=== PATIENT | male | born 1960 | race Caucasian/White ===

== ENCOUNTER → 2022-12-27 | Outpatient (CLI) | payer OTHER, SELFPAY ==
[2022-12-27 15:49] LABS: PSA,Total- Diagnostic 7.47 ng/mL (0.0-4.0)
== END | disposition home or self-care (01) ==
LOC: LAB 13:51
PROVIDERS: Referring Provider Registered Nurse; Visit Provider Registered Nurse
DX: C61 Malignant neoplasm of prostate (principal)
CPT/HCPCS: 36415; 84153

== ENCOUNTER → 2023-01-30 | Outpatient (CLI) | payer OTHER, SELFPAY ==
[2023-01-30 09:49] LABS: Anion Gap 14 (5-15); BUN 106 mg/dL (7-18); BUN/Creat Ratio 26.1 RATIO (10-20); Calcium,Total 9.1 mg/dL (8.5-10.1); Chloride 105 mmol/L (98-107); Creatinine, Serum 4.06 mg/dL (0.70-1.30); EST Glomerular Filtration Rate 16 mL/min (>60); Est Glom Filt Rate - Afr Amer 19 mL/min (>60); Glucose 82 mg/dL (74-106); Potassium 4.2 mmol/L (3.5-5.1); Sodium Level 133 mmol/L (136-145)
== END | disposition home or self-care (01) ==
LOC: LAB 08:13
PROVIDERS: PCP Family Medicine; Referring Provider Internal Medicine Nephrology; Visit Provider Internal Medicine Nephrology
DX: N17.9 Acute kidney failure, unspecified (principal)
CPT/HCPCS: 36415; 80048

== ENCOUNTER → 2023-04-17 | Outpatient (CLI) | payer OTHER, SELFPAY | END | disposition home or self-care (01) | PROVIDERS: PCP Family Medicine; Referring Provider Registered Nurse; Visit Provider Registered Nurse | DX: C61 Malignant neoplasm of prostate (principal) | CPT/HCPCS: 36415; 84153 ==

== ENCOUNTER → 2023-04-29 | Outpatient (CLI) | payer OTHER, SELFPAY | END | disposition home or self-care (01) | LOC: LABSPEC 16:26 | PROVIDERS: PCP Family Medicine; Referring Provider Urology; Visit Provider Urology | DX: R31.0 Gross hematuria (principal) | CPT/HCPCS: 87077; 87086; 87088; 87186 ==

== ENCOUNTER → 2023-11-07 | Outpatient (CLI) | payer OTHER, SELFPAY ==
[2023-11-07 09:13] LABS: PSA,Total- Diagnostic 6.03 ng/mL (0.0-4.0)
== END | disposition home or self-care (01) ==
LOC: LAB 08:19
PROVIDERS: PCP Family Medicine; Referring Provider Urology; Visit Provider Urology
DX: C61 Malignant neoplasm of prostate (principal)
CPT/HCPCS: 36415; 84153

== ENCOUNTER → 2023-12-17 | Outpatient (CLI) | payer SELFPAY ==
--- NOTE | 2023-12-17 10:51 | VDUE_ITS ---
Reason For Study: End stage renal failure, pre-op Right Lower Arm Left Arm Proximal Radial artery diameter 2.3 x 2.4 Left Brachial artery diameter 5.2 x 4.6 mm. mm. Left Brachial artery waveform is triphasic . Proximal Radial artery waveform is Lateral Brachial vein diameter 4.3 x 4.4 mm. triphasic . Medial Brachial vein diameter 4.5 x 4.0 mm. Proximal Lateral Radial vein diameter 1.8 x Operating Room Manager Vein is present. 1.7 mm. Operating Room Manager Vein measures 2.6 mm. Proximal Medial Radial vein diameter 2.0 x Cephalic Vein at proximal upper arm measures 1.9 mm. 3.2 x 2.9 mm. Distal Radial artery diameter 1.9 x 1.7 mm. Cephalic vein at proximal upper arm depth Distal Lateral Radial vein diameter 1.2 x measures 5.7 mm. 1.3 mm. Cephalic Vein at mid upper arm measures 2.3 Distal Medial Radial vein diameter 1.3 x 1.3 x 2.5 mm. mm. Cephalic vein at mid upper arm depth Proximal Ulnar artery diameter 4.3 x 4.2 mm. measures 0.8 mm. Proximal Ulnar artery waveform is Cephalic Vein distal upper arm measures 2.6 triphasic . x 2.6 mm. Proximal Lateral Ulnar vein diameter 3.8 x Cephalic vein at distal upper arm depth 4.0 mm. measures 1.7 mm. Proximal Medial Ulnar vein diameter 3.8 x Cephalic Vein proximal forearm measures 2.9 3.9 mm. x 3.3 mm. Distal Ulnar artery diameter 1.7 x 1.7 mm. Cephalic Vein at mid forearm measures 2.9 x Distal Lateral Ulnar vein diameter 1.3 x 1.3 3.1 mm. mm. Cephalic Vein at distal forearm measures 2.1 Distal Medial Ulnar vein diameter 1.1 x 1.2 x 2.3 mm. mm. Proximal Basilic vein measures 4.5 x 4.8 mm. Right Arm Proximal Basilic vein depth measures 4.9 mm. Right Brachial artery diameter 4.2 x 4.7 mm. Mid Basilic vein measures 4.0 x 4.1 mm. Right Brachial artery waveform is Mid Basilic vein depth measures 3.1 mm. triphasic . Distal Basilic vein measures 2.6 x 2.9 mm. Lateral Brachial vein diameter 4.5 x 4.8 mm. Distal Basilic vein depth measures 2.0 mm. Medial Brachial vein diameter 4.8 x 4.2 mm. Left Lower Arm Operating Room Manager Vein is present. Proximal Radial artery diameter 2.2 x 2.0 Operating Room Manager Vein measures 1.2 mm. mm. Cephalic Vein at proximal upper arm measures Proximal Radial artery waveform is 2.2 x 2.4 mm. triphasic . Cephalic vein at proximal upper arm depth Proximal Lateral Radial vein diameter 1.9 x measures 6.2 mm. 1.7 mm. Cephalic vein at mid upper arm is tortuous Proximal Medial Radial vein diameter 2.2 x and small in diameter. 1.9 mm. Cephalic Vein distal upper arm measures 0.8 Distal Radial artery diameter 1.8 x 1.9 mm. x 0.8 mm. Distal Lateral Radial vein diameter 0.8 x Cephalic vein at distal upper arm depth 0.7 mm. measures 3.3 mm. Distal Medial Radial vein diameter 1.7 x 1.9 Cephalic Vein proximal forearm measures 1.0 mm. x 1.0 mm. Proximal Ulnar artery diameter 4.4 x 4.4 mm. Cephalic Vein at mid forearm measures 1.4 x Proximal Ulnar artery waveform is 1.4 mm. triphasic . Cephalic Vein at distal forearm measures 1.0 Proximal Lateral Ulnar vein diameter 4.1 x x 1.1 mm. 3.8 mm. Proximal Basilic vein measures 3.6 x 3.3 mm. Proximal Medial Ulnar vein diameter 4.4 x Proximal Basilic vein depth measures 11.8 4.9 mm. mm. Distal Ulnar artery diameter 1.6 x 1.6 mm. Mid Basilic vein measures 3.4 x 3.8 mm. Distal Lateral Ulnar vein diameter 1.2 x 1.4 Mid Basilic vein depth measures 4.9 mm. mm. Distal Basilic vein measures 3.5 x 4.0 mm. Distal Medial Ulnar vein diameter 1.6 x 1.8 Distal Basilic vein depth measures 2.3 mm. mm. VL/Dialysis Vein Map PRE-OP BILAT Interpretation Summary Patent and compressible bilateral upper extremity cephalic and basilic veins wi th dimensions as noted. Right forearm cephalic vein appears small Bilateral upper arm basilic veins are adequate Bilateral radial/ulner veins noted Bilateral radial and brachial arteries have normal diameter and flow Ordering Physician: Dick Shell Referring Physician: Sergio Burton Performed By: Qi Araujo RVT ???
== END | disposition home or self-care (01) ==
PROVIDERS: PCP Family Medicine; Referring Provider Family Medicine; Visit Provider Surgery
DX: Z01.818 Encounter for other preprocedural examination (principal); N18.6 End stage renal disease
CPT/HCPCS: 93985

== ENCOUNTER 2024-02-06 11:49 | Day surgery (SDC) | payer SELFPAY, OTHER ==
[2024-02-06] VITALS (8 sets, daily range): BP systolic 81–140; BP diastolic 57–94; PULSE 71–79; RESP 16; TEMP 36.1–36.9; O2SAT 95–100; BMI 28.8
--- NOTE | 2024-02-06 12:49 | PCM.HP.BLA ---
History and Physical Date of Admission: 02/06/24 Visit Reasons: FISTULA Chief Complaint: fistula Is patient in pain?: No Allergies acetaminophen [From Tylenol-Codeine #3] Allergy (Intermediate, Verified 01/21/24 14:30) Rashcodeine [From Tylenol-Codeine #3] Allergy (Intermediate, Verified 01/21/24 14:30) Rash Medications apixaban 2.5 mg tablet (Eliquis) 2.5 mg PO BID 01/21/24 [History Confirmed 01/21/24] insulin glargine 100 unit/mL (3 mL) subcutaneous pen (Basaglar KwikPen U-100 Insulin) 18 unit subcut BID 01/21/24 [History Confirmed 01/21/24] insulin lispro 100 unit/mL subcutaneous pen (Humalog KwikPen (U-100) Insulin) 8 unit subcut TID 01/21/24 [History Confirmed 01/21/24] metoprolol tartrate 25 mg tablet 25 mg PO BID 01/21/24 [History Confirmed 01/21/24] PFSH Medical History (Updated 01/21/24 @ 14:26 by Kirsten Coles) A-fib Diabetes End stage renal disease Pre-op testing Prostate cancer Surgical History (Updated 01/21/24 @ 14:25 by Kirsten Coles) History of open heart surgery Family History (Updated 01/21/24 @ 14:27 by Kirsten Coles) Mother Diabetes Kidney diseaseBrother DiabetesSister Diabetes Social History (Updated 01/21/24 @ 14:27 by Kirsten Coles) Smoking Status: Never smoker alcohol intake: never substance use type: does not use HPI HPI HPI: 63-year-old gentleman is being referred by Dr Araseli Lopez for surgical consultation regarding creation of arteriovenous hemodialysis fistula. A written copy my surgical consult and recommendations will be returned to him. The patient is currently on hemodialysis since early November via tunneled right IJ dialysis catheters. He is right arm dominant. He has had open heart surgery and valve replacement. He also apparently has had atrial fibrillation and for that is on Eliquis. Previous to that he was on low-dose aspirin for his valve. He has had diabetes for at least 15 years and is currently insulin-dependent. December 17, 2023 Reason For Study: End stage renal failure, pre-op Right Lower Arm Left Arm Proximal Radial artery diameter 2.3 x 2.4 Left Brachial artery diameter 5.2 x 4.6 mm. mm. Left Brachial artery waveform is triphasic . Proximal Radial artery waveform is Lateral Brachial vein diameter 4.3 x 4.4 mm. triphasic . Medial Brachial vein diameter 4.5 x 4.0 mm. Proximal Lateral Radial vein diameter 1.8 x Wax Pattern Coater Vein is present. 1.7 mm. Wax Pattern Coater Vein measures 2.6 mm. Proximal Medial Radial vein diameter 2.0 x Cephalic Vein at proximal upper arm measures 1.9 mm. 3.2 x 2.9 mm. Distal Radial artery diameter 1.9 x 1.7 mm. Cephalic vein at proximal upper arm depth Distal Lateral Radial vein diameter 1.2 x measures 5.7 mm. 1.3 mm. Cephalic Vein at mid upper arm measures 2.3 Distal Medial Radial vein diameter 1.3 x 1.3 x 2.5 mm. mm. Cephalic vein at mid upper arm depth Proximal Ulnar artery diameter 4.3 x 4.2 mm. measures 0.8 mm. Proximal Ulnar artery waveform is Cephalic Vein distal upper arm measures 2.6 triphasic . x 2.6 mm. Proximal Lateral Ulnar vein diameter 3.8 x Cephalic vein at distal upper arm depth 4.0 mm. measures 1.7 mm. Proximal Medial Ulnar vein diameter 3.8 x Cephalic Vein proximal forearm measures 2.9 3.9 mm. x 3.3 mm. Distal Ulnar artery diameter 1.7 x 1.7 mm. Cephalic Vein at mid forearm measures 2.9 x Distal Lateral Ulnar vein diameter 1.3 x 1.3 3.1 mm. mm. Cephalic Vein at distal forearm measures 2.1 Distal Medial Ulnar vein diameter 1.1 x 1.2 x 2.3 mm. mm. Proximal Basilic vein measures 4.5 x 4.8 mm. Right Arm Proximal Basilic vein depth measures 4.9 mm. Right Brachial artery diameter 4.2 x 4.7 mm. Mid Basilic vein measures 4.0 x 4.1 mm. Right Brachial artery waveform is Mid Basilic vein depth measures 3.1 mm. triphasic . Distal Basilic vein measures 2.6 x 2.9 mm. Lateral Brachial vein diameter 4.5 x 4.8 mm. Distal Basilic vein depth measures 2.0 mm. Medial Brachial vein diameter 4.8 x 4.2 mm. Left Lower Arm Wax Pattern Coater Vein is present. Proximal Radial artery diameter 2.2 x 2.0 Wax Pattern Coater Vein measures 1.2 mm. mm. Cephalic Vein at proximal upper arm measures Proximal Radial artery waveform is 2.2 x 2.4 mm. triphasic . Cephalic vein at proximal upper arm depth Proximal Lateral Radial vein diameter 1.9 x measures 6.2 mm. 1.7 mm. Cephalic vein at mid upper arm is tortuous Proximal Medial Radial vein diameter 2.2 x and small in diameter. 1.9 mm. Cephalic Vein distal upper arm measures 0.8 Distal Radial artery diameter 1.8 x 1.9 mm. x 0.8 mm. Distal Lateral Radial vein diameter 0.8 x Cephalic vein at distal upper arm depth 0.7 mm. measures 3.3 mm. Distal Medial Radial vein diameter 1.7 x 1.9 Cephalic Vein proximal forearm measures 1.0 mm. x 1.0 mm. Proximal Ulnar artery diameter 4.4 x 4.4 mm. Cephalic Vein at mid forearm measures 1.4 x Proximal Ulnar artery waveform is 1.4 mm. triphasic . Cephalic Vein at distal forearm measures 1.0 Proximal Lateral Ulnar vein diameter 4.1 x x 1.1 mm. 3.8 mm. Proximal Basilic vein measures 3.6 x 3.3 mm. Proximal Medial Ulnar vein diameter 4.4 x Proximal Basilic vein depth measures 11.8 4.9 mm. mm. Distal Ulnar artery diameter 1.6 x 1.6 mm. Mid Basilic vein measures 3.4 x 3.8 mm. Distal Lateral Ulnar vein diameter 1.2 x 1.4 Mid Basilic vein depth measures 4.9 mm. mm. Distal Basilic vein measures 3.5 x 4.0 mm. Distal Medial Ulnar vein diameter 1.6 x 1.8 Distal Basilic vein depth measures 2.3 mm. mm. VL/Dialysis Vein Map PRE-OP BILAT Interpretation Summary Patent and compressible bilateral upper extremity cephalic and basilic veins with dimensions as noted. Right forearm cephalic vein appears small Bilateral upper arm basilic veins are adequate Bilateral radial/ulner veins noted Bilateral radial and brachial arteries have normal diameter and flow Ordering Physician: Dick Shell Referring Physician: Sergio Burton Performed By: Qi Araujo RVT General General: No weight change, appetite, fatigue, colon cancer, breast cancer or weakness HEENT HEENT: No difficulty swallowing, eye injury, eye surgery, swollen glands or hoarseness Endo Endocrine: Yes diabetes mellitus; No thyroid disease, thyroid cancer, Hair loss, heat intolerance or cold intolerance Skin Skin: No rash or changing moles Musc Musculoskeletal: Yes back problems; No arthritis, rheumatoid arthritis, gout or joint pain Cardio Cardiovascular: Yes atrial fibrillation; No murmur, pacemaker, heart disease, high blood pressure, heart attack, heart stent, palpitations, shortness of breat with exertion or chest pain Psych Psychiatric: No depression, anxiety or hearing voices Resp Respiratory: Yes shortness of breath, No sleep apnea, No cough, No COPD, No asthma, No emphysema and No wheezing Gastro Gastrointestinal: No abdominal pain, No nausea or vomiting, No diarrhea, No constipation, No blood in stool, No acid reflux, No hemorrhoids, No ulcers, No gallbladder problem and No black,tarry stools [place]nn Hematologic: Yes blood thinners, No blood disorders, No bleeding, Yes anemia and No blood clots Neuro Neurologic: No system reviewed and no additional complaints, except as documented, No as per HPI, No abnormal gait, No abnormal hearing, No abnormal movements, No abnormal speech, No behavioral changes, No burning sensations, No confusion, No convulsions, No disequilibrium, No dizziness, No localized weakness, No frequent falls, No headache(s), No lack of coordination, No loss of vision, No memory loss, No numbness, No other visual disturbances, No radicular pain, No restless legs, No sensory deficit, No syncope, No tingling, No tremor(s), No weakness and No other Exam Const General: cooperative, comfortable and no acute distress Nutritional Appearance: average body habitus Other: Appears older than stated age [facility] Head: normal to inspection Eyes General: appearance normal, both eyes and all related structures Chest Other: Thoracic kyphosis noted. Clear to auscultation Well-healed median sternotomy incision Resp Effort & Inspection: normal respiratory effort Auscultation: clear to auscultation bilaterally Cardio Rate: regular rate Other: Audible cardiac click GI Palpation: soft and no hepatosplenomegaly Musc Other: Kyphosis Skin Other: No upper extremity rashes Neuro General: patient alert, patient awake and patient oriented x3 Extrem Other: Left forearm has a palpable and visible cephalic vein that distends with compression. It traces to the antecubital space. In the forearm there are several at least 3 side branches. Left radial arteries palpable at 2+. Regulo test demonstrates some ulnar filling but the majority appears to be through the radial artery. Assessment and Plan Assessment and Plan (1) End stage renal disease: Status: Acute Plan 63-year-old gentleman with end-stage renal disease on chronic hemodialysis via right IJ tunneled dialysis catheters. He is right arm dominant. Based upon vein mapping he appears to be having adequate forearm left cephalic vein flow. I propose for him a left forearm radiocephalic arteriovenous hemodialysis fistula creation. He has several visible sidebranches of the forearm which anticipate hopefully being able to do a mini ligation of those areas at that time. I have discussed with him the technique, benefit, risk, alternatives. No guarantees of success have been offered. We will have him hold his Eliquis for 2 days preprocedure as it is being given for atrial fibrillation. I anticipate being able to proceed with this under monitored anesthesia care and local anesthetic. We will schedule and proceed at his discretion. I appreciate the opportunity of assisting with the surgical care. Copy: Dr. Sergio Burton and Dr Araseli Shell M.D., F.A.C.S I have examined the patient and the H&P has been reviewed. There are no clinical changes since date of exam. Dick Shell M.D., F.A.C.S.
--- NOTE | 2024-02-06 12:50 | DCINST_ITS ---
Discharge Instructions Procedure Fistula Diet Discharge Diet: Renal Diet Activity Discharge Activity: May Not Drive (for 2-3 days or while taking narcotic pain medications.), May Shower and May Take a Tub Bath (in 5 days.) Lifting Restrictions: 5 pounds Keep extremity elevated above heart level: - (Keep arm elevated above the heart level for 3 days.) Dressing / Incision Call your doctor if your incision/area has: Continuous Slow Oozing, Sudden Increased Bleeding (apply pressure and call your doctor.), Increased Pain/ Swelling, Increased Redness and Foul Smelling Discharge Call your doctor if you observe: Fever of 101 or Higher Suture Line Care: Avoid Pulling/Pushing and Avoid Pinching/Bending Cleanse incision/area with: Keep Dressing Clean & Dry Additional Dressing/Incision Instructions:: Change or remove dressing in one day. May protect with a gauze bandaid. You may exercise your left hand with a stress ball to encourage Maturalization of the fistula You may resume your Eliquis on Friday, February 09, 2024 if you have not had any problems with the incision at that time Follow Up Care Please Follow Up With: Dick Shell MD When: Call [phone] to make an appointment for follow up in 1 week. Test Results: Test results from this visit will be discussed in further detail at your follow- up appointment, if applicable. Discharge Plan Admission Primary Reason for Your Visit: Creation of arteriovenous hemodialysis fistula Attending Provider: Dick Shell Primary Care Provider: Sergio Burton Discharge Orders/Prescriptions Prescriptions: New tramadol 50 mg tablet 50 mg PO Q8H PRN (Reason: pain) Qty: 5 0RF Continued Eliquis 2.5 mg tablet 2.5 mg PO BID Patient Comments: STOP 2 DAYS PRIOR TO PROCEDURE insulin glargine [Basaglar KwikPen U-100 Insulin] 100 unit/mL (3 mL) insulin pen 18 unit subcut BID insulin lispro [Humalog KwikPen Insulin] 100 unit/mL insulin pen 8 unit subcut TID metoprolol tartrate 25 mg tablet 25 mg PO BID nebivolol [Bystolic] .ROUTE Referrals / Follow Up: Sergio Burton DO [Primary Care Provider] - Disposition Disposition (needs filled in before D/C Order can be placed): Home, Self Care
[2024-02-06] MEDS: 0.9% Normal Saline (500mL Bag) 500 ML 15 ML IV (13:05)
[2024-02-06] MEDS: Cefazolin 2 GM in 0.9% Normal Saline (100mL Bag) 100 ML IV (13:32)
[2024-02-06] MEDS: Bupivacaine Mpf 0.5% 30 ML VIAL (13:55)
[2024-02-06] MEDS: Heparin Injection (Vial) 5,000 UNIT/ML VIAL 5000 UNIT (13:55)
[2024-02-06] MEDS: Lidocaine 1% (30 ml sdv) 30 ML Vial (13:55)
[2024-02-06 14:16] LABS: Bedside Glucose 150 mg/dL (74-106)
--- NOTE | 2024-02-06 14:58 | PCM.OPRPT ---
Report of Operation Date of Procedure: 02/06/24 Pre-Operative Diagnosis: Chronic renal failure in need of hemodialysis Post-Operative Diagnosis: Same Surgery/Procedure Performed:: Left forearm radiocephalic arteriovenous hemodialysis fistula creation Description of Surgical Findings:: Timeout informed consent was obtained. 63-year-old gentleman was taken to the operating placed upon the table underwent monitored anesthesia care. 1% lidocaine mixed 50-50 was 0.5% Marcaine was used as a local anesthetic. 10 cc was used. The left upper extremity was sterilely prepped and draped. Local was instilled an oblique incision was made along the radial aspect of the left wrist. The cephalic vein had been mapped out. Sharp and blunt dissection is identified the cephalic vein. There were multiple small sidebranches were sure were secured with hemoclips. Adequate portion was mobilized. Then sharp and blunt dissection was used to identify the radial artery. Unfortunate the artery was rather calcified. Patient received 7000 units of heparin IV. The vein was ligated distally with a Hemoclip vein was then irrigated easily it was spatulated. Peripheral vascular clamps were placed on the radial artery and 11 blade was used to make arteriotomy which was extended with Joyce scissors. A venous and 2 side arterial anastomosis created with a running 7-0 Prolene. Prior to completion I used Bony dilators. A 1-1/2 mm Bony dilator would easily pass proximally in the radial artery. A 2 mm dilator were passed in the distal radial artery but then there was an area of calcification approximately 7 cm more proximal or I did not want to portion disrupt the artery. No further clamps were placed after care at dilating simply use soft Vesseloops. The anastomosis was completed. Hemostasis was intact. There appeared to be good flow within the vein and a good positional lie. Doppler signal demonstrated good flow. I then identified there was a major sidebranch more proximally in the forearm and instilled local there made a transverse incision and I ligated that sidebranch with a Hemoclip. I reinspected the major venous flow of the cephalic vein and it was intact. The primary wound was closed with deep sutures of interrupted 3-0 Vicryl and then running subicular 4-0 Monocryl. The extent additional ligation site was closed with interrupted 4-0 Monocryl. Cavilon Steri-Strips Telfa tape dressing applied followed by gentle 4 x 4 and soft roll and Hector wrap with the forearm. The patient did receive 20 mg of protamine as reversal agent as well. The hand appear to be viable at the completion of the procedure and there was actually quite a strong Doppler ulnar signal. He was taken to the recovery room in satisfied condition no apparent complication Specimen none. Drains none. Blood loss minimal Dick Shell M.D., F.A.C.S. Surgeon: Dick Shell Type of Anesthesia: Local MAC Anesthesiologist: Anitra Mauro
== END 2024-02-06 16:45 | disposition home or self-care (01) ==
LOC: SDC 11:54 → AC 12:17
PROVIDERS: PCP Family Medicine; Referring Provider Family Medicine; Visit Provider Surgery
PROC: (CPT 36818; principal; 2024-02-06 14:05)
DX: Z49.01 Encounter for fitting and adjustment of extracorporeal dialysis catheter (principal); N18.6 End stage renal disease; I12.0 Hypertensive chronic kidney disease with stage 5 chronic kidney disease or end stage renal disease; I48.91 Unspecified atrial fibrillation; E11.22 Type 2 diabetes mellitus with diabetic chronic kidney disease; Z79.4 Long term (current) use of insulin; Z79.01 Long term (current) use of anticoagulants; Z79.899 Other long term (current) drug therapy
CPT/HCPCS: 36818; 01844; 82962; A4648; J7040

== ENCOUNTER → 2024-02-25 | Outpatient (CLI) | payer OTHER, SELFPAY ==
[2024-02-25 10:52] LABS: Absolute Lymphocyte Count 1.76 X10^3/uL (0.83-4.51); Absolute Neutrophil Count 5.8 X10^3/uL (2.0-7.7); Basophil# 0.06 X10^3/uL; Basophil% 0.7 % (0-1); Eosinophil# 0.26 X10^3/uL; Eosinophils% 2.9 % (0-5); Hematocrit 33.7 % (40-54); Lymphocyte # 1.76 X10^3/ul (0.83-4.51); Lymphocyte % 19.6 % (19-41); Mean Corp Hgb Conc 32.6 g/dL (32-36); Mean Corpuscular Hgb 28.6 pg (27.0-32.0); Mean Corpuscular Volume 87.8 fL (80-94); Mean Platelet Vol. 9.5 fl (6.2-12.0); Monocyte# 1.04 X10^3/uL; Monocyte% 11.6 % (0-10); NRBC Flagged by Analyzer 0 % (0-5); Neutrophil # 5.82 X10^3/uL (2.7-7.7); Neutrophil % 64.8 % (47-70); Platelet Count 336 K/mm3 (150-450); RBC Distribution Width CV 14.5 % (11.6-14.6); RBC Distribution Width SD 45.1 fl (35.1-43.9); Red Blood Count 3.84 M/mm3 (4.6-6.2)
[2024-02-25 11:31] LABS: Anion Gap 14 (5-15); BUN 82 mg/dL (7-18); Calcium,Total 8.1 mg/dL (8.5-10.1); Chloride 96 mmol/L (98-107); Creatinine, Serum 6.32 mg/dL (0.70-1.30); EST Glomerular Filtration Rate 10 mL/min (>60); Est Glom Filt Rate - Afr Amer 12 mL/min (>60); Glucose 109 mg/dL (74-106); Potassium 3.3 mmol/L (3.5-5.1); Sodium Level 136 mmol/L (136-145)
== END | disposition home or self-care (01) ==
LOC: PAVLAB 10:12
PROVIDERS: PCP Family Medicine; Referring Provider Physician Assistant; Visit Provider Physician Assistant
DX: T82.898A Other specified complication of vascular prosthetic devices, implants and grafts, initial encounter (principal); X58.XXXA Exposure to other specified factors, initial encounter
CPT/HCPCS: 36415; 80048; 85025

== ENCOUNTER 2024-02-26 07:24 | Day surgery (SDC) | payer OTHER, SELFPAY ==
[2024-02-25 13:40] VITALS: BMI 29.0
--- NOTE | 2024-02-26 07:55 | PCM.HP.BLA ---
History and Physical Date of Admission: 02/26/24 Chief Complaint: 3 week fistula check Allergies acetaminophen [From Tylenol-Codeine #3] Allergy (Intermediate, Verified 02/25/24 09:01) Rashcodeine [From Tylenol-Codeine #3] Allergy (Intermediate, Verified 02/25/24 09:01) Rash Medications apixaban 2.5 mg tablet (Eliquis) 2.5 mg PO BID 01/21/24 [History Confirmed 02/25/24] insulin glargine 100 unit/mL (3 mL) subcutaneous pen (Basaglar KwikPen U-100 Insulin) 18 unit subcut BID 01/21/24 [History Confirmed 02/25/24] insulin lispro 100 unit/mL subcutaneous pen (Humalog KwikPen (U-100) Insulin) 8 unit subcut TID 01/21/24 [History Confirmed 02/25/24] metoprolol tartrate 25 mg tablet 25 mg PO BID 01/21/24 [History Confirmed 02/25/24] nebivolol .Route 01/28/24 [History Confirmed 02/25/24] tramadol 50 mg tablet 50 mg PO Q8H PRN pain #5 tabs 02/06/24 [Rx Confirmed 02/25/24] PFSH Medical History (Updated 02/25/24 @ 13:10 by Marii SAPP PATerrence) A-fib [facility] Cardiology follow-up encounter Diabetes End stage renal disease Former smoker History of echocardiogram History of renal dialysis History of renal disease History of stress test Hypertension Injury of back Insulin dependent diabetes mellitus Pre-op testing Prostate cancer Redness of skin Shortness of breath on exertion Wears dentures Wears glasses Wears hearing aid Surgical History History of cardiac catheterization History of open heart surgery Hx of surgical procedure Hx of surgical procedure Hx of tonsillectomy Family History (Updated 01/21/24 @ 14:27 by Kirsten Coles) Mother Diabetes Kidney diseaseBrother DiabetesSister Diabetes Social History (Updated 01/21/24 @ 14:27 by Kirsten Coles) Smoking Status: Never smoker alcohol intake: never substance use type: does not use HPI HPI HPI: Patient is a 63 y/o M I am following s/p left forearm radiocephalic arteriovenous hemodialysis fistula creation by Dr. Shell on 02/06/24. Patient tolerated the procedure well. Patient denies any pain/discomfort at the fistula site. He denies any numbness/tingling at the hand or fingertips. He is currently on dialysis via chest catheter. Dr. Garcia is his spinner hydraulic. Patient returns for his 2nd post-operative visit. Patient states he is performing hand exercises with his stress ball, which he has brought along. He notes comparing his fistula with others at dialysis and noticing that his fistula is just not as large. He notes he is unable to feel the fistula. He denies any concerns with his chest catheters. He has never had any intervention on his fistula previously. ROS General General: No weight change, appetite, fatigue, colon cancer, breast cancer or weakness HEENT HEENT: No difficulty swallowing, eye injury, eye surgery, swollen glands or hoarseness Endo Endocrine: Yes diabetes mellitus; No thyroid disease, thyroid cancer, Hair loss, heat intolerance or cold intolerance Skin Skin: No rash or changing moles Musc Musculoskeletal: Yes back problems; No arthritis, rheumatoid arthritis, gout or joint pain Cardio Cardiovascular: Yes atrial fibrillation; No murmur, pacemaker, heart disease, high blood pressure, heart attack, heart stent, palpitations, shortness of breat with exertion or chest pain Psych Psychiatric: No depression, anxiety or hearing voices Resp Respiratory: Yes shortness of breath, No sleep apnea, No cough, No COPD, No asthma, No emphysema and No wheezing Gastro Gastrointestinal: No abdominal pain, No nausea or vomiting, No diarrhea, No constipation, No blood in stool, No acid reflux, No hemorrhoids, No ulcers, No gallbladder problem and No black,tarry stools Glynn Hematologic: Yes blood thinners, No blood disorders, No bleeding, Yes anemia and No blood clots Neuro Neurologic: No system reviewed and no additional complaints, except as documented, No as per HPI, No abnormal gait, No abnormal hearing, No abnormal movements, No abnormal speech, No behavioral changes, No burning sensations, No confusion, No convulsions, No disequilibrium, No dizziness, No localized weakness, No frequent falls, No headache(s), No lack of coordination, No loss of vision, No memory loss, No numbness, No other visual disturbances, No radicular pain, No restless legs, No sensory deficit, No syncope, No tingling, No tremor(s), No weakness and No other Exam Const General: cooperative, healthy appearing, comfortable and no acute distress [facility] Head: normal to inspection Eyes General: appearance normal, both eyes and all related structures Neck Neck: normal visual inspection Neck mass: No Resp Effort & Inspection: normal respiratory effort Auscultation: clear to auscultation bilaterally Cardio Rate: regular rate Rhythm: regular rhythm GI Inspection: normal to inspection Palpation: soft Auscultation: normal bowel sounds Musc Cervical Spine: normal cervical lordosis Skin General: no rashes or lesions noted Neuro General: no focal motor deficits and CN's II-XI intact bilaterally Extrem General: normal to inspection Other: Left forearm AV fistula- good pulse, no thrill and very faint bruit. Psych Appearance: grossly normal Affect: normal affect Assessment and Plan Assessment and Plan (1) Problem with dialysis access: Status: Acute Qualifiers: Encounter type: initial encounter Qualified Code(s): T82.898A - Other specified complication of vascular prosthetic devices, implants and grafts, initial encounter Plan: Dr. Shell has also evaluated this patient. Dr. Shell will plan to perform an urgent left forearm fistulogram with possible intervention. Procedure details, risks and benefits have been explained. Patient has dialysis tomorrow, however we will attempt to notify the dialysis center that we have his fistulogram scheduled urgently tomorrow. He will obtain lab work today. Patient has had the opportunity to ask and have questions answered. Patient verbally understands and agrees with the plan. He is on Eliquis, which the patient may continue for the procedure. I have examined the patient and the H&P has been reviewed. There are no clinical changes since date of exam. Dick Shell M.D., F.A.C.S.
--- NOTE | 2024-02-26 09:57 | OP.PCM_ITS ---
Report of Operation Date of Procedure: 02/26/24 Pre-Operative Diagnosis: Failure to mature left forearm radiocephalic arteriove nous hemodialysis fistula Post-Operative Diagnosis: Mild venous arterial anastomotic stenosis, moderate proximal fistula stenosis, high-grade central venous outflow stenosis Surgery/Procedure Performed:: Left upper extremity fistulogram with 2.5 x 08 emerge arterial anastomotic angioplasty, proximal fistula 5 x 80 mm EverCross balloon maturation angioplasty, central venous outflow 10 x 2 Cleveland angioplasty and 12 x 4 Massillon stent angioplasty Description of Surgical Findings:: Timeout informed consent was obtained. 63-year-old gentleman was taken to special procedures lab placed upon the table. The left upper extremity was sterilely prepped and draped. 50 mcg of fentanyl 1 mg Versed were given as intravenous sedation. 2% lidocaine was used as a local anesthetic. Throughout the procedure a total of 15 cc was used. Local was instilled at the wrist area to try to get a micropuncture to go retrograde with flow could not achieve that then used a simple suture of 4-0 nylon to help secure that spot. I progressed more proximally in the forearm and then used ultrasound and local anesthetic to gain retrograde access to the fistula at that spot. Micropuncture needle micropuncture wire 6 Guyanese short sheath dilator. Then used a 035 angled Glidewire and a 4 Guyanese glide cath was able to get into the radial artery or proximal to the anastomosis. Using Isovue contrast a fistulogram was obtained. This demonstrated the artery was very calcific and diminutive. There appeared to be just some slight stenosis at the arterial anastomosis. I then exchanged out for a 014 stabilizer wire and placed a 2.5 x 08 emergency balloon and performed balloon angioplasty for 2 minutes. Follow-up imaging suggested improvement. Then placed to 035 Glidewire back in and performed a 5 x 80 mm EverCross balloon maturation angioplasty of the proximal portion of the fistula at the swings segment and then slightly more proximally in the forearm. That was brought up to maximum insufflation and held for 2 minutes. Imaging then demonstrated improvement. I then finished a fistulogram of the upper extremity that appeared to be hang up of contrast centrally. So then in the forearm using ultrasound again in 2% local got micropuncture needle access to the cephalic vein and placed initially a 6 Guyanese sheath placed a Glidewire and a 5 Guyanese glide cath and it was apparent that the axillary vein jugular vein subclavian vein junction there was stenosis. I initially placed a 10 x 2 Cleveland balloon and performed balloon angioplasty but this was insufficient so then up sheath to a 7 Guyanese sheath and performed a 12 x 4 Massillon balloon angioplasty. There appeared to be improvement so I completed the procedure. Sheaths were removed few sutures of 4-0 nylon was placed. He tolerated the procedure well no apparent complication blood loss was minimal. He was taken to the recovery area in satisfactory condition. Imagings demonstrate a left forearm radiocephalic arteriovenous hemodialysis fistula. There was mild arterial anastomotic stenosis which appeared to be improved subsequent to the 2.5 mm diameter angioplasty. There was moderate stenosis of the proximal portion of the fistula in the distal forearm which was improved after the balloon maturation angioplasty with the 5 x 80 mm EverCross balloon. The upper arm outflow majorities through the basilic vein. The upper arm cephalic vein was rather diminutive. Central venously at the junction of the axillary jugular and subclavian veins there appeared to be stenosis present which was improved with the Cleveland and subsequent Massillon angioplasty but seemingly not completely resolved. Clinically however the patient appeared to be improved. Ongoing clinical follow-up and management is planned. Total contrast used was 41 cc Dick Shell M.D., F.A.C.S. Surgeon: Dick Shell Type of Anesthesia: IV Sedation and Local
== END 2024-02-26 11:00 | disposition home or self-care (01) ==
LOC: CLSP 07:28
PROVIDERS: PCP Family Medicine; Referring Provider Surgery; Visit Provider Surgery
DX: T82.856A Stenosis of peripheral vascular stent, initial encounter (principal); N18.6 End stage renal disease; I12.0 Hypertensive chronic kidney disease with stage 5 chronic kidney disease or end stage renal disease; I48.91 Unspecified atrial fibrillation; E11.59 Type 2 diabetes mellitus with other circulatory complications; Z79.4 Long term (current) use of insulin; E11.22 Type 2 diabetes mellitus with diabetic chronic kidney disease; T82.898A Other specified complication of vascular prosthetic devices, implants and grafts, initial encounter; I87.2 Venous insufficiency (chronic) (peripheral); Z99.2 Dependence on renal dialysis; Z79.01 Long term (current) use of anticoagulants; Z79.899 Other long term (current) drug therapy; I87.1 Compression of vein; Y71.8 Miscellaneous cardiovascular devices associated with adverse incidents, not elsewhere classified
CPT/HCPCS: 36902; 36907; 76937; 99152; 99153; Q9967; C1725; C1769; C1887; C1894

== ENCOUNTER 2024-04-02 05:33 | Day surgery (SDC) | payer OTHER, SELFPAY ==
[2024-04-02] VITALS (7 sets, daily range): BP systolic 101–143; BP diastolic 67–84; PULSE 80–98; RESP 16; TEMP 36.4–36.7; O2SAT 95–100; BMI 29.5
[2024-04-02] MEDS: 0.9% Normal Saline (1000mL) 1,000 ML 15 ML IV (06:30)
--- NOTE | 2024-04-02 06:43 | PCM.HP.BLA ---
History and Physical Date of Admission: 04/02/24 ADDENDUM by REUBEN Zavala on 03/04/24 at 0747 Intake Chief Complaint: 1 wk f/u fistula Allergies acetaminophen [From Tylenol-Codeine #3] Allergy (Intermediate, Verified 03/03/24 13:41) Rashcodeine [From Tylenol-Codeine #3] Allergy (Intermediate, Verified 03/03/24 13:41) Rash Medications apixaban 2.5 mg tablet (Eliquis) 2.5 mg PO BID 01/21/24 [History Confirmed 03/03/24] insulin glargine 100 unit/mL (3 mL) subcutaneous pen (Basaglar KwikPen U-100 Insulin) 18 unit subcut BID 01/21/24 [History Confirmed 03/03/24] insulin lispro 100 unit/mL subcutaneous pen (Humalog KwikPen (U-100) Insulin) 8 unit subcut TID 01/21/24 [History Confirmed 03/03/24] metoprolol tartrate 25 mg tablet 25 mg PO BID 01/21/24 [History Confirmed 03/03/24] nebivolol .Route 01/28/24 [History Confirmed 03/03/24] tramadol 50 mg tablet 50 mg PO Q8H PRN pain #5 tabs 02/06/24 [Rx Confirmed 03/03/24] Assessment and Plan Assessment and Plan (1) Problem with dialysis access: Status: Acute Qualifiers: Encounter type: initial encounter Qualified Code(s): T82.898A - Other specified complication of vascular prosthetic devices, implants and grafts, initial encounter Plan: Exam Const General: cooperative, healthy appearing, comfortable and no acute distress [facility] Head: normal to inspection Eyes General: appearance normal, both eyes and all related structures Neck Neck: normal visual inspection Neck mass: No Resp Effort & Inspection: normal respiratory effort Auscultation: clear to auscultation bilaterally Cardio Rate: regular rate Rhythm: regular rhythm GI Inspection: normal to inspection Palpation: soft Auscultation: normal bowel sounds Musc Cervical Spine: normal cervical lordosis Skin General: no rashes or lesions noted Neuro General: no focal motor deficits and CN's II-XI intact bilaterally Extrem General: normal to inspection Other: Left forearm AV fistula- good pulse, no thrill and very faint bruit. Dr. Shell also evaluated this patient. Fistula was examined under ultrasound. There was noted to be thrombosis of the vein within the cephalic vein superior to the AC region. Patient's right upper extremity is noted to have diminutive veins as well with no sites to place a fistula using the patient's own veins. Psych Appearance: grossly normal Affect: normal affect Patient's left forearm arteriovenous fistula has failed due to a thrombosis of the superior cephalic vein of unknown etiology as patient is currently on Eliquis. Patient continue to be dialyzed via right chest catheter on Saturday, Saturday and Saturday at [place]. Dr. Shell recommended a right upper extremity brachial to basilic arteriovenous fistula creation with graft placement. Procedure details, risks and benefits have been explained to the patient and his spouse. Patient would like to discuss his options with Dr. Garcia at next dialysis treatment. We have tentatively given the patient a date and surgical preparation. Patient will contact our office to relay how he would like to proceed. Patient's information will also be sent to our Financial liaison, [place], to assist with package pricing for the procedure. Patient is on Eliquis, which he will need to hold 2 days prior to the procedure. We will also start the patient on an 81 mg aspirin daily. Patient will continue this medication for the procedure. Patient and his spouse have had the opportunity to ask and have questions answered. Patient verbally understands and agrees with the plan. 03/04/24 0747 <Electronically signed by Marii SAPP PA-C> Date Marii Zavala PA-C cc: Dr. Araseli Lopez MD; Dr. 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 Accompanied by: Is patient in pain?: No Allergies acetaminophen [From Tylenol-Codeine #3] Allergy (Intermediate, Verified 03/03/24 13:41) Rashcodeine [From Tylenol-Codeine #3] Allergy (Intermediate, Verified 03/03/24 13:41) Rash Medications apixaban 2.5 mg tablet (Eliquis) 2.5 mg PO BID 01/21/24 [History Confirmed 03/03/24] insulin glargine 100 unit/mL (3 mL) subcutaneous pen (Basaglar KwikPen U-100 Insulin) 18 unit subcut BID 01/21/24 [History Confirmed 03/03/24] insulin lispro 100 unit/mL subcutaneous pen (Humalog KwikPen (U-100) Insulin) 8 unit subcut TID 01/21/24 [History Confirmed 03/03/24] metoprolol tartrate 25 mg tablet 25 mg PO BID 01/21/24 [History Confirmed 03/03/24] nebivolol .Route 01/28/24 [History Confirmed 03/03/24] tramadol 50 mg tablet 50 mg PO Q8H PRN pain #5 tabs 02/06/24 [Rx Confirmed 03/03/24] PFSH Medical History (Updated 02/25/24 @ 13:10 by Marii SAPP PAAkshatC) A-fib [facility] Cardiology follow-up encounter Diabetes End stage renal disease Former smoker History of echocardiogram History of renal dialysis History of renal disease History of stress test Hypertension Injury of back Insulin dependent diabetes mellitus Pre-op testing Prostate cancer Redness of skin Shortness of breath on exertion Wears dentures Wears glasses Wears hearing aid Surgical History History of cardiac catheterization History of open heart surgery Hx of surgical procedure Hx of surgical procedure Hx of tonsillectomy Family History (Updated 01/21/24 @ 14:27 by Kirsten Coles) Mother Diabetes Kidney diseaseBrother DiabetesSister Diabetes Social History (Updated 01/21/24 @ 14:27 by Kirsten Coles) Smoking Status: Never smoker alcohol intake: never substance use type: does not use HPI HPI HPI: 63-year-old gentleman. He had failure to mature left forearm radiocephalic hemodialysis fistula and so wanted February 26, 2024 I performed a left upper extremity fistulogram. I treated the calcific radial artery and anastomosis with a 2.5 mm emerge angioplasty and then the proximal fistula did a balloon maturation angioplasty with a 5 x 80 mm EverCross and then central venous outflow was treated with a 10 x 2 [place] and then subsequently a 12 x 4 [place] balloon angioplasty. He returns now for follow-up. Please note that the operative note says stent but that is incorrect there was no stent placed. His original fistula was created on February 06, 2024. It was noted that his radial artery was diffusely stenotic and calcific. ROS General General: No weight change, appetite, fatigue, colon cancer, breast cancer or weakness HEENT HEENT: No difficulty swallowing, eye injury, eye surgery, swollen glands or hoarseness Endo Endocrine: Yes diabetes mellitus; No thyroid disease, thyroid cancer, Hair loss, heat intolerance or cold intolerance Skin Skin: No rash or changing moles Musc Musculoskeletal: Yes back problems; No arthritis, rheumatoid arthritis, gout or joint pain Cardio Cardiovascular: Yes atrial fibrillation; No murmur, pacemaker, heart disease, high blood pressure, heart attack, heart stent, palpitations, shortness of breat with exertion or chest pain Psych Psychiatric: No depression, anxiety or hearing voices Resp Respiratory: Yes shortness of breath, No sleep apnea, No cough, No COPD, No asthma, No emphysema and No wheezing Gastro Gastrointestinal: No abdominal pain, No nausea or vomiting, No diarrhea, No constipation, No blood in stool, No acid reflux, No hemorrhoids, No ulcers, No gallbladder problem and No black,tarry stools Glynn Hematologic: Yes blood thinners, No blood disorders, No bleeding, Yes anemia and No blood clots Neuro Neurologic: No system reviewed and no additional complaints, except as documented, No as per HPI, No abnormal gait, No abnormal hearing, No abnormal movements, No abnormal speech, No behavioral changes, No burning sensations, No confusion, No convulsions, No disequilibrium, No dizziness, No localized weakness, No frequent falls, No headache(s), No lack of coordination, No loss of vision, No memory loss, No numbness, No other visual disturbances, No radicular pain, No restless legs, No sensory deficit, No syncope, No tingling, No tremor(s), No weakness and No other Assessment and Plan Assessment and Plan (1) Problem with dialysis access: Status: Acute Qualifiers: Encounter type: initial encounter Qualified Code(s): T84.356K - Other specified complication of vascular prosthetic devices, implants and grafts, initial encounter Plan: The patient missed this time slot and presented to the office later in the day and was primarily seen by Marii Zavala PA-C. I did present and reevaluated his left forearm radiocephalic fistula. Unfortunate appears that he has upper arm basilic vein outflow thrombosis. Etiology to this is not clear. The patient then goes on to state that he was having clotting troubles during his dialysis despite being on Eliquis therapy. Since they initiated heparinization he has not had difficulties. I do not see an uncomplicated means of resolving the left upper extremity problem. We inspected the right upper extremity and at this point feel that a brachial to basilic AV graft would be reasonable although I have not provided the patient with any guarantees of success. Copy: Dr. Sergio Burton and Dr Araseli Shell M.D., F.A.C.S. Plan for a right upper extremity brachial to basilic arteriovenous hemodialysis graft creation. 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 We will proceed as noted. The patient is looking for a guarantee that the graft will work where is the fistula thrombosed. He is now on low-dose aspirin and states that his dialysis through his catheters is working better. He is aware that unfortunately cannot guarantee that the graft will not clot but that technically we will do our best. Dick Shell M.D., F.A.C.S.
--- NOTE | 2024-04-02 06:44 | EX.PCM.DISCH ---
Discharge Instructions Procedure Fistula Diet Discharge Diet: Renal Diet Activity Lifting Restrictions: 5 pounds Keep extremity elevated above heart level: - (Keep arm elevated above the heart level for 3 days.) Dressing / Incision Call your doctor if your incision/area has: Continuous Slow Oozing, Sudden Increased Bleeding (apply pressure and call your doctor.), Increased Pain/ Swelling, Increased Redness and Foul Smelling Discharge Call your doctor if you observe: Fever of 101 or Higher Suture Line Care: Avoid Pulling/Pushing and Avoid Pinching/Bending Cleanse incision/area with: Keep Dressing Clean & Dry Additional Dressing/Incision Instructions:: Elevate your right arm for comfort. Please leave the elastic wrap in place for 2 to 3 days. Keep the area clean and dry. After approximately 3 days she may remove the elastic wrap and the soft gauze. Continue to keep the incision clean and dry. Notify us if there is any drainage. Follow Up Care Please Follow Up With: Dick Shell MD When: Call [phone] to make an appointment for follow up in 1 week. Test Results: Test results from this visit will be discussed in further detail at your follow-up appointment, if applicable. Discharge Plan Admission Attending Provider: Dick Shell Primary Care Provider: Sergio Burton Instructions Print Language: Bhutanese Discharge Orders/Prescriptions Prescriptions: No Action Eliquis 2.5 mg tablet 2.5 mg PO BID Patient Comments: STOP 2 DAYS PRIOR TO PROCEDURE insulin glargine [Basaglar KwikPen U-100 Insulin] 100 unit/mL (3 mL) insulin pen 18 unit subcut BID insulin lispro [Humalog KwikPen Insulin] 100 unit/mL insulin pen 8 unit subcut TID metoprolol tartrate 25 mg tablet 25 mg PO BID nebivolol [Bystolic] 10 mg PO DAILY tramadol 50 mg tablet 50 mg PO Q8H PRN (Reason: pain) Qty: 5 0RF Referrals / Follow Up: Sergio Burton DO [Primary Care Provider] - Disposition Disposition (needs filled in before D/C Order can be placed): Home, Self Care
[2024-04-02 06:48] LABS: Bedside Glucose 81 mg/dL (74-106)
[2024-04-02] MEDS: Cefazolin 2 GM in 0.9% Normal Saline (100mL Bag) 100 ML IV (07:30)
[2024-04-02] MEDS: Heparin Injection (Vial) 5,000 UNIT/ML VIAL 5000 UNIT (09:09)
[2024-04-02] MEDS: Lidocaine 1% (20 ml mdv) 20 ML Vial (09:33)
--- NOTE | 2024-04-02 09:37 | PCM.OPRPT ---
Report of Operation Date of Procedure: 04/02/24 Pre-Operative Diagnosis: Hemodialysis dependent chronic kidney disease Post-Operative Diagnosis: Same Surgery/Procedure Performed:: Right upper extremity brachial to basilic 4 to 7 mm PTFE propatent graft creation Description of Surgical Findings:: Timeout informed consent was obtained. 63-year-old gentleman was taken to the op room placed upon the table underwent general anesthesia. Ancef 2 g were given intravenously. The right upper extremity was sterilely prepped and draped. 1% lidocaine mixed 50-50 with 0.5% Marcaine was used as local anesthetic. A total of 25 cc was used. Ultrasound had been used to identify the brachial artery and the basilic vein. Longitudinal incision was made overlying the brachial artery sharp and blunt dissection was used to identify the brachial artery and circumferential control was obtained and a vessel loop placed. Then a longitudinal incision was made in the proximal right upper arm. Some tedious dissection was used to identify the basilic vein. Vesseloops was placed there as well. A curved 6 mm [place] tunneler was manipulated from the antecubital area up to the vulvar proximal upper arm. The graft was placed so that the 4 mm side was closer to the arterial anastomosis. A straight hemostat 10 blade was used to make a sharp edge. Patient received 8000's of Afrin intravenously. Peripheral vascular clamps were placed on the brachial artery and 11 blade was used to make an arteriotomy it was extended with Joyce scissors. An end-to-side graft to artery anastomosis created with a CV 6 [place]-Rafael suture. That was hemostatic. I then measured the length and at the appropriate portion of the basilic vein had vascular clamps placed. An 11 blade was used to make a venotomy and extended with Joyce scissors. I did place a temporary 7-0 Prolene suture to help hold the wall aside. And a side anastomosis created with a CV 7 [place]-Rafael suture. At the completion a couple 7-0 Prolene's were used to assist with hemostasis. I also used Floseal at the venous anastomosis. Hemostasis was intact. There appeared to be excellent flow and excellent positioning. The wounds were closed with deep layers of interrupted 3-0 Vicryl and then a running subicular 4 Monocryl. Steri-Strips Telfa 4 x 4 soft roll Hector wrap dressing applied. Sponge and instrument and needle counts were reported the surgeon to be correct Specimens none. Drains none. Blood loss 10 cc. The patient was taken to the recovery room in satisfied condition without apparent complication. Hand was viable at the completion. Dick Shell M.D., F.A.C.S. Surgeon: Dick Shell Type of Anesthesia: General and Local Anesthesiologist: Tobi Mattson
[2024-04-02] MEDS: Bupivacaine Mpf 0.5% 30 ML VIAL (09:39)
== END 2024-04-02 12:19 | disposition home or self-care (01) ==
LOC: SDC 05:35 → AC 05:35
PROVIDERS: PCP Family Medicine; Referring Provider Surgery; Visit Provider Surgery
DX: T82.868A Thrombosis due to vascular prosthetic devices, implants and grafts, initial encounter (principal); N18.6 End stage renal disease; I12.0 Hypertensive chronic kidney disease with stage 5 chronic kidney disease or end stage renal disease; I48.91 Unspecified atrial fibrillation; E11.22 Type 2 diabetes mellitus with diabetic chronic kidney disease; Z79.4 Long term (current) use of insulin; Z99.2 Dependence on renal dialysis; Z79.01 Long term (current) use of anticoagulants; Z79.82 Long term (current) use of aspirin; Z79.899 Other long term (current) drug therapy; Y71.8 Miscellaneous cardiovascular devices associated with adverse incidents, not elsewhere classified
CPT/HCPCS: 82962; A4648; J2405

== ENCOUNTER → 2024-04-14 | Outpatient (CLI) | payer SELFPAY ==
[2024-04-14 16:51] LABS: PSA,Total- Diagnostic 4.84 ng/mL (0.0-4.0)
== END | disposition home or self-care (01) ==
PROVIDERS: PCP Family Medicine; Referring Provider Urology; Visit Provider Urology
DX: C61 Malignant neoplasm of prostate (principal)
CPT/HCPCS: 36415; 84153

== ENCOUNTER 2024-05-14 08:39 | Day surgery (SDC) | payer OTHER, SELFPAY ==
[2024-05-13 08:12] VITALS: BMI 29.0
--- NOTE | 2024-05-14 10:49 | PCM.OPRPT ---
Report of Operation Date of Procedure: 05/14/24 Pre-Operative Diagnosis: ESRD, prior tunneled venous catheter Post-Operative Diagnosis: same Surgery/Procedure Performed:: removal tunneled central venous catheter Surgeon: Tobi Aguillon Type of Anesthesia: Local and Sedation,Conscious Estimated Blood Loss (mL): 1 Description of Procedure: HPI: Patient is a 63-year-old male with end-stage renal disease currently on dialysis who has a right upper extremity AV graft that is functioning without issues. He previously had a right IJ tunneled catheter which is no longer new so he presents now for catheter removal. Description of procedure: Upon obtaining form consent and verification correct patient procedure site patient taken to the [facility] where he was positioned prepped and draped in usual sterile fashion. Timeout is performed, sedation ministered Versed and fentanyl. Skin surrounding the tunneled catheter was anesthetized 1% lidocaine with focus around the cuff. Fluoroscopic imaging was obtained to confirm intact catheter. Blunt dissection then used to free the cuff from the surrounding soft tissue and the catheter removed and a single piece. Completion radiographic image was obtained which confirmed no fragment or remnant catheter remained. Manual pressure was then held and dry sterile dressing placed after which the patient was taken the recovery room with plan discharged home.
== END 2024-05-14 11:59 | disposition home or self-care (01) ==
PROVIDERS: PCP Family Medicine; Referring Provider Surgery Trauma Surgery; Visit Provider Surgery Trauma Surgery
DX: Z45.2 Encounter for adjustment and management of vascular access device (principal); N18.6 End stage renal disease; Z79.4 Long term (current) use of insulin; E11.9 Type 2 diabetes mellitus without complications; Z99.2 Dependence on renal dialysis; Z79.01 Long term (current) use of anticoagulants; Z79.899 Other long term (current) drug therapy; I12.9 Hypertensive chronic kidney disease with stage 1 through stage 4 chronic kidney disease, or unspecified chronic kidney disease; Z98.890 Other specified postprocedural states
CPT/HCPCS: 36589; 99152; J7040

== ENCOUNTER → 2024-11-17 | Outpatient (CLI) | payer OTHER, SELFPAY | END | disposition home or self-care (01) | LOC: LAB 09:04 | PROVIDERS: PCP Nurse Practitioner Family; Referring Provider Urology; Visit Provider Urology | DX: C61 Malignant neoplasm of prostate (principal) ==

== ENCOUNTER → 2025-05-06 | Outpatient (CLI) | payer OTHER, SELFPAY | END | disposition home or self-care (01) | LOC: CVS 10:11 | PROVIDERS: PCP Nurse Practitioner Family; Referring Provider Physician Assistant; Visit Provider Physician Assistant | DX: Z01.818 Encounter for other preprocedural examination (principal); N18.6 End stage renal disease; T82.898A Other specified complication of vascular prosthetic devices, implants and grafts, initial encounter | CPT/HCPCS: 93985 ==

== ENCOUNTER 2025-06-03 08:20 | Day surgery (SDC) | payer OTHER, SELFPAY ==
[2025-06-02 09:22] VITALS: BMI 30.5
[2025-06-03 08:36] LABS: Hematocrit 34.8 % (40-54); Hemoglobin 11.5 g/dL (13.0-16.5); Mean Corp Hgb Conc 33.0 g/dL (32-36); Mean Corpuscular Volume 90.2 fL (80-94); Mean Platelet Vol. 9.4 fl (6.2-12.0); Platelet Count 230 K/mm3 (150-450); RBC Distribution Width CV 15.8 % (11.6-14.6); RBC Distribution Width SD 51.4 fl (35.1-43.9); Red Blood Count 3.86 M/mm3 (4.6-6.2); White Blood Count 7.7 K/mm3 (4.4-11.0)
[2025-06-03 09:08] LABS: Anion Gap 18 (5-15); BUN 44 mg/dL (4-19); BUN/Creat Ratio 6.5 RATIO (10-20); Calcium,Total 9.9 mg/dL (7.6-11.0); Carbon Dioxide 21.7 mmol/L (21.0-32.0); Chloride 97 mmol/L (98-108); Estimated Creatinine Clearance 10.56 ml/min (50-250); Glucose 131 mg/dL (70-99); Potassium 4.9 mmol/L (3.3-5.1)
--- NOTE | 2025-06-03 14:56 | OP.PCM_ITS ---
Operative Report (Standard) Operative Information Date of Procedure: 06/03/25 Pre-Operative Diagnosis: End-stage renal disease currently on dialysis Post-Operative Diagnosis: Same Surgery/Procedure Performed: Bilateral upper extremity venogram director of business services: No Type of Anesthesia: None Procedure Start Time: 13:05 Procedure Stop Time: 13:30 Select all DRAINS/GRAFTS/IMPLANTS that apply: None Estimated Blood Loss: 1 Specimen collected: No Description of surgery: HPI: Patient is a 64-year-old male with end-stage renal disease currently on dialysis. He previously had a left radiocephalic fistula created which did not mature and reportedly had a central venous angioplasty at some point in time. He subsequently had a right upper arm AV graft placed which worked for several months and ultimately failed and was unable to be salvaged. The reason for failure was uncertain as the patient had his declot efforts at an outside facility so he is taken now for venogram of the bilateral extremities to determine what options are available for new access. Description of procedure: Upon obtaining informed consent and verification correct patient procedure site the patient was taken to the Forming Operator where he was positioned prepped and draped in usual sterile fashion. Timeout was performed. The patient had bilateral hand IV placement and sequential subtraction venography of the right extremity was performed via injection in the hand IV stasis with saline. After adequate imaging was obtained we then performed hand-injection sequential venogram of the left lower extremity via the injection the hand IV sites. Once satisfactory images were obtained patient was taken recovery with plan discharge to home. Radiograph interpretation: Right forearm with multiple small caliber superficial veins many of which appear to be collaterals as well as a very small caliber cephalic vein that is irregular but does communicate ultimately with median cubital branch. In the upper arm the cephalic becomes even smaller in caliber and is very tortuous and appears to likely be several collaterals rather than the dominant branch. The basilic vein is continuous though very small in caliber. The majority of the venous outflow is via the deep system with a normal caliber brachial and axillary vein with no significant stenosis visualized. The subclavian vein initially is patent at the lateral aspect and abruptly occludes at the costoclavicular angle with no visualized filling of any more central venous structures. Contrast appears to potentially exit into either of the internal jugular vein or azygous vein plexus. The left forearm has a generous caliber cephalic vein which had previously been used for a fistula attempt which actually remains patent from the arterial anastomosis though with very minimal augmented arterialized flow. This vessel is patent and continuous to the antecubital crease where the upper arm cephalic is smaller in caliber but patent and continuous to the cephalic arch. A large component of the venous outflow is into the deep system where normal caliber paired brachial veins are patent throughout with no significant stenosis. There is filling of the mid upper arm basilic vein via the deep system perforators but there is nonvisualization of the distal upper arm basilic vein likely given position of contrast injection. The axillary, subclavian, innominate veins are widely patent with brisk contrast transit and no significant chest wall collaterals. The superior vena cava is widely patent normal caliber. Surgical Findings: See above Complications Complications: No
== END 2025-06-03 14:00 | disposition home or self-care (01) ==
PROVIDERS: PCP Nurse Practitioner Family; Referring Provider Surgery Trauma Surgery; Visit Provider Surgery Trauma Surgery
DX: Z45.2 Encounter for adjustment and management of vascular access device (principal); I12.0 Hypertensive chronic kidney disease with stage 5 chronic kidney disease or end stage renal disease; N18.6 End stage renal disease; I48.91 Unspecified atrial fibrillation; Z79.4 Long term (current) use of insulin; Z99.2 Dependence on renal dialysis; Z79.01 Long term (current) use of anticoagulants; Z87.891 Personal history of nicotine dependence
CPT/HCPCS: 36005; 36415; 75822; 80048; 85027; Q9967

== ENCOUNTER 2025-08-26 09:20 | Day surgery (SDC) | payer OTHER, SELFPAY ==
--- OUTSIDE RECORDS SUMMARY | 2025-04-14 09:57 | XMS RPT_ITS ---
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 Name Role Phone SHELLIE DE LOS SANTOS Primary Care Unavailable SHELLIE DE LOS SANTOS Primary Care Unavailable SHELLIE DE LOS SANTOS Primary Care Unavailable SWEETIE DELGADILLO Admitting Unavailable MARII SKY Primary Care Unavailable FLOYD SALGADO Consulting Unavailable HARI FINE Attending Unavailable SWEETIE DELGADILLO Admitting Unavailable RAZIA GARCIA Attending Unavailable SWEETIE DELGADILLO Referring Unavailable MARII SKY Primary Care Unavailable SHELLIE DE LOS SANTOS Consulting Unavailable SHELLIE DE LOS SANTOS Referring Unavailable WON ENCISO DO Admitting Unavailable WON ENCISO DO Primary Care Unavailable WON ENCISO DO Attending Unavailable PROVIDER, UNKNOWN Consulting Unavailable TESS LOPEZ MD Admitting Unava ilable TESS LOPEZ MD Primary Care Unava ilable TESS LOPEZ MD Attending Unava ilable SHELLIE DE LOS SANTOS Consulting Unavailable PROVIDER, UNKNOWN Consulting Unavailable DIO ESPINAL MD Consulting Unavailable [facility], [facility] Unavailjimmy MCCONNELL MD, GEOVANNI Giles Admitting Unavailable ENEDINA HENDRIX, GEOVANNI Giles Attending Unavailable NAVIN MOSCOSO MD Consulting Unavailable [facility], [facility] Care Unavaila jessica IBRAHIM DO, MUSA Sky Consulting Unavailjimmy LARSON MD, FELIPE Barney Attending Unavailable ENEDINA HENDRIX, GEOVANNI Giles Admitting Unavailable JACKIE CULVER PA-C Consulting Stefany RAYSA Perez MD Attending Unavailable [facility], [facility] Unavaila KIERAN Palomo MD Consulting Unavailable NAVIN BOUDREAUX MD Admitting Unavailable NAVIN MOSCOSO MD Consulting Unavailable PROBLEMS DATE TYPE CONDITION / CODE ATTENDING STATUS [facility] 04/14/2025 Final Diagnosis (Discharge) Hypertensive heart and chronic kidney disease with heart failure and with stage 5 chronic kidney disease, or end stage renal disease / I13.2(ICD-10) MENDEL HENDRIX [facility] MAIN 04/14/2025 Final Diagnosis (Discharge) Acute on chronic systolic (congestive) heart failure / I50.23(ICD-10) MENDEL HENDRIX [facility] MAIN 04/14/2025 Final Diagnosis (Discharge) Paroxysmal atrial fibrillation / I48.0(ICD-10) MENDEL HENDRIX [facility] MAIN 04/14/2025 Final Diagnosis (Discharge) Rheumatic disorders of both mitral and tricuspid valves / I08.1(ICD-10) MENDEL HENDRIX [facility] MAIN 04/14/2025 Final Diagnosis (Discharge) Personal history of malignant neoplasm of prostate / Z85.46(ICD-10) MENDEL HENDRIX [facility] MAIN 04/14/2025 Final Diagnosis (Discharge) Personal history of nicotine dependence / Z87.891(ICD-10) MENDEL HENDRIX 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 / Z79.02(ICD-10) NEO HENDRIX [facility] 03/29/2025 Final Diagnosis (Discharge) Surgical operation with anastomosis, bypass or graft as the cause of abnormal reaction of the patient, or of later complication, without mention of misadventure at the time of the procedure / Y83.2(ICD-10) NEO HENDRIX, [facility] 03/29/2025 Final Diagnosis (Discharge) Hypocalcemia / E83.51(ICD-10) NEO HENDRIX [facility] 03/26/2025 Unknown Stenosis of othe r vascular prosthetic devices, implants and grafts, initial encounter / T82.858A(ICD-10) ENEDINA HENDRIX, [facility] 03/26/2025 Unknown Pain in right ar m / M79.601(ICD-10) ENEDINA HENDRIX, [facility] 03/26/2025 Unknown End stage renal disease / N18.6(ICD-10) ENEDINA HENDRIX, [facility] 03/26/2025 Unknown Anemia, unspecif ied / D64.9(ICD-10) ENEDINA HENDRIX, [facility] 03/26/2025 Unknown Unspecified atri al fibrillation / I48.91(ICD-10) ENEDINA HENDRIX, [facility] 03/26/2025 Unknown Type 2 diabetes mellitus without complications / E11.9(ICD-10) ENEDINA HENDRIX, [facility] 03/26/2025 Unknown Hyperkalemia / E87.5(ICD-10) ENEDINA HENDRIX, [facility] 03/26/2025 Unknown Nontraumatic hem atoma of soft tissue / M79.81(ICD-10) ENEDINA HENDRIX, [facility] 03/26/2025 Final Diagnosis (Discharge) Stenosis of other vascular prosthetic devices, implants and grafts, initial encounter / T82.858A(ICD-10) ENEDINA HENDRIX [facility] 03/26/2025 Final Diagnosis (Discharge) Hypertensive chronic kidney disease with stage 5 chronic kidney disease or end stage renal disease / I12.0(ICD-10) ENEDINA HENDRIX, [facility] 03/26/2025 Final Diagnosis (Discharge) Hypo-osmolality and hyponatremia / E87.1(ICD-10) ENEDINA HENDRIX [facility] 03/26/2025 Final Diagnosis (Discharge) Hyperkalemia / E87.5(ICD-10) ENEDINA HENDRIX [facility] 03/26/2025 Final Diagnosis (Discharge) Nontraumatic hematoma of soft tissue / M79.81(ICD-10) ENEDINA HENDRIX, [facility] 03/26/2025 Final Diagnosis (Discharge) 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-10) ENEDINA HENDRIX [facility] 03/26/2025 Final Diagnosis (Discharge) Type 2 diabetes mellitus with hyperglycemia / E11.65(ICD-10) ENEDINA HENDRIX [facility] 03/26/2025 Final Diagnosis (Discharge) Anemia in chronic kidney disease / D63.1(ICD-10) ENEDINA HENDRIX, [facility] 03/26/2025 Final Diagnosis (Discharge) Atherosclerotic heart disease of [place] coronary artery without angina pectoris / I25.10(ICD-10) ENEDINA HENDRIX [facility] 03/26/2025 Final Diagnosis (Discharge) Hyperlipidemia, unspecified / E78.5(ICD-10) ENEDINA HENDRIX, [facility] 03/26/2025 Final Diagnosis (Discharge) Unspecified atrial fibrillation / I48.91(ICD-10) ENEDINA HENDRIX, [facility] 03/26/2025 Final Diagnosis (Discharge) Dependence on renal dialysis / Z99.2(ICD-10) ENEDINA HENDRIX [facility] 03/26/2025 Final Diagnosis (Discharge) Presence of aortocoronary bypass graft / Z95.1(ICD-10) [facility] Final Diagnosis (Discharge) Presence of prosthetic heart valve / Z95.2(ICD-10) ENEDINA HENDRIX [facility] 03/26/2025 Final Diagnosis (Discharge) longterm (current) use of aspirin / Z79.82(ICD-10) ENEDINA HENDRIX [facility] 03/26/2025 Final Diagnosis (Discharge) 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 / Z79.4(ICD-10) ENEDINA HENDRIX [facility] 03/26/2025 Final Diagnosis (Discharge) longterm (current) use of anticoagulants / Z79.01(ICD-10) ENEDINA HENDRIX, [facility] 03/19/2025 Active Acute chest pain / R07.9(ICD-10) RAZIA GARCIA [facility] 03/18/2025 Active Exertional chest pain / R07.9(ICD-10) RODY [facility] 03/18/2025 Active Elevated troponi n / R79.89(ICD-10) RODY [facility] 03/18/2025 Active Elevated brain natriuretic peptide (BNP) level / R79.89(ICD-10) RODY [facility] 03/18/2025 Active ESRD on dialysis (HCC) / N18.6(ICD-10) RODY [facility] 03/18/2025 Active ESRD on dialysis (HCC) / Z99.2(ICD-10) HARI FINE [facility] 03/18/2025 Active S/P CABG x 2 / Z95.1(ICD-10) RODY HARI [facility] 03/18/2025 Active Unstable angina (HCC) / I20.0(ICD-10) RODY HARI [facility] 03/18/2025 Active Abnormal nuclear stress test / R94.39(ICD-10) RODY HARI [facility] 10/20/2024 Active Atherosclerotic heart disease of [place] coronary artery without angina pectoris / I25.10(ICD-10) NA [facility] 10/20/2024 Active Endocarditis, va lve unspecified / I38(ICD-10) NA [facility] PROCEDURES No Procedure Records Found RESULTS CNCO Observed: 05/20/2025 12:00 AM Status: COM PLETED Source: [facility] Letter Text XR CHEST 1 VIEW Observed: 04/17/2025 1:52 PM Status: F Source: [facility] MAIN ORIGINAL EXAMINATION: ONE XRAY VIEW OF THE CHEST 04/17/2025 2:11 pm COMPARISON: 04/15/2025 HISTORY: ORDERING SYSTEM PROVIDED HISTORY: Reason for Exam: pulmonary edema FINDINGS: Pulmonary vascular cephalization and minimal right pleural effusion again associated with cardiomegaly. Patient status post midline sternotomy and placement of a dual lumen left subclavian dialysis catheter in functional position. There is no pneumothorax or acute bony abnormality. IMPRESSION: Mild pulmonary edema and small right pleural effusion. Interpreted by: Vinayak Hector DO Preliminary Report By: Vinayak Hector DO Electronically signed By Vinayak Hector DO Dictated Date: 04/17/2025 2:34:10 PM Prelim Date: 04/17/2025 2:35:14 PM Sign Date: 04/17/2025 2:35:14 PM Ordering Provider: JON SOARES CBC Collected: 6:22 AM Status: F Source: [facility] MAIN TYPE CODE TESTS RESULT OUT OF RANGE REFERENCE UNITS LAB WBC(LOINC) WBC 8.8 4.5-10.8 10 3/mcL LAB RBCCT(LOINC) RBC 2.70 Low 4.50-6.00 10 6/mcL LAB HGB(LOINC) Hgb 8.0 Low 13.0-17.5 G/dL LAB HCT(LOINC) Hct 23.9 Low 40.0-52.0 % LAB MCV(LOINC) MCV 88.7 81.0-100.0 fL LAB MCH(LOINC) MCH 29.6 27.0-33.0 pg LAB MCHC(LOINC) MCHC 33.4 32.0-36.0 G/dL LAB RDW(LOINC) RDW 15.1 11.5-15.5 % LAB PLT(LOINC) Platelet 364 150-450 10 3/mcL LAB MPV(LOINC) MPV 8.2 6.4-10.5 fL Performed By: #### MG, GFR, BMP, ANEU, ADIFF, CBC #### [address] [address] .AUTO DIFF Collected: 04/17/2025 6:22 AM Status: F Source: [facility] MAIN TYPE CODE TESTS RESULT OUT OF RANGE REFERENCE UNITS LAB RENALDO(LOINC) Neutrophil % 80.3 High 50.0-75.0 % LAB LYM(LOINC) Lymphocyte % 8.5 Low 20.0-40.0 % LAB MON(LOINC) Monocyte % 5.3 2.0-13.0 % LAB EO(LOINC) Eosinophil % 5.1 0.0-6.0 % LAB BAS(LOINC) Basophil % 0.8 0.0-2.5 % LAB ABLYM(LOINC) Lymphocyte, Absolute 0.7 Low 0.9-4.3 10 3/mcL LAB WILFREDO(LOINC) Monocyte, Absolute 0.5 0.1-1.4 10 3/mcL LAB AEOS(LOINC) Eosinophil, Absolute 0.4 0.0-0.7 10 3/mcL LAB ABAS(LOINC) Basophil, Absolute 0.1 0.0-0.3 10 3/mcL Performed By: #### MG, GFR, BMP, ANEU, ADIFF, CBC #### [address] [address] .NEUABS Collected: 6:22 AM Status: F Source: [facility] MAIN TYPE CODE TESTS RESULT OUT OF RANGE REFERENCE UNITS LAB ANEU(LOINC) Neutrophil, Absolute 7.0 2.3-8.1 10 3/mcL Performed By: #### MG, GFR, BMP, ANEU, ADIFF, CBC #### [address] [address] BMP Collected: 04/17/2025 6:22 AM Status: F Source: [facility] MAIN TYPE CODE TESTS RESULT OUT OF RANGE REFERENCE UNITS LAB GLU(LOINC) Glucose Level 141 High 82-115 mg/dL LAB NA(LOINC) Sodium Level 136 136-145 mEq/L LAB K(LOINC) Potassium Level 4.1 3.5-5.0 mEq/L LAB CL(LOINC) Chloride 99 98-110 mEq/L LAB CO2(LOINC) CO2 23 22-32 mEq/L LAB EBAL(LOINC) Electrolyte Balance 14.0 4.0-15.0 mEq/L LAB BUN(LOINC) BUN 33.0 High 8.0-22.0 mg/dL LAB CRE(LOINC) Creatinine Lvl (s) 4.92 High 0.60-1.40 mg/dL Result Comment: Testing perf ormed on Jumia analyzer using enzymatic creatinine methodology. LAB BC(LOINC) BUN/Creatinine Ratio 6.7 Low 10.0-22.0 ratio LAB CA(LOINC) Calcium Lvl 9.1 8.7-10.4 mg/dL Performed By: #### MG, GFR, BMP, ANEU, ADIFF, CBC #### [address] [address] MG Collected: 04/17/2025 6:22 AM Status: F Source: [facility] MAIN TYPE CODE TESTS RESULT OUT OF RANGE REFERENCE UNITS LAB MG(LOINC) Magnesium Lvl 2.0 1.6-2.4 mg/dL Performed By: #### MG, GFR, BMP, ANEU, ADIFF, CBC #### [address] [address] .GFR Collected: 04/17/2025 6:22 AM Status: F Source: [facility] MAIN TYPE CODE TESTS RESULT OUT OF RANGE REFERENCE UNITS LAB eGFR(LOINC) Estimated Glomerular Filtration Rate 12 ml/min/1. 73sqm Result Comment: Stages of Chronic Kidney Disease (CKD) Stage Description eGFR(ml/min/1.73 sq.m.) CKD 1 Normal kidney function or >=90 normal kindney function with possible kidney damage (ex. Proteinuria) CKD 2 Kidney damage with mild loss 60-89 of kidney function CKD 3a Mild to moderate loss of kidney 45-59 function CKD 3b Moderate to severe loss of 30-44 of kindey function CKD 4 Severe loss of kidney function 15-29 CKD 5 Kidney failure <15 Note: (go live 2024) the eGFR calculation was updated to the 2020 CKD-EPI creatinine equation without a race factor to calculate the eGFR results. Performed By: #### MG, GFR, BMP, ANEU, ADIFF, CBC #### [address] [address] CBC Collected: 6:33 AM Status: F Source: [facility] MAIN TYPE CODE TESTS RESULT OUT OF RANGE REFERENCE UNITS LAB WBC(LOINC) WBC 11.2 High 4.5-10.8 10 3/mcL LAB RBCCT(LOINC) RBC 2.68 Low 4.50-6.00 10 6/mcL LAB HGB(LOINC) Hgb 8.0 Low 13.0-17.5 G/dL LAB HCT(LOINC) Hct 23.6 Low 40.0-52.0 % LAB MCV(LOINC) MCV 88.0 81.0-100.0 fL LAB MCH(LOINC) MCH 29.7 27.0-33.0 pg LAB MCHC(LOINC) MCHC 33.8 32.0-36.0 G/dL LAB RDW(LOINC) RDW 15.3 11.5-15.5 % LAB PLT(LOINC) Platelet 342 150-450 10 3/mcL LAB MPV(LOINC) MPV 8.0 6.4-10.5 fL Performed By: #### ANEU, BMP , MG, GFR, ADIFF, CBC #### [address] [address] .AUTO DIFF Collected: 04/16/2025 6:33 AM Status: F Source: [facility] MAIN TYPE CODE TESTS RESULT OUT OF RANGE REFERENCE UNITS LAB RENALDO(LOINC) Neutrophil % 88.7 High 50.0-75.0 % LAB LYM(LOINC) Lymphocyte % 4.8 Low 20.0-40.0 % LAB MON(LOINC) Monocyte % 5.2 2.0-13.0 % LAB EO(LOINC) Eosinophil % 1.0 0.0-6.0 % LAB BAS(LOINC) Basophil % 0.3 0.0-2.5 % LAB ABLYM(LOINC) Lymphocyte, Absolute 0.5 Low 0.9-4.3 10 3/mcL LAB WILFREDO(LOINC) Monocyte, Absolute 0.6 0.1-1.4 10 3/mcL LAB AEOS(LOINC) Eosinophil, Absolute 0.1 0.0-0.7 10 3/mcL LAB ABAS(LOINC) Basophil, Absolute 0.0 0.0-0.3 10 3/mcL Performed By: #### ANEU, BMP , MG, GFR, ADIFF, CBC #### [place] [address] .NEUABS Collected: 6:33 AM Status: F Source: [facility] MAIN TYPE CODE TESTS RESULT OUT OF RANGE REFERENCE UNITS LAB ANEU(LOINC) Neutrophil, Absolute 10.0 High 2.3-8.1 10 3/mcL Performed By: #### ANEU, BMP , MG, GFR, ADIFF, CBC #### [place] [address] BMP Collected: 04/16/2025 6:33 AM Status: F Source: [facility] MAIN TYPE CODE TESTS RESULT OUT OF RANGE REFERENCE UNITS LAB GLU(LOINC) Glucose Level 158 High 82-115 mg/dL LAB NA(LOINC) Sodium Level 135 Low 136-145 mEq/L LAB K(LOINC) Potassium Level 4.4 3.5-5.0 mEq/L LAB CL(LOINC) Chloride 99 98-110 mEq/L LAB CO2(LOINC) CO2 23 22-32 mEq/L LAB EBAL(LOINC) Electrolyte Balance 13.0 4.0-15.0 mEq/L LAB BUN(LOINC) BUN 52.0 High 8.0-22.0 mg/dL LAB CRE(LOINC) Creatinine Lvl (s) 6.37 High 0.60-1.40 mg/dL Result Comment: Testing perf ormed on Jumia analyzer using enzymatic creatinine methodology. LAB BC(LOINC) BUN/Creatinine Ratio 8.2 Low 10.0-22.0 ratio LAB CA(LOINC) Calcium Lvl 9.0 8.7-10.4 mg/dL Performed By: #### ANEU, BMP , MG, GFR, ADIFF, CBC #### [facility] [address] [place] [address] MG Collected: 04/16/2025 6:33 AM Status: F Source: [facility] MAIN TYPE CODE TESTS RESULT OUT OF RANGE REFERENCE UNITS LAB MG(LOINC) Magnesium Lvl 2.0 1.6-2.4 mg/dL Performed By: #### ANEU, BMP , MG, GFR, ADIFF, CBC #### [address] [address] .GFR Collected: 04/16/2025 6:33 AM Status: F Source: [facility] MAIN TYPE CODE TESTS RESULT OUT OF RANGE REFERENCE UNITS LAB eGFR(LOINC) Estimated Glomerular Filtration Rate 9 ml/min/1. 73sqm Result Comment: Stages of Chronic Kidney Disease (CKD) Stage Description eGFR(ml/min/1.73 sq.m.) CKD 1 Normal kidney function or >=90 normal kindney function with possible kidney damage (ex. Proteinuria) CKD 2 Kidney damage with mild loss 60-89 of kidney function CKD 3a Mild to moderate loss of kidney 45-59 function CKD 3b Moderate to severe loss of 30-44 of kindey function CKD 4 Severe loss of kidney function 15-29 CKD 5 Kidney failure <15 Note: (go live 2024) the eGFR calculation was updated to the 2020 CKD-EPI creatinine equation without a race factor to calculate the eGFR results. Performed By: #### ANEU, BMP , MG, GFR, ADIFF, CBC #### [address] [address] XR CHEST 1 VIEW Observed: 04/15/2025 9:44 AM Status: F Source: [facility] MAIN ORIGINAL EXAMINATION: ONE XRAY VIEW OF THE CHEST 04/15/2025 9:56 am COMPARISON: 03/29/2025 HISTORY: ORDERING SYSTEM PROVIDED HISTORY: Reason for Exam: SOB FINDINGS: Interim placement of left jugular dialysis catheter, terminating at the level of right atrium. Unchanged cardiomediastinal silhouette. Trace right pleural effusion. No pneumothorax. Perihilar interstitial thickening. Unchanged fractured superior-most mediastinal wire. IMPRESSION: New left jugular dialysis catheter. Mild pulmonary edema. Trace right pleural effusion. Interpreted by: Mynor Posada Preliminary Report By: Mynor Posada Electronically signed By Mynor Posada Dictated Date: 04/15/2025 11:33:43 AM Prelim Date: 04/15/2025 11:35:35 AM Sign Date: 04/15/2025 11:35:35 AM Ordering Provider: MIRYAM MIJARES CBL Observed: 04/15/2025 9:07 AM Status: F Source: [facility] . MICRO - Microbiology PROCEDURE: Blood Culture (bacterial) [*1] SOURCE: Blood BODY SITE: COLLECTED DATE/TIME: 04/15/2025 09:07 EDT RECEIVED DATE/TIME: 04/15/2025 09:27 EDT START DATE/TIME: 04/15/2025 09:27 EDT FREE TEXT SOURCE: peds bottle FINAL REPORTS Final Report [] Verified Date/Time/Personnel: 04/20/2025 09:59 EDT Blood Culture: No Growth at 5 days. PRELIMINARY REPORTS Preliminary Report [] Verified Date/Time/Personnel: 04/15/2025 09:59 EDT Culture has been received in lab and is no growth to date. Routine cultures are held for 5 days. Performing Locations *1: This test was performed at: [facility], [address] [place] [address], [address] [place] [address] CBL Observed: 04/15/2025 9:07 AM Status: F Source: [facility] . MICRO - Microbiology PROCEDURE: Blood Culture (bacterial) [*1] SOURCE: Blood BODY SITE: COLLECTED DATE/TIME: 04/15/2025 09:07 EDT RECEIVED DATE/TIME: 04/15/2025 09:27 EDT START DATE/TIME: 04/15/2025 09:27 EDT FREE TEXT SOURCE: peds bottle FINAL REPORTS Final Report [] Verified Date/Time/Personnel: 04/20/2025 09:59 EDT Blood Culture: No Growth at 5 days. PRELIMINARY REPORTS Preliminary Report [] Verified Date/Time/Personnel: 04/15/2025 09:59 EDT Culture has been received in lab and is no growth to date. Routine cultures are held for 5 days. Performing Locations *1: This test was performed at: [facility], [address] [place] [address], [id number] , CBC Collected: 4:41 AM Status: F Source: [facility] MAIN TYPE CODE TESTS RESULT OUT OF RANGE REFERENCE UNITS LAB WBC(LOINC) WBC 10.3 4.5-10.8 10 3/mcL LAB RBCCT(LOINC) RBC 2.73 Low 4.50-6.00 10 6/mcL LAB HGB(LOINC) Hgb 8.2 Low 13.0-17.5 G/dL LAB HCT(LOINC) Hct 24.4 Low 40.0-52.0 % LAB MCV(LOINC) MCV 89.3 81.0-100.0 fL LAB MCH(LOINC) MCH 29.9 27.0-33.0 pg LAB MCHC(LOINC) MCHC 33.5 32.0-36.0 G/dL LAB RDW(LOINC) RDW 15.6 High 11.5-15.5 % LAB PLT(LOINC) Platelet 307 150-450 10 3/mcL LAB MPV(LOINC) MPV 7.9 6.4-10.5 fL Performed By: #### ANEU, BMP , GFR, FE, IBC, RFP, ADIFF, MG, CBC #### [address] [address] .AUTO DIFF Collected: 04/15/2025 4:41 AM Status: F Source: [facility] MAIN TYPE CODE TESTS RESULT OUT OF RANGE REFERENCE UNITS LAB RENALDO(LOINC) Neutrophil % 86.2 High 50.0-75.0 % LAB LYM(LOINC) Lymphocyte % 6.7 Low 20.0-40.0 % LAB MON(LOINC) Monocyte % 6.2 2.0-13.0 % LAB EO(LOINC) Eosinophil % 0.4 0.0-6.0 % LAB BAS(LOINC) Basophil % 0.5 0.0-2.5 % LAB ABLYM(LOINC) Lymphocyte, Absolute 0.7 Low 0.9-4.3 10 3/mcL LAB WILFREDO(LOINC) Monocyte, Absolute 0.6 0.1-1.4 10 3/mcL LAB AEOS(LOINC) Eosinophil, Absolute 0.0 0.0-0.7 10 3/mcL LAB ABAS(LOINC) Basophil, Absolute 0.0 0.0-0.3 10 3/mcL Performed By: #### ANEU, BMP , GFR, FE, IBC, RFP, ADIFF, MG, CBC #### [place] [address] .NEUABS Collected: 4:41 AM Status: F Source: [facility] MAIN TYPE CODE TESTS RESULT OUT OF RANGE REFERENCE UNITS LAB ANEU(LOINC) Neutrophil, Absolute 8.9 High 2.3-8.1 10 3/mcL Performed By: #### ANEU, BMP , GFR, FE, IBC, RFP, ADIFF, MG, CBC #### [place] [address] FE Collected: 4:41 AM Status: F Source: [facility] MAIN TYPE CODE TESTS RESULT OUT OF RANGE REFERENCE UNITS LAB FE(LOINC) Iron 14 Low 65-175 mcg/dL Performed By: #### ANEU, BMP , GFR, FE, IBC, RFP, ADIFF, MG, CBC #### [place] [address] IBC Collected: 4:41 AM Status: F Source: [facility] MAIN TYPE CODE TESTS RESULT OUT OF RANGE REFERENCE UNITS LAB IBC(LOINC) TIBC 232 Low 250-500 mcg/dL Performed By: #### ANEU, BMP , GFR, FE, IBC, RFP, ADIFF, MG, CBC #### [place] [address] BMP Collected: 04/15/2025 4:41 AM Status: F Source: [facility] MAIN TYPE CODE TESTS RESULT OUT OF RANGE REFERENCE UNITS LAB GLU(LOINC) Glucose Level 130 High 82-115 mg/dL LAB NA(LOINC) Sodium Level 139 136-145 mEq/L LAB K(LOINC) Potassium Level 4.0 3.5-5.0 mEq/L LAB CL(LOINC) Chloride 102 98-110 mEq/L LAB CO2(LOINC) CO2 26 22-32 mEq/L LAB EBAL(LOINC) Electrolyte Balance 11.0 4.0-15.0 mEq/L LAB BUN(LOINC) BUN 28.0 High 8.0-22.0 mg/dL LAB CRE(LOINC) Creatinine Lvl (s) 4.13 High 0.60-1.40 mg/dL Result Comment: Testing perf ormed on [employer] CH analyzer using enzymatic creatinine methodology. LAB BC(LOINC) BUN/Creatinine Ratio 6.8 Low 10.0-22.0 ratio LAB CA(LOINC) Calcium Lvl 9.0 8.7-10.4 mg/dL Performed By: #### ANEU, BMP , GFR, FE, IBC, RFP, ADIFF, MG, CBC #### [place] [address] MG Collected: 04/15/2025 4:41 AM Status: F Source: [facility] MAIN TYPE CODE TESTS RESULT OUT OF RANGE REFERENCE UNITS LAB MG(LOINC) Magnesium Lvl 1.9 1.6-2.4 mg/dL Performed By: #### ANEU, BMP , GFR, FE, IBC, RFP, ADIFF, MG, CBC #### [place] [address] RFP Collected: 04/15/2025 4:41 AM Status: F Source: [facility] MAIN TYPE CODE TESTS RESULT OUT OF RANGE REFERENCE UNITS LAB GLU(LOINC) Glucose Level 130 High 82-115 mg/dL LAB NA(LOINC) Sodium Level 139 136-145 mEq/L LAB K(LOINC) Potassium Level 4.0 3.5-5.0 mEq/L LAB CL(LOINC) Chloride 102 98-110 mEq/L LAB CO2(LOINC) CO2 26 22-32 mEq/L LAB EBAL(LOINC) Electrolyte Balance 11.0 4.0-15.0 mEq/L LAB BUN(LOINC) BUN 28.0 High 8.0-22.0 mg/dL LAB CRE(LOINC) Creatinine Lvl (s) 4.13 High 0.60-1.40 mg/dL Result Comment: Testing perf ormed on [employer] CH analyzer using enzymatic creatinine methodology. LAB BC(LOINC) BUN/Creatinine Ratio 6.8 Low 10.0-22.0 ratio LAB CA(LOINC) Calcium Lvl 9.0 8.7-10.4 mg/dL LAB PHOS(LOINC) Phosphorus 2.7 2.4-5.1 mg/dL LAB ALB(LOINC) Albumin Level 3.5 3.2-4.8 G/dL Performed By: #### ANEU, BMP , GFR, FE, IBC, RFP, ADIFF, MG, CBC #### [address] [address] .GFR Collected: 04/15/2025 4:41 AM Status: F Source: [facility] MAIN TYPE CODE TESTS RESULT OUT OF RANGE REFERENCE UNITS LAB eGFR(LOINC) Estimated Glomerular Filtration Rate 15 ml/min/1. 73sqm Result Comment: Stages of Chronic Kidney Disease (CKD) Stage Description eGFR(ml/min/1.73 sq.m.) CKD 1 Normal kidney function or >=90 normal kindney function with possible kidney damage (ex. Proteinuria) CKD 2 Kidney damage with mild loss 60-89 of kidney function CKD 3a Mild to moderate loss of kidney 45-59 function CKD 3b Moderate to severe loss of 30-44 of kindey function CKD 4 Severe loss of kidney function 15-29 CKD 5 Kidney failure <15 Note: (go live 2024) the eGFR calculation was updated to the 2020 CKD-EPI creatinine equation without a race factor to calculate the eGFR results. Performed By: #### ANEU, BMP , GFR, FE, IBC, RFP, ADIFF, MG, CBC #### [place] [address] HBSAG Collected: 5:47 PM Status: F Source: [facility] MAIN TYPE CODE TESTS RESULT OUT OF RANGE REFERENCE UNITS LAB HBSAG(LOINC) Hep B Surf Ag Non-Reactive Non-Reactive Performed By: #### HBSAG ### # [place] [address] CBC Collected: 11:58 AM Status: F Source: [facility] MAIN TYPE CODE TESTS RESULT OUT OF RANGE REFERENCE UNITS LAB WBC(LOINC) WBC 12.3 High 4.5-10.8 10 3/mcL LAB RBCCT(LOINC) RBC 2.70 Low 4.50-6.00 10 6/mcL LAB HGB(LOINC) Hgb 7.8 Low 13.0-17.5 G/dL LAB HCT(LOINC) Hct 23.7 Low 40.0-52.0 % LAB MCV(LOINC) MCV 87.8 81.0-100.0 fL LAB MCH(LOINC) MCH 29.0 27.0-33.0 pg LAB MCHC(LOINC) MCHC 33.0 32.0-36.0 G/dL LAB RDW(LOINC) RDW 14.9 11.5-15.5 % LAB PLT(LOINC) Platelet 257 150-450 10 3/mcL LAB MPV(LOINC) MPV 8.0 6.4-10.5 fL Performed By: #### A1C, GFR, PBNP, CBC, TSH, MG, LIPID, CMP, ANEU, ADIFF #### [address] [address] .AUTO DIFF Collected: 04/14/2025 11:58 AM Status: F Source: [facility] MAIN TYPE CODE TESTS RESULT OUT OF RANGE REFERENCE UNITS LAB RENALDO(LOINC) Neutrophil % 91.2 High 50.0-75.0 % LAB LYM(LOINC) Lymphocyte % 3.4 Low 20.0-40.0 % LAB MON(LOINC) Monocyte % 5.2 2.0-13.0 % LAB EO(LOINC) Eosinophil % 0.0 0.0-6.0 % LAB BAS(LOINC) Basophil % 0.2 0.0-2.5 % LAB ABLYM(LOINC) Lymphocyte, Absolute 0.4 Low 0.9-4.3 10 3/mcL LAB WILFREDO(LOINC) Monocyte, Absolute 0.6 0.1-1.4 10 3/mcL LAB AEOS(LOINC) Eosinophil, Absolute 0.0 0.0-0.7 10 3/mcL LAB ABAS(LOINC) Basophil, Absolute 0.0 0.0-0.3 10 3/mcL Performed By: #### A1C, GFR, PBNP, CBC, TSH, MG, LIPID, CMP, ANEU, ADIFF #### [address] [address] .NEUABS Collected: 06/11/202 5 11:58 AM Status: F Source: [facility] MAIN TYPE CODE TESTS RESULT OUT OF RANGE REFERENCE UNITS LAB ANEU(LOINC) Neutrophil, Absolute 11.2 High 2.3-8.1 10 3/mcL Performed By: #### A1C, GFR, PBNP, CBC, TSH, MG, LIPID, CMP, ANEU, ADIFF #### [address] [address] MG Collected: 04/14/2025 11:58 AM Status: F Source: [facility] MAIN TYPE CODE TESTS RESULT OUT OF RANGE REFERENCE UNITS LAB MG(LOINC) Magnesium Lvl 1.9 1.6-2.4 mg/dL Performed By: #### A1C, GFR, PBNP, CBC, TSH, MG, LIPID, CMP, ANEU, ADIFF #### [address] [id number] CMP Collected: 04/14/2025 11:58 AM Status: F Source: [facility] MAIN TYPE CODE TESTS RESULT OUT OF RANGE REFERENCE UNITS LAB GLU(LOINC) Glucose Level 211 High 82-115 mg/dL LAB NA(LOINC) Sodium Level 135 Low 136-145 mEq/L LAB K(LOINC) Potassium Level 4.8 3.5-5.0 mEq/L LAB CL(LOINC) Chloride 99 98-110 mEq/L LAB CO2(LOINC) CO2 25 22-32 mEq/L LAB EBAL(LOINC) Electrolyte Balance 11.0 4.0-15.0 mEq/L LAB BUN(LOINC) BUN 57.0 High 8.0-22.0 mg/dL LAB CRE(LOINC) Creatinine Lvl (s) 6.34 High 0.60-1.40 mg/dL Result Comment: Testing perf ormed on Jumia analyzer using enzymatic creatinine methodology. LAB BC(LOINC) BUN/Creatinine Ratio 9.0 Low 10.0-22.0 ratio LAB CA(LOINC) Calcium Lvl 8.7 8.7-10.4 mg/dL LAB PROT(LOINC) Total Protein 7.2 5.7-8.2 G/dL LAB ALB(LOINC) Albumin Level 3.7 3.2-4.8 G/dL LAB GLB(LOINC) Globulin 3.5 2.5-4.2 G/dL LAB AG(LOINC) A/G Ratio 1.1 0.9-1.6 ratio LAB BILT(LOINC) Bili Total 0.50 0.20-1.20 mg/dL Result Comment: Use of this assay is not recommended for patients undergoing treatment with eltrombopag due to the potential for falsely elevated results. LAB AP(LOINC) Alk Phos 57 38-126 U/L LAB AST(LOINC) AST/SGOT 48 High 8-34 U/L LAB ALT(LOINC) ALT/SGPT 19 12-55 U/L Performed By: #### A1C, GFR, PBNP, CBC, TSH, MG, LIPID, CMP, ANEU, ADIFF #### [place] [address] TSH Collected: 11:58 AM Status: F Source: [facility] MAIN TYPE CODE TESTS RESULT OUT OF RANGE REFERENCE UNITS LAB TSH(LOINC) TSH 2.524 0.550-4.780 mIU/mL Performed By: #### A1C, GFR, PBNP, CBC, TSH, MG, LIPID, CMP, ANEU, ADIFF #### [place] [address] PBNP Collected: 11:58 AM Status: F Source: [facility] MAIN TYPE CODE TESTS RESULT OUT OF RANGE REFERENCE UNITS LAB PBNP(LOINC) N-Terminal proBNP [address] High 0-900 pg/mL Performed By: #### A1C, GFR, PBNP, CBC, TSH, MG, LIPID, CMP, ANEU, ADIFF #### [place] [address] .GFR Collected: 11:58 AM Status: F Source: [facility] MAIN TYPE CODE TESTS RESULT OUT OF RANGE REFERENCE UNITS LAB eGFR(LOINC) Estimated Glomerular Filtration Rate 9 ml/min/1. 73sqm Result Comment: Stages of Chronic Kidney Disease (CKD) Stage Description eGFR(ml/min/1.73 sq.m.) CKD 1 Normal kidney function or >=90 normal kindney function with possible kidney damage (ex. Proteinuria) CKD 2 Kidney damage with mild loss 60-89 of kidney function CKD 3a Mild to moderate loss of kidney 45-59 function CKD 3b Moderate to severe loss of 30-44 of kindey function CKD 4 Severe loss of kidney function 15-29 CKD 5 Kidney failure <15 Note: (go live 2024) the eGFR calculation was updated to the 2020 CKD-EPI creatinine equation without a race factor to calculate the eGFR results. Performed By: #### A1C, GFR, PBNP, CBC, TSH, MG, LIPID, CMP, ANEU, ADIFF #### [address] [id number] LIPID Collected: 04/14/2025 11:58 AM Status: F Source: [facility] MAIN TYPE CODE TESTS RESULT OUT OF RANGE REFERENCE UNITS LAB CHOL(LOINC) Cholesterol 113 50-199 mg/dL Result Comment: Cholesterol Reference Interval: Less than 200 Desirable 200-239 Borderline high risk 240 and above High risk LAB TRIG(LOINC) Triglycerides 58 3-149 mg/dL LAB HD(LOINC) HDL Cholesterol 35 Low 40-59 mg/dL LAB LDL(LOINC) LDL Cholesterol 66 0-129 mg/dL Performed By: #### A1C, GFR, PBNP, CBC, TSH, MG, LIPID, CMP, ANEU, ADIFF #### [address] [address] A1C Collected: 11:58 AM Status: F Source: [facility] MAIN TYPE CODE TESTS RESULT OUT OF RANGE REFERENCE UNITS LAB A1C(LOINC) Hgb A1c 5.6 4.0-6.0 % LAB eAG(LOINC) Est Avg Glucose 114 mg/dL Result Comment: Estimated Av erage Glucose calculated by equation ((28.7xA1C)- 46.7) Estimated average glucose (eAG) is a calculated value from Hemoglobin A1C and is public utilities sales representative of the average blood glucose level in the last 2-3 month period. Normal range: less than 114 mg/dL Performed By: #### A1C, GFR, PBNP, CBC, TSH, MG, LIPID, CMP, ANEU, ADIFF #### [address] [address] CBC Collected: 11:03 AM Status: F Source: [facility] MAIN TYPE CODE TESTS RESULT OUT OF RANGE REFERENCE UNITS LAB WBC(LOINC) WBC 12.5 High 4.5-10.8 10 3/mcL LAB RBCCT(LOINC) RBC 2.65 Low 4.50-6.00 10 6/mcL LAB HGB(LOINC) Hgb 7.6 Low 13.0-17.5 G/dL LAB HCT(LOINC) Hct 23.3 Low 40.0-52.0 % LAB MCV(LOINC) MCV 88.2 81.0-100.0 fL LAB MCH(LOINC) MCH 28.8 27.0-33.0 pg LAB MCHC(LOINC) MCHC 32.7 32.0-36.0 G/dL LAB RDW(LOINC) RDW 15.1 11.5-15.5 % LAB PLT(LOINC) Platelet 261 150-450 10 3/mcL LAB MPV(LOINC) MPV 7.9 6.4-10.5 fL Performed By: #### MG, ADIFF , FIB, LIPID, GFR, ANEU, PBNP, CBC, PRO, APTT, TROPHS, CMP #### [place] [id number] [address] [place] [address] .AUTO DIFF Collected: 04/14/2025 11:03 AM Status: F Source: [facility] MAIN TYPE CODE TESTS RESULT OUT OF RANGE REFERENCE UNITS LAB RENALDO(LOINC) Neutrophil % 90.2 High 50.0-75.0 % LAB LYM(LOINC) Lymphocyte % 3.9 Low 20.0-40.0 % LAB MON(LOINC) Monocyte % 5.5 2.0-13.0 % LAB EO(LOINC) Eosinophil % 0.1 0.0-6.0 % LAB BAS(LOINC) Basophil % 0.3 0.0-2.5 % LAB ABLYM(LOINC) Lymphocyte, Absolute 0.5 Low 0.9-4.3 10 3/mcL LAB WILFREDO(LOINC) Monocyte, Absolute 0.7 0.1-1.4 10 3/mcL LAB AEOS(LOINC) Eosinophil, Absolute 0.0 0.0-0.7 10 3/mcL LAB ABAS(LOINC) Basophil, Absolute 0.0 0.0-0.3 10 3/mcL Performed By: #### MG, ADIFF , FIB, LIPID, GFR, ANEU, PBNP, CBC, PRO, APTT, TROPHS, CMP #### [place] [address] .NEUABS Collected: 11:03 AM Status: F Source: [facility] MAIN TYPE CODE TESTS RESULT OUT OF RANGE REFERENCE UNITS LAB ANEU(LOINC) Neutrophil, Absolute 11.3 High 2.3-8.1 10 3/mcL Performed By: #### MG, ADIFF , FIB, LIPID, GFR, ANEU, PBNP, CBC, PRO, APTT, TROPHS, CMP #### [place] [address] TROPHS Collected: 04/14/2025 11:03 AM Status: F Source: [facility] MAIN TYPE CODE TESTS RESULT OUT OF RANGE REFERENCE UNITS LAB HSTROP(LOINC) High Sensitivity Troponin I 5092 High 0-54 ng/L Result Comment: High Sensitive Troponin I Reference Ranges: Female: 0-34 ng/L Male: 0-54 ng/L Testing performed on DigitalMR IM analyzer using direct chemiluminescent technology. Performed By: #### MG, ADIFF , FIB, LIPID, GFR, ANEU, PBNP, CBC, PRO, APTT, TROPHS, CMP #### [place] [address] MG Collected: 04/14/2025 11:03 AM Status: F Source: [facility] MAIN TYPE CODE TESTS RESULT OUT OF RANGE REFERENCE UNITS LAB MG(LOINC) Magnesium Lvl 1.9 1.6-2.4 mg/dL Performed By: #### MG, ADIFF , FIB, LIPID, GFR, ANEU, PBNP, CBC, PRO, APTT, TROPHS, CMP #### [place] [address] CMP Collected: 04/14/2025 11:03 AM Status: F Source: [facility] MAIN TYPE CODE TESTS RESULT OUT OF RANGE REFERENCE UNITS LAB GLU(LOINC) Glucose Level 225 High 82-115 mg/dL LAB NA(LOINC) Sodium Level 133 Low 136-145 mEq/L LAB K(LOINC) Potassium Level 4.6 3.5-5.0 mEq/L LAB CL(LOINC) Chloride 97 Low 98-110 mEq/L LAB CO2(LOINC) CO2 24 22-32 mEq/L LAB EBAL(LOINC) Electrolyte Balance 12.0 4.0-15.0 mEq/L LAB BUN(LOINC) BUN 60.0 High 8.0-22.0 mg/dL LAB CRE(LOINC) Creatinine Lvl (s) 6.30 High 0.60-1.40 mg/dL Result Comment: Testing perf ormed on Jumia analyzer using enzymatic creatinine methodology. LAB BC(LOINC) BUN/Creatinine Ratio 9.5 Low 10.0-22.0 ratio LAB CA(LOINC) Calcium Lvl 8.5 Low 8.7-10.4 mg/dL LAB PROT(LOINC) Total Protein 7.0 5.7-8.2 G/dL LAB ALB(LOINC) Albumin Level 3.3 3.2-4.8 G/dL LAB GLB(LOINC) Globulin 3.7 2.5-4.2 G/dL LAB AG(LOINC) A/G Ratio 0.9 0.9-1.6 ratio LAB BILT(LOINC) Bili Total 0.50 0.20-1.20 mg/dL Result Comment: Use of this assay is not recommended for patients undergoing treatment with eltrombopag due to the potential for falsely elevated results. LAB AP(LOINC) Alk Phos 56 38-126 U/L LAB AST(LOINC) AST/SGOT 44 High 8-34 U/L LAB ALT(LOINC) ALT/SGPT 19 12-55 U/L Performed By: #### MG, ADIFF , FIB, LIPID, GFR, ANEU, PBNP, CBC, PRO, APTT, TROPHS, CMP #### [place] [address] PBNP Collected: 11:03 AM Status: F Source: [facility] MAIN TYPE CODE TESTS RESULT OUT OF RANGE REFERENCE UNITS LAB PBNP(LOINC) N-Terminal proBNP [address] High 0-900 pg/mL Performed By: #### MG, ADIFF , FIB, LIPID, GFR, ANEU, PBNP, CBC, PRO, APTT, TROPHS, CMP #### [address] [address] .GFR Collected: 11:03 AM Status: F Source: [facility] MAIN TYPE CODE TESTS RESULT OUT OF RANGE REFERENCE UNITS LAB eGFR(LOINC) Estimated Glomerular Filtration Rate 9 ml/min/1. 73sqm Result Comment: Stages of Chronic Kidney Disease (CKD) Stage Description eGFR(ml/min/1.73 sq.m.) CKD 1 Normal kidney function or >=90 normal kindney function with possible kidney damage (ex. Proteinuria) CKD 2 Kidney damage with mild loss 60-89 of kidney function CKD 3a Mild to moderate loss of kidney 45-59 function CKD 3b Moderate to severe loss of 30-44 of kindey function CKD 4 Severe loss of kidney function 15-29 CKD 5 Kidney failure <15 Note: (go live 2024) the eGFR calculation was updated to the 2020 CKD-EPI creatinine equation without a race factor to calculate the eGFR results. Performed By: #### MG, ADIFF , FIB, LIPID, GFR, ANEU, PBNP, CBC, PRO, APTT, TROPHS, CMP #### [place] [address] LIPID Collected: 04/14/2025 11:03 AM Status: F Source: [facility] MAIN TYPE CODE TESTS RESULT OUT OF RANGE REFERENCE UNITS LAB CHOL(LOINC) Cholesterol 110 50-199 mg/dL Result Comment: Cholesterol Reference Interval: Less than 200 Desirable 200-239 Borderline high risk 240 and above High risk LAB TRIG(LOINC) Triglycerides 46 3-149 mg/dL LAB HD(LOINC) HDL Cholesterol 33 Low 40-59 mg/dL LAB LDL(LOINC) LDL Cholesterol 68 0-129 mg/dL Performed By: #### MG, ADIFF , FIB, LIPID, GFR, ANEU, PBNP, CBC, PRO, APTT, TROPHS, CMP #### [address] [address] FIB Collected: 11:03 AM Status: F Source: [facility] MAIN TYPE CODE TESTS RESULT OUT OF RANGE REFERENCE UNITS LAB FIB(LOINC) Fibrinogen 679 High 250-560 mg/dL Performed By: #### MG, ADIFF , FIB, LIPID, GFR, ANEU, PBNP, CBC, PRO, APTT, TROPHS, CMP #### [address] [address] APTT Collected: 06/11/202 5 11:03 AM Status: F Source: [facility] MAIN TYPE CODE TESTS RESULT OUT OF RANGE REFERENCE UNITS LAB APTT0(LOINC) APTT 70.8 High 25.0-35.0 seconds Result Comment: For Heparin anticoagulation therapy, the recommended therapeutic range is: 54-77 seconds (APTT Correlation with Anti-Xa therapeutic range of 0.3-0.7 units/ml). PLEASE REFERENCE THE PHARMACY PROTOCOL FOR DOSING. Performed By: #### MG, ADIFF , FIB, LIPID, GFR, ANEU, PBNP, CBC, PRO, APTT, TROPHS, CMP #### [address] [address] PRO Collected: 04/14/2025 11:03 AM Status: F Source: [facility] MAIN TYPE CODE TESTS RESULT OUT OF RANGE REFERENCE UNITS LAB PT(LOINC) Protime 14.5 High 9.0-14.4 seconds Result Comment: Effective , Protime results may be affected by some antibiotics (i.e. Ciprofloxacin, Azithromycin, Bactrim) which may potentiate the action of oral anticoagulants, with further increases in Protime/INR. LAB INR(LOINC) PT International Ratio 1.3 ratio Result Comment: The [place] [employer] (CHEST, 1992, 102:312S- 25S) recommended therapeutic range for oral anticoagulant therapy is: LOW RISK: Prophylaxis of venous thrombosis INR: 2.0-3.0 Treatment of pulmonary embolism 2.0-3.0 Prevention of systemic embolism 2.0-3.0 HIGH RISK: Mechanical prosthetic valves 2.5-3.5 Performed By: #### MG, ADIFF , FIB, LIPID, GFR, ANEU, PBNP, CBC, PRO, APTT, TROPHS, CMP #### [address] [id number] CMP WITH EGFR Collected: 9:34 AM Status: F Source: [facility] TYPE CODE TESTS RESULT OUT OF RANGE REFERENCE UNITS LAB CMP with eGFR(LOINC) CMP with eGFR Result Comment: COMPREHENSIV E METABOLIC PANEL LAB SODIUM(LOINC) SODIUM 131 Low 136 - 145 mmol/l LAB POTASSIUM(LOIN C) POTASSIUM 4.1 3.5 - 5.1 mmol/L LAB CHLORIDE(LOINC ) CHLORIDE 97 Low 98 - 107 mmol/L LAB CO2(LOINC) CO2 18.8 Low 21.0 - 32.0 mmol/L LAB GLUCOSE(LOINC) GLUCOSE 272 High 74 - 106 mg/dl LAB BUN(LOINC) BUN 61 High 7 - 18 mg/dl LAB CREATININE(MIKE NC) CREATININE 6.99 High 0.70 - 1.30 mg/dl LAB AST/SGOT(LOINC ) AST/SGOT 58 High 15 - 37 U/L LAB ALK PHOS(LOINC) ALK PHOS 67 46 - 116 U/L LAB CALCIUM(LOINC) CALCIUM 8.3 Low 8.5 - 10.1 mg/dl LAB TOTAL PROTEIN(LOINC) TOTAL PROTEIN 7.9 6.4 - 8.2 g/dl LAB ALBUMIN(LOINC) ALBUMIN 3.4 3.4 - 5.0 g/dL LAB GLOBULIN(LOINC ) GLOBULIN 4.5 High 1.5 - 3.8 G/DL LAB A/G RATIO(LOINC) A/G RATIO 0.8 Low 0.9 - 1.6 LAB TOTAL BILI(LOINC) TOTAL BILI 0.8 0.2 - 1.0 mg/dl LAB B/C RATIO(LOINC) B/C RATIO 9 0 - 30 ratio LAB ALT/SGPT(LOINC ) ALT/SGPT 30 16 - 63 U/L LAB ANION GAP(LOINC) ANION GAP 19 10 - 20 mmol/L LAB AGE(LOINC) AGE 64 years LAB eGFR(LOINC) eGFR 8 Low 60 - 999 ML/MINUT E LAB eGFR(AA)(LOINC ) eGFR(AA) 10 Low 60 - 999 ML/MINUT E Result Comment: ACCORDING TO THE NATIONAL KIDNEY DISEASE EDUCATION PROGRAM(NKDE), A NORMAL eGFR IS A VALUE GREATER THAN OR EQUAL TO 60 ML/MIN/1.73 SQ METERS. CHRONIC KIDNEY DISEASE: <60mL/MIN/1.73 SQ METERS KIDNEY FAILURE: <15mL/MIN/1.73 SQ METERS THIS TEST SHOULD ONLY BE USED FOR PATIENTS 18 YEARS OF AGE AND OLDER. Performed By: #### [id number] ## ## [facility],[address] [place] [id number] TROPONIN Collected: 5 9:34 AM Status: F Source: [facility] TYPE CODE TESTS RESULT OUT OF RANGE REFERENCE UNITS LAB HS TROPONIN(LOINC) HS TROPONIN 6410.8 High Alert 0.0 - 76.2 pg/mL Result Comment: { CALLED TO VERNA ZEPEDA BY LMM @ 1028 { READ BACK BY VERNA ZEPEDA RA 1028 Performed By: #### [id number] ## ## [address] [address] PROTHROMBIN TIME AND INR Collected: 04/14/2025 9:34 A M Status: F Source: [facility] TYPE CODE TESTS RESULT OUT OF RANGE REFERENCE UNITS LAB PROTHROMBIN TIME AND INR(LOINC) PROTHROMBIN TIME AND INR Result Comment: PROTHROMBIN TIME AND INR LAB PT-COUMADIN(MIKE NC) PT-COUMADIN 13.6 9.3 - 14.1 sec LAB INR(LOINC) INR 1.2 0.8 - 1.2 Result Comment: THE HEMOS IL THROMBOPLASTIN REAGENT USED IN THE PROTHROMBIN TIME TEST INTERACTS WITH THE DRUG CUBICIN (DAPTOMYCIN) AND WILL RESULT IN FALSELY ELEVATED PT / INR RESULTS INR INTERPRETATION INR INDICATION PREVENTION AND TREATMENT OF THROMBOEMBOLISM ASSOCIATED WITH: 2.0 - 3.0 ATRIAL FIBRILLATION, BIOPROSTHETIC HEART VALVES, PULMONARY EMBOLISM, VENOUS THROMBOSIS, SYSTEMIC EMBOLISM POST MYOCARDIAL INFARCTION 2.5 - 3.5 MECHANICAL HEART VALVES Performed By: #### [id number] ## ## [place] [id number] CBC + DIFF Collected: 9:34 AM Status: F Source: [facility] TYPE CODE TESTS RESULT OUT OF RANGE REFERENCE UNITS LAB CBC + DIFF(LOINC) CBC + DIFF Result Comment: CBC-COMPLETE BLOOD COUNT LAB WBC(LOINC) WBC 13.6 High 4.5 - 10.8 x 10EE3/UL LAB RBC(LOINC) RBC 2.68 Low 4.50 - 6.00 x 10EE6/UL LAB HEMOGLOBIN(MIKE NC) HEMOGLOBIN 8.2 Low 13.0 - 17.5 g/dl LAB HEMATOCRIT(MIKE NC) HEMATOCRIT 24.0 Low 40.0 - 52.0 % LAB MCV(LOINC) MCV 90 81 - 98 fl LAB MCH(LOINC) MCH 31 27 - 33 pg LAB MCHC(LOINC) MCHC 34 32 - 36 X10 3 LAB RDW/CV(LOINC) RDW/CV 14.6 12.0 - 15.6 % LAB PLATELET(LOINC ) PLATELET 337 150 - 450 x10EE3/UL LAB MPV(LOINC) MPV 8.0 6.4 - 10.5 fl Result Comment: AUTOMATED DI FFERENTIAL LAB NEUT %(LOINC) NEUT % 86.9 High 46.0 - 76.0 % LAB LYMPH %(LOINC) LYMPH % 5.6 Low 20.0 - 45.0 % LAB MONOS %(LOINC) MONOS % 6.7 0.0 - 10.0 % LAB EO %(LOINC) EO % 0.6 0.0 - 7.0 % LAB BASO %(LOINC) BASO % 0.2 0.0 - 2.0 % LAB Lymph #(LOINC) Lymph # 0.76 Low 0.80 - 2.80 x10EE 3/UL LAB Neut #(LOINC) Neut # 11.81 High 1.50 - 7.10 x10EE3 /UL LAB Bonner #(LOINC) Bonner # 0.91 0.20 - 1.00 x10EE3 /UL LAB EO #(LOINC) EO # 0.08 0.00 - 0.50 x10EE3/U L LAB Baso #(LOINC) Baso # 0.03 0.00 - 0.10 x10EE3 /UL LAB MANUAL DIFF(LOINC) MANUAL DIFF N/A LAB MORPHOLOGY(MIKE NC) MORPHOLOGY N/A Performed By: #### [id number] ## ## [place] [address] NT-PROBNP Collected: 9:34 AM Status: F Source: [facility] TYPE CODE TESTS RESULT OUT OF RANGE REFERENCE UNITS LAB NT PRO-BNP(LOINC) NT PRO-BNP [address] High 0 - 125 pg/ mL Performed By: #### [id number] ## ## [place] [address] APTT Collected: 9:34 AM Status: F Source: [facility] TYPE CODE TESTS RESULT OUT OF RANGE REFERENCE UNITS LAB PTT(LOINC) PTT 32.2 25.4 - 38.4 sec Performed By: #### [id number] ## ## [facility],[address] [place] [id number] ED VISIT SUMMARY Observed: 04/14/2025 9:25 AM Status: F Source: [facility] Visit Overview Visit Overview [address] [place] [id number] 04/14/2025 Patient: DANI RAMIREZ Sex: Male : 1960 Age: 64y 04/14/2025 11:02 PM EDT ED Arrival:09:25 04/14/2025 EDT Status: Recent Travel: Language:deu Adv Directive: Isolation Status: Infectious Disease Ethnicity:N Fall Risk:risk Exposure:unknown Measurements: Self-Harm Status:unknown risk Sepsis Screen: Chief Complaint:DIFFICULTY BREATHING and (09:33 04/14/2025) ALLERGIES Acetaminophen with Codeine HOME MEDICATIONS PAST MEDICAL HISTORY / PROBLEMS Coronary artery disease Dialysis Dialysis Shunt Hypertension 1 of 3 Visit Overview Immunizations: status is unknown PAST SURGICAL HISTORY Cardiac Catheterization SOCIAL HISTORY Smoking status: No Alcohol use: No ED COURSE MEDICATIONS GIVEN IN EMERGENCY DEPARTMENT 09:39 04/14/25 Heparin IVP 4000 unit 09:40 04/14/25 Aspirin PO Chew 324 mg 09:41 04/14/25 Brilinta PO 180 mg IV SITE INFORMATION 09:34 04/14/25 Site #1 left forearm, 18g. Saline lock. INTAKE OUTPUT REASSESMENT (most recent) 09:39 04/14/25. To room via stretcher. GENERAL / NEURO / PSYCH: Alert. Oriented X 4. HEENT: Mucous membranes are dry and pale. RESPIRATORY: No respiratory distress. Respirations not labored. Chest nontender. Breath sounds within normal limits. CVS: Cardiac rhythm: sinus tachycardia; 1st degree AV block. GI / : Abdomen soft and nontender. Bowel sounds within normal limits. SKIN: Skin is pale. Skin is cool and diaphoretic. VITAL SIGNS First Vitals Last Vitals Temp 09:35 04/14/25 Temp 09:35 04/14/25 BP 09:35 04/14/25 116/77 BP 09:35 04/14/25 116/77 HR 09:35 04/14/25 106 HR 09:35 04/14/25 106 RR 09:35 04/14/25 17 RR 09:35 04/14/25 O2 Sat 09:35 04/14/25 95% O2 Sat 09:35 04/14/25 2 of 3 Visit Overview First Vitals Last Vitals Pain 09:35 04/14/25 3 Pain 09:35 04/14/25 ETCO2 09:35 04/14/25 ETCO2 09:35 04/14/25 GCS 09:35 04/14/25 GCS 09:35 04/14/25 RTS 09:35 04/14/25 RTS 09:35 04/14/25 PROCEDURES NURSING INTERVENTIONS LABS / STUDIES LABS / STUDIES ORDERED BNP CBC w Diff CMP PT with INR PTT Troponin-I LABS - ABNORMAL RESULTS TROPONIN HS TROPONIN 6410.8 pg/mL () CLINICAL IMPRESSION ACUTE INFERIOR MYOCARDIAL INFARCTION WITH ST ELEVATION AND ELEVATED MARKERS (STEMI) 3 of 3 ED ORDER SHEET ([facility] ONLY) Observed: 09/2025 9:25 AM Status: F Source: [facility] Order Sheet Order Sheet [address] [place] [id number] 04/14/2025 Patient: DANI RAMIREZ Sex: Male : 1960 Age: 64y ALLERGIES: Acetaminophen with Codeine MEDICATION/IV/DRIP/FLUID ORDERS Order Description Priority Entered Acknowledged Completed Aspirin PO [id number] mg (NOW 09:38 04/14/2025 09:40 x1) Naila Blanco R.N. 04/14/2025 Verbal Order, Auth by: Won Tenorio D.O. R.NBryon Read back and verified Heparin [id number] unit (NOW x1, 09:38 04/14/2025 09:39 Refer to Heparin Nomogram for Naila Blanco R.N. 04/14/2025 Dosing/Titration, HIGH ALERT Verbal Order, Auth by: Naila Blanco MEDICATION, Round to nearest Won Enciso D.O. RBryonNBryon 50-100 units) Read back and verified Order Comments: 09:38 04/14/2025: (Cardiac Max dose 4000 units DVT/PE Max dose 8750 units) Naila Blanco R.N. Brilinta PO180 mg (NOW x1) 09:41 04/14/2025 09:41 09:43 Naila Blanco R.N. 04/14/2025 04/14/2025 Verbal Order, Auth by: Naila Tenorio Andrew Culver, D.O. R.N. RBoris Read back and verified 1 of 3 Order Sheet Reason for ordering with alerts: Clinical consideration given --09:41 04/14/2025 Naila Blanco R.N. LAB ORDERS Order Description Priority Entered Acknowledged Collected Completed CBC w Diff Stat Stat 09:53 04/14/2025 09:56 04/14/2025 10:31 04/14/2025 Naila Barney Kobe Miller, R.N. D.O. R.N. BNP Stat Stat 09:53 04/14/2025 09:56 04/14/2025 10:31 04/14/2025 Naila Barney Kobe Miller, R.N. D.O. R.N. PT with INR Stat Stat 09:53 04/14/2025 09:56 04/14/2025 10:31 04/14/2025 Naila Barney Kobe Miller, R.N. D.O. R.N. PTT Stat Stat 09:53 04/14/2025 09:56 04/14/2025 10:31 04/14/2025 Naila Barney Kobe Miller, R.N. D.O. R.N. CMP Stat Stat 09:53 04/14/2025 09:56 04/14/2025 10:31 04/14/2025 Naila Barney Kobe Miller, R.N. D.O. R.N. Troponin-I Stat Stat 09:53 04/14/2025 09:56 04/14/2025 10:31 04/14/2025 Naila Barney Kobe Miller, R.N. D.O. R.N. DIAGNOSTIC STUDY ORDERS Order Description Priority Entered Acknowledged Completed 2 of 3 Order Sheet STAFF ORDERS Order Description Priority Entered Acknowledged Collected Completed [Electronically signed by Won Enciso D.O. (04/14/2025 23:02 EDT)] 3 of 3 ED PHYSICIAN CLINICAL REPORT Observed: 0 04/14/2025 9:25 AM Status: F Source: [facility] Narrative Physician Clinical Narrative [facility] [address] [place] [address] [id number] 04/14/2025 09:25:00 Patient: DANI RAMIREZ Sex: Male : 1960 Age: 64y Disposition: Transfer to [facility] Disposition Decision Time: 09:40 04/14/2025 Departure Time: 09:48 04/14/2025 Initial Vital Sign Measured Time BP MAP HR RR O2Sat ETCO2 Temp Pain GCS RTS 09:35 04/14/2025 116/77 90 106 17 95% 3 Time Seen: 09:33 04/14/2025. Arrived- By ambulance. HISTORY OF PRESENT ILLNESS Chief Complaint: CHEST PAIN. This started last night 2 AM. It is described as located in the central chest area. At its maximum, severity described as severe. When seen in the E.D., severity described as 3 / 10. The patient has had difficulty breathing. REVIEW OF SYSTEMS RESPIRATORY: No cough. CONSTITUTIONAL: No fever or chills. PAST HISTORY Coronary artery disease. patient states he had a heart catheterization about a week ago which showed some blockage but did not get stented. Dialysis Dialysis Shunt Hypertension 1 of 10 Narrative Surgeries: Cardiac Catheterization Allergies: Acetaminophen with Codeine Home Medications/Allergy Information Source: patient - Naila Blanco R.N., 04/14/2025 09:50 EDT ADDITIONAL NOTES The nursing notes have been reviewed. PHYSICAL EXAM Vital Signs: Have been reviewed. Appearance: Anxious. Patient in mild distress. Neck: Normal inspection. CVS: Normal heart rate and rhythm. Heart sounds normal. Pulses normal. Respiratory: No respiratory distress. Breath sounds normal. Abdomen: Soft and nontender. Skin: Skin warm and dry. Normal skin color. No rash. Normal skin turgor. Neuro: Oriented X 3. LABS, X-RAYS, AND EKG 12-LEAD EKG: EKG shows ST-elevation inferior leads, subtle ST elevation AVR, significant ST depression in lateral precordial leads. Given these changes and patient's symptomatology, STEMI was called and alert was activated. Laboratory Tests: APTT Final ELIER: 04/14/2025 09:34:00 EDT MsgRcvd: 04/14/2025 10:09 EDT Lab Test Result Reference Status Received Comments 2 of 10 Narrative Lab Test Result Reference Status Received Comments 04/14/2025 10:09 PTT 32.2 sec 25.4 - 38.4 Final EDT CBC + DIFF Final ELIER: 04/14/2025 09:34:00 EDT MsgRcvd: 04/14/2025 10:10 EDT Lab Test Result Reference Status Received Comments 04/14/2025 10:10 CBC-COMPLETE CBC + DIFF Final EDT BLOOD COUNT 13.6 x 10/UL 04/14/2025 10:10 WBC 4.5 - 10.8 Final Above high normal EDT 2.68 x 10/UL 04/14/2025 10:10 RBC 4.50 - 6.00 Final Below low normal EDT 8.2 g/dl 04/14/2025 10:10 HEMOGLOBIN 13.0 - 17.5 Final Below low normal EDT 24.0 % 04/14/2025 10:10 HEMATOCRIT 40.0 - 52.0 Final Below low normal EDT 04/14/2025 10:10 MCV 90 fl 81 - 98 Final EDT 04/14/2025 10:10 MCH 31 pg 27 - 33 Final EDT 04/14/2025 10:10 MCHC 34 X10 3 32 - 36 Final EDT 04/14/2025 10:10 RDW/CV 14.6 % 12.0 - 15.6 Final EDT 04/14/2025 10:10 PLATELET 337 x10/UL 150 - 450 Final EDT 3 of 10 Narrative Lab Test Result Reference Status Received Comments 04/14/2025 10:10 AUTOMATED MPV 8.0 fl 6.4 - 10.5 Final EDT DIFFERENTIAL 86.9 % 04/14/2025 10:10 NEUT % 46.0 - 76.0 Final Above high normal EDT 5.6 % 04/14/2025 10:10 LYMPH % 20.0 - 45.0 Final Below low normal EDT 04/14/2025 10:10 MONOS % 6.7 % 0.0 - 10.0 Final EDT 04/14/2025 10:10 EO % 0.6 % 0.0 - 7.0 Final EDT 04/14/2025 10:10 BASO % 0.2 % 0.0 - 2.0 Final EDT 0.76 x10/UL 04/14/2025 10:10 Lymph # 0.80 - 2.80 Final Below low normal EDT 11.81 x10/UL 04/14/2025 10:10 Neut # 1.50 - 7.10 Final Above high normal EDT 04/14/2025 10:10 Bonner # 0.91 x10/UL 0.20 - 1.00 Final EDT 04/14/2025 10:10 EO # 0.08 x10/UL 0.00 - 0.50 Final EDT 04/14/2025 10:10 Baso # 0.03 x10/UL 0.00 - 0.10 Final EDT 04/14/2025 10:10 MANUAL DIFF N/A New Order EDT 04/14/2025 10:10 MORPHOLOGY N/A New Order EDT 4 of 10 Narrative CMP with eGFR Final ELIER: 04/14/2025 09:34:00 EDT MsgRcvd: 04/14/2025 10:25 EDT Lab Test Result Reference Status Received Comments COMPREHENSIVE 04/14/2025 CMP with eGFR Final METABOLIC 10:25 EDT PANEL 131 mmol/l 04/14/2025 SODIUM 136 - 145 Final Below low normal 10:25 EDT 04/14/2025 POTASSIUM 4.1 mmol/L 3.5 - 5.1 Final 10:25 EDT 97 mmol/L 04/14/2025 CHLORIDE 98 - 107 Final Below low normal 10:25 EDT 18.8 mmol/L 04/14/2025 CO2 21.0 - 32.0 Final Below low normal 10:25 EDT 272 mg/dl 04/14/2025 GLUCOSE Above high 74 - 106 Final 10:25 EDT normal 61 mg/dl 04/14/2025 BUN Above high 7 - 18 Final 10:25 EDT normal 6.99 mg/dl 04/14/2025 CREATININE Above high 0.70 - 1.30 Final 10:25 EDT normal 58 U/L 04/14/2025 AST/SGOT Above high 15 - 37 Final 10:25 EDT normal 04/14/2025 ALK PHOS 67 U/L 46 - 116 Final 10:25 EDT 5 of 10 Narrative Lab Test Result Reference Status Received Comments 8.3 mg/dl 04/14/2025 CALCIUM 8.5 - 10.1 Final Below low normal 10:25 EDT TOTAL 04/14/2025 7.9 g/dl 6.4 - 8.2 Final PROTEIN 10:25 EDT 04/14/2025 ALBUMIN 3.4 g/dL 3.4 - 5.0 Final 10:25 EDT 4.5 G/DL 04/14/2025 GLOBULIN Above high 1.5 - 3.8 Final 10:25 EDT normal 0.8 04/14/2025 A/G RATIO 0.9 - 1.6 Final Below low normal 10:25 EDT 04/14/2025 TOTAL BILI 0.8 mg/dl 0.2 - 1.0 Final 10:25 EDT 04/14/2025 B/C RATIO 9 ratio 0 - 30 Final 10:25 EDT 04/14/2025 ALT/SGPT 30 U/L 16 - 63 Final 10:25 EDT 04/14/2025 ANION GAP 19 mmol/L 10 - 20 Final 10:25 EDT 04/14/2025 AGE 64 years Final 10:25 EDT 8 ML/MINUTE 04/14/2025 eGFR 60 - 999 Final Below low normal 10:25 EDT 6 of 10 Narrative Lab Test Result Reference Status Received Comments ACCORDING TO THE NATIONAL KIDNEY DISEASE EDUCATION PROGRAM(NKDE), A NORMAL eGFR IS A VALUE GREATER THAN OR EQUAL TO 60 ML/MIN/1.73 SQ METERS. 10 ML/MINUTE 04/14/2025 CHRONIC KIDNEY eGFR(AA) 60 - 999 Final Below low normal 10:25 EDT DISEASE: <60mL/MIN/1.73 SQ METERS KIDNEY FAILURE: <15mL/MIN/1.73 SQ METERS THIS TEST SHOULD ONLY BE USED FOR PATIENTS 18 YEARS OF AGE AND OLDER. NT-proBNP Final ELIER: 04/14/2025 09:34:00 EDT MsgRcvd: 04/14/2025 10:59 EDT Lab Test Result Reference Status Received Comments 24521 pg/mL 04/14/2025 10:59 NT PRO-BNP 0 - 125 Final Above high normal EDT 7 of 10 Narrative PROTHROMBIN TIME AND INR Final ELIER: 04/14/2025 09:34:00 EDT MsgRcvd: 04/14/2025 10:09 EDT Lab Test Result Reference Status Received Comments PROTHROMBIN 04/14/2025 PROTHROMBIN TIME Final TIME AND INR 10:09 EDT AND INR 04/14/2025 PT-COUMADIN 13.6 sec 9.3 - 14.1 Final 10:09 EDT 8 of 10 Narrative Lab Test Result Reference Status Received Comments THE HEMOSIL THROMBOPLASTIN REAGENT USED IN THE PROTHROMBIN TIME TEST INTERACTS WITH THE DRUG CUBICIN (DAPTOMYCIN) AND WILL RESULT IN FALSELY ELEVATED PT / INR RESULTS INR INTERPRETATION INR INDICATION 04/14/2025 PREVENTION AND INR 1.2 0.8 - 1.2 Final 10:09 EDT TREATMENT OF THROMBOEMBOLISM ASSOCIATED WITH: 2.0 - 3.0 ATRIAL FIBRILLATION, BIOPROSTHETIC HEART VALVES, PULMONARY EMBOLISM, VENOUS THROMBOSIS, SYSTEMIC EMBOLISM POST MYOCARDIAL INFARCTION 2.5 - 3.5 MECHANICAL HEART 9 of 10 VALVES Narrative TROPONIN Final ELIER: 04/14/2025 09:34:00 EDT MsgRcvd: 04/14/2025 10:29 EDT Lab Test Result Reference Status Received Comments { CALLED TO VERNA ZEPEDA BY 6410.8 pg/mL 04/14/2025 10:29 LMM @ 1028 HS TROPONIN Above upper panic 0.0 - 76.2 Final EDT { READ BACK limits BY VERNA ZEPEDA RA 1028 PROGRESS AND PROCEDURES MEDICAL DECISION MAKING: (based on presentation and EKG findings, STEMI alert was activated. The patient was medicated with heparin, Brilinta, aspirin. He was evaluated in the the ED here by Dr. Sanchez who responded almost immediately to the STEMI alert. She concurs about the diagnosis and the patient is currently being transported out to [facility]. I spoke with Dr. Vance intervention[facility] Cardiology at [place] who has accepted his care. Patient is hemodynamically stable at time of transfer out.). Disposition: Disposition Decision Time: 09:40 04/14/2025. Patient transferred to [facility]. Transferred in stable condition. Decision for transfer based upon need for higher level of care. Condition: serious. CLINICAL IMPRESSION Acute inferior myocardial infarction with ST elevation and elevated markers (STEMI). (Electronically signed by Won Enciso D.O. 04/14/25 23:02:04 EDT) Generated by [facility] 10 of 10 ED NURSES CLINICAL NOTE Observed: 2024 9:25 AM Status: F Source: [facility] Nurse Narrative Nurse Clinical Narrative [facility] [place] [address] [phone] 04/14/2025 09:25:00 Patient: DANI RAMIREZ Sex: Male : 1960 Age: 64y Disposition: Transfer to [facility] Disposition Decision Time: 09:40 04/14/2025 Departure Time: 09:48 04/14/2025 TRIAGE Arrived by EMS. Historian: (patient). Triage time: 09:32 04/14/2025. Chief Complaint: DIFFICULTY BREATHING. STEMI team: STEMI team notified: 09:33 04/14/2025. Onsite STEMI team: ED physician. -- 09:35 04/14/25 EDT Naila Blanco R.N. 09:35 04/14/25. BP: 116/77 MAP: 90. HR: 106. RR: 17. O2 saturation: 95% Temperature: Unable to obtain due to patient condition. Pain level now 3/10. -- 09:59 04/14/25 EDT Naila Blanco R.N. Acuity: LEVEL 2. 09:59 04/14/25. The patient has had chest pain. -- 09:59 04/14/25 EDT Naila Blanco R.N. Allergies: Acetaminophen with Codeine -- 09:50 04/14/25 EDT Naila Blanco R.N. Home Medications/Allergy Information Source: 1 of 4 Nurse Narrative patient -- 09:50 04/14/25 EDT Naila Blanco R.N. Problems: Hypertension -- 09:48 04/14/25 EDT Naila Blanco R.N. Dialysis -- 09:55 04/14/25 EDT Naila Blanco R.N. Dialysis Shunt -- 09:55 04/14/25 EDT Naila Blanco R.N. Surgeries: Cardiac Catheterization -- 09:52 04/14/25 JOSET Naila Blanco R.N. History 09:59 04/14/25. PAST MEDICAL HX: Immunizations: status is unknown. SOCIAL HX: Never smoker. No alcohol use. Infectious disease exposure: Screening unobtainable. ABUSE ASSESSMENT: Unable to obtain. SELF HARM ASSESSMENT: Self harm assessment unable to obtain. FALL RISK ASSESSMENT: Fall risk assessment completed. Risk factors identified include patient age greater than 65 years and impairment of mobility. -- 09:59 04/14/25 EDT Naila Blanco R.N. PHYSICAL ASSESSMENT 09:39 04/14/25. To room via stretcher. GENERAL / NEURO / PSYCH: Alert. Oriented X 4. HEENT: Mucous membranes are dry and pale. RESPIRATORY: No respiratory distress. Respirations not labored. Chest nontender. Breath sounds within normal limits. CVS: Cardiac rhythm: sinus tachycardia; 1st degree AV block. GI / : Abdomen soft and nontender. Bowel sounds within normal limits. SKIN: Skin is pale. Skin is cool and diaphoretic. -- 09:55 04/14/25 EDT Chad Gomez R.N. 2 of 4 Nurse Narrative NURSING PROGRESS NOTES 09:32 04/14/25. 12-LEAD EKG: EKG time: (09:32 04/14/2025). 12-Lead EKG was ordered and performed by il. -- 09:40 04/14/25 EDT Naila Blanco R.N. 09:34 04/14/25. ED physician at the patient's bedside (09:34 04/14/2025). -- 09:36 04/14/25 EDT Naila Blanco R.N. 09:34 04/14/25. Site #1 started in the left forearm with an 18g angiocath with aseptic technique and good blood return; 1 attempt. Blood drawn: rainbow set and yee tube(s) and cultures x 1. Saline lock flushed with 5 mL saline. -- 09:36 04/14/25 EDT Naila Blanco R.N. 09:35 04/14/25. ( STEMI alert paged overhead). -- 09:41 04/14/25 EDT Naila Blanco R.N. 09:35 04/14/25. ( Dispatch called for STEMI at this time). -- 09:47 04/14/25 EDT Naila Blanco R.N. 09:36 04/14/25. ( SO called for D1 dispatch). -- 09:56 04/14/25 EDT Chad Gomez R.N. 09:37 04/14/25. At the patient's bedside (Dr. Phillips at bedside) (09:37 04/14/2025). -- 09:37 04/14/25 EDT Naila Blanco R.N. 09:39 04/14/25. Heparin IVP 4000 unit given via Site# 1. Allergies verified and confirmed 5 rights. IV patency established. IV site checked: no pain, redness, or swelling. IV flushed thoroughly pre-medication administration. Information reviewed with patient. Verbalizes understanding. Medication Wastage: 1000 unit wasted. -- 09:39 04/14/25 EDT Naila Blanco R.N. 09:39 04/14/25. Heparin IVP: Medication Co-sign. Verified dosage, concentration and rate. -- 09:39 04/14/25 EDT Soniya Olivera R.N. 09:40 04/14/25. Aspirin PO Chew 324 mg given. -- 09:40 04/14/25 EDT Naila Blanco R.N. 09:41 04/14/25. ( [facility] arrives for transport, report given). -- 09:44 04/14/25 EDT Naila Blanco R.N. 09:41 04/14/25. Brilinta PO 180 mg given. Allergies verified and confirmed 5 rights. Information reviewed. Verbalizes understanding. -- 09:43 04/14/25 EDT Naila Blanco R.N. 09:42 04/14/25. ( Pt information given and faxed to [facility]). -- 09:56 04/14/25 EDT Chad Gomez R.N. 10:30 04/14/25. Critical value received by Chad GILLESPIE. Troponin: 6410.8. Critical value read back. Verified lab result and patient ID. ED physician notifed of critical value. No action is required. -- 10:30 04/14/25 EDT Chad Gomez R.N. DISPOSITION / DISCHARGE Departure time: 09:48 04/14/2025. Condition at departure: unchanged. -- 10:10 04/14/25 EDT Chad Gomez R.N. 09:48 04/14/25. Site #[address] upon admission; patent. -- 10:10 04/14/25 EDT Chad Gomez R.N. 09:58 04/14/25. Report was given to a nurse. Report was acknowledged (report to carpenter labor supervisor). -- 09:58 04/14/25 EDT Naila Blanco R.N. 3 of 4 Nurse Narrative (Electronically signed by Chad Gomez R.N. 04/14/25 10:33:22 EDT) Generated by [facility] 4 of 4 ED VITALS FLOW SHEET Observed: 9:25 AM Status: F Source: [facility] Vitals Vital Sign Flow Sheet [address] [address] [id number] 04/14/2025 Patient: DANI RAMIREZ Sex: Male : 1960 Age: 64y Measured Time BP MAP HR RR O2Sat ETCO2 Temp Pain GCS RTS 09:35 04/14/2025 116/77 86 106 09:35 04/14/2025 116/77 90 106 17 95% 3 1 of 1 ED SUPER BILL Observed: 04/14/2025 9:25 AM Status: F Source: [facility] Superbill [address] [address] [phone] 04/14/2025 Patient: DANI RAMIREZ Sex: Male : 1960 Age: 64y Item Facility Professional Category Description Code Code Quantity Fee Total Nurse/E/M EMERGENCY 910215 1 $0.00 $0.00 DEPARTMENT VISIT HIGH/URGENT SEVERITY (42276-49) Nurse/IV/IM/Infusions IVP initial 823499 1 $0.00 $0.00 (83754) Grand Total $0.00 Providers Won Enciso D.O. Chief Complaint CHEST PAIN. Principal Diagnosis Acute inferior myocardial infarction with ST elevation and elevated markers (STEMI). [facility] 2 [facility] ICD-10 Codes I21.19: ST elevation (STEMI) myocardial infarction involving other coronary artery of inferior wall 2 of 2 ED MED ADMINISTRATION DETAIL Observed: 0 04/14/2025 9:25 AM Status: F Source: [facility] Hydro Operator Medication Administration Record [facility] [address] [place] [address] [phone] 04/14/2025 Patient: DANI RAMIREZ Sex: Male : 1960 Age: 64y ALLERGIES: Acetaminophen with Codeine Medication Ordered Medication Administration Date/Time Aspirin PO Chew 09:40 04/14 Aspirin PO Chew 324 mg given. - 09:40 Naila Given 324 mg (NOW x1) Sarah Blanco 09:40 04/14/2025 Naila Blanco R.N. Scanned Heparin IVP 4000 09:39 04/14 Heparin IVP 4000 unit given via Site# 1. Allergies Given unit (NOW x1, Refer verified and confirmed 5 rights. IV patency established. IV site 09:39 04/14/2025 to Heparin checked: no pain, redness, or swelling. IV flushed thoroughly Naila Blanco R.N. Nomogram for pre-medication administration. Information reviewed with patient. Scanned Dosing/Titration, Verbalizes understanding. Medication Wastage: 1000 unit HIGH ALERT wasted. - 09:39 Naila Blanco R.N. MEDICATION, Round to nearest 09:39 06 Medication Co-sign: Verified dosage, concentration 50-100 units) and rate. - 09:39 Soniya Olivera R.N. Order Comments: 09:38 04/14/2025 (Cardiac Max dose 4000 units DVT/PE Max dose 8750 units) Naila Blanco R.N. 1 of 2 Hydro Operator Medication Ordered Medication Administration Date/Time Brilinta PO 180 mg 09:41 04/14 Brilinta PO 180 mg Given (NOW x1) given. Allergies verified and 09:41 04/14/2025 confirmed 5 rights. Information Naila Blanco R.N. reviewed. Verbalizes Not Scanned understanding. - 09:43 Naila Blanco R.N. 2 of 2 IR ARTERIOGRAM-AV SHUNT FISTULOGRAM Observed: 03/31/2025 10:00 AM Status: F Source: [facility] MAIN ORIGINAL PROCEDURE: 1. Hemodialysis fistula evaluation. 2. Temporary to tunneled hemodialysis catheter conversion. Date: 03/31/2025. INDICATION: ESRD. Vascular access for hemodialysis. COMPARISON: None. TECHNIQUE/FINDINGS: The procedure was performed in the VIR Suite following informed consent and a Time Out. Liver right arm was prepped and draped in the usual sterile fashion. Sonographic evaluation of the right arm hemodialysis circuit was performed. There was a large hematoma involving the soft tissues of the right arm. There was complete thrombosis of the hemodialysis fistula. Given the sonographic findings, further intervention of the hemodialysis circuit was not performed. Local anesthesia was obtained utilizing 2% lidocaine with epinephrine. With the patient in the supine position, the left neck, upper chest, and existing temporary hemodialysis catheter were prepped and draped in the usual sterile fashion. A production weigher image was performed demonstrating expected position of the existing temporary left internal jugular hemodialysis catheter. Using fluoroscopic guidance, a 0.035 inch guidewire was advanced through the existing catheter and positioned within the upper IVC. A site 1-2 cm below the inferior margin of the left clavicle was identified as the tunnel exit site. A small incision was made and the catheter was tunneled through the chest incision to the lateral neck dermatotomy. The catheter cuff was placed 1-2 cm inside the tunnel exit site. The existing catheter was removed over the guidewire for a peel-away sheath. Using fluoroscopic guidance, the catheter was advanced through the peel-away sheath and positioned with the tip in the mid-right atrium. A fluoroscopic image was obtained which confirmed the tip of the catheter was in the mid-right atrium. The catheter lumens aspirated and flushed freely. The left neck dermatotomy incision was closed with a skin adhesive. The catheter was secured with suture and dressed in the usual fashion. There were no immediate complications. Total Fluoroscopy Time: 1.1 minutes. Reference Air Kerma (GRANT): 8 mGy. IMPRESSION: 1. Successful conversion of a temporary left internal jugular hemodialysis catheter to a tunneled 23 cm tip-to-cuff 14.5-F Medcomp hemodialysis catheter. 2. Complete thrombosis and large hematoma associated with the right arm hemodialysis fistula. Interpreted by: Kieran Mitchell MD Preliminary Report By: Kieran Mitchell MD Electronically signed By Kieran Mitchell MD Dictated Date: 04/05/2025 12:12:20 PM Prelim Date: 04/05/2025 12:17:46 PM Sign Date: 04/05/2025 12:17:46 PM Ordering Provider: MUSA IBRAHIM PTH Collected: 7:36 AM Status: F Source: [facility] MAIN TYPE CODE TESTS RESULT OUT OF RANGE REFERENCE UNITS LAB PTH(LOINC) PTH, Intact 407.3 High 18.5-88.0 pg/mL Performed By: #### ADIFF, MG , BMP, PHOS, ANEU, CBC, PTH, GFR #### [address] [address] BMP Collected: 03/31/2025 7:36 AM Status: F Source: [facility] MAIN TYPE CODE TESTS RESULT OUT OF RANGE REFERENCE UNITS LAB GLU(LOINC) Glucose Level 131 High 82-115 mg/dL LAB NA(LOINC) Sodium Level 136 136-145 mEq/L LAB K(LOINC) Potassium Level 4.2 3.5-5.0 mEq/L LAB CL(LOINC) Chloride 102 98-110 mEq/L LAB CO2(LOINC) CO2 21 Low 22-32 mEq/L LAB EBAL(LOINC) Electrolyte Balance 13.0 4.0-15.0 mEq/L LAB BUN(LOINC) BUN 76.0 High 8.0-22.0 mg/dL LAB CRE(LOINC) Creatinine Lvl (s) 8.09 High 0.60-1.40 mg/dL Result Comment: Testing perf ormed on Jumia analyzer using enzymatic creatinine methodology. LAB BC(LOINC) BUN/Creatinine Ratio 9.4 Low 10.0-22.0 ratio LAB CA(LOINC) Calcium Lvl 8.9 8.7-10.4 mg/dL Performed By: #### ADIFF, MG , BMP, PHOS, ANEU, CBC, PTH, GFR #### [address] [address] MG Collected: 03/31/2025 7:36 AM Status: F Source: [facility] MAIN TYPE CODE TESTS RESULT OUT OF RANGE REFERENCE UNITS LAB MG(LOINC) Magnesium Lvl 1.9 1.6-2.4 mg/dL Performed By: #### ADIFF, MG , BMP, PHOS, ANEU, CBC, PTH, GFR #### [address] [address] PHOS Collected: 7:36 AM Status: F Source: [facility] MAIN TYPE CODE TESTS RESULT OUT OF RANGE REFERENCE UNITS LAB PHOS(LOINC) Phosphorus 6.5 High 2.4-5.1 mg/dL Performed By: #### ADIFF, MG , BMP, PHOS, ANEU, CBC, PTH, GFR #### [address] [address] .GFR Collected: 03/31/2025 7:36 AM Status: F Source: [facility] MAIN TYPE CODE TESTS RESULT OUT OF RANGE REFERENCE UNITS LAB eGFR(LOINC) Estimated Glomerular Filtration Rate 7 ml/min/1. 73sqm Result Comment: Stages of Chronic Kidney Disease (CKD) Stage Description eGFR(ml/min/1.73 sq.m.) CKD 1 Normal kidney function or >=90 normal kindney function with possible kidney damage (ex. Proteinuria) CKD 2 Kidney damage with mild loss 60-89 of kidney function CKD 3a Mild to moderate loss of kidney 45-59 function CKD 3b Moderate to severe loss of 30-44 of kindey function CKD 4 Severe loss of kidney function 15-29 CKD 5 Kidney failure <15 Note: (go live 2024) the eGFR calculation was updated to the 2020 CKD-EPI creatinine equation without a race factor to calculate the eGFR results. Performed By: #### ADIFF, MG , BMP, PHOS, ANEU, CBC, PTH, GFR #### [address] [address] CBC Collected: 7:36 AM Status: F Source: [facility] MAIN TYPE CODE TESTS RESULT OUT OF RANGE REFERENCE UNITS LAB WBC(LOINC) WBC 10.4 4.5-10.8 10 3/mcL LAB RBCCT(LOINC) RBC 2.85 Low 4.50-6.00 10 6/mcL LAB HGB(LOINC) Hgb 8.4 Low 13.0-17.5 G/dL LAB HCT(LOINC) Hct 25.4 Low 40.0-52.0 % LAB MCV(LOINC) MCV 89.1 81.0-100.0 fL LAB MCH(LOINC) MCH 29.5 27.0-33.0 pg LAB MCHC(LOINC) MCHC 33.1 32.0-36.0 G/dL LAB RDW(LOINC) RDW 15.0 11.5-15.5 % LAB PLT(LOINC) Platelet 331 150-450 10 3/mcL LAB MPV(LOINC) MPV 8.1 6.4-10.5 fL Performed By: #### ADIFF, MG , BMP, PHOS, ANEU, CBC, PTH, GFR #### [address] [address] .AUTO DIFF Collected: 03/31/2025 7:36 AM Status: F Source: [facility] MAIN TYPE CODE TESTS RESULT OUT OF RANGE REFERENCE UNITS LAB RENALDO(LOINC) Neutrophil % 71.0 50.0-75.0 % LAB LYM(LOINC) Lymphocyte % 15.7 Low 20.0-40.0 % LAB MON(LOINC) Monocyte % 9.7 2.0-13.0 % LAB EO(LOINC) Eosinophil % 2.8 0.0-6.0 % LAB BAS(LOINC) Basophil % 0.8 0.0-2.5 % LAB ABLYM(LOINC) Lymphocyte, Absolute 1.6 0.9-4.3 10 3/mcL LAB WILFREDO(LOINC) Monocyte, Absolute 1.0 0.1-1.4 10 3/mcL LAB AEOS(LOINC) Eosinophil, Absolute 0.3 0.0-0.7 10 3/mcL LAB ABAS(LOINC) Basophil, Absolute 0.1 0.0-0.3 10 3/mcL Performed By: #### ADIFF, MG , BMP, PHOS, ANEU, CBC, PTH, GFR #### [address] [address] .NEUABS Collected: 7:36 AM Status: F Source: [facility] MAIN TYPE CODE TESTS RESULT OUT OF RANGE REFERENCE UNITS LAB ANEU(LOINC) Neutrophil, Absolute 7.4 2.3-8.1 10 3/mcL Performed By: #### ADIFF, MG , BMP, PHOS, ANEU, CBC, PTH, GFR #### [address] [place], [place] [address] HH Collected: 2:57 PM Status: F Source: [facility] MAIN TYPE CODE TESTS RESULT OUT OF RANGE REFERENCE UNITS LAB HGB(LOINC) Hgb 8.0 Low 13.0-17.5 G/dL LAB HCT(LOINC) Hct 23.4 Low 40.0-52.0 % Performed By: #### #### [address] [address] IR TEMPORARY DIALYSIS CATHETER Observed: 03/30/2025 8:00 AM Status: F Source: [facility] ORIGINAL PROCEDURE: 1. Temporary hemodialysis catheter placement with fluoroscopy and ultrasound NUCLEAR OPERATOR: Jackie Culver PA-C CLINICAL STATEMENT: ESRD, malfunctioning fistula MATERIALS UTILIZED: 14 Fr 20 cm SLX Hemo-Cath double lumen catheter Probe cover Micropuncture set 2-0 Ethilon suture ANESTHESIA: Local FLUOROSCOPY: 0.5 minutes AIR KERMA DOSE: 7 mGy SITE OF PUNCTURE: Left internal jugular vein The procedure, risks, and alternatives, were discussed with the patient and all questions were answered. Written informed consent obtained. Accompanying paperwork was verified for accuracy. Directed history and physical exam performed prior to the procedure. Medication reconciliation performed by nursing personnel. Procedure was performed using a cap, sterile gown, sterile gloves, a large sterile sheet, hand hygiene and 2% chlorhexidine for cutaneous antisepsis. The patient was positioned supine on the table and prepped and draped in usual sterile fashion. A critical pause was performed with assisting personnel just prior to the procedure with the patient's identity confirmed using 2 identifiers, confirming site and side. Preliminary ultrasound of the target vessel demonstrated a widely patent vein and an image was obtained. 2% lidocaine was administered at the puncture site for local anesthesia. A tiny skin incision was made. The vein was cannulated under direct sonographic guidance with a micropuncture set. A wire was advanced into the IVC. After serial dilatation, the catheter was advanced over the wire under fluoroscopy. The wire was removed. Fluoroscopy demonstrated the catheter tip to be near the cavoatrial junction. A final fluoroscopic image was obtained. All lumens were aspirated and flushed with saline. Sterile caps were attached to each lumen. The catheter was fixed to the skin with suture. A sterile dressing was placed. IMPRESSION: 1. Successful placement of a temporary hemodialysis catheter NOTE: Temporary hemodialysis catheter intended for inpatient use only. Removal or conversion to a permanent tunneled catheter required prior to hospital discharge. Procedure performed by Jackie Culver PA-C Interpreted by: Fredrick Banegas MD Preliminary Report By: Jackie Culver PA-C Electronically signed By Fredrick Banegas MD Dictated Date: 03/30/2025 12:13:09 PM Prelim Date: 03/30/2025 12:15:31 PM Sign Date: 03/30/2025 9:37:14 PM Ordering Provider: MUSA IBRAHIM CBC Collected: 3:30 AM Status: F Source: [facility] MAIN TYPE CODE TESTS RESULT OUT OF RANGE REFERENCE UNITS LAB WBC(LOINC) WBC 9.3 4.5-10.8 10 3/mcL LAB RBCCT(LOINC) RBC 2.58 Low 4.50-6.00 10 6/mcL LAB HGB(LOINC) Hgb 7.8 Low 13.0-17.5 G/dL LAB HCT(LOINC) Hct 22.6 Low 40.0-52.0 % LAB MCV(LOINC) MCV 87.5 81.0-100.0 fL LAB MCH(LOINC) MCH 30.1 27.0-33.0 pg LAB MCHC(LOINC) MCHC 34.4 32.0-36.0 G/dL LAB RDW(LOINC) RDW 14.9 11.5-15.5 % LAB PLT(LOINC) Platelet 293 150-450 10 3/mcL LAB MPV(LOINC) MPV 7.8 6.4-10.5 fL Performed By: #### GFR, ANEU , BMP, CBC, ADIFF #### [place] [address] .AUTO DIFF Collected: 03/30/2025 3:30 AM Status: F Source: [facility] MAIN TYPE CODE TESTS RESULT OUT OF RANGE REFERENCE UNITS LAB RENALDO(LOINC) Neutrophil % 69.2 50.0-75.0 % LAB LYM(LOINC) Lymphocyte % 16.7 Low 20.0-40.0 % LAB MON(LOINC) Monocyte % 8.8 2.0-13.0 % LAB EO(LOINC) Eosinophil % 4.7 0.0-6.0 % LAB BAS(LOINC) Basophil % 0.6 0.0-2.5 % LAB ABLYM(LOINC) Lymphocyte, Absolute 1.6 0.9-4.3 10 3/mcL LAB WILFREDO(LOINC) Monocyte, Absolute 0.8 0.1-1.4 10 3/mcL LAB AEOS(LOINC) Eosinophil, Absolute 0.4 0.0-0.7 10 3/mcL LAB ABAS(LOINC) Basophil, Absolute 0.1 0.0-0.3 10 3/mcL Performed By: #### GFR, ANEU , BMP, CBC, ADIFF #### [place] [address] .NEUABS Collected: 3:30 AM Status: F Source: [facility] MAIN TYPE CODE TESTS RESULT OUT OF RANGE REFERENCE UNITS LAB ANEU(LOINC) Neutrophil, Absolute 6.5 2.3-8.1 10 3/mcL Performed By: #### GFR, ANEU , BMP, CBC, ADIFF #### [place] [address] BMP Collected: 03/30/2025 3:30 AM Status: F Source: [facility] MAIN TYPE CODE TESTS RESULT OUT OF RANGE REFERENCE UNITS LAB GLU(LOINC) Glucose Level 152 High 82-115 mg/dL LAB NA(LOINC) Sodium Level 136 136-145 mEq/L LAB K(LOINC) Potassium Level 4.2 3.5-5.0 mEq/L LAB CL(LOINC) Chloride 102 98-110 mEq/L LAB CO2(LOINC) CO2 18 Low 22-32 mEq/L LAB EBAL(LOINC) Electrolyte Balance 16.0 High 4.0-15.0 mEq/L LAB BUN(LOINC) BUN 108.0 High 8.0-22.0 mg/dL LAB CRE(LOINC) Creatinine Lvl (s) 10.37 High 0.60-1.40 mg/dL Result Comment: Testing perf ormed on Jumia analyzer using enzymatic creatinine methodology. LAB BC(LOINC) BUN/Creatinine Ratio 10.4 10.0-22.0 ratio LAB CA(LOINC) Calcium Lvl 8.8 8.7-10.4 mg/dL Performed By: #### GFR, ANEU , BMP, CBC, ADIFF #### [place] [address] .GFR Collected: 03/30/2025 3:30 AM Status: F Source: [facility] MAIN TYPE CODE TESTS RESULT OUT OF RANGE REFERENCE UNITS LAB eGFR(LOINC) Estimated Glomerular Filtration Rate 5 ml/min/1. 73sqm Result Comment: Stages of Chronic Kidney Disease (CKD) Stage Description eGFR(ml/min/1.73 sq.m.) CKD 1 Normal kidney function or >=90 normal kindney function with possible kidney damage (ex. Proteinuria) CKD 2 Kidney damage with mild loss 60-89 of kidney function CKD 3a Mild to moderate loss of kidney 45-59 function CKD 3b Moderate to severe loss of 30-44 of kindey function CKD 4 Severe loss of kidney function 15-29 CKD 5 Kidney failure <15 Note: (go live 2024) the eGFR calculation was updated to the 2020 CKD-EPI creatinine equation without a race factor to calculate the eGFR results. Performed By: #### GFR, ANEU , BMP, CBC, ADIFF #### [place] [address] FES Collected: 5:03 PM Status: F Source: [facility] MAIN TYPE CODE TESTS RESULT OUT OF RANGE REFERENCE UNITS LAB FE(LOINC) Iron 35 Low 65-175 mcg/dL LAB IBC(LOINC) TIBC 256 250-500 mcg/dL LAB FESAT(LOINC) Iron Sat 14 % Performed By: #### FERR, FES #### [place] [address] FERR Collected: 5:03 PM Status: F Source: [facility] MAIN TYPE CODE TESTS RESULT OUT OF RANGE REFERENCE UNITS LAB FERR(LOINC) Ferritin 1601.3 High 26.0-388.0 ng/mL Performed By: #### FERR, FES #### [place] [address] CBC Collected: 1:32 PM Status: F Source: [facility] TYPE CODE TESTS RESULT OUT OF RANGE REFERENCE UNITS LAB WBC(LOINC) WBC 9.2 4.5-10.8 10 3/mcL LAB RBCCT(LOINC) RBC 2.50 Low 4.50-6.00 10 6/mcL LAB HGB(LOINC) Hgb 7.5 Low 13.0-17.5 G/dL LAB HCT(LOINC) Hct 21.7 Low 40.0-52.0 % LAB MCV(LOINC) MCV 86.9 81.0-100.0 fL LAB MCH(LOINC) MCH 30.0 27.0-33.0 pg LAB MCHC(LOINC) MCHC 34.6 32.0-36.0 G/dL LAB RDW(LOINC) RDW 14.6 11.5-15.5 % LAB PLT(LOINC) Platelet 275 150-450 10 3/mcL LAB MPV(LOINC) MPV 7.9 6.4-10.5 fL Performed By: #### PAZ, FARHAT, ADIFF, CBC, ANEU, PBNP, GFR #### [address] [address] .AUTO DIFF Collected: 03/29/2025 1:32 PM Status: F Source: [facility] MAIN TYPE CODE TESTS RESULT OUT OF RANGE REFERENCE UNITS LAB RENALDO(LOINC) Neutrophil % 80.0 High 50.0-75.0 % LAB LYM(LOINC) Lymphocyte % 10.5 Low 20.0-40.0 % LAB MON(LOINC) Monocyte % 7.0 2.0-13.0 % LAB EO(LOINC) Eosinophil % 2.0 0.0-6.0 % LAB BAS(LOINC) Basophil % 0.5 0.0-2.5 % LAB ABLYM(LOINC) Lymphocyte, Absolute 1.0 0.9-4.3 10 3/mcL LAB WILFREDO(LOINC) Monocyte, Absolute 0.6 0.1-1.4 10 3/mcL LAB AEOS(LOINC) Eosinophil, Absolute 0.2 0.0-0.7 10 3/mcL LAB ABAS(LOINC) Basophil, Absolute 0.0 0.0-0.3 10 3/mcL Performed By: #### PAZ, BMP, ADIFF, CBC, ANEU, PBNP, GFR #### [address] [address] .NEUABS Collected: 1:32 PM Status: F Source: [facility] MAIN TYPE CODE TESTS RESULT OUT OF RANGE REFERENCE UNITS LAB ANEU(LOINC) Neutrophil, Absolute 7.3 2.3-8.1 10 3/mcL Performed By: #### W, BMP, ADIFF, CBC, ANEU, PBNP, GFR #### [address] [address] .MDW Collected: 03/29/2025 1:32 PM Status: F Source: [facility] MAIN TYPE CODE TESTS RESULT OUT OF RANGE REFERENCE UNITS LAB MDW(LOINC) Monocyte Distribution Width 19.70 0.00-20.00 Result Comment: For ED adult patients suspected of sepsis, MDW<=20.0 does not rule out sepsis or risk of sepsis Performed By: #### PAZ, BMP, ADIFF, CBC, ANEU, PBNP, GFR #### [address] [address] BMP Collected: 03/29/2025 1:32 PM Status: F Source: [facility] MAIN TYPE CODE TESTS RESULT OUT OF RANGE REFERENCE UNITS LAB GLU(LOINC) Glucose Level 160 High 82-115 mg/dL LAB NA(LOINC) Sodium Level 134 Low 136-145 mEq/L LAB K(LOINC) Potassium Level 4.7 3.5-5.0 mEq/L LAB CL(LOINC) Chloride 99 98-110 mEq/L LAB CO2(LOINC) CO2 19 Low 22-32 mEq/L LAB EBAL(LOINC) Electrolyte Balance 16.0 High 4.0-15.0 mEq/L LAB BUN(LOINC) BUN 112.0 High 8.0-22.0 mg/dL LAB CRE(LOINC) Creatinine Lvl (s) 10.04 High 0.60-1.40 mg/dL Result Comment: Testing perf ormed on Jumia analyzer using enzymatic creatinine methodology. LAB BC(LOINC) BUN/Creatinine Ratio 11.2 10.0-22.0 ratio LAB CA(LOINC) Calcium Lvl 8.5 Low 8.7-10.4 mg/dL Performed By: #### W, BMP, ADIFF, CBC, ANEU, PBNP, GFR #### [address] [address] PBNP Collected: 03/29/2025 1:32 PM Status: F Source: [facility] MAIN TYPE CODE TESTS RESULT OUT OF RANGE REFERENCE UNITS LAB PBNP(LOINC) N-Terminal proBNP 6952 High 0-900 pg/mL Performed By: #### PAZ, BMP, ADIFF, CBC, ANEU, PBNP, GFR #### [address] [address] .GFR Collected: 03/29/2025 1:32 PM Status: F Source: [facility] MAIN TYPE CODE TESTS RESULT OUT OF RANGE REFERENCE UNITS LAB eGFR(LOINC) Estimated Glomerular Filtration Rate 5 ml/min/1. 73sqm Result Comment: Stages of Chronic Kidney Disease (CKD) Stage Description eGFR(ml/min/1.73 sq.m.) CKD 1 Normal kidney function or >=90 normal kindney function with possible kidney damage (ex. Proteinuria) CKD 2 Kidney damage with mild loss 60-89 of kidney function CKD 3a Mild to moderate loss of kidney 45-59 function CKD 3b Moderate to severe loss of 30-44 of kindey function CKD 4 Severe loss of kidney function 15-29 CKD 5 Kidney failure <15 Note: (go live 2024) the eGFR calculation was updated to the 2020 CKD-EPI creatinine equation without a race factor to calculate the eGFR results. Performed By: #### PAZ, FARHAT, ADIFF, CBC, ANEU, PBNP, GFR #### [address] [address] XR CHEST 1 VIEW Observed: 03/29/2025 1:02 PM Status: F Source: [facility] MAIN ORIGINAL EXAMINATION: Exam Title:ONE XRAY VIEW OF THE CHEST Completed Time: 03/29/2025 1:28 pm Procedure Description:CHEST ONE VIEW AP/PA COMPARISON: March 26, 2025 6:59 p.m. chest x-ray HISTORY: ORDERING SYSTEM PROVIDED HISTORY: Reason for Exam: pain FINDINGS: There are few scattered perihilar reticular pulmonary markings. Mild hypoinflation. No evidence for gross effusion consolidative pneumonia or pneumothorax. Sternotomy sutures. Heart size felt to be normal. Degenerative change of the spine. IMPRESSION: [] A few scattered perihilar reticular pulmonary markings. Other findings described above. Interpreted by: Buzz Boudreaux DO Preliminary Report By: Buzz Boudreaux DO Electronically signed By Buzz Boudreaux DO Dictated Date: 03/29/2025 1:31:19 PM Prelim Date: 03/29/2025 1:32:03 PM Sign Date: 03/29/2025 1:32:03 PM Ordering Provider: ANNE HERNANDEZ BMP Collected: 03/28/2025 7:38 AM Status: F Source: [facility] MAIN TYPE CODE TESTS RESULT OUT OF RANGE REFERENCE UNITS LAB GLU(LOINC) Glucose Level 143 High 82-115 mg/dL LAB NA(LOINC) Sodium Level 136 136-145 mEq/L LAB K(LOINC) Potassium Level 4.7 3.5-5.0 mEq/L LAB CL(LOINC) Chloride 98 98-110 mEq/L LAB CO2(LOINC) CO2 21 Low 22-32 mEq/L LAB EBAL(LOINC) Electrolyte Balance 17.0 High 4.0-15.0 mEq/L LAB BUN(LOINC) BUN 98.0 High 8.0-22.0 mg/dL LAB CRE(LOINC) Creatinine Lvl (s) 9.42 High 0.60-1.40 mg/dL Result Comment: Testing perf ormed on DigitalMR CH analyzer using enzymatic creatinine methodology. LAB BC(LOINC) BUN/Creatinine Ratio 10.4 10.0-22.0 ratio LAB CA(LOINC) Calcium Lvl 9.0 8.7-10.4 mg/dL Performed By: #### GFR, BMP #### [place] [address] .GFR Collected: 03/28/2025 7:38 AM Status: F Source: [facility] MAIN TYPE CODE TESTS RESULT OUT OF RANGE REFERENCE UNITS LAB eGFR(LOINC) Estimated Glomerular Filtration Rate 6 ml/min/1. 73sqm Result Comment: Stages of Chronic Kidney Disease (CKD) Stage Description eGFR(ml/min/1.73 sq.m.) CKD 1 Normal kidney function or >=90 normal kindney function with possible kidney damage (ex. Proteinuria) CKD 2 Kidney damage with mild loss 60-89 of kidney function CKD 3a Mild to moderate loss of kidney 45-59 function CKD 3b Moderate to severe loss of 30-44 of kindey function CKD 4 Severe loss of kidney function 15-29 CKD 5 Kidney failure <15 Note: (go live 2024) the eGFR calculation was updated to the 2020 CKD-EPI creatinine equation without a race factor to calculate the eGFR results. Performed By: #### GFR, BMP #### [address] [address] APTT Collected: 4:51 AM Status: F Source: [facility] MAIN TYPE CODE TESTS RESULT OUT OF RANGE REFERENCE UNITS LAB APTT0(LOINC) APTT 56.5 High 25.0-35.0 seconds Result Comment: For Heparin anticoagulation therapy, the recommended therapeutic range is: 54-77 seconds (APTT Correlation with Anti-Xa therapeutic range of 0.3-0.7 units/ml). PLEASE REFERENCE THE PHARMACY PROTOCOL FOR DOSING. Performed By: #### APTT #### [place] [address] CBC Collected: 4:51 AM Status: F Source: [facility] MAIN TYPE CODE TESTS RESULT OUT OF RANGE REFERENCE UNITS LAB WBC(LOINC) WBC 8.8 4.5-10.8 10 3/mcL LAB RBCCT(LOINC) RBC 2.61 Low 4.50-6.00 10 6/mcL LAB HGB(LOINC) Hgb 7.9 Low 13.0-17.5 G/dL LAB HCT(LOINC) Hct 22.5 Low 40.0-52.0 % LAB MCV(LOINC) MCV 85.9 81.0-100.0 fL LAB MCH(LOINC) MCH 30.1 27.0-33.0 pg LAB MCHC(LOINC) MCHC 35.1 32.0-36.0 G/dL LAB RDW(LOINC) RDW 14.4 11.5-15.5 % LAB PLT(LOINC) Platelet 243 150-450 10 3/mcL LAB MPV(LOINC) MPV 8.3 6.4-10.5 fL Performed By: #### CBC, ANEU , ADIFF #### [address] [address] .AUTO DIFF Collected: 03/28/2025 4:51 AM Status: F Source: [facility] MAIN TYPE CODE TESTS RESULT OUT OF RANGE REFERENCE UNITS LAB RENALDO(LOINC) Neutrophil % 75.3 High 50.0-75.0 % LAB LYM(LOINC) Lymphocyte % 11.0 Low 20.0-40.0 % LAB MON(LOINC) Monocyte % 10.1 2.0-13.0 % LAB EO(LOINC) Eosinophil % 3.0 0.0-6.0 % LAB BAS(LOINC) Basophil % 0.6 0.0-2.5 % LAB ABLYM(LOINC) Lymphocyte, Absolute 1.0 0.9-4.3 10 3/mcL LAB WILFREDO(LOINC) Monocyte, Absolute 0.9 0.1-1.4 10 3/mcL LAB AEOS(LOINC) Eosinophil, Absolute 0.3 0.0-0.7 10 3/mcL LAB ABAS(LOINC) Basophil, Absolute 0.1 0.0-0.3 10 3/mcL Performed By: #### CBC, ANEU , ADIFF #### [place] [address] .NEUABS Collected: 4:51 AM Status: F Source: [facility] MAIN TYPE CODE TESTS RESULT OUT OF RANGE REFERENCE UNITS LAB ANEU(LOINC) Neutrophil, Absolute 6.6 2.3-8.1 10 3/mcL Performed By: #### CBC, ANEU , ADIFF #### [place] [address] APTT Collected: 7:34 PM Status: F Source: [facility] MAIN TYPE CODE TESTS RESULT OUT OF RANGE REFERENCE UNITS LAB APTT0(LOINC) APTT 44.3 High 25.0-35.0 seconds Result Comment: For Heparin anticoagulation therapy, the recommended therapeutic range is: 54-77 seconds (APTT Correlation with Anti-Xa therapeutic range of 0.3-0.7 units/ml). PLEASE REFERENCE THE PHARMACY PROTOCOL FOR DOSING. Performed By: #### APTT #### [place] [address] APTT Collected: 3:02 PM Status: F Source: [facility] MAIN Order Comment: Clotted; kath llect. 03/27/2025 14:32:21 EDT TYPE CODE TESTS RESULT OUT OF RANGE REFERENCE UNITS LAB APTT0(LOINC) APTT 43.6 High 25.0-35.0 seconds Result Comment: For Heparin anticoagulation therapy, the recommended therapeutic range is: 54-77 seconds (APTT Correlation with Anti-Xa therapeutic range of 0.3-0.7 units/ml). PLEASE REFERENCE THE PHARMACY PROTOCOL FOR DOSING. Performed By: #### APTT #### [place] [address] CBC Collected: 7:11 AM Status: F Source: [facility] MAIN TYPE CODE TESTS RESULT OUT OF RANGE REFERENCE UNITS LAB WBC(LOINC) WBC 9.4 4.5-10.8 10 3/mcL LAB RBCCT(LOINC) RBC 2.64 Low 4.50-6.00 10 6/mcL LAB HGB(LOINC) Hgb 8.1 Low 13.0-17.5 G/dL LAB HCT(LOINC) Hct 22.8 Low 40.0-52.0 % LAB MCV(LOINC) MCV 86.2 81.0-100.0 fL LAB MCH(LOINC) MCH 30.5 27.0-33.0 pg LAB MCHC(LOINC) MCHC 35.4 32.0-36.0 G/dL LAB RDW(LOINC) RDW 14.4 11.5-15.5 % LAB PLT(LOINC) Platelet 261 150-450 10 3/mcL LAB MPV(LOINC) MPV 8.3 6.4-10.5 fL Performed By: #### GFR, BMP, ADIFF, CBC, ANEU, MG #### [address] [address] .AUTO DIFF Collected: 03/27/2025 7:11 AM Status: F Source: [facility] MAIN TYPE CODE TESTS RESULT OUT OF RANGE REFERENCE UNITS LAB RENALDO(LOINC) Neutrophil % 73.4 50.0-75.0 % LAB LYM(LOINC) Lymphocyte % 12.8 Low 20.0-40.0 % LAB MON(LOINC) Monocyte % 8.6 2.0-13.0 % LAB EO(LOINC) Eosinophil % 4.5 0.0-6.0 % LAB BAS(LOINC) Basophil % 0.7 0.0-2.5 % LAB ABLYM(LOINC) Lymphocyte, Absolute 1.2 0.9-4.3 10 3/mcL LAB WILFREDO(LOINC) Monocyte, Absolute 0.8 0.1-1.4 10 3/mcL LAB AEOS(LOINC) Eosinophil, Absolute 0.4 0.0-0.7 10 3/mcL LAB ABAS(LOINC) Basophil, Absolute 0.1 0.0-0.3 10 3/mcL Performed By: #### GFR, BMP, ADIFF, CBC, ANEU, MG #### [address] [address] .NEUABS Collected: 7:11 AM Status: F Source: [facility] MAIN TYPE CODE TESTS RESULT OUT OF RANGE REFERENCE UNITS LAB ANEU(LOINC) Neutrophil, Absolute 6.9 2.3-8.1 10 3/mcL Performed By: #### GFR, BMP, ADIFF, CBC, ANEU, MG #### [place] [address] BMP Collected: 03/27/2025 7:11 AM Status: F Source: [facility] MAIN TYPE CODE TESTS RESULT OUT OF RANGE REFERENCE UNITS LAB GLU(LOINC) Glucose Level 144 High 82-115 mg/dL LAB NA(LOINC) Sodium Level 133 Low 136-145 mEq/L LAB K(LOINC) Potassium Level 4.6 3.5-5.0 mEq/L LAB CL(LOINC) Chloride 95 Low 98-110 mEq/L LAB CO2(LOINC) CO2 18 Low 22-32 mEq/L LAB EBAL(LOINC) Electrolyte Balance 20.0 High 4.0-15.0 mEq/L LAB BUN(LOINC) BUN 131.0 High 8.0-22.0 mg/dL LAB CRE(LOINC) Creatinine Lvl (s) 12.09 High 0.60-1.40 mg/dL Result Comment: Testing perf ormed on Jumia analyzer using enzymatic creatinine methodology. LAB BC(LOINC) BUN/Creatinine Ratio 10.8 10.0-22.0 ratio LAB CA(LOINC) Calcium Lvl 9.3 8.7-10.4 mg/dL Performed By: #### GFR, BMP, ADIFF, CBC, ANEU, MG #### [address] [address] MG Collected: 03/27/2025 7:11 AM Status: F Source: [facility] TYPE CODE TESTS RESULT OUT OF RANGE REFERENCE UNITS LAB MG(LOINC) Magnesium Lvl 2.0 1.6-2.4 mg/dL Performed By: #### GFR, BMP, ADIFF, CBC, ANEU, MG #### [place] [id number] .GFR Collected: 03/27/2025 7:11 AM Status: F Source: [facility] CODE TESTS RESULT OUT OF RANGE REFERENCE UNITS LAB eGFR(LOINC) Estimated Glomerular Filtration Rate 4 ml/min/1. 73sqm Result Comment: Stages of Chronic Kidney Disease (CKD) Stage Description eGFR(ml/min/1.73 sq.m.) CKD 1 Normal kidney function or >=90 normal kindney function with possible kidney damage (ex. Proteinuria) CKD 2 Kidney damage with mild loss 60-89 of kidney function CKD 3a Mild to moderate loss of kidney 45-59 function CKD 3b Moderate to severe loss of 30-44 of kindey function CKD 4 Severe loss of kidney function 15-29 CKD 5 Kidney failure <15 Note: (go live 2024) the eGFR calculation was updated to the 2020 CKD-EPI creatinine equation without a race factor to calculate the eGFR results. Performed By: #### GFR, BMP, ADIFF, CBC, ANEU, MG #### [place] [address] APTT Collected: 7:11 AM Status: F Source: [facility] MAIN TYPE CODE TESTS RESULT OUT OF RANGE REFERENCE UNITS LAB APTT0(LOINC) APTT 52.0 High 25.0-35.0 seconds Result Comment: For Heparin anticoagulation therapy, the recommended therapeutic range is: 54-77 seconds (APTT Correlation with Anti-Xa therapeutic range of 0.3-0.7 units/ml). PLEASE REFERENCE THE PHARMACY PROTOCOL FOR DOSING. Performed By: #### APTT #### [place] [id number] K Collected: 03/27/2025 12:48 AM Status: F Source: [facility] MAIN TYPE CODE TESTS RESULT OUT OF RANGE REFERENCE UNITS LAB K(LOINC) Potassium Level 4.7 3.5-5.0 mEq/L Performed By: #### K #### [place] [id number] CBC Collected: 11:08 PM Status: F Source: [facility] MAIN TYPE CODE TESTS RESULT OUT OF RANGE REFERENCE UNITS LAB WBC(LOINC) WBC 9.7 4.5-10.8 10 3/mcL LAB RBCCT(LOINC) RBC 2.65 Low 4.50-6.00 10 6/mcL LAB HGB(LOINC) Hgb 7.9 Low 13.0-17.5 G/dL LAB HCT(LOINC) Hct 22.8 Low 40.0-52.0 % LAB MCV(LOINC) MCV 86.0 81.0-100.0 fL LAB MCH(LOINC) MCH 29.9 27.0-33.0 pg LAB MCHC(LOINC) MCHC 34.7 32.0-36.0 G/dL LAB RDW(LOINC) RDW 14.8 11.5-15.5 % LAB PLT(LOINC) Platelet 258 150-450 10 3/mcL LAB MPV(LOINC) MPV 8.2 6.4-10.5 fL Performed By: #### PRO, ADIF F, ANEU, CBC, APTT #### [address] [address] .AUTO DIFF Collected: 03/26/2025 11:08 PM Status: F Source: [facility] MAIN TYPE CODE TESTS RESULT OUT OF RANGE REFERENCE UNITS LAB RENALDO(LOINC) Neutrophil % 71.9 50.0-75.0 % LAB LYM(LOINC) Lymphocyte % 16.5 Low 20.0-40.0 % LAB MON(LOINC) Monocyte % 8.7 2.0-13.0 % LAB EO(LOINC) Eosinophil % 2.4 0.0-6.0 % LAB BAS(LOINC) Basophil % 0.5 0.0-2.5 % LAB ABLYM(LOINC) Lymphocyte, Absolute 1.6 0.9-4.3 10 3/mcL LAB WILFREDO(LOINC) Monocyte, Absolute 0.8 0.1-1.4 10 3/mcL LAB AEOS(LOINC) Eosinophil, Absolute 0.2 0.0-0.7 10 3/mcL LAB ABAS(LOINC) Basophil, Absolute 0.0 0.0-0.3 10 3/mcL Performed By: #### PRO, ADIF F, ANEU, CBC, APTT #### [place] [address] .NEUABS Collected: 11:08 PM Status: F Source: [facility] MAIN TYPE CODE TESTS RESULT OUT OF RANGE REFERENCE UNITS LAB ANEU(LOINC) Neutrophil, Absolute 7.0 2.3-8.1 10 3/mcL Performed By: #### PRO, ADIF F, ANEU, CBC, APTT #### [place] [address] APTT Collected: 11:08 PM Status: F Source: [facility] MAIN TYPE CODE TESTS RESULT OUT OF RANGE REFERENCE UNITS LAB APTT0(LOINC) APTT 34.4 25.0-35.0 seconds Result Comment: For Heparin anticoagulation therapy, the recommended therapeutic range is: 54-77 seconds (APTT Correlation with Anti-Xa therapeutic range of 0.3-0.7 units/ml). PLEASE REFERENCE THE PHARMACY PROTOCOL FOR DOSING. Performed By: #### PRO, ADIF F, ANEU, CBC, APTT #### [place] [address] PRO Collected: 03/26/2025 11:08 PM Status: F Source: [facility] MAIN TYPE CODE TESTS RESULT OUT OF RANGE REFERENCE UNITS LAB PT(LOINC) Protime 12.6 9.0-14.4 seconds Result Comment: Effective , Protime results may be affected by some antibiotics (i.e. Ciprofloxacin, Azithromycin, Bactrim) which may potentiate the action of oral anticoagulants, with further increases in Protime/INR. LAB INR(LOINC) PT International Ratio 1.1 ratio Result Comment: The [employer] (CHEST, 1992, [phone]- [phone]) recommended therapeutic range for oral anticoagulant therapy is: LOW RISK: Prophylaxis of venous thrombosis INR: 2.0-3.0 Treatment of pulmonary embolism 2.0-3.0 Prevention of systemic embolism 2.0-3.0 HIGH RISK: Mechanical prosthetic valves 2.5-3.5 Performed By: #### PRO, ADIF F, ANEU, CBC, APTT #### [address] [address] CUR Observed: 03/26/2025 7:26 PM Status: F Source: [facility] MAIN . MICRO - Microbiology PROCEDURE: Urine Culture [O1 *1] SOURCE: Urine BODY SITE: COLLECTED DATE/TIME: 03/26/2025 19:26 EDT RECEIVED DATE/TIME: 03/26/2025 21:57 EDT START DATE/TIME: 03/26/2025 21:57 EDT FREE TEXT SOURCE: FINAL REPORTS Final Report [] Verified Date/Time/Personnel: 03/28/2025 07:59 EDT No growth at 48 hours. PRELIMINARY REPORTS Preliminary Report [] Verified Date/Time/Personnel: 03/27/2025 10:13 EDT No growth to date Preliminary Report [] Verified Date/Time/Personnel: 03/26/2025 22:59 EDT Specimen received in lab. Order Comments O1: Urine Culture Added by Discern Performing Locations *1: This test was performed at: [facility], [address] [place] [address], [id number]- , UA Collected: 03/26/2025 7:26 PM Status: F Source: [facility] TYPE CODE TESTS RESULT OUT OF RANGE REFERENCE UNITS LAB SPCUA(LOINC) UA Specimen Type Clean Catch LAB CLRUA(LOINC) UA Color Yellow LAB APPUA(LOINC) UA Appear Turbid Abnormal Clear LAB SGUA(LOINC) UA Spec Grav 1.015 1.006-1.029 LAB GLUA(LOINC) UA Glucose Negative Negative mg/dL LAB BILUA(LOINC) UA Bili Negative Neg-Trace LAB KETUA(LOINC) UA Ketones Negative Neg-Trace mg/dL LAB BLDUA(LOINC) UA Blood Moderate Abnormal Neg-Trace LAB PHUA(LOINC) UA pH 6.5 5.0 - 8.0 LAB PROUA(LOINC) UA Protein 100 Abnormal Negative mg/dL LAB UROUA(LOINC) UA Urobilinogen 0.2 0.2-1.0 E.U ./dL LAB NITUA(LOINC) UA Nitrite Negative Negative LAB LEUUA(LOINC) UA Leuk Est Large Abnormal Negative Performed By: #### UA, UAMIC #### [facility] [address] [place] [id number] UAMIC Collected: 03/26/2025 7:26 PM Status: F Source: [facility] TYPE CODE TESTS RESULT OUT OF RANGE REFERENCE UNITS LAB RBCUA(LOINC) UA RBC Negative 0-2 /hpf LAB WBCUA(LOINC) UA WBC LOADED Abnormal 0-5 /hpf LAB EPIUA(LOINC) UA Squam Epithelial Negative 0-20 /hpf LAB BACUA(LOINC) UA Bacteria Trace Abnormal Negative /hpf Performed By: #### UA, UAMIC #### [address] [id number] XR CHEST 1 VIEW Observed: 03/26/2025 5:44 PM Status: F Source: [facility] ORIGINAL EXAMINATION: ONE XRAY VIEW OF THE CHEST03/26/2025 6:55 pm COMPARISON: 08/21/2010 HISTORY: ORDERING SYSTEM PROVIDED HISTORY: Reason for Exam: pain FINDINGS: The cardiomediastinal contours are normal.Bibasilar streaky opacities likely atelectatic. There is no consolidation, pleural effusion, or pneumothorax. There are no acute abnormalities to osseous structures. Median sternotomy wires. IMPRESSION: No focal consolidation. I have personally reviewed the images of this examination and agree with the resident's findings and interpretation. Interpreted by: Rebel Hopper Preliminary Report By: Rene Espinosa Electronically signed By Rebel Hopper Dictated Date: 03/26/2025 7:24:06 PM Prelim Date: 03/26/2025 7:24:44 PM Sign Date: 03/26/2025 7:44:19 PM Ordering Provider: ANNE HERNANDEZ CBC Collected: 5:08 PM Status: F Source: [facility] TYPE CODE TESTS RESULT OUT OF RANGE REFERENCE UNITS LAB WBC(LOINC) WBC 10.7 4.5-10.8 10 3/mcL LAB RBCCT(LOINC) RBC 2.70 Low 4.50-6.00 10 6/mcL LAB HGB(LOINC) Hgb 8.1 Low 13.0-17.5 G/dL LAB HCT(LOINC) Hct 23.0 Low 40.0-52.0 % LAB MCV(LOINC) MCV 85.1 81.0-100.0 fL LAB MCH(LOINC) MCH 29.8 27.0-33.0 pg LAB MCHC(LOINC) MCHC 35.1 32.0-36.0 G/dL LAB RDW(LOINC) RDW 14.3 11.5-15.5 % LAB PLT(LOINC) Platelet 271 150-450 10 3/mcL LAB MPV(LOINC) MPV 8.3 6.4-10.5 fL Performed By: #### CBC, GFR, MDMarta, SAIMA, ANEU, BMP #### [address] [address] .AUTO DIFF Collected: 03/26/2025 5:08 PM Status: F Source: [facility] MAIN TYPE CODE TESTS RESULT OUT OF RANGE REFERENCE UNITS LAB RENALDO(LOINC) Neutrophil % 81.7 High 50.0-75.0 % LAB LYM(LOINC) Lymphocyte % 9.7 Low 20.0-40.0 % LAB MON(LOINC) Monocyte % 7.6 2.0-13.0 % LAB EO(LOINC) Eosinophil % 0.6 0.0-6.0 % LAB BAS(LOINC) Basophil % 0.4 0.0-2.5 % LAB ABLYM(LOINC) Lymphocyte, Absolute 1.0 0.9-4.3 10 3/mcL LAB WILFREDO(LOINC) Monocyte, Absolute 0.8 0.1-1.4 10 3/mcL LAB AEOS(LOINC) Eosinophil, Absolute 0.1 0.0-0.7 10 3/mcL LAB ABAS(LOINC) Basophil, Absolute 0.0 0.0-0.3 10 3/mcL Performed By: #### CBC, GFR, MDMarta, SAIMA, ANEU, BMP #### [address] [address] .NEUABS Collected: 5:08 PM Status: F Source: [facility] MAIN TYPE CODE TESTS RESULT OUT OF RANGE REFERENCE UNITS LAB ANEU(LOINC) Neutrophil, Absolute 8.7 High 2.3-8.1 10 3/mcL Performed By: #### CBC, GFR, MDW, ADIFF, ANEU, BMP #### [address] [address] .MDW Collected: 03/26/2025 5:08 PM Status: F Source: [facility] MAIN TYPE CODE TESTS RESULT OUT OF RANGE REFERENCE UNITS LAB MDW(LOINC) Monocyte Distribution Width 17.76 0.00-20.00 Result Comment: For ED adult patients suspected of sepsis, MDW<=20.0 does not rule out sepsis or risk of sepsis Performed By: #### CBC, GFR, MDW, ADIFF, ANEU, BMP #### [place] [address] BMP Collected: 03/26/2025 5:08 PM Status: F Source: [facility] MAIN TYPE CODE TESTS RESULT OUT OF RANGE REFERENCE UNITS LAB GLU(LOINC) Glucose Level 155 High 82-115 mg/dL LAB NA(LOINC) Sodium Level 128 Low 136-145 mEq/L LAB K(LOINC) Potassium Level 5.8 High 3.5-5.0 mEq/L LAB CL(LOINC) Chloride 92 Low 98-110 mEq/L LAB CO2(LOINC) CO2 16 Low 22-32 mEq/L LAB EBAL(LOINC) Electrolyte Balance 20.0 High 4.0-15.0 mEq/L LAB BUN(LOINC) BUN 124.0 High 8.0-22.0 mg/dL LAB CRE(LOINC) Creatinine Lvl (s) 11.46 High 0.60-1.40 mg/dL Result Comment: Testing perf ormed on Jumia analyzer using enzymatic creatinine methodology. LAB BC(LOINC) BUN/Creatinine Ratio 10.8 10.0-22.0 ratio LAB CA(LOINC) Calcium Lvl 9.2 8.7-10.4 mg/dL Performed By: #### CBC, GFR, MDW, ADIFF, ANEU, BMP #### [place] [address] .GFR Collected: 03/26/2025 5:08 PM Status: F Source: [facility] MAIN TYPE CODE TESTS RESULT OUT OF RANGE REFERENCE UNITS LAB eGFR(LOINC) Estimated Glomerular Filtration Rate 4 ml/min/1. 73sqm Result Comment: Stages of Chronic Kidney Disease (CKD) Stage Description eGFR(ml/min/1.73 sq.m.) CKD 1 Normal kidney function or >=90 normal kindney function with possible kidney damage (ex. Proteinuria) CKD 2 Kidney damage with mild loss 60-89 of kidney function CKD 3a Mild to moderate loss of kidney 45-59 function CKD 3b Moderate to severe loss of 30-44 of kindey function CKD 4 Severe loss of kidney function 15-29 CKD 5 Kidney failure <15 Note: (go live 2024) the eGFR calculation was updated to the 2020 CKD-EPI creatinine equation without a race factor to calculate the eGFR results. Performed By: #### CBC, GFR, W, SAIMA, ANEU, BMP #### [place] [address] CASE MANAGEM Observed: 03/25/2025 4:06 PM Status: COMPLETED Source: [facility] HNO ID: [id number] Author: CARLEEN ANDRADE LSW Service: Care Management Author Type: Circular Clerk Type: Care Mgt Progress Note Filed: 03/25/2025 16:07 Note Text: CARE MANAGEMENT DISCHARGE NOTE SERVICE DATE: March 25, 2025 SERVICE TIME: 4:06 PM Admission Date: 03/18/2025 LOS: 1 day Discharge Arrangement Discharge Arrangement: Home with Self Care Services Arranged SW provided pt with medication assistance information as he is self pay Caregiver Assessment Caregiver is ready, willing and able to meet the patient's needs as recommended by the inter-professional team: Yes Name of Caregiver: Cori Adam Transportation Arrangements Transportation Arrangements: Car Date of Trip: 03/25/25 Time of Trip: 1630 Destination: home SIGNATURE: MANPREET Wilkinson PATIENT NAME: Dani Ramirez DATE: March 25, 2025 TIME: 4:06 PM ALLIED HEALTH Observed: 03/25/2025 2:39 PM Status: COMPLETED Source: [facility] HNO ID: [id number] Author: GEOVANNI PADILLA Chaplain Service: Spiritual Care Author Type: Senior Investigator Type: Allied Health Filed: 03/25/2025 14:41 Note Text: SPIRITUAL CARE ASSESSMENT SERVICE DATE: 03/25/2025 SERVICE TIME: 1410 Visit with: Patient and Family / Friend / Significant Other Length of visit (minutes): 20 Mormon / Spirituality: Denominational Reason: Follow-up ASSESSMENT Emotional Disposition: Grateful and Excited Relational Concerns: None Spiritual Concerns: None INTERVENTIONS Empowerment: Encouraged self-care, Provided anticipatory guidance, and Reframed experience of patient/family Exploration: Facilitated story telling Relationship Building: Provided silent and supportive presence and Utilized Self-disclosure Ritual: None / Not Applicable OUTCOMES Patient expressed gratitude and Patient identified priorities PLAN Follow-up not needed COMMENTS: SIGNATURE: Chaplain Andre PATIENT NAME: Dani Ramirez DATE: March 25, 2025 TIME: 2:39 PM PAGER/CONTACT #: [phone] CNDS Observed: 03/25/2025 1:17 PM Status: COMPLETED Source: [facility] HNO ID: [id number] Author: HARI FINE DO Service: Hospital Medicine Author Type: Physician Hydraulic Press In Operator Type: Discharge Summary Filed: 03/25/2025 16:12 Note Text: Attestation signed by Hari Fine DO at 03/25/2025 4:12 PM Patient seen at bedside with three family members, nontoxic appearing, upright in bedside chair, endorsing still some exertional dyspnea, no chest pain, no leg swelling. Cardio started metoprolol and isosorbide with first dose of the latter this morning, blood pressures appearing maintained. Discussed care plan and agree with Anali Cordero PA-C as the active participant in discharge process, having reviewed cardio and nephrology's recommendations. DISCHARGE SUMMARY PATIENT NAME: Dani Ramirez ADMISSION DATE: 03/18/2025 DISCHARGE DATE: 03/25/2025 ATTENDING PHYSICIAN: Hari Fine DO Code Status: DNR-CCA, DNI Highest Readmission Risk Score: 14 The 30 day readmissions risk score is derived from an internally validated risk model which evaluates patient level characteristics, utilization history, medication orders and lab results up until the day of discharge. Patients with a score of 39 or above are considered highest risk for readmission. Specific patient level drivers will be listed at the bottom of the summary. CONSULTING TEAMS DURING HOSPITALIZATION: Cardiology: Nephrology: Treatment Team: Attending Provider: Hari Fine DO Consulting: Delmy Zuleta MD Consulting: Floyd Salgado MD Attending: MR MAYLIN HOPPER APP2 Consulting: Lanie Collier APRN.CNP Consulting: CARDIOLOGY TEAM A REASON FOR HOSPITALIZATION: Chest Pain DIAGNOSIS: Principal Problem: Coronary artery disease involving coronary bypass graft of [place] heart with angina pectoris (POA: Yes) Active Problems: Acute chest pain (POA: Yes) Resolved Problems: * No resolved hospital problems. * Sepsis Ruled Out OPERATIONS DURING HOSPITALIZATION: None PROCEDURES DURING HOSPITALIZATION: Echocardiogram and Heart Catheterization: NO Intervention HOSPITAL COURSE: Pt is a 64 yo male with PMHx of HTN, HLD, CAD s/p CABG, s/p Valve placement, ESRD on HD MWF, TIIDM who presented with SOB and chest pain. Had C 03/23/25 which showed 3 vessel occlusive CAD, and CABG was recommended. The patient refused despite stated understanding of the risk and also opted for medical management over high risk PCI. He symptomatically improved with the addition of imdur 30mg daily, and cardiology also recommended plavix 75mg daily. He will follow up with cardiology as an outpatient. Patient is being discharged home in stable condition and agrees with plan. Understands importance of close follow upfor re-evaluation and possible repeat vitals/labs/imaging. The problems as detailed below were addressed on admission. #CAD s/p CABG #HTN #HLD - Troponin 134-> 155. EKG, interpreted independently, showed no obvious acute ST-T changes from prior. - had C 03/23/25 which showed 3 vessel occlusive CAD: LM 20%, LAD mid vessel 70-80% stenosis with first diagonal occlusive disease and second diagonal occluded, CX nondominant obtuse marginal branch with proximal diffuse 90% stenosis, dominant RCA mid vessel 80% stenosis - CABG recommended although patient refused despite stated understanding of the risk. Also refused high risk PCI, preferring med management. - Cardiology recommended plavix 75mg daily, imdur 30mg daily, prn nitroglycerin. - continue ASA 81mg daily, atorvastatin 40mg nightly, lopressor 25mg BID. Resume home eliquis. - Follow up with cardiology #ESRD on HD #HAGMA - Continue outpatient nephro follow up with HD schedule MWF. - Discussed with nephro Dr. Lopez prior to discharge, and recommended imdur be held only prior to HD tomorrow 03/26 d/t hypotension during dialysis on 03/24. #TIIDM w/ hyperglycemia- Resume home insulin. #Chronic Hyponatremia- Na 130->134, baseline ~132. Review of Systems Respiratory: Negative for chest tightness and shortness of breath. Cardiovascular: Negative for chest pain. Gastrointestinal: Negative for abdominal pain, nausea and vomiting. Subjective: no chest pain or tightness at rest. Understands and is agreeable to the plan as noted above. Understands the risks of refusing CABG. Discussed in detail medication changes, and he and family stated understanding. Transitions of Care Critical Issues: SPECIALIST FOLLOW-UP: Cardiology and nephrology DENIS MEDICATION CHANGES: imdur added, plavix added LABS AND PROCEDURES PENDING AT DISCHARGE: No pending results. PATIENT CONDITION AT DISCHARGE: Good DISCHARGE DISPOSITION: Home with Self Care PHYSICAL EXAM Physical Exam Constitutional: General: He is not in acute distress. Appearance: He is not ill-appearing. Comments: Pleasant and cooperative elderly male sitting up in chair, NAD. Cardiovascular: Rate and Rhythm: Normal rate and regular rhythm. Heart sounds: Normal heart sounds. Pulmonary: Effort: Pulmonary effort is normal. Breath sounds: Normal breath sounds. Abdominal: General: Bowel sounds are normal. There is no distension. Palpations: Abdomen is soft. Tenderness: There is no abdominal tenderness. Musculoskeletal: Right lower leg: No edema. Left lower leg: No edema. Neurological: Mental Status: He is alert. Psychiatric: Mood and Affect: Mood normal. Behavior: Behavior normal. DIET: Resume pre-hospital diet ACTIVITY: No strenuous activity ALLERGIES Allergen Reactions Acetaminophen-Codei* Hives, Itching Has tolerated APAP component alone DISCHARGE MEDICATION: Medication List START taking these medications atorvastatin 40 mg tablet Commonly known as: LIPITOR Take 1 tablet by mouth daily at bedtime. clopidogrel 75 mg tablet Commonly known as: PLAVIX Take 1 tablet by mouth once daily. Start taking on: March 26, 2025 insulin lispro 100 unit/mL Commonly known as: HumaLOG KwikPen Insulin Inject 8 Units subcutaneously three times a day before meals. Replaces: insulin lispro 100 unit/mL injection isosorbide mononitrate ER 30 mg 24 hr tablet Commonly known as: IMDUR Take 1 tablet by mouth once daily. HOLD prior to HD on 03/26. Start taking on: March 26, 2025 nitroglycerin sublingual 0.4 mg SL tablet Commonly known as: NITROQUICK Dissolve 1 tablet under the tongue every 5 minutes as needed for chest pain. If no improvement after 3 doses call 911 CONTINUE taking these medications ELIQUIS 2.5 mg tab(s) Generic drug: apixaban insulin glargine 100 unit/mL (3 mL) Inject 18 Units subcutaneously two times a day. metoprolol tartrate (short acting) 25 mg tablet Commonly known as: LOPRESSOR Take 1 tablet by mouth every 12 hours. STOP taking these medications insulin lispro 100 unit/mL injection Commonly known as: HumaLOG U-100 Insulin Replaced by: insulin lispro 100 unit/mL Where to Get Your Medications These medications were sent to [facility] [address] [place] [address] Hours: Saturday-Saturday 7am-7pm, Saturday 9am-1pm atorvastatin 40 mg tablet clopidogrel 75 mg tablet insulin glargine 100 unit/mL (3 mL) insulin lispro 100 unit/mL isosorbide mononitrate ER 30 mg 24 hr tablet metoprolol tartrate (short acting) 25 mg tablet nitroglycerin sublingual 0.4 mg SL tablet FUTURE APPOINTMENTS: Follow Up with PCP: Marii Sky APRN.CNP Future Appointments Date Time Provider Department Center 05/20/2025 3:00 PM Celeste Schwarz APRN.CNP [facility] Orders for follow up appointments placed to: Cardiology The patient's risk for 30-day readmission is determined using the following contributing factors: Predictive Model Details 7% (Low) Factor Value Calculated 03/25/2025 05:18 -123% Hospital Unit MR CVU [facility] READMISSION RISK Model 32% Creatinine (Min) 7.17 -9% [facility] 9% [facility] -8% Admissions (365d) 1 -8% ED visits (365d) 0 7% Length of Stay (d) 1 -7% Observations (365d) 0 6% Creatinine (Avg) 8.59 -6% ED Encounter No Time of Care: 41 Minutes SIGNATURE: SENAIT Reddy PAGER/CONTACT #: Primary service DATE: March 25, 2025 TIME: 1:17 PM CBC PNL BLD AUTO Collected: 03/25/2025 6:07 AM Statu s: F Source: [facility] Order Comment: Specimen Type : BLOOD SPECIMEN Ordering Facility: [facility] Address: [address] [place] [address] TYPE CODE TESTS RESULT OUT OF RANGE REFERENCE UNITS LAB 6690-2(INC) WBC # Bld Auto 9.07 3.70-11.00 k/uL LAB 789-8(LOINC) RBC # Bld Auto 2.80 Low 4.20-6.00 m/ uL LAB 718-7(LOINC) Hgb Bld-mCnc 8.4 Low 13.0-17.0 g/dL LAB 4544-3(LOINC) Hct VFr Bld Auto 24.3 Low 39.0-51.0 % LAB 787-2(LOINC) MCV RBC Auto 86.8 80.0-100.0 fL LAB 785-6(LOINC) MCH RBC Qn Auto 30.0 26.0-34.0 pg LAB 786-4(LOINC) MCHC RBC Auto-mCnc 34.6 30.5-36.0 g/dL LAB 65452-4(LOINC) RDW RBC-Rto 13.6 11.5-15.0 % LAB 777-3(LOINC) Platelet # Bld Auto 228 150-400 k/uL LAB 55343-7(LOINC) PMV Bld Auto 10.3 9.0-12.7 fL LAB 771-6(LOINC) nRBC # Bld Auto <0.01 <0.01 k/uL Performed By: #### 43031-7 # ### [facility] CLIA [id number] [address] [place] [address] [place] METAB 2000 PNL SERPL Collected: 6:07 AM Status: F Source: [facility] Order Comment: Specimen Type : BLOOD SPECIMEN Ordering Facility: [facility] Address: [address] [place] [address] [place] [address] TYPE CODE TESTS RESULT OUT OF RANGE REFERENCE UNITS LAB 2345-7(LOINC) Glucose SerPl-mCnc 99 70-100 mg/dL Result Comment: The [place] Diabetes Association (ADA) provides guidance for cutoff values for fasting glucose and random glucose. The ADA defines fasting as no caloric intake for at least 8 hours. Fasting plasma glucose results between 100 to 125 mg/dL indicate increased risk for diabetes (prediabetes). Fasting plasma glucose results greater than or equal to 126 mg/dL meet the criteria for diagnosis of diabetes. In the absence of unequivocal hyperglycemia, results should be confirmed by repeat testing. In a patient with classic symptoms of hyperglycemia or hyperglycemic crisis, random plasma glucose results greater than or equal to 200 mg/dL meet the criteria for diagnosis of diabetes. Reference: Standards of Medical Care in Diabetes 2016, [place] [employer] Association. Diabetes Care. 2016.39(Suppl 1). Results may be falsely elevated after the administration of Sulfapyridine. Results may be falsely depressed after the administration of Sulfasalazine. LAB 3094-0(LOINC) BUN SerPl-mCnc 86 High 7-26 mg/ dL LAB 2160-0(LOINC) Creat SerPl-mCnc 9.20 High 0.50-1.40 mg/dL Result Comment: Patients rec eiving either N-Acetylcysteine (NAC) or Metamizole prior to venipuncture, may have falsely depressed results. LAB 2951-2(LOINC) Sodium SerPl-sCnc 134 Low 136-145 mmol/L LAB 2823-3(LOINC) Potassium SerPl-sCnc 4.4 3.5-5.1 mmol/L LAB 2075-0(LOINC) Chloride SerPl-sCnc 96 Low 98-107 mmol/L LAB 2028-9(LOINC) CO2 SerPl-sCnc 21 21-32 mmo l/L LAB 14221-0(LOINC) Anion Gap SerPl-sCnc 17 High 5-16 mmol/L LAB 09489-4(LOINC) Calcium SerPl-mCnc 9.0 8.5-10.5 mg/dL LAB 50275-2(LOINC) Creatinine + eGFR Pnl SerPlBld 6 Low >=60 mL/min/1. 73m??? Result Comment: Estimated Gl omerular Filtration Rate (eGFR) is calculated using the 2020 CKD-EPI creatinine equation. This equation utilizes serum creatinine, sex, and age as parameters. The creatinine assay has traceable calibration to isotope dilution-mass spectrometry. Refer to KDIGO guidelines for clinical interpretation. In patients with unstable renal function, e.g. those with acute kidney injury, the eGFR may not accurately reflect actual GFR. Performed By: #### 35590-3 # ### [facility] CLIA [id number] [address] [place] [address] HCT VFR BLD AUTO Collected: 03/25/2025 2:43 AM Statu s: F Source: [facility] Order Comment: Specimen Type : BLOOD SPECIMEN Ordering Facility: [facility] Address: [address] [place] [address] TYPE CODE TESTS RESULT OUT OF RANGE REFERENCE UNITS LAB 4544-3([facility]) Hct VFr Bld Auto 23.2 Low 39.0-51.0 % Performed By: #### 4544-3, 7 #### [facility] CLIA [id number] [address] [place] [address] HGB BLD-MCNC Collected: 03/25/2025 2:43 AM Status: F Source: [facility] Order Comment: Specimen Type : BLOOD SPECIMEN Ordering Facility: [facility] Address: [address] [place] [address] TYPE CODE TESTS RESULT OUT OF RANGE REFERENCE UNITS LAB 718-7([facility]) Hgb Bld-mCnc 8.3 Low 13.0-17.0 g/dL Performed By: #### 4544-3, 7 7 #### [facility] CLIA [id number] [address] [place] [address] APTT PPP Collected: 5 2:43 AM Status: F Source: [facility] Order Comment: Specimen Type : BLOOD SPECIMEN Ordering Facility: [facility] Address: [address] [place] [address] TYPE CODE TESTS RESULT OUT OF RANGE REFERENCE UNITS LAB 41227-8(LOINC) aPTT PPP 35.1 High 23.0-32.4 sec Performed By: #### 57462-6 # ### [facility] CLIA [id number] [address] [place] [address] APTT PPP Collected: 5 8:55 PM Status: F Source: [facility] Order Comment: Specimen Type : BLOOD SPECIMEN Ordering Facility: [facility] Address: [address] [place] [address] TYPE CODE TESTS RESULT OUT OF RANGE REFERENCE UNITS LAB 19045-3(LOINC) aPTT PPP >139.0 High 23.0-32.4 sec Performed By: #### 10818-7 # ### [facility] CLIA [id number] [address] [place] [address] NURSING PROG Observed: 03/24/2025 8:13 PM Status: COMPLETED Source: [facility] HNO ID: [id number] Author: KARLO GREEN RN Service: Dialysis Author Type: Registered Nurse Type: Nursing Progress Note Filed: 03/24/2025 20:14 Note Text: Off 43 minutes early due to low BP symptomatic tensed blood returned. Notified no new orders report given to floor nurse patient able to answer questions after blood returned upon blood return and BP recheck patient had emesis x1. AOx3. Cleaned patient up and continued to monitor. AVF stable no infiltrate noted even after tensing. Homeostasis established drsg applied. BP stable upon leaving unit. 1.2 liters removed net fluid. CONSULT PROG Observed: 03/24/2025 7:38 PM Status: COMPLETED Source: [facility] HNO ID: [id number] Author: ROXANA KIRBY APRN.CNP Service: Cardiovascular Medicine Author Type: Nurse Practitioner Type: Consult Progress Note Filed: 03/24/2025 19:42 Note Text: Cardiology Progress note I assessed and spoke with the patient and 2 family members at the bedside. He reports feeling well for the most part, so long as he does not perform any activity. Continues to have mild exertional symptoms, primarily angina. I discussed the options moving forward, now that we know more about his coronary anatomy. He was previously evaluated by cardiothoracic surgery, and he is not interested in open heart surgery. I discussed the options of percutaneous coronary intervention versus just medical management. He and the family members at this at the bedside very much want to pursue simple medical management. To this end, will initiate him on Eliquis therapy (home dose) tomorrow morning, along with Plavix 75 mg daily and discontinue heparin drip. For exertional angina, will initiate Imdur therapy 30 mg in addition to beta-blockade. Also continue high intensity statin therapy. Appreciate nephrology input regarding volume status. If he were ever to come to the point that he changes his mind regarding percutaneous coronary intervention, would recommend first proceeding with Bee scan to identify areas of significant ischemia, with percutaneous coronary intervention to follow those targets. The service will continue to follow. Thanks. NUTRITION Observed: 03/24/2025 3:16 PM Status: COMPLETED [id number] Author: MILLA BACON RD Service: ? Author Type: Registered Dietitian Type: Nutrition Filed: 03/24/2025 15:23 Note Text: NUTRITION THERAPY INITIAL ASSESSMENT SERVICE DATE: 03/24/2025 SERVICE TIME: 1136 REASON: LOS Nutrition Assessment: Recommended Malnutrition Diagnosis: Unable to Identify Malnutrition at this time Nutrition Diagnosis: PES Statement: No diagnosis at this time Care Plan: Continue current diet Monitor and Evaluation: Monitor fluid/electrolyte balance, Monitor labs, I/Os, vital signs, weight, Meet greater than 75% of estimated needs, Monitor bowel function Discharge Recommendations: Diet Diet: Consistent Carb HPI: Admitted 2/2 SOB. PMH CAD s/p CABG, ESRD on HD (M/W/F), T2DM, HTN, HLD, prostate CA. -Cardio following -Nephro following for HD mgt 03/23: s/p LHC, CTS c/s Intake History: Nutrition Intake Prior to Admission: Unable to determine Current Nutrition Intake: Greater than 75% estimated energy needs (per I/O's: 100% for most meal intakes recorded since admit) Current Intake Over time: Greater than or equal to 5 days (x 6 days LOS) Dosing Weight: 79 kg (174 lb 2.6 oz) Dosing Weight Type: Current weight Estimated kilocalorie needs: 1825 - 1974 Calorie Calculation Method: [place]-St. Jeor (with activity factor) Estimated protein needs (grams): 95 - 120 Grams protein determined by: 1.2 - 1.5 g/kg Diet Orders (From admission, onward) Start Ordered 03/23/25 1600 DIET CARBOHYDRATE CONTROLLED START NOW Question: Carbohydrate Control Answer: CONSISTENT CARBOHYDRATE 03/23/25 7294 Anthropometrics: Height: 167.6 cm (5' 6) Weight: 79 kg (174 lb 2.6 oz) Usual Weight: 74.8 kg (164 lb 15.9 oz) (limited recent recorded wt hx available per EMR review) 10/20/24 Usual Weight Obtained From: Care Everywhere Body mass index is 28.11 kg/m?. Weight Change: Weight gain Physical Exam: Edema/Ascites: No edema GI Symptoms: None Functional Status: Unable to assess Potential Signs of Inflammation: Chronic condition, Hyperglycemia ESRD, CAD, DM Lines, Drains, and Airways None MNT Billing: $ Routine Care : 1 unit SIGNATURE: Milla Bacon RD PATIENT NAME: Dani Ramirez DATE: March 24, 2025 TIME: 3:16 PM PROGRESS Observed: 03/24/2025 11:38 AM Status: [facility]PLE[facility] [id number] Author: ETSS LOPEZ MD Service: Nephrology Author Type: Physician Type: Progress Notes Filed: 03/24/2025 11:41 Note Text: CONSULT PROGRESS NOTE NEPHROLOGY SERVICE SERVICE DATE: 03/24/2025 SERVICE TIME: 11:38 AM Subjective INTERVAL HISTORY: Had [facility] yesterday - has 3 vessel CAD and CHANG patent. CTS was consulted for further recommendations. Patient has preference for medical treatment. MEDICATIONS: Current Facility-Administered Medications Medication Dose Route Frequency NaCl 0.9% iv flush bag 20 mL INTRAVENOUS PRN aspirin, enteric coated 81 mg tab(s) 81 mg ORAL DAILY atorvastatin 40 mg tab(s) (LIPITOR) 40 mg ORAL AT BEDTIME metoprolol tartrate (short acting) 25 mg tab(s) (LOPRESSOR) 25 mg ORAL q 12 H dextrose 40 % 15 g 15 g ORAL PRN Or glucagon 1 mg injection 1 mg INTRAMUSCULAR PRN Or dextrose 10% iv bolus 12.5 g INTRAVENOUS PRN heparin iv infusion 25,000 units in NaCl 0.45% 250 mL LOW DOSE/ACS NOMOGRAM 0-3,000 Units/hr INTRAVENOUS CONTINUOUS And heparin RATE CHANGE bolus 1,000-4,000 Units for subtherapeutic PTTAC results 1,000-4,000 Units INTRAVENOUS PRN insulin glargine 20 Units pen (long acting) 20 Units SUBCUTANEOUS AT BEDTIME furosemide 40 mg tab(s) (LASIX) 40 mg ORAL BID 9a/5p ondansetron (PF) 4 mg injection (ZOFRAN) 4 mg INTRAVENOUS q 6 H PRN nitroglycerin sublingual 0.4 mg tab(s) (NITROQUICK) 0.4 mg SUBLINGUAL q 5 MIN PRN insulin lispro injection (rapid acting) (ADMElog) SUBCUTANEOUS w MEALS Objective PHYSICAL EXAM: BP 140/65 Pulse 74 Temp 37 ?C (98.6 ?F) (Oral) Resp 22 Ht 167.6 cm (5' 6) Wt 79 kg (174 lb 2.6 oz) SpO2 100% BMI 28.11 kg/m? Intake/Output Summary (Last 24 hours) at 03/24/2025 1138 Last data filed at 03/24/2025 0849 Gross per 24 hour Intake 542 ml Output 300 ml Net 242 ml Patient resting comfortably. Lungs are clear anteriorly bilaterally Cardiovascular with normal S1-S2 without friction rub Abdomen soft and nontender Lower extremities without edema. Left AVF with mild infiltration distally at the elbow DATA: Diagnostic tests reviewed for today's visit: Most recent labs and imaging results. Recent Labs 03/24/25 0443 03/23/25 0528 03/22/25 0313 03/21/25 0544 03/20/25 0631 03/19/25 0517 NA 130* 134* 133* 133* 131* 136 K 5.1 4.6 4.8 4.9 5.1 3.9 CHLOR 95* 96* 97* 98 98 98 CO2 18* 20* 18* 18* 18* 20* BUN 132* 111* 134* 110* 69* 97* CREAT 10.52* 8.70* 9.47* 8.90* 7.49* 7.85* GLUC 204* 182* 171* 146* 151* 72 ANION 17* 18* 18* 17* 15 18* CA 8.8 8.9 8.8 9.5 9.4 9.1 MG -- -- -- -- -- 2.0 Recent Labs 03/24/25 0443 03/23/25 0528 03/22/25 0313 WBC 8.85 9.15 7.23 HB 8.6* 9.2* 8.8* HCT 24.3* 25.8* 24.9* PLT 221 263 227 Recent Labs 03/24/253 03/20/25 0631 03/19/25 1859 TRANSFERSAT -- -- 23.6 HB 8.6* < > -- < > = values in this interval not displayed. Recent Labs 03/24/2544203/20/25 0631 03/19/25 0517 ALKPHOS -- -- 59 CA 8.8 < > 9.1 ALB -- -- 3.5 < > = values in this interval not displayed. No results for input(s): BUNRAT, BUNPR, BUNPO in the last 168 hours. Recent Labs 03/19/25 0839 HEPSABQ Negative Assessment/Plan 1. ESRD on MWF 2. Shortness of breath and chest pain 3. History of coronary artery disease status post CABG 4. History of aortic valve replacement 5. Anemia of CKD PLAN 1. HD today. See orders. 2K bath to correct potassium 2. Volume status has improved. S/p LHC - 3 vessel CAD with patent CHANG. CTS consulted. Patient has preference for medical management. 3. Bp stable 4. Dose aranesp 100 mcg subcu x1 Thanks SIGNATURE: Tess Lopez MD PATIENT NAME: Dani Ramirez DATE: March 24, 2025 TIME: 11:38 AM CASE MANAGEM Observed: 03/24/2025 10:49 AM Status: COMPLETED Source: [facility] ID: [id number] Author: CARLEEN ANDRADE LSW Service: Care Management Author Type: Circular Clerk Type: Care Mgt Progress Note Filed: 03/24/2025 11:21 Note Text: CARE MANAGEMENT PROGRESS NOTE SERVICE DATE: 03/24/2025 SERVICE TIME: 10:50 AM LOS: 0 days Patient has declined Redo-CABG but would like to consider stent or possible high risk PCI. Await further consult/conversation with Dr. Lynch Pt with ERSD, pt receives HD [facility]. Pt lives at home with his and is independent with ADL's. PCP is Marii Sky, last visit was about 2 weeks ago. Patient is self pay for his care and medications Discharge home with and self care, pending cardiology recommendations Pt declined Medicaid application. Pt is approved to schedule at via [employer] through 06/18/2025. Pt and will arrange their own ride home for discharge and have no other CM needs. SIGNATURE: MANPREET Wilkinson PATIENT NAME: Dani Ramirez DATE: March 24, 2025 TIME: 10:50 AM APTT PPP Collected: 10:05 AM Status: F Source: [facility] Order Comment: Specimen Type : BLOOD SPECIMEN Ordering Facility: [facility] Address: [address] [place] [address] TYPE CODE TESTS RESULT OUT OF RANGE REFERENCE UNITS LAB 76374-2(LOINC) aPTT PPP 52.1 High 23.0-32.4 sec Performed By: #### [id number] # ### [facility] CLIA [id number] [address] [place] [address] OF [facility] ALLIED HEALTH Observed: 03/24/2025 9:59 AM Status: COMPLETED Source: [facility] ID: [id number] Author: GEOVANNI PADILLA Chaplain Service: Spiritual Care Author Type: Senior Investigator Type: Allied Health Filed: 03/24/2025 10:13 Note Text: SPIRITUAL CARE ASSESSMENT SERVICE DATE: 03/24/2025 SERVICE TIME: 929 Visit with: Patient and Family / Friend / Significant Other Length of visit (minutes): 20 Mormon / Spirituality: Denominational Reason: Follow-up ASSESSMENT Emotional Disposition: Neutral Relational Concerns: None Spiritual Concerns: None INTERVENTIONS Empowerment: Provided anticipatory guidance Exploration: Facilitated story telling Relationship Building: Provided silent and supportive presence Ritual: Provided prayer OUTCOMES Patient expressed gratitude PLAN Will follow as circumstances allow COMMENTS: SIGNATURE: Chaplain Andre PATIENT NAME: Dani Ramirez DATE: March 24, 2025 TIME: 10:01 AM PAGER/CONTACT #: [phone] PROGRESS Observed: 03/24/2025 9:51 AM Status: COMPLETED Source: [facility] ID: [id number] Author: ANALI CORDERO PA Service: Hospital Medicine Author Type: Physician Hydraulic Press In Operator Type: Progress Notes Filed: 03/24/2025 15:59 Note Text: DEPARTMENT OF HOSPITAL MEDICINE PROGRESS NOTE SERVICE DATE: 03/24/2025 SERVICE TIME: 9:51 AM Hospital Medicine/Primary: SENAIT Reddy INTERVAL HPI: Pt is a 64 yo male with PMHx of HTN, HLD, CAD s/p CABG, s/p Valve placement, ESRD on HD MWF, TIIDM who presented with SOB and chest pain. Had LHC 03/23/25 which showed 3 vessel occlusive CAD, and CABG was recommended. The patient is refusing and would like to consider possibility of stent placement and medical management. Awaiting cardiology recommendations. Subjective : Feels well today. Reports some improvement in chest pain and denies current SOB. Discussed in depth the risk of CABG refusal, and he stated understanding. Wishes to discuss this with cardiology and prefers to go home today if possible. Unsure if he would be agreeable to a cardiac cath even if recommended. Understands and is agreeable to the risks including . Denies diaphoresis, nausea, vomiting, dizziness/lightheadedness. No significant overnight events per RN. Review of Systems Constitutional: Negative for diaphoresis. Respiratory: Positive for chest tightness and shortness of breath. Cardiovascular: Negative for chest pain, palpitations and leg swelling. Gastrointestinal: Negative for abdominal pain, nausea and vomiting. MEDICATIONS: Reviewed Objective PHYSICAL EXAM: BP 154/76 Pulse 85 Temp (Src) 97.8 (Oral) Resp 24 Ht 5' 6 (1.68m) Wt 174 lb 2.6 oz (79.0kg) SpO2 99% BMI 28.12 kg/(m2). O2 Therapy: Room Air Physical Exam Constitutional: General: He is not in acute distress. Appearance: He is not ill-appearing. Comments: Pleasant and cooperative elderly male sitting up in chair, NAD. Cardiovascular: Rate and Rhythm: Normal rate and regular rhythm. Heart sounds: Normal heart sounds. Pulmonary: Effort: Pulmonary effort is normal. Breath sounds: Normal breath sounds. Abdominal: General: Bowel sounds are normal. There is no distension. Palpations: Abdomen is soft. Tenderness: There is no abdominal tenderness. Musculoskeletal: Right lower leg: No edema. Left lower leg: No edema. Neurological: Mental Status: He is alert. Psychiatric: Mood and Affect: Mood normal. Behavior: Behavior normal. DATA: Diagnostic tests reviewed for today's visit: Most recent labs and imaging results. CBC, Coags, BMP, Mg, Phos Recent Labs 03/24/25 0443 03/24/25 0156 03/23/25 1215 03/23/25 0803 03/23/25 0528 03/22/25 1255 03/22/25 0313 WBC 8.85 -- -- -- 9.15 -- 7.23 HB 8.6* -- -- -- 9.2* -- 8.8* HCT 24.3* -- -- -- 25.8* -- 24.9* PLT 221 -- -- -- 263 -- 227 APTT >139.0* >139.0* 53.9* < > 123.5* < > 32.9* NA 130* -- -- -- 134* -- 133* K 5.1 -- -- -- 4.6 -- 4.8 CHLOR 95* -- -- -- 96* -- 97* CO2 18* -- -- -- 20* -- 18* BUN 132* -- -- -- 111* -- 134* CREAT 10.52* -- -- -- 8.70* -- 9.47* GLUC 204* -- -- -- 182* -- 171* CA 8.8 -- -- -- 8.9 -- 8.8 < > = values in this interval not displayed. Liver Function, Amylase, AND Lipase Cardiac Enzymes Assessment and Plan: #CAD s/p CABG #HTN #HLD - Presented with SOB and chest pain - Troponin 134-> 155. EKG, interpreted independently, showed no obvious acute ST-T changes from prior. - had [facility] 03/23/25 which showed 3 vessel occlusive CAD: LM 20%, LAD mid vessel 70-80% stenosis with first diagonal occlusive disease and second diagonal occluded, CX nondominant obtuse marginal branch with proximal diffuse 90% stenosis, dominant RCA mid vessel 80% stenosis - CABG recommended although patient is refusing. - Discussed with Cardiology SURVEY PROJECT MANAGER briefly. Cardiology to discuss high risk cath vs medical management. - Eliquis discontinued for washout prior to cath. Continue heparin gtt and monitor aPTT per nomogram. - continue ASA 81mg daily, atorvastatin 40mg nightly, lasix 40mg BID, lopressor 25mg BID. - Monitor BMP daily for toxicity/renal dysfunction. Monitor daily CBC for abnormalities including anemia. #ESRD on HD #HAGMA - Nephrology following for HD. HD planned for today. Monitor BMP daily for toxicity/renal dysfunction. - CO2 18, AG 17. #TIIDM w/ hyperglycemia - Scale I -> II SSI in setting of hyperglycemia. - Continue Accu-Checks before meals and at bedtime. Hypoglycemia management per protocol. #Chronic Hyponatremia- Na 130, baseline ~132. - continue to monitor BMP daily. Medication and Non-Pharmacologic VTE Prophylaxis/Anticoagulants Anticoagulant AND Antiplatelet Medications (From admission, onward) Start Dose Route Frequency Last Action Ordered Stop 03/21/25 0600 heparin iv infusion 25,000 units in NaCl 0.45% 250 mL LOW DOSE/ACS NOMOGRAM (Heparin Infusion + Bolus for Subtherapeutic PTTAC) 0-30 mL/hr Placed in And Linked Group 0-3,000 Units/hr INTRAVENOUS CONTINUOUS Stopped - Heparin, 03/24 0231 03/20/25 1540 -- 03/19/25 0900 aspirin, enteric coated 81 mg tab(s) 81 mg ORAL DAILY Given, 03/24 0810 03/18/25 1732 -- 03/23/25 1600 activity - mobilize patient (wa,az) VTE Prophylaxis: Full anticoagulation heparin gtt Code Status: DNR-CCA Disposition: Pending cardiology recommendations regarding high risk cath vs medical management. Provided counseling/patient education regarding acute conditions, exacerbation of chronic conditions, management of chronic conditions Plan of care discussed with: discussed with RN, discussed with TCC/SW, patient and family updated, I personally examined the patient, I personally reviewed chart data, labs, radiology reports SIGNATURE: SENAIT Reddy PATIENT NAME: Dani Ramirez DATE: March 24, 2025 TIME: 9:51 AM PAGER/CONTACT #: Maylin DOUG 2 CBC PNL BLD AUTO Collected: 03/24/2025 4:43 AM Statu s: F Source: [facility] Order Comment: Specimen Type : BLOOD SPECIMEN Ordering Facility: [facility] Address: [address] [place] [address] TYPE CODE TESTS RESULT OUT OF RANGE REFERENCE UNITS LAB 6690-2(LOINC) WBC # Bld Auto 8.85 3.70-11.00 k/uL LAB 789-8(INC) RBC # Bld Auto 2.83 Low 4.20-6.00 m/ uL LAB 718-7(INC) Hgb Bld-mCnc 8.6 Low 13.0-17.0 g/dL LAB 4544-3([facility]) Hct VFr Bld Auto 24.3 Low 39.0-51.0 % LAB 787-2(INC) MCV RBC Auto 85.9 80.0-100.0 fL LAB 785-6([facility]) MCH RBC Qn Auto 30.4 26.0-34.0 pg LAB 786-4(INC) MCHC RBC Auto-mCnc 35.4 30.5-36.0 g/dL LAB 49051-8(INC) RDW RBC-Rto 13.7 11.5-15.0 % LAB 777-3(INC) Platelet # Bld Auto 221 150-400 k/uL LAB 87753-6(INC) PMV Bld Auto 10.2 9.0-12.7 fL LAB 771-6([facility]) nRBC # Bld Auto <0.01 <0.01 k/uL Performed By: #### 17577-1 # ### [facility] CLIA [id number] [address] [place] [address] [place] BAS METAB 2000 PNL SERPL Collected: 4:43 AM Status: F Source: [facility] Order Comment: Specimen Type : BLOOD SPECIMEN Ordering Facility: [facility] Address: [address] [place] [address] TYPE CODE TESTS RESULT OUT OF RANGE REFERENCE UNITS LAB 2345-7(LOINC) Glucose SerPl-mCnc 204 High 70-100 mg/dL Result Comment: The [place] Diabetes Association (ADA) provides guidance for cutoff values for fasting glucose and random glucose. The ADA defines fasting as no caloric intake for at least 8 hours. Fasting plasma glucose results between 100 to 125 mg/dL indicate increased risk for diabetes (prediabetes). Fasting plasma glucose results greater than or equal to 126 mg/dL meet the criteria for diagnosis of diabetes. In the absence of unequivocal hyperglycemia, results should be confirmed by repeat testing. In a patient with classic symptoms of hyperglycemia or hyperglycemic crisis, random plasma glucose results greater than or equal to 200 mg/dL meet the criteria for diagnosis of diabetes. Reference: Standards of Medical Care in Diabetes 2016, [place] Diabetes Association. Diabetes Care. 2016.39(Suppl 1). Results may be falsely elevated after the administration of Sulfapyridine. Results may be falsely depressed after the administration of Sulfasalazine. LAB 3094-0(LOINC) BUN SerPl-mCnc 132 High 7-26 mg/ dL LAB 2160-0(LOINC) Creat SerPl-mCnc 10.52 High 0.50-1.40 mg/dL Result Comment: Patients rec eiving either N-Acetylcysteine (NAC) or Metamizole prior to venipuncture, may have falsely depressed results. LAB 2951-2(LOINC) Sodium SerPl-sCnc 130 Low 136-145 mmol/L LAB 2823-3(LOINC) Potassium SerPl-sCnc 5.1 3.5-5.1 mmol/L LAB 2075-0(LOINC) Chloride SerPl-sCnc 95 Low 98-107 mmol/L LAB 2027-9(LOINC) CO2 SerPl-sCnc 18 Low 21-32 mmo l/L LAB 10740-9(LOINC) Anion Gap SerPl-sCnc 17 High 5-16 mmol/L LAB 19136-2(LOINC) Calcium SerPl-mCnc 8.8 8.5-10.5 mg/dL LAB 79579-2(LOINC) Creatinine + eGFR Pnl SerPlBld 5 Low >=60 mL/min/1. 73m??? Result Comment: Estimated Gl omerular Filtration Rate (eGFR) is calculated using the 2020 CKD-EPI creatinine equation. This equation utilizes serum creatinine, sex, and age as parameters. The creatinine assay has traceable calibration to isotope dilution-mass spectrometry. Refer to KDIGO guidelines for clinical interpretation. In patients with unstable renal function, e.g. those with acute kidney injury, the eGFR may not accurately reflect actual GFR. Performed By: #### 18879-7 # ### [facility] CLIA [id number] [address] [place], [place] [id number] [facility] [place] APTT PPP Collected: 4:43 AM Status: F Source: [facility] Order Comment: Specimen Type : BLOOD SPECIMEN Ordering Facility: [facility] Address: [address] [place] [address] TYPE CODE TESTS RESULT OUT OF RANGE REFERENCE UNITS LAB 26839-4(LOINC) aPTT PPP >139.0 High 23.0-32.4 sec Performed By: #### 77151-1 # ### [facility] CLIA [id number] [address] [place], [place] [id number] [facility] APTT PPP Collected: 5 1:56 AM Status: F Source: [facility] Order Comment: Specimen Type : BLOOD SPECIMEN Ordering Facility: [facility] Address: [address] [place] [address] TYPE CODE TESTS RESULT OUT OF RANGE REFERENCE UNITS LAB 43991-4(LOINC) aPTT PPP >139.0 High 23.0-32.4 sec Performed By: #### 52478-5 # ### [facility] CLIA [id number] [address] [place] [address] OF [place] CNPN Observed: 03/24/2025 12:00 AM Status: COMPLETED Source: [facility] Telephone (CARMOB) DANI RAMIREZ ([id number]) 1960 M Date Time Provider Department 03/24/25 DELMY ZULETA During your visit today, we recorded the following information about you: Lillian Grewal 03/24/2025 12:58 PM Signed Please contact patient to assist in scheduling a hospital follow up appointment. Thank you. Dorothy Marsh 03/25/2025 9:55 AM Signed May 20 @ 3pm. Dorothy Ivis Maximo Advised patient to confirm. LMOM Dorothy Langston Maximo Marsh Dorothy M 03/26/2025 11:39 AM Signed LMOM X2. Dorothy Langston Maximo Marsh Dorothy M 03/30/2025 10:35 AM Signed LMOM x3. Dorothy Ivis Maximo Allergies As of Date: 03/24/2025 Noted Allergy Reaction ACETAMINOPHEN-CODEINE 01/03/2023 4 - Hives 9 - Itching Comments: Has tolerated APAP component alone Date Reviewed: 03/24/2025 Reviewed by: Tammy Balderrama, RN - Fully Assessed Reason for Visit: Appointment [186] Prescriptions as of 03/30/2025 - metoprolol tartrate, short acting, (LOPRESSOR) 25 mg tablet Take 1 tablet by mouth every 12 hours. - clopidogrel (PLAVIX) 75 mg tablet Take 1 tablet by mouth once daily. - atorvastatin (LIPITOR) 40 mg tablet Take 1 tablet by mouth daily at bedtime. - isosorbide mononitrate ER (IMDUR) 30 mg 24 hr tablet Take 1 tablet by mouth once daily. HOLD prior to HD on 03/26. - insulin glargine 100 unit/mL (3 mL) Inject 18 Units subcutaneously two times a day. - insulin lispro (HUMALOG KWIKPEN INSULIN) 100 unit/mL Inject 8 Units subcutaneously three times a day before meals. - nitroglycerin sublingual (NITROQUICK) 0.4 mg SL tablet Dissolve 1 tablet under the tongue every 5 minutes as needed for chest pain. If no improvement after 3 doses call 911 - apixaban (ELIQUIS) 2.5 mg tab(s) Take 2.5 mg by mouth two times a day. Problem List As Of Date 03/24/2025 Noted Resolved DIABETES MELLITUS TYPE II UNCONTR UNCOMPL [IMO0*01/05/2009 Cystitis [N30.90] 01/02/2023 Urinary retention [R33.9] 01/02/2023 BPH (benign prostatic hyperplasia) [N40.0] 01/02/2023 Hyperlipidemia [E78.5] 01/02/2023 Hypertension [I10] 01/02/2023 Prostate cancer (HCC) [C61] 01/02/2023 Type 2 diabetes (HCC) [E11.9] 01/02/2023 PIERCE (acute kidney injury) (HCC) [N17.9] 01/02/2023 Kidney mass [N28.89] 01/02/2023 Malnutrition of mild degree (HCC) [E44.1] 01/10/2023 Multifocal pneumonia [J18.9] 10/24/2023 Acute respiratory failure with hypoxia (HCC) [J*10/25/2023 NSTEMI (non-ST elevated myocardial infarction) *10/25/2023 Chest pain [R07.9] 10/25/2023 Acute chest pain [R07.9] 03/18/2025 Coronary artery disease involving coronary bypa*03/24/2025 Encounter Status:Closed by DOROTHY MARSH on 03/30/25 CONSULT Observed: 03/23/2025 4:48 PM Status: COMPLETED Source: [facility] ID: [id number] Author: RUBEN MERRITT MD Service: Cardiac Surgery Author Type: Physician Hydraulic Press In Operator Type: Consults Filed: 03/23/2025 16:58 Note Text: Attestation signed by Ruben Merritt MD at 03/23/2025 4:58 PM I reviewed and agree with the assessment as documented above. SIGNATURE: Ruben Merritt MD DATE: March 23, 2025 TIME: 4:58 PM CONSULT HISTORY and PHYSICAL CARDIOTHORACIC SURGERY Consulting Service: Cardiothoracic Surgery Requesting Provider: Dr Lynch Opinion/advice regarding: Pre-Op Open Heart Surgery Cardiothoracic Physician: Dr merritt NAME: Dani Ramirez HEIGHT: 167.6 cm WEIGHT: 81 kg Intended Procedure: Redo-CABG REDO: Yes, Prior AVR/CABG STS SCORE: Pending Has this patient been previously evaluated for Open Heart Surgery for this condition? No HPI: (4) This is a 64 year old male who presents in consultation for an opinion regarding treatment options for coronary artery disease. He has a past medical history of AVR CABG at [facility] in 2009. He presented on 03/18/2025 to [facility] with complaint of shortness of breath for last few months and intermittent chest pain. The chest pain started the end of January. It is midsternal and pressure-like without radiation. It is worse while on dialysis. He denies syncope, nausea or diaphoresis. He underwent cardiac catheterization today which revealed progressive coronary disease. Cardiothoracic surgery has been asked to evaluate for potential coronary bypass grafting, redo. PAST MEDICAL HISTORY: PAST MEDICAL HISTORY Diagnosis Date Benign hypertensive heart and kidney disease and CKD stage V (HCC) BPH (benign prostatic hyperplasia) CAD (coronary artery disease) Dialysis patient (HCC) 01/2023 Hyperlipidemia Hypertension Prostate cancer (HCC) Adenocarcinoma Type 2 diabetes (HCC) PAST SURGICAL HISTORY: PAST SURGICAL HISTORY Procedure Laterality Date CABG (3) VEIN GRAFTS AND ARTERIAL GRAFT(S) N/A 2009 SHX AORTIC VALVE REPLACEMENT 2009 Porcine TONSILLECTOMY HX TRANSURETHRAL ELEC-SURG PROSTATECTOM 12/2022 FAMILY HISTORY: No family history on file. FAMILY HISTORY OF CAD: No SOCIAL HISTORY: Social History Tobacco Use Smoking status: Former Current packs/day: 0.00 Average packs/day: 0.5 packs/day for 5.0 years (2.5 ttl pk-yrs) Types: Cigarettes Start date: 1984 Quit date: 1989 Years since quittin.4 Smokeless tobacco: Never Substance Use Topics Alcohol use: Never Drug use: Never SOCIAL HISTORY OF IVDU: No SOCIAL HISTORY OF Smoking: No SOCIAL HISTORY OF Alcohol Dependency: No MEDICATIONS: Prior to Admission Medications: apixaban (ELIQUIS) 2.5 mg tab(s)Take 2.5 mg by mouth two times a day.Disp: Rfl: insulin glargine 100 unit/mL (3 mL)Inject 16 Units subcutaneously two times a day.Disp: 15 mLRfl: 0 (Patient taking differently: Inject 18 Units subcutaneously two times a day.) insulin lispro (HUMALOG U-100 INSULIN) 100 unit/mL injectionInject 8 Units subcutaneously three times a day before meals.Disp: 7.2 mLRfl: 0 metoprolol tartrate, short acting, (LOPRESSOR) 25 mg tabletTake 1 tablet by mouth every 12 hours.Disp: 60 tabletRfl: 0 Current Facility-Administered Medications Medication Dose Route Frequency NaCl 0.9% iv flush bag 20 mL INTRAVENOUS PRN aspirin, enteric coated 81 mg tab(s) 81 mg ORAL DAILY atorvastatin 40 mg tab(s) (LIPITOR) 40 mg ORAL AT BEDTIME metoprolol tartrate (short acting) 25 mg tab(s) (LOPRESSOR) 25 mg ORAL q 12 H dextrose 40 % 15 g 15 g ORAL PRN Or glucagon 1 mg injection 1 mg INTRAMUSCULAR PRN Or dextrose 10% iv bolus 12.5 g INTRAVENOUS PRN insulin lispro injection (rapid acting) (ADMElog) SUBCUTANEOUS w MEALS heparin iv infusion 25,000 units in NaCl 0.45% 250 mL LOW DOSE/ACS NOMOGRAM 0-3,000 Units/hr INTRAVENOUS CONTINUOUS And heparin RATE CHANGE bolus 1,000-4,000 Units for subtherapeutic PTTAC results 1,000-4,000 Units INTRAVENOUS PRN insulin glargine 20 Units pen (long acting) 20 Units SUBCUTANEOUS AT BEDTIME furosemide 40 mg tab(s) (LASIX) 40 mg ORAL BID 9a/5p ondansetron (PF) 4 mg injection (ZOFRAN) 4 mg INTRAVENOUS q 6 H PRN nitroglycerin sublingual 0.4 mg tab(s) (NITROQUICK) 0.4 mg SUBLINGUAL q 5 MIN PRN ALLERGIES: ALLERGIES Allergen Reactions Acetaminophen-Codei* Hives, Itching Has tolerated APAP component alone COMPLETE REVIEW OF SYSTEMS: (10) Constitutional: No weight loss, malaise or fevers. HEENT: Negative for frequent or significant headaches Resp: Negative for cough and wheezing and Positive for shortness of breath on exertion Cardiovascular: Negative for leg swelling, palpitations, and claudication and Positive for chest pain on exertion GI: Negative for abdominal discomfort, blood in stools or black stools or change in bowel habits : No history of dysuria, frequency, or incontinence Endo: Negative for cold or heat intolerance, polyuria, polydipsia and goiter Heme/Lymph: Negative for prolonged bleeding, bruising easily or swollen nodes Neurologic: No history or headaches, syncope, paralysis, seizures or tremors Integumentary: Negative for lesions, rash, and itching. Additional systems reviewed: No additional systems reviewed PHYSICAL EXAM: (8) BP 134/71 Pulse 84 Temp 36.7 ?C (98.1 ?F) (Oral) Resp 17 Ht 167.6 cm (5' 6) Wt 81 kg (178 lb 9.2 oz) SpO2 100% BMI 28.82 kg/m? Constitutional: Well developed and Well nourished HEENT: EOM's intact Resp: Clear Cardiovascular: Regular rate AND rhythm GI: Soft, Non-tender, and Bowel sounds present Integumentary: Warm and Dry Musculoskeletal: No deformities Neurological/Psychiatric: Oriented to time, place AND person Additional systems reviewed: No additional systems reviewed DATA: Labs: Invalid input(s): MBP Recent Labs 03/23/2552703/22/2531203/21/25 0544 WBC 9.15 7.23 8.60 HB 9.2* 8.8* 9.4* HCT 25.8* 24.9* 27.2* PLT 263 227 245 Recent Labs 03/23/25 1215 03/23/25 0803 03/23/2552703/21/25 1142 03/21/25 0544 INR -- -- -- -- 1.0 APTT 53.9* 85.7* 123.5* < > 31.0 < > = values in this interval not displayed. Recent Labs 03/23/2552703/22/2531203/21/25 0544 NA 134* 133* 133* K 4.6 4.8 4.9 CHLOR 96* 97* 98 CO2 20* 18* 18* BUN 111* 134* 110* CREAT 8.70* 9.47* 8.90* GLUC 182* 171* 146* Cholesterol, Total 190 03/19/2025 HDL Cholesterol 26 03/19/2025 LDL Cholesterol, Calculated 123 03/19/2025 IMPRESSION: This is a 64 year old year-old male, who is being evaluated for surgical intervention of coronary artery disease. In consideration for surgery, the patient's acute and chronic medical issues have been evaluated as documented above and reviewed in the electronic medical record. Assessment AND Plan Acute chest pain PLAN: Patient was be seen today by the surgeon, Dr. Merritt. Coronary artery disease - Progressive coronary disease by cardiac catheterization - Patient does not desire open heart surgery. He would like to talk with Dr. Lynch about stent and medical management End-stage renal disease on hemodialysis - Management per nephrology Insulin-dependent diabetes - Management per hospital medicine Case discussed in detail with Dr. Merritt. These findings will be communicated back to the requesting provider electronically. SIGNATURE: Rosalio Chavarria PA-C PATIENT NAME: Dani Ramirez DATE: March 23, 2025 TIME: 4:48 PM BRIEF OP NOT Observed: 03/23/2025 4:10 PM Status: [facility]PLE[facility]ED [id number] Author: JARRET MERCADO MD Service: Interventional Cardiology Author Type: Physician Type: Brief Op Note Filed: 03/23/2025 17:54 Note Text: OPERATIVE NOTE Procedure DATE: 03/23/25 Proceduralist(s) and Hydraulic Press In Operator(s): Jarret Lynch MD Procedures: 1. Left heart cath coronary angiography. 2. Bypass graft angiography. Brief History : 64 years old white male who is referred for coronary and graft angiography possible revascularization patient was admitted with a chief complaint of chest pain and shortness of breath. Patient with a history of CABG and aortic valve replacement at [facility] in 2009. He is on hemodialysis for end-stage renal failure. He has been having atypical chest pain worsening on dialysis. Echo revealed ejection fraction 52% with +2 MR and +2 aortic valve regurg. Patient is has 11 children risk and benefits of procedure were discussed with the patient and consent was obtained. His few of his daughters his sister and her were in the waiting area. Procedure Details: Patient brought to cardiac Item Processing Clerk, draped positioned in usual fashion for left radial artery approach. Under complete aseptic and sterile condition 2% Xylocaine without epinephrine was used local anesthesia. Using modified Seldinger technique 5 Wallisian arterial sheath was placed left radial artery angiography was performed utilizing 5 Wallisian multipurpose and JL 3 5 catheters at the conclusion of the procedure arterial sheath was removed hemostasis secured by quick clot patient transferred back to a monitored bed in stable condition and results were discussed with the patient and his family and cardiovascular surgical consultation was obtained. Anesthesia: Conscious Sedation and Local Findings: 1. Angiographic results: A. [place] coronary angiography: 1. Left main: Large-caliber vessel with 20% plaque disease normally bifurcated into LAD and nondominant circumflex. 2. Left anterior descending coronary artery: Large-caliber vessel reaches wraps around the apex with mid vessel 70 to 80% stenosis first diagonal with proximal 90% stenosis second diagonal occluded. 3. Circumflex coronary artery: Nondominant vessel gives origin to SA boris branch proximally and a moderate size obtuse marginal branch with diffuse proximal 90% stenosis. 4. Right coronary artery: Dominant vessel with mid vessel diffuse 80% stenosis. 2. The only graft visualized was left internal mammary to diagonal widely patent with excellent antegrade flow. Estimated Blood Loss: minimal Complications: None Preop Diagnosis: Patient with multiple risk factors for coronary artery disease recurrent angina on hemodialysis history of aortic valve replacement and CABG. Postop Diagnosis: 1. Noninvasive echo evidence of normal ejection fraction 52%. 2. Three-vessel occlusive coronary artery disease: A. LM: 20%. B. LAD: Mid vessel 70 to 80% stenosis, first diagonal occlusive disease second diagonal occluded. C. CX: Nondominant, obtuse marginal branch with proximal diffuse 90% stenosis. D. RCA: Dominant, mid vessel 80% stenosis. 3. CHANG patent to diagonal of LAD. Discussions and recommendations Patient with 3 vessel occlusive coronary artery disease CHANG was patent to the diagonal. Cardiovascular surgical consultation was obtained for optimal revascularization. SIGNATURE: Jarret Lynch MD PATIENT NAME:Dani Ramirez DATE: 03/23/25 TIME: 4:10 PM CARD CATH DIAGNOSTIC Observed: 1:52 PM Status: F Source: [facility] Site Id: [facility] Lab #: DEFAULT Study Date: 03/23/2025 Start Time: End Time: Name Duty Jarret Lynch MD, MD 1 Avery Kat Interventional Sketch Liner PROC SCRUB 1 Chandni Livingston RN PROC CIRC 1 Michelle Chatman RN PROC RECORD 1 + + PATIENT INFORMATION + + Name: MR. DANI RAMIREZ : 1960 Age: 64 years Gender: M + + CLINICAL HISTORY/INDICATIONS + + Abnormal ECG. Procedural Status: Urgent CAD Presentation: Symptoms Likely to be Ischemic Angina Classification (within 2 weeks): CCS III Heart Failure Clinical History: 64 years old white male who is referred for coronary and graft angiography possible revascularization patient was admitted with a chief complaint of chest pain and shortness of breath. Patient with a history of CABG and aortic valve replacement at [facility] in 2009. He is on hemodialysis for end-stage renal failure. He has been having atypical chest pain worsening on dialysis. Echo revealed ejection fraction 52% with +2 MR and +2 aortic valve regurg. Patient is has 11 children risk and benefits of procedure were discussed with the patient and consent was obtained. His few of his daughters his sister and her were in the waiting area. + + DIAGNOSTIC FINDINGS + + Coronary Anatomy: Right Dominant Injection Site(s): lt rad 5f LMT: The LMT has mild luminal irregularities. LAD: The LAD has severe diffuse disease. LCX: The Circumflex has severe diffuse disease. RAMUS: Ramus Status: Not Applicable. RCA: The RCA has severe diffuse disease. GRAFTS: Left Internal Mammary Artery Graft to the First Diagonal . Additional Comments - White patent. + + IMPRESSION/PLAN + + Impression:Findings: 1. Hemodynamic results: There was no gradient across the aortic valve LVEDP 18 mmHg. 2. Angiographic results: A. [place] coronary angiography: 1. Left main: Large-caliber vessel with 20% plaque disease normally bifurcated into LAD and nondominant circumflex. 2. Left anterior descending coronary artery: Large-caliber vessel reaches wraps around the apex with mid vessel 70 to 80% stenosis first diagonal with proximal 90% stenosis second diagonal occluded. 3. Circumflex coronary artery: Nondominant vessel gives origin to SA boris branch proximally and a moderate size obtuse marginal branch with diffuse proximal 90% stenosis. 4. Right coronary artery: Dominant vessel with mid vessel diffuse 80% stenosis. 3. The only graft visualized was left internal mammary to diagonal widely patent with excellent antegrade flow. Postop Diagnosis: 1. Noninvasive echo evidence of normal ejection fraction 52%. 2. Three-vessel occlusive coronary artery disease: A. LM: 20%. B. LAD: Mid vessel 70 to 80% stenosis, first diagonal occlusive disease second diagonal occluded. C. CX: Nondominant, obtuse marginal branch with proximal diffuse 90% stenosis. D. RCA: Dominant, mid vessel 80% stenosis. 3. CHANG patent to diagonal of LAD. Recommended Treatment: PCI and CABG. Plan: Patient with 3 vessel occlusive coronary artery disease CHANG was patent to the diagonal. Cardiovascular surgical consultation was obtained for optimal revascularization. + + HEMODYNAMICS - XPER + + + +------+-----+-------+------+------+------+ Measurement Name Sys Olvin End Olvin Mean A Wave V Wave + +------+-----+-------+------+------+------+ AO 138.00 79.00 104.00 + +------+-----+-------+------+------+------+ AO 125.00 94.00 109.00 + +------+-----+-------+------+------+------+ AO 126.00 97.00 111.00 + +------+-----+-------+------+------+------+ Oximetry: + +-------+ +--+---+----+ Time Site O2 Saturation O2 PO2 HB + +-------+ +--+---+----+ 03/23/2025 2:15:16 PM SYS ART 9.20 + +-------+ +--+---+----+ 03/23/2025 2:15:16 PM SYS MUKESH 9.20 + +-------+ +--+---+----+ 03/23/2025 2:15:16 PM PUL ART 9.20 + +-------+ +--+---+----+ 03/23/2025 2:15:16 PM PUL MUKESH 9.20 + +-------+ +--+---+----+ + + ADVERSE OUTCOME(s)/COMPLICATION(s) + + None + + PROCEDURAL & TECHNICAL DETAILS + + Date Time Description 03/23/2025 12:00:00 AM D - CORS & GRAFTS *MEDICAL HISTORY* CAD Presentation: Symptoms Likely to be Ischemic Angina Classification (within 2 weeks): CCS III Heart Failure Family History of CAD: Yes Dyslipidemia: Yes Dialysis: Currently on dialysis Left Ventricle EF: 52. LVEF at Discharge: Procedure Details: Blood Loss: < 30ml Specimen: No Specimen Obtained Recent PCI Failure of Treated Vessel: Baseline: HGB: Creatinine: Glucose: INR: Conscious Sedation Summary: Moderate sedation consisting of continuous ECG, pulse oxymetry and cardiopulmonary monitoring was performed by the Cardiology Nurse, overseen by the performing physician(s). Attending Physician Presence Attestation: Entire Procedure Electronically Submitted by: Jarret Lynch MD On: 03/31/2025 at 4:54:45 PM Final [facility] Image : [id number] See Link below for Image PTT, ANTICOAGULANT THERAPY Collected: 0 03/23/2025 12:15 PM Status: F Source: [facility] Order Comment: Specimen Type : BLOOD SPECIMEN Ordering Facility: [facility] Address: [address] [id number] TYPE CODE TESTS RESULT OUT OF RANGE REFERENCE UNITS LAB 49132-4(LOINC) aPTT PPP 53.9 High 23.0-32.4 sec Performed By: #### PTTAC ### # [facility] CLIA [id number] [address] [place] [id number] [place] CONSULT PROG Observed: 03/23/2025 10:14 AM Status: COMPLETED Source: [facility] HNO ID: [id number] Author: LANIE COLLIER APRN.MARK Service: Cardiovascular Medicine Author Type: Nurse Practitioner Type: Consult Progress Note Filed: 03/23/2025 10:20 Note Text: Brief Cardiology Note Patient was seen briefly today prior to LHC. Discussed change of code status. Patient initially not wanting to be shocked. Further discussion with him regarding possible infrequent complication of arrhythmia, cardiac arrest that could potentially be fixable with defibrillation. Also discussed CPR and intubation which ideally would only be short term. Patient understands and is agreeable to code status change. Family was at the bedside as well. Perioperative code status changed in the computer. PROGRESS Observed: 03/23/2025 9:46 AM Status: COMPLETED Source: [facility] HNO ID: [id number] Author: SAURAV EDWARD APRN.CNP Service: Hospital Medicine Author Type: Nurse Practitioner Type: Progress Notes Filed: 03/23/2025 17:12 Note Text: DEPARTMENT OF HOSPITAL MEDICINE PROGRESS NOTE SERVICE DATE: 03/23/2025 SERVICE TIME: 9:46 AM Hospital Medicine/Primary Attending: Jeyson Beltran MD PRIMARY CARE PHYSICIAN: Marii Sky APRN.CNP Readmission: Highest Readmission Risk Score: 14 Subjective INTERVAL HPI: No acute events overnight. Seen and examined at bedside with family visiting. He endorses continued shortness of breath on exertion unchanged. Denies chest pain, shortness of breath at rest, abdominal pain, nausea, vomiting, fever, chills on exam. [facility] planned for this morning. Discussed need for Full Code change for LHC, he voiced disagreement, requesting to speak with Cardiology. Cardiology notified. Sign Out: ACS workup. Cardiology on consult. [facility] was delayed for Eliquis washout. Nephrology following for HD management. [facility] recommending CABG, appears patient refusing, wants re-eval for stents. Discharge pending Cardiology recommendations. Changed to Full Code for [facility], DNRCCA/DNI at baseline. Current Facility-Administered Medications Medication Dose Route Frequency NaCl 0.9% iv flush bag 20 mL INTRAVENOUS PRN aspirin, enteric coated 81 mg tab(s) 81 mg ORAL DAILY nitroglycerin sublingual 0.4 mg tab(s) (NITROQUICK) 0.4 mg SUBLINGUAL q 5 MIN PRN atorvastatin 40 mg tab(s) (LIPITOR) 40 mg ORAL AT BEDTIME metoprolol tartrate (short acting) 25 mg tab(s) (LOPRESSOR) 25 mg ORAL q 12 H dextrose 40 % 15 g 15 g ORAL PRN Or glucagon 1 mg injection 1 mg INTRAMUSCULAR PRN Or dextrose 10% iv bolus 12.5 g INTRAVENOUS PRN insulin lispro injection (rapid acting) (ADMElog) SUBCUTANEOUS w MEALS heparin iv infusion 25,000 units in NaCl 0.45% 250 mL LOW DOSE/ACS NOMOGRAM 0-3,000 Units/hr INTRAVENOUS CONTINUOUS And heparin RATE CHANGE bolus 1,000-4,000 Units for subtherapeutic PTTAC results 1,000-4,000 Units INTRAVENOUS PRN insulin glargine 20 Units pen (long acting) 20 Units SUBCUTANEOUS AT BEDTIME furosemide 40 mg tab(s) (LASIX) 40 mg ORAL BID 9a/5p ondansetron (PF) 4 mg injection (ZOFRAN) 4 mg INTRAVENOUS q 6 H PRN Objective PHYSICAL EXAM: BP 123/63 Pulse 83 Temp (Src) 97.7 (Oral) Resp 16 Ht 5' 6 (1.68m) Wt 178 lb 9.2 oz (81.0kg) SpO2 100% BMI 28.84 kg/(m2). O2 Therapy: Room Air Physical Exam Performed GENERAL: Alert, no distress, cooperative, Obese, Smiling SKIN: Skin color, texture, turgor normal. No rashes or lesions. LUNGS: Lungs clear to auscultation, Good diaphragmatic excursion CARDIAC: Normal S1 and S2; no rubs, murmurs, or gallops, Rhythm: regular rate and rhythm ABDOMEN: Abdomen soft, non-tender, BS normal, No masses or organomegaly and Positive findings: obese EXTREMITIES: Normal exam of the extremities NEURO: Grossly normal cognition, motor function, and cranial nerves III-XII The remainder of the physical exam is noncontributory. Lines, Drains, and Airways Line Duration Peripheral 03/22/25 1717 Short Left Forearm 18 Gauge <1 day Reviewed lines and needs to be continued: REASONS: Telemetry DATA: Diagnostic tests reviewed for today's visit: Most recent labs Most recent imaging Most recent EKG CBC, Coags, BMP, Mg, Phos Recent Labs 03/23/25 0803 03/23/25 0528 03/23/25 0011 03/22/25 1255 03/22/25 0313 03/21/25 1142 03/21/25 0544 WBC -- 9.15 -- -- 7.23 -- 8.60 HB -- 9.2* -- -- 8.8* -- 9.4* HCT -- 25.8* -- -- 24.9* -- 27.2* PLT -- 263 -- -- 227 -- 245 INR -- -- -- -- -- -- 1.0 APTT 85.7* 123.5* >139.0* < > 32.9* < > 31.0 NA -- 134* -- -- 133* -- 133* K -- 4.6 -- -- 4.8 -- 4.9 CHLOR -- 96* -- -- 97* -- 98 CO2 -- 20* -- -- 18* -- 18* BUN -- 111* -- -- 134* -- 110* CREAT -- 8.70* -- -- 9.47* -- 8.90* GLUC -- 182* -- -- 171* -- 146* CA -- 8.9 -- -- 8.8 -- 9.5 < > = values in this interval not displayed. Cardiac Enzymes Assessment/Plan Problem List Acute chest pain (POA: Yes) HOSPITAL COURSE: Dani Ramirez is a 64 year old male presented with past medical history of ESRD on HD, CAD status post CABG, hypertension, hyperlipidemia, diabetes who presented for shortness of breath and chest discomfort. Patient reports that he has been experiencing worsening dyspnea on exertion and midsternal chest pain for the past 2 weeks. States that he is usually able to perform his physical activities without limitation however recently when he has been feeding his animals in the barn he has had to stop prematurely due to his worsening shortness of breath. Undergoes dialysis on MWF with his most recent session being yesterday. Denies any fever, chills, cough, abdominal discomfort or dysuria. Came to the ER seeking further evaluation. Vitals are stable on exam. Labs pertinent for sodium 134, creatinine 7.17, glucose 154, BNP 3903, hemoglobin 9.4 otherwise grossly unremarkable. Initial troponin 155 and repeat 135. Chest x-ray with no acute findings. Patient was admitted under observation for chest pain rule out and evaluation by cardiology given severe underlying CAD. Cardiology planning LHC after Eliquis washout on Saturday. Nephrology on consult to manage HD. Principal Problem: Acute chest pain CAD status post CABG Patient presented with 2 weeks of worsening OROPEZA and midsternal chest pain Troponin 134.5<155.9 Continue cardiac telemetry Cardiology consulted Echocardiogram showed normal LV and RV size and mildly decreased function, LVEF 52%, moderate MR, mild AR Cardiac risk stratification with A1c 6.1, TSH 1.687, Lipid panel cholesterol 190, Triglycerides 229, HDL 26, LDL 123 Continue daily aspirin and high-dose statin SL nitro as needed for chest pain Plan for LHC today Stopped Eliquis 03/20 evening, started Heparin gtt 03/21 per Cardiology Heart healthy diet ESRD on HD Nephro consulted for resumption of dialysis Nephrology decreased PO lasix to 40mg BID Diabetes Continue glargine 20 units at bedtime, ADMElog scale 1 SSI with meals Hypoglycemia protocol A1c 6.1 Carb controlled diet Hyponatremia Na 134, chronic Chronic conditions: Hypertension Hyperlipidemia Anemia Continue home metoprolol tartrate 25mg BID BP 123/63 on last check Hgb 9.2, at baseline High risk medications reviewed for toxicity? Yes Personally discussed plan with consultants? No Reviewed imaging/tests? Yes Tests Pending: CBC, BMP Anticipated Discharge Order Placed: Yes Anticipated Discharge Date: 03/24/25 Follow-up appointment Order Placed: Yes Disposition: Home Lines: PIV REASONS: Telemetry Ramos: None Diet: Orders Placed This Encounter DIET NPO Standing Status: Standing Number of Occurrences: 1 NPO Restrictions: FOR PROCEDURE VTE Prophylaxis: VTE prophylaxis appropriate Code Status: Code Status: DNR-CCA, DNI Plan of care discussed with Provider, RN, Patient, Consultants: Cardiology, and Attending of Record Plan communicated to: Family at bedside Disclaimer This dictation was created using voice recognition software. Phonetic and/or minor grammatical errors may exist. Some elements copied from my service's note 03/22/25, including the physical exam completed in entirety today, have been updated where appropriate. All reflect current medical decision making from today, March 23, 2025. High complexity medical decision making due to combination of acute, chronic and acute on chronic medical problems. Number of diagnosis and data review is extensive. Monitor daily labs and continuous telemetry. High risk for further complications and decline requiring higher level of care. SIGNATURE: Saurav Edward APRN.CNP PATIENT NAME: Dani Ramirez DATE: March 23, 2025 TIME: 9:46 AM ALLIED HEALTH Observed: 03/23/2025 9:30 AM Status: COMPLETED Source: [facility] HNO ID: [id number] Author: GEOVANNI PADILLA Chaplain Service: Spiritual Care Author Type: Senior Investigator Type: Allied Health Filed: 03/23/2025 10:18 Note Text: SPIRITUAL CARE Spiritual Care Visit Record Name: Dani Ramirez Date: March 23, 2025 Type of Visit: Preoperative Prayer/Visit Visit was with patient and family. Ministry Provided During Visit: Prayer / Spiritual Presence / Support Notes: Met with patient and family while rounding. Patient shared his feelings of nervous as waiting for the procedure which had been postponed to today. Senior Investigator provided empathetic listening and prayer per patient's wish. Patient expressed gratitude. Will follow after procedure. Follow-up Notes: Informed patient and family of Senior Investigator availability Senior Investigator Signature: Chaplain Andre [facility] the [facility]: Please call [phone] or Page the Data Analysis Manager Senior Investigator at pager [phone]. Thank you for the opportunity to be of service. This is an electronically created document. IF PRINTED, PLEASE DO NOT REMOVE FROM THE CHART OR MODIFY PRINTED COPY. NURSING PROG Observed: 03/23/2025 9:08 AM Status: COMPLETED Source: [facility] HNO ID: [id number] Author: VERA TOM, RN Service: Nursing Author Type: Registered Nurse Type: Nursing Progress Note Filed: 03/23/2025 09:10 Note Text: Patient PTT has not been therapeutic to continue the Hep gtt. Patents Hep gtt has been on hold since 03/22/2025 @ 2109 SURVEY PROJECT MANAGER has been notified. APTT PPP Collected: 8:03 AM Status: F Source: [facility] Order Comment: Specimen Type : BLOOD SPECIMEN Ordering Facility: [facility] Address: [address] [place] [address] TYPE CODE TESTS RESULT OUT OF RANGE REFERENCE UNITS LAB 15352-8([facility]) aPTT PPP 85.7 High 23.0-32.4 sec Performed By: #### [id number] # ### [facility] CLIA [id number] [address] [place] [address] CBC PNL BLD AUTO Collected: 03/23/2025 5:28 AM Statu s: F Source: [facility] Order Comment: Specimen Type : BLOOD SPECIMEN Ordering Facility: [facility] Address: [address] [place] [address] TYPE CODE TESTS RESULT OUT OF RANGE REFERENCE UNITS LAB 6690-2(LOINC) WBC # Bld Auto 9.15 3.70-11.00 k/uL LAB 789-8(LOINC) RBC # Bld Auto 3.04 Low 4.20-6.00 m/ uL LAB 718-7(LOINC) Hgb Bld-mCnc 9.2 Low 13.0-17.0 g/dL LAB 4544-3(LOINC) Hct VFr Bld Auto 25.8 Low 39.0-51.0 % LAB 787-2(LOINC) MCV RBC Auto 84.9 80.0-100.0 fL LAB 785-6(LOINC) MCH RBC Qn Auto 30.3 26.0-34.0 pg LAB 786-4(LOINC) MCHC RBC Auto-mCnc 35.7 30.5-36.0 g/dL LAB 48164-6(LOINC) RDW RBC-Rto 13.7 11.5-15.0 % LAB 777-3(LOINC) Platelet # Bld Auto 263 150-400 k/uL LAB 10513-3([facility]) PMV Bld Auto 10.2 9.0-12.7 fL LAB 771-6([facility]) nRBC # Bld Auto <0.01 <0.01 k/uL Performed By: #### [id number] # ### [facility] CLIA [id number] [address] [place] [address] [place] BAS METAB 2000 PNL SERPL Collected: 5:28 AM Status: F Source: [facility] Order Comment: Specimen Type : BLOOD SPECIMEN Ordering Facility: [facility] Address: [address] [place] [address] TYPE CODE TESTS RESULT OUT OF RANGE REFERENCE UNITS LAB 2345-7(LOINC) Glucose SerPl-mCnc 182 High 70-100 mg/dL Result Comment: The [place] Diabetes Association (ADA) provides guidance for cutoff values for fasting glucose and random glucose. The ADA defines fasting as no caloric intake for at least 8 hours. Fasting plasma glucose results between 100 to 125 mg/dL indicate increased risk for diabetes (prediabetes). Fasting plasma glucose results greater than or equal to 126 mg/dL meet the criteria for diagnosis of diabetes. In the absence of unequivocal hyperglycemia, results should be confirmed by repeat testing. In a patient with classic symptoms of hyperglycemia or hyperglycemic crisis, random plasma glucose results greater than or equal to 200 mg/dL meet the criteria for diagnosis of diabetes. Reference: Standards of Medical Care in Diabetes 2016, [place] [employer] Association. Diabetes Care. 2016.39(Suppl 1). Results may be falsely elevated after the administration of Sulfapyridine. Results may be falsely depressed after the administration of Sulfasalazine. LAB 3094-0(LOINC) BUN SerPl-mCnc 111 High 7-26 mg/ dL LAB 2160-0(LOINC) Creat SerPl-mCnc 8.70 High 0.50-1.40 mg/dL Result Comment: Patients rec eiving either N-Acetylcysteine (NAC) or Metamizole prior to venipuncture, may have falsely depressed results. LAB 2951-2(LOINC) Sodium SerPl-sCnc 134 Low 136-145 mmol/L LAB 2823-3(LOINC) Potassium SerPl-sCnc 4.6 3.5-5.1 mmol/L LAB 2075-0(LOINC) Chloride SerPl-sCnc 96 Low 98-107 mmol/L LAB 2028-9(LOINC) CO2 SerPl-sCnc 20 Low 21-32 mmo l/L LAB 20882-3(LOINC) Anion Gap SerPl-sCnc 18 High 5-16 mmol/L LAB 95510-2(LOINC) Calcium SerPl-mCnc 8.9 8.5-10.5 mg/dL LAB 93448-3(LOINC) Creatinine + eGFR Pnl SerPlBld 6 Low >=60 mL/min/1. 73m??? Result Comment: Estimated Gl omerular Filtration Rate (eGFR) is calculated using the 2020 CKD-EPI creatinine equation. This equation utilizes serum creatinine, sex, and age as parameters. The creatinine assay has traceable calibration to isotope dilution-mass spectrometry. Refer to KDIGO guidelines for clinical interpretation. In patients with unstable renal function, e.g. those with acute kidney injury, the eGFR may not accurately reflect actual GFR. Performed By: #### 05646-5 # ### [facility] CLIA [id number] [address] [place] [address] [facility] APTT PPP Collected: 5 5:28 AM Status: F Source: [facility] Order Comment: Specimen Type : BLOOD SPECIMEN Ordering Facility: [facility] Address: [address] [place], [place] [address] TYPE CODE TESTS RESULT OUT OF RANGE REFERENCE UNITS LAB 10582-9([facility]) aPTT PPP 123.5 High 23.0-32.4 sec Performed By: #### 88593-4 # ### [facility] CLIA [id number] [address] [place] [address] APTT PPP Collected: 5 12:11 AM Status: F Source: [facility] Order Comment: Specimen Type : BLOOD SPECIMEN Ordering Facility: [facility] Address: [address] [place] [address] TYPE CODE TESTS RESULT OUT OF RANGE REFERENCE UNITS LAB 97317-5(LOINC) aPTT PPP >139.0 High 23.0-32.4 sec Performed By: #### 12564-1 # ### [facility] CLIA [id number] [address] [place], [place] [id number] [facility] APTT PPP Collected: 10:54 PM Status: F Source: [facility] Order Comment: Specimen Type : BLOOD SPECIMEN Ordering Facility: [facility] Address: [address] [place], [place] [address] TYPE CODE TESTS RESULT OUT OF RANGE REFERENCE UNITS LAB 01730-4(LOINC) aPTT PPP >139.0 High 23.0-32.4 sec Performed By: #### 51258-5 # ### [facility] CLIA [id number] [address] [place], [place] [id number] [facility] PTT, ANTICOAGULANT THERAPY Collected: 0 03/22/2025 7:51 PM Status: F Source: [facility] Order Comment: Specimen Type : BLOOD SPECIMEN Ordering Facility: [facility] Address: [address] [place] [address] TYPE CODE TESTS RESULT OUT OF RANGE REFERENCE UNITS LAB 35518-1(LOINC) aPTT PPP >139.0 High 23.0-32.4 sec Performed By: #### PTTAC ### # [facility] CLIA [id number] [address] [place], [place] [address] [facility] [place] PROGRESS Observed: 03/22/2025 4:06 PM Status: COMPLETED Source: [facility] HNO ID: [id number] Author: TESS LOPEZ MD Service: Nephrology Author Type: Physician Type: Progress Notes Filed: 03/22/2025 16:07 Note Text: INPATIENT HEMODIALYSIS PROGRESS NOTE SERVICE DATE: 03/22/2025 SERVICE TIME: 11 am Subjective Patient seen on dialysis, single evaluation. Orders confirmed. Details per documentation in [facility] EMR. Patient tolerating treatment well. System running well, no clotting events. Access without issues. Goal UF 2-3 L Objective Labs: Recent Labs 03/22/25 0313 03/21/25 0544 03/20/25 0631 CREAT 9.47* 8.90* 7.49* BUN 134* 110* 69* NA 133* 133* 131* K 4.8 4.9 5.1 CHLOR 97* 98 98 CO2 18* 18* 18* ANION 18* 17* 15 GLUC 171* 146* 151* CA 8.8 9.5 9.4 WBC 7.23 8.60 8.05 HB 8.8* 9.4* 10.0* HCT 24.9* 27.2* 28.2* PLT 227 245 271 Impression/Recommendations 1. ESRD on MWF 2. Shortness of breath and chest pain 3. History of coronary artery disease status post CABG 4. History of aortic valve replacement 5. Anemia of CKD Complete IHD as ordered. Continue ONLINE FACILITATOR support Sat-Sat-Sat. No change to IHD Rx. Follow URR, goal 70%. Continue UF as tolerated following hemodynamics. Reduce lasix to 40 mg oral BID Cardiac work up underway Medication and Non-Pharmacologic VTE Prophylaxis/Anticoagulants Anticoagulant AND Antiplatelet Medications (From admission, onward) Start Dose Route Frequency Last Action Ordered Stop 03/21/25 0600 heparin iv infusion 25,000 units in NaCl 0.45% 250 mL LOW DOSE/ACS NOMOGRAM (Heparin Infusion + Bolus for Subtherapeutic PTTAC) 0-30 mL/hr Placed in And Linked Group 0-3,000 Units/hr INTRAVENOUS CONTINUOUS New Bag/Syringe/Bottle, 03/22 1356 03/20/25 1540 -- 03/19/25 0900 aspirin, enteric coated 81 mg tab(s) 81 mg ORAL DAILY Given, 03/22 1400 03/18/25 1732 -- VTE Prophylaxis: VTE prophylaxis appropriate SIGNATURE: Tess Lopez MD PATIENT NAME: Dani Ramirez DATE: March 22, 2025 TIME: 4:06 PM APTT PPP Collected: 12:55 PM Status: F Source: [facility] Order Comment: Specimen Type : BLOOD SPECIMEN Ordering Facility: [facility] Address: [address] [place] [address] TYPE CODE TESTS RESULT OUT OF RANGE REFERENCE UNITS LAB 56972-2([facility]) aPTT PPP 31.7 23.0-32.4 sec Performed By: #### 43178-7 # ### [facility] CLIA [id number] STATES OF [place] NURSING PROG Observed: 03/22/2025 12:04 PM Status: COMPLETED Source: [facility] HNO ID: [id number] Author: KARLO GREEN, RN Service: Dialysis Author Type: Registered Nurse Type: Nursing Progress Note Filed: 03/22/2025 12:05 Note Text: Returning blood gave extra 150ML NS with returning blood due to low BP. Patient not responding at first after blood return talking answering questions with no issues. Off 47 minutes early due to drop in BP. MD made aware patient off early. Report given to floor nurse. Patient stable in no distress upon completion of holding needles and awaiting transport to the floor. AVF positive bruit and thrill noted. PROGRESS Observed: 03/22/2025 11:26 AM Status: COMPLETED Source: [facility] HNO ID: [id number] Author: SAURAV EDWARD APRN.CNP Service: Hospital Medicine Author Type: Nurse Practitioner Type: Progress Notes Filed: 03/22/2025 15:55 Note Text: DEPARTMENT OF HOSPITAL MEDICINE PROGRESS NOTE SERVICE DATE: 03/22/2025 SERVICE TIME: 11:26 AM Hospital Medicine/Primary Attending: Jeyson Beltran MD PRIMARY CARE PHYSICIAN: Marii Sky APRN.[employer] SALES ASSOCIATE Readmission: Highest Readmission Risk Score: 14 Subjective INTERVAL HPI: No acute events overnight. Seen and examined in dialysis. He endorses continued shortness of breath on exertion unchanged. Denies chest pain, shortness of breath at rest, abdominal pain, nausea, vomiting, fever, chills on exam. Discussed Cardiology plan for [facility] changed to tomorrow. He voiced understanding. Current Facility-Administered Medications Medication Dose Route Frequency NaCl 0.9% iv flush bag 20 mL INTRAVENOUS PRN aspirin, enteric coated 81 mg tab(s) 81 mg ORAL DAILY nitroglycerin sublingual 0.4 mg tab(s) (NITROQUICK) 0.4 mg SUBLINGUAL q 5 MIN PRN atorvastatin 40 mg tab(s) (LIPITOR) 40 mg ORAL AT BEDTIME sodium chloride 0.9 % (flush) 2-10 mL (BD POSIFLUSH) 2-10 mL INTRAVENOUS DIRECTED PRN And perflutren lipid microspheres 1.1 mg/mL 1.3 mL injection (DEFINITY) 1.3 mL INTRAVENOUS DIRECTED PRN metoprolol tartrate (short acting) 25 mg tab(s) (LOPRESSOR) 25 mg ORAL q 12 H dextrose 40 % 15 g 15 g ORAL PRN Or glucagon 1 mg injection 1 mg INTRAMUSCULAR PRN Or dextrose 10% iv bolus 12.5 g INTRAVENOUS PRN insulin lispro injection (rapid acting) (ADMElog) SUBCUTANEOUS w MEALS heparin iv infusion 25,000 units in NaCl 0.45% 250 mL LOW DOSE/ACS NOMOGRAM 0-3,000 Units/hr INTRAVENOUS CONTINUOUS And heparin RATE CHANGE bolus 1,000-4,000 Units for subtherapeutic PTTAC results 1,000-4,000 Units INTRAVENOUS PRN furosemide 80 mg tab(s) (LASIX) 80 mg ORAL BID 9a/5p insulin glargine 20 Units pen (long acting) 20 Units SUBCUTANEOUS AT BEDTIME Objective PHYSICAL EXAM: BP 137/82[Pt awake, call light in reach[ Pulse 101 Temp (Src) 97.1 (Temporal) Resp 17 Ht 5' 6 (1.68m) Wt 165 lb (74.8kg) SpO2 100% BMI 26.64 kg/(m2). O2 Therapy: Room Air Physical Exam Performed GENERAL: Alert, no distress, cooperative, Obese, Smiling SKIN: Skin color, texture, turgor normal. No rashes or lesions. LUNGS: Lungs clear to auscultation, Good diaphragmatic excursion, Positive findings: 2LNC CARDIAC: Normal S1 and S2; no rubs, murmurs, or gallops, Rhythm: regular rate and rhythm ABDOMEN: Abdomen soft, non-tender, BS normal, No masses or organomegaly and Positive findings: obese EXTREMITIES: Normal exam of the extremities NEURO: Grossly normal cognition, motor function, and cranial nerves III-XII The remainder of the physical exam is noncontributory. Lines, Drains, and Airways Line Duration Peripheral 03/18/25 1406 [facility] Short Left Antecubital 20 Gauge 3 days Reviewed lines and needs to be continued: REASONS: Telemetry DATA: Diagnostic tests reviewed for today's visit: Most recent labs Most recent imaging Most recent EKG CBC, Coags, BMP, Mg, Phos Recent Labs 03/22/25 0313 03/21/25 1942 03/21/25 1142 03/21/25 0544 03/21/25 0544 03/20/25 0631 WBC 7.23 -- -- -- 8.60 8.05 HB 8.8* -- -- -- 9.4* 10.0* HCT 24.9* -- -- -- 27.2* 28.2* PLT 227 -- -- -- 245 271 INR -- -- -- -- 1.0 -- APTT 32.9* 29.6 29.9 < > 31.0 -- NA 133* -- -- -- 133* 131* K 4.8 -- -- -- 4.9 5.1 CHLOR 97* -- -- -- 98 98 CO2 18* -- -- -- 18* 18* BUN 134* -- -- -- 110* 69* CREAT 9.47* -- -- -- 8.90* 7.49* GLUC 171* -- -- -- 146* 151* CA 8.8 -- -- -- 9.5 9.4 < > = values in this interval not displayed. Cardiac Enzymes Assessment/Plan Problem List Acute chest pain (POA: Yes) HOSPITAL COURSE: Dani Ramirez is a 64 year old male presented with past medical history of ESRD on HD, CAD status post CABG, hypertension, hyperlipidemia, diabetes who presented for shortness of breath and chest discomfort. Patient reports that he has been experiencing worsening dyspnea on exertion and midsternal chest pain for the past 2 weeks. States that he is usually able to perform his physical activities without limitation however recently when he has been feeding his animals in the barn he has had to stop prematurely due to his worsening shortness of breath. Undergoes dialysis on MWF with his most recent session being yesterday. Denies any fever, chills, cough, abdominal discomfort or dysuria. Came to the ER seeking further evaluation. Vitals are stable on exam. Labs pertinent for sodium 134, creatinine 7.17, glucose 154, BNP 3903, hemoglobin 9.4 otherwise grossly unremarkable. Initial troponin 155 and repeat 135. Chest x-ray with no acute findings. Patient was admitted under observation for chest pain rule out and evaluation by cardiology given severe underlying CAD. Cardiology planning [facility] after Eliquis washout on Saturday. Nephrology on consult to manage HD. Principal Problem: Acute chest pain CAD status post CABG Patient presented with 2 weeks of worsening OROPEZA and midsternal chest pain Troponin 134.5<155.9 Continue cardiac telemetry Cardiology consulted Echocardiogram showed normal LV and RV size and mildly decreased function, LVEF 52%, moderate MR, mild AR Cardiac risk stratification with A1c 6.1, TSH 1.687, Lipid panel cholesterol 190, Triglycerides 229, HDL 26, LDL 123 Continue daily aspirin and high-dose statin SL nitro as needed for chest pain Plan for LHC on Saturday Stopped Eliquis 03/20 evening, started Heparin gtt 03/21 per Cardiology Heart healthy diet ESRD on HD Nephro consulted for resumption of dialysis Nephrology started PO lasix 80mg BID Diabetes Continue glargine increased to 20 units at bedtime, ADMElog scale 1 SSI with meals Hypoglycemia protocol A1c 6.1 Carb controlled diet Hyponatremia Na 133, chronic Chronic conditions: Hypertension Hyperlipidemia Anemia Continue home metoprolol tartrate 25mg BID BP 111/70 on last check Hgb 8.8, at baseline High risk medications reviewed for toxicity? Yes Personally discussed plan with consultants? No Reviewed imaging/tests? Yes Tests Pending: CBC, BMP, LHC Anticipated Discharge Order Placed: Yes Anticipated Discharge Date: 03/23/25 Follow-up appointment Order Placed: No Disposition: Home Lines: PIV REASONS: Telemetry Ramos: None Diet: Orders Placed This Encounter DIET NPO Standing Status: Standing Number of Occurrences: 1 NPO Restrictions: FOR PROCEDURE DIET RENAL Standing Status: Standing Number of Occurrences: 1 Renal: 2400 MG K / 2400 MG NA Carbohydrate Control: CONSISTENT CARBOHYDRATE Heart Healthy: 2 GM SODIUM (LOW SAT FAT) VTE Prophylaxis: VTE prophylaxis appropriate Code Status: Code Status: DNR-CCA, DNI Plan of care discussed with Provider, RN, Patient and Attending of Record Plan communicated to: N/A Disclaimer This dictation was created using voice recognition software. Phonetic and/or minor grammatical errors may exist. Some elements copied from my service's note 03/21/25, including the physical exam completed in entirety today, have been updated where appropriate. All reflect current medical decision making from today, March 22, 2025. High complexity medical decision making due to combination of acute, chronic and acute on chronic medical problems. Number of diagnosis and data review is extensive. Monitor daily labs and continuous telemetry. High risk for further complications and decline requiring higher level of care. SIGNATURE: Suarav Edward APRN.CNP PATIENT NAME: Dani Ramirez DATE: March 22, 2025 TIME: 11:26 AM CASE MANAGEM Observed: 03/22/2025 8:40 AM Status: COMPLETED Source: [facility] HNO ID: [id number] Author: HARI PORTILLO LISW Service: Care Management Author Type: Circular Clerk Type: Care Mgt Progress Note Filed: 03/22/2025 08:41 Note Text: Summary: Discharge Planning CARE MANAGEMENT PROGRESS NOTE SERVICE DATE: 03/22/2025 SERVICE TIME: 8:40 AM LOS: 0 days FIELD EDUCATION DIRECTOR continuing to follow for d/c planning needs. Pt is admitted with dx of exertional chest pain, elevated troponin, and elevated BNP. Pt lives at home with his and is independent with ADL's. PCP is Marii Sky, last visit was about 2 weeks ago. Pt is active with [facility] for MWF dialysis. No insurance. [employer] and [employer] consulted to follow for hospital financial assistance and medicaid application assistance if agreeable. Cardiology and nephrology consults pending. ECHO pending. Discharge plan is home. No anticipated cm needs. pt will have a ride. Case management to follow for discharge needs. SIGNATURE: BRAVO Quijano PATIENT NAME: Dani Ramirez DATE: March 22, 2025 TIME: 8:40 AM CBC PNL BLD AUTO Collected: 03/22/2025 3:13 AM Statu s: F Source: [facility] Order Comment: Specimen Type : BLOOD SPECIMEN Ordering Facility: [facility] Address: [address] [place] [address] TYPE CODE TESTS RESULT OUT OF RANGE REFERENCE UNITS LAB 6690-2([facility]) WBC # Bld Auto 7.23 3.70-11.00 k/uL LAB 789-8([facility]) RBC # Bld Auto 2.93 Low 4.20-6.00 m/ uL LAB 718-7([facility]) Hgb Bld-mCnc 8.8 Low 13.0-17.0 g/dL LAB 4544-3([facility]) Hct VFr Bld Auto 24.9 Low 39.0-51.0 % LAB 787-2([facility]) MCV RBC Auto 85.0 80.0-100.0 fL LAB 785-6([facility]) MCH RBC Qn Auto 30.0 26.0-34.0 pg LAB 786-4([facility]) MCHC RBC Auto-mCnc 35.3 30.5-36.0 g/dL LAB 91811-0([facility]) RDW RBC-Rto 13.2 11.5-15.0 % LAB 777-3([facility]) Platelet # Bld Auto 227 150-400 k/uL LAB 14275-4([facility]) PMV Bld Auto 9.9 9.0-12.7 fL LAB 771-6([facility]) nRBC # Bld Auto <0.01 <0.01 k/uL Performed By: #### 53451-7 # ### [facility] CLIA [id number] [facility] [address] STATES OF [facility] APTT PPP Collected: 3:13 AM Status: F Source: [facility] Order Comment: Specimen Type : BLOOD SPECIMEN Ordering Facility: [facility] Address: [address] [place] [address] TYPE CODE TESTS RESULT OUT OF RANGE REFERENCE UNITS LAB 47063-5([facility]) aPTT PPP 32.9 High 23.0-32.4 sec Performed By: #### 40608-8 # ### [facility] CLIA [id number] [address] [place] [id number] [place] BAS METAB 2000 PNL SERPL Collected: 3:13 AM Status: F Source: [facility] Order Comment: Specimen Type : BLOOD SPECIMEN Ordering Facility: [facility] Address: [address] [id number] TYPE CODE TESTS RESULT OUT OF RANGE REFERENCE UNITS LAB 2345-7(LOINC) Glucose SerPl-mCnc 171 High 70-100 mg/dL Result Comment: The [place] Diabetes Association (ADA) provides guidance for cutoff values for fasting glucose and random glucose. The ADA defines fasting as no caloric intake for at least 8 hours. Fasting plasma glucose results between 100 to 125 mg/dL indicate increased risk for diabetes (prediabetes). Fasting plasma glucose results greater than or equal to 126 mg/dL meet the criteria for diagnosis of diabetes. In the absence of unequivocal hyperglycemia, results should be confirmed by repeat testing. In a patient with classic symptoms of hyperglycemia or hyperglycemic crisis, random plasma glucose results greater than or equal to 200 mg/dL meet the criteria for diagnosis of diabetes. Reference: Standards of Medical Care in Diabetes 2016, [place] [employer] Association. Diabetes Care. 2016.39(Suppl 1). Results may be falsely elevated after the administration of Sulfapyridine. Results may be falsely depressed after the administration of Sulfasalazine. LAB 3094-0(LOINC) BUN SerPl-mCnc 134 High 7-26 mg/ dL LAB 2160-0(LOINC) Creat SerPl-mCnc 9.47 High 0.50-1.40 mg/dL Result Comment: Patients rec eiving either N-Acetylcysteine (NAC) or Metamizole prior to venipuncture, may have falsely depressed results. LAB 2951-2(LOINC) Sodium SerPl-sCnc 133 Low 136-145 mmol/L LAB 2823-3(LOINC) Potassium SerPl-sCnc 4.8 3.5-5.1 mmol/L LAB 2075-0(LOINC) Chloride SerPl-sCnc 97 Low 98-107 mmol/L LAB 8-9(LOINC) CO2 SerPl-sCnc 18 Low 21-32 mmo l/L LAB 30257-8(LOINC) Anion Gap SerPl-sCnc 18 High 5-16 mmol/L LAB 51428-1(LOINC) Calcium SerPl-mCnc 8.8 8.5-10.5 mg/dL LAB 97693-6(LOINC) Creatinine + eGFR Pnl SerPlBld 6 Low >=60 mL/min/1. 73m??? Result Comment: Estimated Gl omerular Filtration Rate (eGFR) is calculated using the 2020 CKD-EPI creatinine equation. This equation utilizes serum creatinine, sex, and age as parameters. The creatinine assay has traceable calibration to isotope dilution-mass spectrometry. Refer to KDIGO guidelines for clinical interpretation. In patients with unstable renal function, e.g. those with acute kidney injury, the eGFR may not accurately reflect actual GFR. Performed By: #### 13783-0 # ### [facility] CLIA [id number] [address] [place] [address] APTT PPP Collected: 7:42 PM Status: F Source: [facility] Order Comment: Specimen Type : BLOOD SPECIMEN Ordering Facility: [facility] Address: [address] [place] [address] TYPE CODE TESTS RESULT OUT OF RANGE REFERENCE UNITS LAB 94826-1([facility]) aPTT PPP 29.6 23.0-32.4 sec Performed By: #### 11400-7 # ### [facility] CLIA [id number] [address] [place] [address] APTT PPP Collected: 11:42 AM Status: F Source: [facility] Order Comment: Specimen Type : BLOOD SPECIMEN Ordering Facility: [facility] Address: [address] [place] [address] TYPE CODE TESTS RESULT OUT OF RANGE REFERENCE UNITS LAB 01451-4([facility]) aPTT PPP 29.9 23.0-32.4 sec Performed By: #### 51242-3 # ### [facility] CLIA [id number] [address] [place], [place] [id number] [facility] PROGRESS Observed: 03/21/2025 11:17 AM Status: COMPLETED Source: [facility] HNO ID: [id number] Author: SAURAV EDWARD APRN.CNP Service: Hospital Medicine Author Type: Nurse Practitioner Type: Progress Notes Filed: 03/21/2025 14:04 Note Text: DEPARTMENT OF HOSPITAL MEDICINE PROGRESS NOTE SERVICE DATE: 03/21/2025 SERVICE TIME: 11:17 AM Hospital Medicine/Primary Attending: Jeyson Beltran MD PRIMARY CARE PHYSICIAN: Marii Sky APRN.MARK Readmission: Highest Readmission Risk Score: 14 Subjective INTERVAL HPI: No acute events overnight. Seen and examined at bedside. Family visiting at bedside. He endorses continued shortness of breath on exertion unchanged. Denies chest pain, shortness of breath at rest, abdominal pain, nausea, vomiting, fever, chills on exam. Discussed Cardiology plan for [facility] on Saturday, he is agreeable. Current Facility-Administered Medications Medication Dose Route Frequency NaCl 0.9% iv flush bag 20 mL INTRAVENOUS PRN aspirin, enteric coated 81 mg tab(s) 81 mg ORAL DAILY nitroglycerin sublingual 0.4 mg tab(s) (NITROQUICK) 0.4 mg SUBLINGUAL q 5 MIN PRN atorvastatin 40 mg tab(s) (LIPITOR) 40 mg ORAL AT BEDTIME sodium chloride 0.9 % (flush) 2-10 mL (BD POSIFLUSH) 2-10 mL INTRAVENOUS DIRECTED PRN And perflutren lipid microspheres 1.1 mg/mL 1.3 mL injection (DEFINITY) 1.3 mL INTRAVENOUS DIRECTED PRN metoprolol tartrate (short acting) 25 mg tab(s) (LOPRESSOR) 25 mg ORAL q 12 H dextrose 40 % 15 g 15 g ORAL PRN Or glucagon 1 mg injection 1 mg INTRAMUSCULAR PRN Or dextrose 10% iv bolus 12.5 g INTRAVENOUS PRN insulin lispro injection (rapid acting) (ADMElog) SUBCUTANEOUS w MEALS heparin iv infusion 25,000 units in NaCl 0.45% 250 mL LOW DOSE/ACS NOMOGRAM 0-3,000 Units/hr INTRAVENOUS CONTINUOUS And heparin RATE CHANGE bolus 1,000-4,000 Units for subtherapeutic PTTAC results 1,000-4,000 Units INTRAVENOUS PRN furosemide 80 mg tab(s) (LASIX) 80 mg ORAL BID 9a/5p insulin glargine 20 Units pen (long acting) 20 Units SUBCUTANEOUS AT BEDTIME Objective PHYSICAL EXAM: BP 140/73 Pulse 77 Temp (Src) 97.7 (Oral) Resp 18 Ht 5' 6 (1.68m) Wt 165 lb (74.8kg) SpO2 99% BMI 26.64 kg/(m2). O2 Therapy: Room Air Physical Exam Performed GENERAL: Alert, no distress, cooperative, Obese, Smiling SKIN: Skin color, texture, turgor normal. No rashes or lesions. LUNGS: Lungs clear to auscultation, Good diaphragmatic excursion CARDIAC: Normal S1 and S2; no rubs, murmurs, or gallops, Rhythm: regular rate and rhythm ABDOMEN: Abdomen soft, non-tender, BS normal, No masses or organomegaly and Positive findings: obese EXTREMITIES: Normal exam of the extremities NEURO: Grossly normal cognition, motor function, and cranial nerves III-XII The remainder of the physical exam is noncontributory. Lines, Drains, and Airways Line Duration Peripheral 03/18/25 1406 [facility] Short Left Antecubital 20 Gauge 2 days Reviewed lines and needs to be continued: REASONS: Telemetry DATA: Diagnostic tests reviewed for today's visit: Most recent labs Most recent imaging Most recent EKG CBC, Coags, BMP, Mg, Phos Recent Labs 03/21/25 0544 03/20/25 0631 03/19/25 0517 WBC 8.60 8.05 7.71 HB 9.4* 10.0* 8.4* HCT 27.2* 28.2* 24.4* PLT 245 271 226 INR 1.0 -- -- APTT 31.0 -- -- NA 133* 131* 136 K 4.9 5.1 3.9 CHLOR 98 98 98 CO2 18* 18* 20* BUN 110* 69* 97* CREAT 8.90* 7.49* 7.85* GLUC 146* 151* 72 CA 9.5 9.4 9.1 MG -- -- 2.0 Cardiac Enzymes Assessment/Plan Problem List Acute chest pain (POA: Yes) HOSPITAL COURSE: Dani Ramirez is a 64 year old male presented with past medical history of ESRD on HD, CAD status post CABG, hypertension, hyperlipidemia, diabetes who presented for shortness of breath and chest discomfort. Patient reports that he has been experiencing worsening dyspnea on exertion and midsternal chest pain for the past 2 weeks. States that he is usually able to perform his physical activities without limitation however recently when he has been feeding his animals in the barn he has had to stop prematurely due to his worsening shortness of breath. Undergoes dialysis on MWF with his most recent session being yesterday. Denies any fever, chills, cough, abdominal discomfort or dysuria. Came to the ER seeking further evaluation. Vitals are stable on exam. Labs pertinent for sodium 134, creatinine 7.17, glucose 154, BNP 3903, hemoglobin 9.4 otherwise grossly unremarkable. Initial troponin 155 and repeat 135. Chest x-ray with no acute findings. Patient was admitted under observation for chest pain rule out and evaluation by cardiology given severe underlying CAD. Cardiology planning LHC after Eliquis washout on Saturday. Principal Problem: Acute chest pain CAD status post CABG Patient presented with 2 weeks of worsening OROPEZA and midsternal chest pain Troponin 134.5<155.9 Continue cardiac telemetry Cardiology consulted Echocardiogram showed normal LV and RV size and mildly decreased function, LVEF 52%, moderate MR, mild AR Cardiac risk stratification with A1c 6.1, TSH 1.687, Lipid panel cholesterol 190, Triglycerides 229, HDL 26, LDL 123 Continue daily aspirin and high-dose statin SL nitro as needed for chest pain Plan for LHC on Saturday Stopped Eliquis 03/20 evening, started Heparin gtt 03/21 per Cardiology Heart healthy diet ESRD on HD Nephro consulted for resumption of dialysis Nephrology started IV lasix 80mg BID Diabetes Continue glargine increased to 20 units at bedtime, ADMElog scale 1 SSI with meals Hypoglycemia protocol A1c 6.1 Carb controlled diet Hyponatremia Na 133, chronic Chronic conditions: Hypertension Hyperlipidemia Anemia Continue home metoprolol tartrate 25mg BID BP 146/72 on last check Hgb 9.4, at baseline High risk medications reviewed for toxicity? Yes Personally discussed plan with consultants? No Reviewed imaging/tests? Yes Tests Pending: CBC, BMP, LHC Anticipated Discharge Order Placed: Yes Anticipated Discharge Date: 03/23/25 Follow-up appointment Order Placed: No Disposition: Home Lines: PIV REASONS: Telemetry Ramos: None Diet: Orders Placed This Encounter DIET HEART HEALTHY Standing Status: Standing Number of Occurrences: 1 Heart Healthy: 4 GM SODIUM (LOW SAT FAT) Carbohydrate Control: CONSISTENT CARBOHYDRATE VTE Prophylaxis: VTE prophylaxis appropriate Code Status: Code Status: DNR-CCA, DNI Plan of care discussed with Provider, RN, Patient Plan communicated to: Family at bedside Disclaimer This dictation was created using voice recognition software. Phonetic and/or minor grammatical errors may exist. Some elements copied from my service's note 03/20/25, including the physical exam completed in entirety today, have been updated where appropriate. All reflect current medical decision making from today, March 21, 2025. High complexity medical decision making due to combination of acute, chronic and acute on chronic medical problems. Number of diagnosis and data review is extensive. Monitor daily labs and continuous telemetry. High risk for further complications and decline requiring higher level of care. SIGNATURE: Saurav Edward APRN.FINE JEWELRY SALES ASSOCIATE PATIENT NAME: Dani Ramirez DATE: March 21, 2025 TIME: 11:17 AM CBC PNL BLD AUTO Collected: 03/21/2025 5:44 AM Statu s: F Source: [facility] Order Comment: Specimen Type : BLOOD SPECIMEN Ordering Facility: [facility] Address: [address] [place] [address] TYPE CODE TESTS RESULT OUT OF RANGE REFERENCE UNITS LAB 6690-2(LOINC) WBC # Bld Auto 8.60 3.70-11.00 k/uL LAB 789-8(LOINC) RBC # Bld Auto 3.16 Low 4.20-6.00 m/ uL LAB 718-7(LOINC) Hgb Bld-mCnc 9.4 Low 13.0-17.0 g/dL LAB 4544-3(LOINC) Hct VFr Bld Auto 27.2 Low 39.0-51.0 % LAB 787-2(LOINC) MCV RBC Auto 86.1 80.0-100.0 fL LAB 785-6(LOINC) MCH RBC Qn Auto 29.7 26.0-34.0 pg LAB 786-4(LOINC) MCHC RBC Auto-mCnc 34.6 30.5-36.0 g/dL LAB 28221-2(LOINC) RDW RBC-Rto 13.2 11.5-15.0 % LAB 777-3(LOINC) Platelet # Bld Auto 245 150-400 k/uL LAB 32497-7(LOINC) PMV Bld Auto 9.7 9.0-12.7 fL LAB 771-6(LOINC) nRBC # Bld Auto <0.01 <0.01 k/uL Performed By: #### 71018-1 # ### [facility] CLIA [id number] [address] [place], [place] [id number] [facility] PT PNL PPP Collected: 03/21/2025 5:44 AM Status: F Source: [facility] Order Comment: Specimen Type : BLOOD SPECIMEN Ordering Facility: [facility] Address: [address] [place], [place] [address] TYPE CODE TESTS RESULT OUT OF RANGE REFERENCE UNITS LAB 5902-2(LOINC) Prothrombin time 10.9 9.7-13.0 sec LAB 6301-6(LOINC) INR PPP 1.0 0.9-1.3 Result Comment: Vitamin K An tagonist (VKA) Therapeutic Range: INR 2 to 3 (Target INR of 2.5) Note: For patients treated with VKA drugs, such as warfarin, the [place] [employer] 2012 Guideline recommends a therapeutic INR range of 2 to 3 (target INR of 2.5). This recommendation includes high-risk patients with antiphospholipid syndrome with previous arterial or venous thromboembolism, current-generation mechanical or bioprosthetic aortic heart valve replacement. Note: Patients with mechanical aortic valve replacement and additional risk factors for thromboembolic events (atrial fibrillation, previous thromboembolism, LV dysfunction, hypercoagulable conditions) or an older generation mechanical AVR (i.e., ball in-Cage) or any mechanical MVR should have a INR therapeutic range of 2.5 to 3.5 (target INR of 3). Deonte GH, et al. Chest 2012, 141:7S-47S Lacey RA, et al. [facility] 2017, 70: 252-289 Performed By: #### 13537-5, 84010-4 #### [facility] CLIA [id number] [address] [place], [place] [address] [facility] APTT PPP Collected: 5:44 AM Status: F Source: [facility] Order Comment: Specimen Type : BLOOD SPECIMEN Ordering Facility: [facility] Address: [address] [place], [place] [address] TYPE CODE TESTS RESULT OUT OF RANGE REFERENCE UNITS LAB 13615-3(LOINC) aPTT PPP 31.0 23.0-32.4 sec Performed By: #### 62804-2, 58843-2 #### [facility] CLIA [id number] [address] [id number] [place] BAS METAB 2000 PNL SERPL Collected: 5:44 AM Status: F Source: [facility] Order Comment: Specimen Type : BLOOD SPECIMEN Ordering Facility: [facility] Address: [facility] [place] [address] TYPE CODE TESTS RESULT OUT OF RANGE REFERENCE UNITS LAB 2345-7(LOINC) Glucose SerPl-mCnc 146 High 70-100 mg/dL Result Comment: The [place] [employer] (ADA) provides guidance for cutoff values for fasting glucose and random glucose. The ADA defines fasting as no caloric intake for at least 8 hours. Fasting plasma glucose results between 100 to 125 mg/dL indicate increased risk for diabetes (prediabetes). Fasting plasma glucose results greater than or equal to 126 mg/dL meet the criteria for diagnosis of diabetes. In the absence of unequivocal hyperglycemia, results should be confirmed by repeat testing. In a patient with classic symptoms of hyperglycemia or hyperglycemic crisis, random plasma glucose results greater than or equal to 200 mg/dL meet the criteria for diagnosis of diabetes. Reference: Standards of Medical Care in Diabetes 2016, [place] [employer]. Diabetes Care. 2016.39(Suppl 1). Results may be falsely elevated after the administration of Sulfapyridine. Results may be falsely depressed after the administration of Sulfasalazine. LAB 3094-0(LOINC) BUN SerPl-mCnc 110 High 7-26 mg/ dL LAB 2160-0(LOINC) Creat SerPl-mCnc 8.90 High 0.50-1.40 mg/dL Result Comment: Patients rec eiving either N-Acetylcysteine (NAC) or Metamizole prior to venipuncture, may have falsely depressed results. LAB 2951-2(LOINC) Sodium SerPl-sCnc 133 Low 136-145 mmol/L LAB 2823-3(LOINC) Potassium SerPl-sCnc 4.9 3.5-5.1 mmol/L LAB 2075-0(LOINC) Chloride SerPl-sCnc 98 98-107 mmol/L LAB 2028-9(LOINC) CO2 SerPl-sCnc 18 Low 21-32 mmo l/L LAB 41353-5(LOINC) Anion Gap SerPl-sCnc 17 High 5-16 mmol/L LAB 80087-3(LOINC) Calcium SerPl-mCnc 9.5 8.5-10.5 mg/dL LAB 64186-8(LOINC) Creatinine + eGFR Pnl SerPlBld 6 Low >=60 mL/min/1. 73m??? Result Comment: Estimated Gl omerular Filtration Rate (eGFR) is calculated using the 2020 CKD-EPI creatinine equation. This equation utilizes serum creatinine, sex, and age as parameters. The creatinine assay has traceable calibration to isotope dilution-mass spectrometry. Refer to KDIGO guidelines for clinical interpretation. In patients with unstable renal function, e.g. those with acute kidney injury, the eGFR may not accurately reflect actual GFR. Performed By: #### 43369-9 # ### [facility] CLIA [id number] [address] [place] [address] PROGRESS Observed: 03/21/2025 2:50 AM Status: COMPLETED Source: [facility] HNO ID: [id number] Author: NOTE, INTERFACE, ? Service: ? Author Type: ? Type: Progress Notes Filed: 03/21/2025 02:55 Note Text: Epic Scheduled Downtime: 03/21/2025 1:00:00 AM to 03/21/2025 2:37:00 AM PROGRESS Observed: 03/20/2025 4:16 PM Status: COMPLETED Source: [facility] HNO ID: [id number] Author: TESS LOPEZ MD Service: Nephrology Author Type: Physician Type: Progress Notes Filed: 03/20/2025 16:18 Note Text: CONSULT PROGRESS NOTE NEPHROLOGY SERVICE SERVICE DATE: 03/20/2025 SERVICE TIME: 4:16 PM Subjective INTERVAL HISTORY: Stable clinically. MEDICATIONS: Current Facility-Administered Medications Medication Dose Route Frequency NaCl 0.9% iv flush bag 20 mL INTRAVENOUS PRN aspirin, enteric coated 81 mg tab(s) 81 mg ORAL DAILY nitroglycerin sublingual 0.4 mg tab(s) (NITROQUICK) 0.4 mg SUBLINGUAL q 5 MIN PRN atorvastatin 40 mg tab(s) (LIPITOR) 40 mg ORAL AT BEDTIME sodium chloride 0.9 % (flush) 2-10 mL (BD POSIFLUSH) 2-10 mL INTRAVENOUS DIRECTED PRN And perflutren lipid microspheres 1.1 mg/mL 1.3 mL injection (DEFINITY) 1.3 mL INTRAVENOUS DIRECTED PRN metoprolol tartrate (short acting) 25 mg tab(s) (LOPRESSOR) 25 mg ORAL q 12 H dextrose 40 % 15 g 15 g ORAL PRN Or glucagon 1 mg injection 1 mg INTRAMUSCULAR PRN Or dextrose 10% iv bolus 12.5 g INTRAVENOUS PRN insulin lispro injection (rapid acting) (ADMElog) SUBCUTANEOUS w MEALS apixaban 2.5 mg tab(s) (ELIQUIS) 2.5 mg ORAL BID insulin glargine 15 Units pen (long acting) 15 Units SUBCUTANEOUS AT BEDTIME [START ON 03/21/2025] heparin nomogram INITIAL BOLUS - LOW DOSE/ACS 60 units/kg/dose INTRAVENOUS ONCE (heparin bolus) [START ON 03/21/2025] heparin iv infusion 25,000 units in NaCl 0.45% 250 mL LOW DOSE/ACS NOMOGRAM 0-3,000 Units/hr INTRAVENOUS CONTINUOUS And [START ON 03/21/2025] heparin RATE CHANGE bolus 1,000-4,000 Units for subtherapeutic PTTAC results 1,000-4,000 Units INTRAVENOUS PRN Objective PHYSICAL EXAM: BP 127/68 Pulse 82 Temp 36.4 ?C (97.5 ?F) (Oral) Resp 16 Ht 167.6 cm (5' 6) Wt 74.8 kg (165 lb) SpO2 99% BMI 26.63 kg/m? Intake/Output Summary (Last 24 hours) at 03/20/2025 1616 Last data filed at 03/20/2025 1300 Gross per 24 hour Intake 500 ml Output 0 ml Net 500 ml Patient resting comfortably. Lungs are clear anteriorly bilaterally Cardiovascular with normal S1-S2 without friction rub Abdomen soft and nontender Lower extremities with +1 edema DATA: Diagnostic tests reviewed for today's visit: Most recent labs and imaging results. Recent Labs 03/20/25 0631 03/19/25 0517 03/18/25 1406 NA 131* 136 134* K 5.1 3.9 4.4 CHLOR 98 98 94* CO2 18* 20* 23 BUN 69* 97* 82* CREAT 7.49* 7.85* 7.17* GLUC 151* 72 154* ANION 15 18* 17* CA 9.4 9.1 9.3 MG -- 2.0 -- Recent Labs 03/20/25 0631 03/19/25 0517 03/18/25 1406 WBC 8.05 7.71 8.72 HB 10.0* 8.4* 9.4* HCT 28.2* 24.4* 26.9* PLT 271 226 233 Recent Labs 03/20/25 0631 03/19/25 1859 TRANSFERSAT -- 23.6 HB 10.0* -- Recent Labs 03/20/25 0631 03/19/25 05 ALKPHOS -- 59 CA 9.4 9.1 ALB -- 3.5 No results for input(s): BUNRAT, BUNPR, BUNPO in the last 168 hours. Recent Labs 03/19/25 0839 HEPSABQ Negative Assessment/Plan 1. ESRD on MWF 2. Shortness of breath and chest pain 3. History of coronary artery disease status post CABG 4. History of aortic valve replacement 5. Anemia of CKD PLAN 1. Next planned HD on Saturday. We will continue to challenge dry weight. 2. LHC also planned on Saturday - will follow clinical results 3. Will dose lasix 80 mg oral BID given propensity to fluid overload Thanks SIGNATURE: Tess Lopez MD PATIENT NAME: Dani Ramirez DATE: March 20, 2025 TIME: 4:16 PM PROGRESS Observed: 03/20/2025 11:32 AM Status: COMPLETED Source: 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 Seen and examined at bedside. Family visiting at bedside. He endorses continued shortness of breath on exertion. Denies chest pain, shortness of breath at rest, abdominal pain, nausea, vomiting, fever, chills on exam. Discussed Cardiology plan for [facility] on Saturday, he is agreeable. He voices he would prefer to go home and return on Saturday. Discussed AMA, and he does not wish to sign out AMA at this time. Current Facility-Administered Medications Medication Dose Route Frequency NaCl 0.9% iv flush bag 20 mL INTRAVENOUS PRN aspirin, enteric coated 81 mg tab(s) 81 mg ORAL DAILY nitroglycerin sublingual 0.4 mg tab(s) (NITROQUICK) 0.4 mg SUBLINGUAL q 5 MIN PRN atorvastatin 40 mg tab(s) (LIPITOR) 40 mg ORAL AT BEDTIME sodium chloride 0.9 % (flush) 2-10 mL (BD POSIFLUSH) 2-10 mL INTRAVENOUS DIRECTED PRN And perflutren lipid microspheres 1.1 mg/mL 1.3 mL injection (DEFINITY) 1.3 mL INTRAVENOUS DIRECTED PRN metoprolol tartrate (short acting) 25 mg tab(s) (LOPRESSOR) 25 mg ORAL q 12 H dextrose 40 % 15 g 15 g ORAL PRN Or glucagon 1 mg injection 1 mg INTRAMUSCULAR PRN Or dextrose 10% iv bolus 12.5 g INTRAVENOUS PRN insulin lispro injection (rapid acting) (ADMElog) SUBCUTANEOUS w MEALS apixaban 2.5 mg tab(s) (ELIQUIS) 2.5 mg ORAL BID insulin glargine 15 Units pen (long acting) 15 Units SUBCUTANEOUS AT BEDTIME Objective PHYSICAL EXAM: BP 131/69 Pulse 78 Temp (Src) 98.1 (Oral) Resp 20 Ht 5' 6 (1.68m) Wt 165 lb (74.8kg) SpO2 100% BMI 26.64 kg/(m2). O2 Therapy: Room Air Physical Exam Performed GENERAL: Alert, no distress, cooperative, Obese, Smiling SKIN: Skin color, texture, turgor normal. No rashes or lesions. LUNGS: Lungs clear to auscultation, Good diaphragmatic excursion CARDIAC: Normal S1 and S2; no rubs, murmurs, or gallops, Rhythm: regular rate and rhythm ABDOMEN: Abdomen soft, non-tender, BS normal, No masses or organomegaly and Positive findings: obese EXTREMITIES: Normal exam of the extremities NEURO: Grossly normal cognition, motor function, and cranial nerves III-XII The remainder of the physical exam is noncontributory. Lines, Drains, and Airways Line Duration Peripheral 03/18/25 1406 [facility] Short Left Antecubital 20 Gauge 1 day Reviewed lines and needs to be continued: REASONS: Telemetry DATA: Diagnostic tests reviewed for today's visit: Most recent labs Most recent imaging Most recent EKG CBC, Coags, BMP, Mg, Phos Recent Labs 03/20/25 0631 03/19/25 0517 03/18/25 1406 WBC 8.05 7.71 8.72 HB 10.0* 8.4* 9.4* HCT 28.2* 24.4* 26.9* PLT 271 226 233 NA 131* 136 134* K 5.1 3.9 4.4 CHLOR 98 98 94* CO2 18* 20* 23 BUN 69* 97* 82* CREAT 7.49* 7.85* 7.17* GLUC 151* 72 154* CA 9.4 9.1 9.3 MG -- 2.0 -- Cardiac Enzymes Assessment/Plan Problem List Acute chest pain (POA: Yes) HOSPITAL COURSE: Dani Ramirez is a 64 year old male presented with past medical history of ESRD on HD, CAD status post CABG, hypertension, hyperlipidemia, diabetes who presented for shortness of breath and chest discomfort. Patient reports that he has been experiencing worsening dyspnea on exertion and midsternal chest pain for the past 2 weeks. States that he is usually able to perform his physical activities without limitation however recently when he has been feeding his animals in the barn he has had to stop prematurely due to his worsening shortness of breath. Undergoes dialysis on MWF with his most recent session being yesterday. Denies any fever, chills, cough, abdominal discomfort or dysuria. Came to the ER seeking further evaluation. Vitals are stable on exam. Labs pertinent for sodium 134, creatinine 7.17, glucose 154, BNP 3903, hemoglobin 9.4 otherwise grossly unremarkable. Initial troponin 155 and repeat 135. Chest x-ray with no acute findings. Patient was admitted under observation for chest pain rule out and evaluation by cardiology given severe underlying CAD. Cardiology planning [facility] after Eliquis washout on Saturday. Principal Problem: Acute chest pain CAD status post CABG Patient presented with 2 weeks of worsening OROPEZA and midsternal chest pain Troponin 134.5<155.9 Continue cardiac telemetry Cardiology consulted Echocardiogram showed normal LV and RV size and mildly decreased function, LVEF 52%, moderate MR, mild AR Cardiac risk stratification with A1c 6.1, TSH 1.687, Lipid panel cholesterol 190, Triglycerides 229, HDL 26, LDL 123 Continue daily aspirin and high-dose statin SL nitro as needed for chest pain Plan for C on Saturday Stop Eliquis 03/20 evening, start Heparin gtt 03/21 per Cardiology Heart healthy diet ESRD on HD Nephro consulted for resumption of dialysis Diabetes Continue glargine increased to 15 units at bedtime, ADMElog scale 1 SSI with meals Hypoglycemia protocol A1c 6.1 Carb controlled diet Chronic conditions: Hypertension Hyperlipidemia Continue home metoprolol tartrate 25mg BID BP 127/68 on last check High risk medications reviewed for toxicity? Yes Personally discussed plan with consultants? No Reviewed imaging/tests? Yes Tests Pending: CBC, BMP, LHC Anticipated Discharge Order Placed: Yes Anticipated Discharge Date: 03/23/25 Follow-up appointment Order Placed: No Disposition: Home Lines: PIV REASONS: Telemetry Ramos: None Diet: Orders Placed This Encounter DIET HEART HEALTHY Standing Status: Standing Number of Occurrences: 1 Heart Healthy: 4 GM SODIUM (LOW SAT FAT) Carbohydrate Control: CONSISTENT CARBOHYDRATE VTE Prophylaxis: VTE prophylaxis appropriate Code Status: Code Status: DNR-CCA, DNI Plan of care discussed with Provider, RN, Patient Plan communicated to: Family at bedside Disclaimer This dictation was created using voice recognition software. Phonetic and/or minor grammatical errors may exist. Some elements copied from my service's note 03/19/25, including the physical exam completed in entirety today, have been updated where appropriate. All reflect current medical decision making from today, March 20, 2025. High complexity medical decision making due to combination of acute, chronic and acute on chronic medical problems. Number of diagnosis and data review is extensive. Monitor daily labs and continuous telemetry. High risk for further complications and decline requiring higher level of care. SIGNATURE: Saurav Edward APRN.CNP PATIENT NAME: Dani Ramirez DATE: March 20, 2025 TIME: 11:32 AM ALLIED HEALTH Observed: 03/20/2025 10:26 AM Status: COMPLETED Source: [facility] HNO ID: [id number] Author: GEOVANNI PADILLA Chaplain Service: Spiritual Care Author Type: Type: Allied Health Filed: 03/20/2025 10:30 Note Text: SPIRITUAL CARE ASSESSMENT SERVICE DATE: 03/20/2025 SERVICE TIME: 954 Visit with: Patient and Family / Friend / Significant Other Length of visit (minutes): 20 Mormon / Spirituality: Denominational Reason: Initial visit ASSESSMENT Emotional Disposition: Nervous Relational Concerns: Concerns regarding upcoming procedure Spiritual Concerns: Struggling with transition or change INTERVENTIONS Empowerment: Informed patient of spiritual care resources available and Reframed experience of patient/family Exploration: Explored emotional needs and resources, Explored relational needs and resources, Explored spiritual needs and resources, and Facilitated story telling Relationship Building: Explored interpersonal dynamics and Provided silent and supportive presence Ritual: Provided spiritual resources OUTCOMES Patient expressed gratitude and Patient identifies inner sources of strength and resilience PLAN Will follow up COMMENTS: SIGNATURE: Chaplain Andre PATIENT NAME: Dani Ramirez DATE: March 20, 2025 TIME: 10:27 AM PAGER/CONTACT #: [phone] CBC PNL BLD AUTO Collected: 03/20/2025 6:31 AM Statu s: F Source: [facility] Order Comment: Specimen Type : BLOOD SPECIMEN Ordering Facility: [facility] Address: [address] [place] [address] TYPE CODE TESTS RESULT OUT OF RANGE REFERENCE UNITS LAB 6690-2(LOINC) WBC # Bld Auto 8.05 3.70-11.00 k/uL LAB 789-8(LOINC) RBC # Bld Auto 3.30 Low 4.20-6.00 m/ uL LAB 718-7(LOINC) Hgb Bld-mCnc 10.0 Low 13.0-17.0 g/dL LAB 4544-3(LOINC) Hct VFr Bld Auto 28.2 Low 39.0-51.0 % LAB 787-2(LOINC) MCV RBC Auto 85.5 80.0-100.0 fL LAB 785-6(LOINC) MCH RBC Qn Auto 30.3 26.0-34.0 pg LAB 786-4(LOINC) MCHC RBC Auto-mCnc 35.5 30.5-36.0 g/dL LAB 07828-4(LOINC) RDW RBC-Rto 13.5 11.5-15.0 % LAB 777-3([facility]) Platelet # Bld Auto 271 150-400 k/uL LAB 06363-5([facility]) PMV Bld Auto 9.7 9.0-12.7 fL LAB 771-6([facility]) nRBC # Bld Auto <0.01 <0.01 k/uL Performed By: #### 88318-3 # ### [facility] CLIA [id number] [address] [place] [address] [place] BAS METAB 2000 PNL SERPL Collected: 6:31 AM Status: F Source: [facility] Order Comment: Specimen Type : BLOOD SPECIMEN Ordering Facility: [facility] Address: [address] [place] [address] TYPE CODE TESTS RESULT OUT OF RANGE REFERENCE UNITS LAB 2345-7(LOINC) Glucose SerPl-mCnc 151 High 70-100 mg/dL Result Comment: The [place] Diabetes [employer] (ADA) provides guidance for cutoff values for fasting glucose and random glucose. The ADA defines fasting as no caloric intake for at least 8 hours. Fasting plasma glucose results between 100 to 125 mg/dL indicate increased risk for diabetes (prediabetes). Fasting plasma glucose results greater than or equal to 126 mg/dL meet the criteria for diagnosis of diabetes. In the absence of unequivocal hyperglycemia, results should be confirmed by repeat testing. In a patient with classic symptoms of hyperglycemia or hyperglycemic crisis, random plasma glucose results greater than or equal to 200 mg/dL meet the criteria for diagnosis of diabetes. Reference: Standards of Medical Care in Diabetes 2016, [place] [employer]. Diabetes Care. 2016.39(Suppl 1). Results may be falsely elevated after the administration of Sulfapyridine. Results may be falsely depressed after the administration of Sulfasalazine. LAB 3094-0(LOINC) BUN SerPl-mCnc 69 High 7-26 mg/ dL LAB 2160-0(LOINC) Creat SerPl-mCnc 7.49 High 0.50-1.40 mg/dL Result Comment: Patients rec eiving either N-Acetylcysteine (NAC) or Metamizole prior to venipuncture, may have falsely depressed results. LAB 2951-2(LOINC) Sodium SerPl-sCnc 131 Low 136-145 mmol/L LAB 2823-3(LOINC) Potassium SerPl-sCnc 5.1 3.5-5.1 mmol/L LAB 2075-0(LOINC) Chloride SerPl-sCnc 98 98-107 mmol/L LAB 2028-9(LOINC) CO2 SerPl-sCnc 18 Low 21-32 mmo l/L LAB 36299-8(LOINC) Anion Gap SerPl-sCnc 15 5-16 mmol/L LAB 19210-5(LOINC) Calcium SerPl-mCnc 9.4 8.5-10.5 mg/dL LAB 96391-5(LOINC) Creatinine + eGFR Pnl SerPlBld 7 Low >=60 mL/min/1. 73m??? Result Comment: Estimated Gl omerular Filtration Rate (eGFR) is calculated using the 2020 CKD-EPI creatinine equation. This equation utilizes serum creatinine, sex, and age as parameters. The creatinine assay has traceable calibration to isotope dilution-mass spectrometry. Refer to KDIGO guidelines for clinical interpretation. In patients with unstable renal function, e.g. those with acute kidney injury, the eGFR may not accurately reflect actual GFR. Performed By: #### 80133-6 # ### [facility] CLIA [id number] [address] [place] [address] [place] PROGRESS Observed: 03/20/2025 3:42 AM Status: COMPLETED Source: [facility] HNO ID: [id number] Author: NOTE, INTERFACE, ? Service: ? Author Type: ? Type: Progress Notes Filed: 03/20/2025 03:47 Note Text: Epic Scheduled Downtime: 03/20/2025 1:00:00 AM to 03/20/2025 3:39:00 AM IRON+TIBC PNL SERPL Collected: 03/19/2025 6:[address] atus: F Source: [facility] Order Comment: Specimen Type : BLOOD SPECIMEN Ordering Facility: [facility] Address: [address] [place] [address] TYPE CODE TESTS RESULT OUT OF RANGE REFERENCE UNITS LAB 2498-4(LOINC) Iron SerPl-mCnc 57 Low 65-175 ug/dL Result Comment: Patients danial ated with metal-binding drugs (e.g.deferoxamine) may have depressed iron values, as chelated iron may not properly react in the Siemens iron assay. LAB 2500-7(LOINC) TIBC SerPl-mCnc 242 221-481 ug/dL LAB 88338-2(LOINC) Iron/TIBC SerPl-sRto 23.6 22.0-44.0 % Performed By: #### 04964-5 # ### [facility] CLIA [id number] [address] [place] CONSULT Observed: 03/19/2025 6:04 PM Status: COMPLETED Source: [facility] HNO ID: [id number] Author: TESS LOPEZ MD Service: Nephrology Author Type: Physician Type: Consults Filed: 03/19/2025 18:09 Note Text: NEPHROLOGY SERVICE CONSULT NOTE SERVICE DATE: 03/19/2025 SERVICE TIME: 6:05 PM REASON FOR CONSULT: I am asked to see this patient in consultation for my opinion regarding ESRD. My recommendations will be communicated by way of shared medical record. REQUESTING PHYSICIAN: Primary team PRIMARY CARE PHYSICIAN: Marii Sky APRN.CNP Subjective CHIEF COMPLAINT: Chest pain HPI: This is a pleasant 64-year-old male on hemodialysis Saturday, Saturday and Saturday. He has a fistula in place for dialysis purposes. Usually at [facility]. Presented to the hospital because of shortness of breath and chest pain. Other comorbidities include coronary artery disease status post CABG, status post aortic valve replacement, prostatic adenocarcinoma, type 2 diabetes mellitus, hypertension, hyperlipidemia, BPH status post TURP. Cardiology is currently involved. Patient had an echocardiogram today. Echo shows EF 52%, RV function normal, bioprosthetic aortic valve in place. Patient's blood work today showed creatinine 7.85, BUN 97, potassium 3.9. He was dialyzed per regular schedule. 2 L fluid was removed. Given patient's worsening cardiac symptoms, cardiology is planning on ischemic workup on Saturday PAST MEDICAL HISTORY Diagnosis Date Benign hypertensive heart and kidney disease and CKD stage V (HCC) BPH (benign prostatic hyperplasia) CAD (coronary artery disease) Dialysis patient (HCC) 01/2023 Hyperlipidemia Hypertension Prostate cancer (HCC) Adenocarcinoma Type 2 diabetes (HCC) PAST SURGICAL HISTORY Procedure Laterality Date CABG (3) VEIN GRAFTS AND ARTERIAL GRAFT(S) N/A 2009 SHX AORTIC VALVE REPLACEMENT 2009 Porcine TONSILLECTOMY HX TRANSURETHRAL ELEC-SURG PROSTATECTOM 12/2022 No family history on file. Social History Tobacco Use Smoking status: Former Current packs/day: 0.00 Average packs/day: 0.5 packs/day for 5.0 years (2.5 ttl pk-yrs) Types: Cigarettes Start date: 1984 Quit date: 1989 Years since quittin.3 Smokeless tobacco: Never Substance Use Topics Alcohol use: Never Drug use: Never MEDICATIONS: Prior to Admission Medications apixaban (ELIQUIS) 2.5 mg tab(s), Take 2.5 mg by mouth two times a day., Disp: , Rfl: , 03/18/2025 insulin glargine 100 unit/mL (3 mL), Inject 16 Units subcutaneously two times a day. (Patient taking differently: Inject 18 Units subcutaneously two times a day.), Disp: 15 mL, Rfl: 0, 03/18/2025 insulin lispro (HUMALOG U-100 INSULIN) 100 unit/mL injection, Inject 8 Units subcutaneously three times a day before meals., Disp: 7.2 mL, Rfl: 0, 03/18/2025 metoprolol tartrate, short acting, (LOPRESSOR) 25 mg tablet, Take 1 tablet by mouth every 12 hours., Disp: 60 tablet, Rfl: 0, 03/18/2025 Current Facility-Administered Medications Medication Dose Route Frequency NaCl 0.9% iv flush bag 20 mL INTRAVENOUS PRN aspirin, enteric coated 81 mg tab(s) 81 mg ORAL DAILY nitroglycerin sublingual 0.4 mg tab(s) (NITROQUICK) 0.4 mg SUBLINGUAL q 5 MIN PRN atorvastatin 40 mg tab(s) (LIPITOR) 40 mg ORAL AT BEDTIME sodium chloride 0.9 % (flush) 2-10 mL (BD POSIFLUSH) 2-10 mL INTRAVENOUS DIRECTED PRN And perflutren lipid microspheres 1.1 mg/mL 1.3 mL injection (DEFINITY) 1.3 mL INTRAVENOUS DIRECTED PRN metoprolol tartrate (short acting) 25 mg tab(s) (LOPRESSOR) 25 mg ORAL q 12 H apixaban 2.5 mg tab(s) (ELIQUIS) 2.5 mg ORAL BID dextrose 40 % 15 g 15 g ORAL PRN Or glucagon 1 mg injection 1 mg INTRAMUSCULAR PRN Or dextrose 10% iv bolus 12.5 g INTRAVENOUS PRN insulin glargine 10 Units pen (long acting) 10 Units SUBCUTANEOUS AT BEDTIME insulin lispro injection (rapid acting) (ADMElog) SUBCUTANEOUS w MEALS ALLERGIES Allergen Reactions Acetaminophen-Codei* Hives, Itching Has tolerated APAP component alone REVIEW OF SYSTEMS: 12 point review of system done negative except for as mentioned above. Objective PHYSICAL EXAM: BP 117/78 Pulse 108 Temp 37.3 ?C (99.1 ?F) (Oral) Resp 16 Ht 167.6 cm (5' 6) Wt 74.8 kg (165 lb) SpO2 98% BMI 26.63 kg/m? Intake/Output Summary (Last 24 hours) at 03/19/2025 1805 Last data filed at 03/19/2025 1328 Gross per 24 hour Intake 740 ml Output 2700 ml Net -1960 ml General: Comfortable. Does not appear to be in acute distress. Neck: JVP not observed. Negative hepatojugular reflex. Cardiovascular: S1 and S2 heard. No friction rub. Lungs: Clear anteriorly bilaterally and at the bases Abdomen: Soft and nontender. Lymphatic: No peripheral edema Musculoskeletal: No obvious joint swelling or redness. Neurological: Alert and oriented x3. No focal deficits. Psychiatric: Appropriate mood and affect. Genitourinary exam: Not performed Rectal exam: Not performed. DATA: Diagnostic tests reviewed for today's visit: Most recent labs and imaging results. Recent Labs 03/19/2551603/18/25 1406 NA 136 134* K 3.9 4.4 CHLOR 98 94* CO2 20* 23 BUN 97* 82* CREAT 7.85* 7.17* GLUC 72 154* ANION 18* 17* CA 9.1 9.3 MG 2.0 -- Recent Labs 03/19/2551603/18/25 1406 WBC 7.71 8.72 HB 8.4* 9.4* HCT 24.4* 26.9* PLT 226 233 Recent Labs 05/16/25 0517 HB 8.4* Recent Labs 03/19/25 0517 ALKPHOS 59 CA 9.1 ALB 3.5 No results for input(s): BUNRAT, BUNPR, BUNPO in the last 168 hours. Recent Labs 03/19/25 0839 HEPSABQ Negative Impression/Recommendations 1. ESRD on MWF 2. Shortness of breath and chest pain 3. History of coronary artery disease status post CABG 4. History of aortic valve replacement 5. Anemia of CKD Plan: Patient dialyzed today per protocol. We will follow clinically. He is due for ischemic workup on Saturday. We will continue his regular dialysis schedule. There is no need to coordinate contrast exposure with dialysis. Resume antihypertensive therapy. Check iron profile and replace if appropriate. Rest of management per cardiology. Thank you SIGNATURE: Tess Lopez MD PATIENT NAME: Dani Ramirez DATE: March 19, 2025 TIME: 6:05 PM PROGRESS Observed: 03/19/2025 2:59 PM Status: COMPLETED Source: [facility] HNO ID: [id number] Author: DANIEL OLIVER RN Service: ? Author Type: Registered Nurse Type: Progress Notes Filed: 03/19/2025 15:00 Note Text: 1.3ML OF DEFINITY MIXED WITH 8.7ML OF NORMAL SALINE. 2ML OF DEFINITY GIVEN FOR ECHOCARDIOGRAM TO ENHANCE IMAGES. NO REACTION NOTED. ECHO Observed: 03/19/2025 2:23 PM Status: F Source: [facility] Echocardiography Report: Tra nsthoracic Echo [facility] Date of service: 03/19/2025 2:23:25 PM Ordering physician: SWEETIE DELGADILLO Indication: Shortness of Breath Technologist: Dayanna Washington [facility] Interpreting physician: Alejandro Dumont MD PATIENT: Name: MR. DANI RAMIREZ : 1960 Age: 64 years Gender: M History of coronary artery disease, valvular heart disease, diabetes mellitus, hypertension and dyslipidemia. Previous cardiovascular interventions: CABG (2009) Aortic valve replacement (2009) Primary rhythm: sinus. Height: 165.10 cm BSA: 1.85 m Weight: 74.84 kg BMI: 27.5 kg/m Heart rate 99 bpm Blood pressure 115/60 mmHg Color Doppler was utilized to interrogate the cardiac valves assessed and spectral Doppler was utilized to determine the flow velocities and pressure gradients reported in this exam. MEASUREMENTS: Value Indexed Normal Max aortic dimension 3.6 cm Ao < 3.8 Left atrial volume 55 ml (biplane A-L) 30 ml/m Cristhian <= 34 LV ID (diastole) 3.6 cm (2D) 1.94 cm/m LV ID (systole) 2.7 cm (2D) 1.46 cm/m IVS, leaflet tips 1.1 cm (2D) Posterior wall thickness 1.1 cm (2D) Left ventricular mass 124 g (2D) 67 g/m LV stroke volume 60 ml (2D biplane) LVOT stroke volume 58 ml 32 ml/m LV end diastolic volume 117 ml (2D biplane) 63.1 ml/m 34<=EDVi<75 LV end systolic volume 57 ml (2D biplane) 30.6 ml/m Ejection Fraction 52 % (2D biplane) EF > 52 FINDINGS: LEFT VENTRICLE The left ventricle is normal in size. Left ventricular systolic function is mildly decreased. Indeterminate left ventricular diastolic function. Mitral annular lateral E/e': 10.3. Mitral annular septal E/e': 22.7. Definity contrast used for endocardial border detection. Wall Motion: All scored segments are normal. RIGHT VENTRICLE The right ventricle is normal in size. Right ventricular systolic function is low normal. RV systolic tissue Doppler velocity is 9.4 cm/s. Tricuspid annular displacement is 1.3 cm. Estimated right ventricular systolic pressure is 23 mmHg consistent with normal pulmonary artery pressures. Estimated right atrial pressure is 3 mmHg based on IVC assessment. LEFT ATRIUM The left atrial cavity is normal in size. RIGHT ATRIUM The right atrial cavity is normal in size. Inferior Vena Cava: The inferior vena cava appears normal measuring 1.6 cm. The vessel decreases greater than 50 percent with inspiration. MITRAL VALVE There is mild mitral stenosis. There is moderate (2+) mitral valve regurgitation. There is mild thickening. Regurgitant orifice area (PISA) is 0.10 cm . The peak mitral valve gradient is 9 mmHg. The mean mitral valve gradient is 5 mmHg. The pressure half time is 47 msec. The peak mitral E/A ratio is 0.65. The mitral flow deceleration time is 162 msec. TRICUSPID VALVE There is no tricuspid stenosis. There is mild (1+) tricuspid valve regurgitation. There is no thickening. AORTIC VALVE Bioprosthetic prosthetic valve. There is mild (1+ - 2+) aortic valve regurgitation. The peak gradient is 21 mmHg (peak velocity = 227.7 cm/s). The mean gradient is 11 mmHg. The LVOT mean velocity is 60.0 cm/s. The LVOT diameter is 2.3 cm. The aortic VTI is 34.0 cm. The mean velocity in the aortic valve is 151.0 cm/s. The dimensionless valve index is 0.41. AV area is 1.71 cm (0.92 cm / m ) by continuity, VTI. The LVOT stroke volume index is 32 ml/m . PULMONIC VALVE There is no pulmonic stenosis. There is trace (trace - 1+) pulmonic valve regurgitation. There is no thickening. The peak gradient is 5 mmHg. AORTA The visualized aorta is normal in size. Measurements - Sinus: 3.2 cm. Sinotubular junction 3.6 cm. INTERATRIAL SEPTUM There is no evidence of intracardiac shunting as detected by Doppler. PERICARDIUM The pericardium is normal. CONCLUSIONS: - Exam indication: Shortness of Breath - The left ventricle is normal in size. Left ventricular systolic function is mildly decreased. EF = 52 5% (2D biplane) Definity contrast used for endocardial border detection. - The right ventricle is normal in size. Right ventricular systolic function is low normal. - There is moderate (2+) mitral valve regurgitation. Regurgitant orifice area (PISA) is 0.10 cm . - Bioprosthetic prosthetic aortic valve. There is mild (1+ - 2+) aortic valve regurgitation. The peak gradient is 21 mmHg, the mean gradient is 11 mmHg and the dimensionless valve index is 0.41. - Exam was compared with the prior echocardiographic exam performed on 10/20/2024, mild worsening of aortic regurgitation. * * * Final * * * [facility] Image : [id number] NURSING PROG Observed: 03/19/2025 1:53 PM Status: COMPLETED Source: [facility] HNO ID: [id number] Author: MINNIE SCHWARZ, RN Service: Dialysis Author Type: Registered Nurse Type: Nursing Progress Note Filed: 03/19/2025 13:55 Note Text: Dialysis treatment complete. 2L removed per orders. Report to staffing administrator via secure chat d/t unable to reach by phone at this time. Patient in transport CASE MANAGEM Observed: 03/19/2025 12:06 PM Status: COMPLETED Source: [facility] HNO ID: [id number] Author: HARI PORTILLO LISW Service: Care Management Author Type: Circular Clerk Type: Care Mgt Progress Note Filed: 03/19/2025 13:33 Note Text: Summary: Discharge Planning CARE MANAGEMENT PROGRESS NOTE SERVICE DATE: 03/19/2025 SERVICE TIME: 12:07 PM LOS: 0 days FIELD EDUCATION DIRECTOR continuing to follow for d/c planning needs. Pt is admitted with dx of exertional chest pain, elevated troponin, and elevated BNP. Pt lives at home with his and is independent with ADL's. PCP is Marii Sky, last visit was about 2 weeks ago. Pt is active with [facility] for MWF dialysis. No insurance. [employer] and [employer] consulted to follow for hospital financial assistance and medicaid application assistance if agreeable. Cardiology and nephrology consults pending. ECHO pending. Discharge plan is home. No anticipated cm needs. pt will have a ride. Case management to follow for discharge needs. SIGNATURE: BRAVO Quijano PATIENT NAME: Dani Ramirez DATE: March 19, 2025 TIME: 12:07 PM PROGRESS Observed: 03/19/2025 9:02 AM Status: COMPLETED Source: [facility] HNO ID: [id number] Author: SAURAV EDWARD APRN.CNP Service: Hospital Medicine Author Type: Nurse Practitioner Type: Progress Notes Filed: 03/19/2025 17:22 Note Text: DEPARTMENT OF HOSPITAL MEDICINE PROGRESS NOTE SERVICE DATE: 03/19/2025 SERVICE TIME: 9:02 AM Hospital Medicine/Primary Attending: Razia Garcia DO PRIMARY CARE PHYSICIAN: Marii Sky APRN.CNP Readmission: Highest Readmission Risk Score: 14 Subjective INTERVAL HPI: No acute events overnight. Seen and examined at bedside. Family visiting at bedside. He endorses shortness of breath on exertion. Denies chest pain, shortness of breath, abdominal pain, nausea, vomiting, fever, chills on exam. Discussed Cardiology plan for [facility] on Saturday, he is agreeable. Current Facility-Administered Medications Medication Dose Route Frequency NaCl 0.9% iv flush bag 20 mL INTRAVENOUS PRN aspirin, enteric coated 81 mg tab(s) 81 mg ORAL DAILY nitroglycerin sublingual 0.4 mg tab(s) (NITROQUICK) 0.4 mg SUBLINGUAL q 5 MIN PRN atorvastatin 40 mg tab(s) (LIPITOR) 40 mg ORAL AT BEDTIME sodium chloride 0.9 % (flush) 2-10 mL (BD POSIFLUSH) 2-10 mL INTRAVENOUS DIRECTED PRN And perflutren lipid microspheres 1.1 mg/mL 1.3 mL injection (DEFINITY) 1.3 mL INTRAVENOUS DIRECTED PRN metoprolol tartrate (short acting) 25 mg tab(s) (LOPRESSOR) 25 mg ORAL q 12 H apixaban 2.5 mg tab(s) (ELIQUIS) 2.5 mg ORAL BID dextrose 40 % 15 g 15 g ORAL PRN Or glucagon 1 mg injection 1 mg INTRAMUSCULAR PRN Or dextrose 10% iv bolus 12.5 g INTRAVENOUS PRN insulin glargine 10 Units pen (long acting) 10 Units SUBCUTANEOUS AT BEDTIME insulin lispro injection (rapid acting) (ADMElog) SUBCUTANEOUS w MEALS Objective PHYSICAL EXAM: BP 113/62 Pulse 80 Temp (Src) 97.6 (Oral) Resp 20 Ht 5' 6 (1.68m) Wt 165 lb (74.8kg) SpO2 99% BMI 26.64 kg/(m2). O2 Therapy: Room Air Physical Exam Performed GENERAL: Alert, no distress, cooperative, Obese, Smiling SKIN: Skin color, texture, turgor normal. No rashes or lesions. LUNGS: Lungs clear to auscultation, Good diaphragmatic excursion CARDIAC: Normal S1 and S2; no rubs, murmurs, or gallops, Rhythm: regular rate and rhythm ABDOMEN: Abdomen soft, non-tender, BS normal, No masses or organomegaly and Positive findings: obese EXTREMITIES: Normal exam of the extremities NEURO: Grossly normal cognition, motor function, and cranial nerves III-XII PULSES: 2+ dorsalis pedis The remainder of the physical exam is noncontributory. Lines, Drains, and Airways Line Duration Peripheral 03/18/25 1406 [facility] Short Left Antecubital 20 Gauge <1 day Reviewed lines and needs to be continued: REASONS: Telemetry DATA: Diagnostic tests reviewed for today's visit: Most recent labs Most recent imaging Most recent EKG CBC, Coags, BMP, Mg, Phos Recent Labs 03/19/25 0517 03/18/25 1406 WBC 7.71 8.72 HB 8.4* 9.4* HCT 24.4* 26.9* PLT 226 233 NA 136 134* K 3.9 4.4 CHLOR 98 94* CO2 20* 23 BUN 97* 82* CREAT 7.85* 7.17* GLUC 72 154* CA 9.1 9.3 MG 2.0 -- Cardiac Enzymes Assessment/Plan Problem List Acute chest pain (POA: Yes) HOSPITAL COURSE: Dani Ramirez is a 64 year old male presented with past medical history of ESRD on HD, CAD status post CABG, hypertension, hyperlipidemia, diabetes who presented for shortness of breath and chest discomfort. Patient reports that he has been experiencing worsening dyspnea on exertion and midsternal chest pain for the past 2 weeks. States that he is usually able to perform his physical activities without limitation however recently when he has been feeding his animals in the barn he has had to stop prematurely due to his worsening shortness of breath. Undergoes dialysis on MWF with his most recent session being yesterday. Denies any fever, chills, cough, abdominal discomfort or dysuria. Came to the ER seeking further evaluation. Vitals are stable on exam. Labs pertinent for sodium 134, creatinine 7.17, glucose 154, BNP 3903, hemoglobin 9.4 otherwise grossly unremarkable. Initial troponin 155 and repeat 135. Chest x-ray with no acute findings. Patient was admitted under observation for chest pain rule out and evaluation by cardiology given severe underlying CAD. Cardiology planning LHC after Eliquis washout on Saturday. Principal Problem: Acute chest pain CAD status post CABG Patient presented with 2 weeks of worsening OROPEZA and midsternal chest pain Troponin 134.5<155.9 Continue cardiac telemetry Cardiology consulted Echocardiogram pending Cardiac risk stratification with A1c pending, TSH 1.687, Lipid panel cholesterol 190, Triglycerides 229, HDL 26, LDL 123 Continue daily aspirin and high-dose statin SL nitro as needed for chest pain Plan for LHC on Saturday Stop Eliquis 03/20 evening, start Heparin gtt 03/21 per Cardiology Heart healthy diet ESRD on HD Nephro consulted for resumption of dialysis Diabetes Continue glargine 10 units at bedtime, ADMElog scale 1 SSI with meals Hypoglycemia protocol A1c pending Carb controlled diet Chronic conditions: Hypertension Hyperlipidemia Continue home metoprolol tartrate 25mg BID BP 117/78 on last check High risk medications reviewed for toxicity? Yes Personally discussed plan with consultants? No Reviewed imaging/tests? Yes Tests Pending: CBC, BMP, Echo Anticipated Discharge Order Placed: Yes Anticipated Discharge Date: 03/23/25 Follow-up appointment Order Placed: No Disposition: Home Lines: PIV REASONS: Telemetry Ramos: None Diet: Orders Placed This Encounter DIET CARBOHYDRATE CONTROLLED Standing Status: Standing Number of Occurrences: 1 Carbohydrate Control: CONSISTENT CARBOHYDRATE VTE Prophylaxis: VTE prophylaxis appropriate Code Status: Code Status: DNR-CCA, DNI Plan of care discussed with Provider, RN, Patient Plan communicated to: Family at bedside Disclaimer This dictation was created using voice recognition software. Phonetic and/or minor grammatical errors may exist. Some elements copied from my service's note 03/18/25, including the physical exam completed in entirety today, have been updated where appropriate. All reflect current medical decision making from today, March 19, 2025. High complexity medical decision making due to combination of acute, chronic and acute on chronic medical problems. Number of diagnosis and data review is extensive. Monitor daily labs and continuous telemetry. High risk for further complications and decline requiring higher level of care. SIGNATURE: Saurav Edward APRN.MARK PATIENT NAME: Dani Ramirez DATE: March 19, 2025 TIME: 9:02 AM HBV SURFACE AB SER QL Collected: 2024 8:39 AM Status: F Source: [facility] Order Comment: Specimen Type : BLOOD SPECIMEN Ordering Facility: [facility] Address: [address] [place] [address] TYPE CODE TESTS RESULT OUT OF RANGE REFERENCE UNITS LAB 09686-8(LOINC) HBV surface Ab Ser Ql Negative Result Comment: No serologic al evidence of immunity to Hepatitis B Virus. LAB 49330-5(LOINC) HBV surface Ab Ser-aCnc <3.10 mIU/mL Result Comment: STATUS OF IM MUNITY Protective Immunity: greater than or equal to 10 mIU/mL (Traceable to WHO International Reference Preparation) No Protective Immunity: less than 10 mIU/mL Note: The magnitude of the measured result above the cutoff is not indicative of the total amount of antibody present. Performed By: #### 47455-7, 5195-3 #### [facility] CLIA [id number] [address] [place] [address] HBV SURFACE AG SER QL Collected: 2024 8:39 AM Status: F Source: [facility] Order Comment: Specimen Type : BLOOD SPECIMEN Ordering Facility: [facility] Address: [address] [place] [address] TYPE CODE TESTS RESULT OUT OF RANGE REFERENCE UNITS LAB 5195-3([facility]) HBV surface Ag Ser Ql Nonreactive Equivocal, Nonreactive Result Comment: Results were obtained with the [employer] IM IgM assay. Values obtained with different manufactures' assay methods may not be used interchangeably. Performed By: #### 65581-9, 5195-3 #### [facility] CLIA [id number] [address] [place] [address] [place] CBC W AUTO DIFF BLD Collected: 03/19/2025 5:[address] atus: F Source: [facility] Order Comment: Specimen Type : BLOOD SPECIMEN Ordering Facility: [facility] Address: [address] [place] [address] TYPE CODE TESTS RESULT OUT OF RANGE REFERENCE UNITS LAB 6690-2([facility]) WBC # Bld Auto 7.71 3.70-11.00 k/uL LAB 789-8([facility]) RBC # Bld Auto 2.81 Low 4.20-6.00 m/ uL LAB 718-7([facility]) Hgb Bld-mCnc 8.4 Low 13.0-17.0 g/dL LAB 4544-3([facility]) Hct VFr Bld Auto 24.4 Low 39.0-51.0 % LAB 787-2([facility]) MCV RBC Auto 86.8 80.0-100.0 fL LAB 785-6([facility]) MCH RBC Qn Auto 29.9 26.0-34.0 p g LAB 786-4([facility]) MCHC RBC Auto-mCnc 34.4 30.5-36.0 g/dL LAB 34018-1([facility]) RDW RBC-Rto 13.4 11.5-15.0 % LAB 777-3([facility]) Platelet # Bld Auto 226 150-400 k/uL LAB 77981-8([facility]) PMV Bld Auto 9.8 9.0-12.7 fL LAB 770-8([facility]) Neutrophils/leuk NFr Bld Auto 61.9 % LAB 751-8([facility]) Neutrophils # Bld Auto 4.77 1.45-7.50 k/uL LAB 736-9([facility]) Lymphocytes/leuk NFr Bld Auto 22.7 % LAB 731-0([facility]) Lymphocytes # Bld Auto 1.75 1.00-4.00 k/uL LAB 5905-5([facility]) Monocytes/leuk NFr Bld Auto 11.0 % LAB 742-7([facility]) Monocytes # Bld Auto 0.85 <0.87 k/uL LAB 713-8([facility]) Eosinophil/leuk NFr Bld Auto 3.0 % LAB 711-2([facility]) Eosinophil # Bld Auto 0.23 <0.46 k/uL LAB 706-2([facility]) Basophils/leuk NFr Bld Auto 0.6 % LAB 704-7([facility]) Basophils # Bld Auto 0.05 <0.11 k/uL LAB 20963-5(LOINC) Imm Granulocytes/ashlie k NFr Bld Auto 0.8 % LAB 14334-6(LOINC) Imm Granulocytes # Bld Auto 0.06 <0.10 k/uL LAB 26086-5([facility]) nRBC/100 WBC Bld-Rto 0.0 /100 WBC LAB 771-6(LOINC) nRBC # Bld Auto <0.01 <0.01 k/u L LAB 16157-2([facility]) Differential method Bld Auto Performed By: #### 44292-6 # ### [facility] CLIA [id number] [address] [facility] [address] [place] [address] [place] BAS METAB 2000 PNL SERPL Collected: 5:17 AM Status: F Source: [facility] Order Comment: Specimen Type : BLOOD SPECIMEN Ordering Facility: [facility] Address: [address] [place] [address] TYPE CODE TESTS RESULT OUT OF RANGE REFERENCE UNITS LAB 2345-7(LOINC) Glucose SerPl-mCnc 72 70-100 mg/dL Result Comment: The [place] Diabetes Association (ADA) provides guidance for cutoff values for fasting glucose and random glucose. The ADA defines fasting as no caloric intake for at least 8 hours. Fasting plasma glucose results between 100 to 125 mg/dL indicate increased risk for diabetes (prediabetes). Fasting plasma glucose results greater than or equal to 126 mg/dL meet the criteria for diagnosis of diabetes. In the absence of unequivocal hyperglycemia, results should be confirmed by repeat testing. In a patient with classic symptoms of hyperglycemia or hyperglycemic crisis, random plasma glucose results greater than or equal to 200 mg/dL meet the criteria for diagnosis of diabetes. Reference: Standards of Medical Care in Diabetes 2016, [place] Diabetes Association. Diabetes Care. 2016.39(Suppl 1). Results may be falsely elevated after the administration of Sulfapyridine. Results may be falsely depressed after the administration of Sulfasalazine. LAB 3094-0(LOINC) BUN SerPl-mCnc 97 High 7-26 mg/ dL LAB 2160-0(LOINC) Creat SerPl-mCnc 7.85 High 0.50-1.40 mg/dL Result Comment: Patients rec eiving either N-Acetylcysteine (NAC) or Metamizole prior to venipuncture, may have falsely depressed results. LAB 2951-2(LOINC) Sodium SerPl-sCnc 136 136-145 mmol/L LAB 2823-3(LOINC) Potassium SerPl-sCnc 3.9 3.5-5.1 mmol/L LAB 2075-0(LOINC) Chloride SerPl-sCnc 98 98-107 mmol/L LAB 2028-9(LOINC) CO2 SerPl-sCnc 20 Low 21-32 mmo l/L LAB 44648-6(LOINC) Anion Gap SerPl-sCnc 18 High 5-16 mmol/L LAB 61560-9(LOINC) Calcium SerPl-mCnc 9.1 8.5-10.5 mg/dL LAB 59296-2(LOINC) Creatinine + eGFR Pnl SerPlBld 7 Low >=60 mL/min/1. 73m??? Result Comment: Estimated Gl omerular Filtration Rate (eGFR) is calculated using the 2020 CKD-EPI creatinine equation. This equation utilizes serum creatinine, sex, and age as parameters. The creatinine assay has traceable calibration to isotope dilution-mass spectrometry. Refer to KDIGO guidelines for clinical interpretation. In patients with unstable renal function, e.g. those with acute kidney injury, the eGFR may not accurately reflect actual GFR. Performed By: #### 69911-8, 85992-7, 64569-9, 08401-9, 3016-3 #### [facility] CLIA [id number] [address] [place] [address] [place] HEP FUNC 1999 PNL SERPL Collected: 03/04 5:17 AM Status: F Source: [facility] Order Comment: Specimen Type : BLOOD SPECIMEN Ordering Facility: [facility] Address: [address] [place] [address] TYPE CODE TESTS RESULT OUT OF RANGE REFERENCE UNITS LAB 1751-7(LOINC) Albumin SerPl-mCnc 3.5 3.2-5.0 g/dL LAB 1975-2(LOINC) Bilirub SerPl-mCnc 0.3 0.2-1.0 mg/dL LAB 82846-2(LOINC) Bilirub Conj SerPl-mCnc <0.1 0.0-0.4 mg/dL LAB 6768-6(LOINC) ALP SerPl-cCnc 59 45-117 U/L LAB 1920-8(LOINC) AST SerPl-cCnc 17 8-34 U/L Result Comment: Results may be falsely depressed after the administration of Sulfasalazine and/or Sulfapyridine. LAB 1742-6(LOINC) ALT SerPl-cCnc 13 13-61 U/L Result Comment: Results may be falsely depressed after the administration of Sulfasalazine and/or Sulfapyridine. LAB 2885-2(LOINC) Prot SerPl-mCnc 7.6 6.0-8.5 g/dL Performed By: #### 94359-5, 32548-7, 09815-4, 62226-0, 3016-3 #### [facility] CLIA [id number] [address] [place] [address] [place] LIPID 1996 PNL SERPL Collected: 025 5:17 AM Status: F Source: [facility] Order Comment: Specimen Type : BLOOD SPECIMEN Ordering Facility: [facility] Address: [address] [place] [address] TYPE CODE TESTS RESULT OUT OF RANGE REFERENCE UNITS LAB 3-3(LOINC) Cholest SerPl-mCnc 190 0-199 mg/dL Result Comment: <200 mg/dL, Desirable 200-239 mg/dL, Borderline high >239 mg/dL, High LAB 2571-8(LOINC) Trigl SerPl-mCnc 229 High 30-149 mg/dL Result Comment: <150 mg/dL, Normal 150-199 mg/dL, Borderline high 200-499 mg/dL, High >499 mg/dL, Very high Patients receiving either N-Acetylcysteine (NAC) or Metamizole prior to venipuncture, may have falsely depressed results. LAB 2084-9(LOINC) HDLc SerPl-mCnc 26 Low >40 mg/dL Result Comment: 40-59 mg/dL, Acceptable >59 mg/dL, High: Negative risk factor for coronary heart disease <40 mg/dL, Low: Positive risk factor for coronary heart disease LAB 2088-1(LOINC) LDLc SerPl-mCnc 123 0-129 mg/dL Result Comment: <100 mg/dL, Optimal 100-129 mg/dL, Near optimal/above optimal 130-159 mg/dL, Borderline high 160-189 mg/dL, High >189 mg/dL, Very high Secondary prevention optimal LDL Cholesterol levels are recommended to be <70 mg/dL LDL cholesterol is calculated using the Diaz-NIH equation. LAB 50673-2(LOINC) NonHDLc SerPl-mCnc 164 High <130 mg/dL Result Comment: <130 mg/dL, Optimal 130-159 mg/dL, Near optimal/above optimal 160-189 mg/dL, Borderline high 190-219 mg/dL, High >219 mg/dL, Very high Secondary prevention optimal non HDL Cholesterol levels are recommended to be <100 mg/dL LAB 39995-8(LOINC) VLDLc SerPl Calc-mCnc 40 High <30 mg/dL LAB 9830-1(LOINC) Cholest/HDLc SerPl 7.31 High <5.10 LAB 63806-8(LOINC) LDLc/HDLc SerPl 4.73 High <2.54 Result Comment: Reference: 1. National Cholesterol Education Program ATP III Guideline At-A-Glance Quick Desk Reference: National Heart, Lung, and Blood Foss. National Institutes of Health. 2001: NIH Publication No. 01-3305. 2. An International Atherosclerosis Society position paper: global recommendations for the management of dyslipidemia: executive summary, Atherosclerosis. 2014: 232(2):410-413. LAB FT FASTING TIME 8 hrs Performed By: #### 21638-9, 57185-1, 58403-1, 36357-6, 3016-3 #### [facility] CLIA [id number] [address] [place] [address] [place] MAGNESIUM SERPL-MCNC Collected: 03/19/2025 5:17 AM S tatus: F Source: [facility] Order Comment: Specimen Type : BLOOD SPECIMEN Ordering Facility: [facility] Address: [address] [place] [address] TYPE CODE TESTS RESULT OUT OF RANGE REFERENCE UNITS LAB 67633-6([facility]) Magnesium SerPl-mCnc 2.0 1.6-2.6 mg/dL Performed By: #### 87714-6, 08762-2, 59185-7, 05313-9, 3015-3 #### [facility] CLIA [id number] [address] [place] [address] [place] TSH SERPL-ACNC Collected: 03/19/2025 5:17 AM Status: F Source: [facility] Order Comment: Specimen Type : BLOOD SPECIMEN Ordering Facility: [facility] Address: [address] [place] [address] TYPE CODE TESTS RESULT OUT OF RANGE REFERENCE UNITS LAB 3016-3(LOINC) TSH SerPl-aCnc 1.687 0.358-3.740 mIU/L Result Comment: 3rd generati on ultra sensitive TSH. Performed By: #### 87382-4, 29705-1, 98434-1, 06967-6, 3015-3 #### [facility] CLIA [id number] [address] [place] [address] [facility] DEPRECATED HGB A1C BLD Collected: 03/19 5:17 AM Status: F Source: [facility] Order Comment: Specimen Type : BLOOD SPECIMEN Ordering Facility: [facility] Address: [address] [place] [address] TYPE CODE TESTS RESULT OUT OF RANGE REFERENCE UNITS LAB 4548-4(LOINC) HbA1c MFr Bld 6.7 High 4.3-5.6 % Result Comment: [place] Olvin betes Association guidelines indicate that patients with HgbA1c in the range 5.7-6.4% are at increased risk for development of diabetes, and intervention by lifestyle modification may be beneficial. HgbA1c greater or equal to 6.5% is considered diagnostic of diabetes. LAB 56069-8(LOINC) Est. average glucose Bld gHb Est-mCnc 146 mg/dL Result Comment: eAG: (Estima dorian average glucose) is a calculated value from HgbA1c and is public utilities sales representative of the average blood glucose level in the last 2-3 month period. Performed By: #### 58973-8 # ### [facility] CLIA [id number] [address] [place] [address] [place] CONSULT Observed: 03/19/2025 2:44 AM Status: COMPLETED Source: [facility] HNO ID: [id number] Author: DELMY ZULETA MD Service: Cardiovascular Medicine Author Type: Physician Type: Consults Filed: 03/19/2025 17:16 Note Text: CARDIOLOGY CONSULT CONSULTING PHYSICIAN: Sweetie Delgadillo MD PCP: Marii Sky APRN.FINE JEWELRY SALES ASSOCIATE ATTENDING: Sweetie Delgadillo MD STAFF IRRIGATOR GRAVITY FLOW: Dr. Zuleta REASON FOR CONSULT: Known CAD c/o chest pain/SOB CHIEF COMPLAINT: Shortness of breath and chest pain HPI: This is a 64 year old male who follows with Dr. Salazar for Cardiology at [facility] with past medical history of CAD s/p CABG 2009 CHANG to LAD and SVG OM (per [facility] cards notes) and s/p AVR 2009, ESRD on HD, Prostatic Adenocarcinoma, DMII, hypertension, anemia, hyponatremia, hyperlipidemia, and BPH s/p TURP done on 12/14/22 who presents to the ED 03/18/2025 with complaints of intermittent shortness of breath for the last couple months. Also endorses intermittent chest pain starting at the end of January. He describes it as midsternal, pressure-like, without radiation. Denies OTC. States improves with deep breathing and worsens while on hemodialysis. Also notes occasional palpitations, and lightheadedness only while on hemodialysis. He denies any syncope, nausea, vomiting, diarrhea, or diaphoresis. ED EVAL: VS: BP 160/73, P97, RR 18, T98.1, SpO2 99% CBC: WBC 8.7, Hgb 9.4/HCT 26.9, PLT 233 BMP: NA 134, K4.4, BUN 82/CR 7.17, Ca 9.3, glucose 154 NT ProBNP 3903 Troponin I 155.9 -> 135.5 CXR: No acute radiographic abnormality. EK bpm, QTc 484, sinus rhythm, T wave inversions in lateral leads (slightly worse from EKG in 2022), and mild ST elevation in inferior leads not meeting STEMI criteria (slightly worse from EKG in 2022). In ED patient received aspirin 324 mg chew x 1. PAST MEDICAL HISTORY: PAST MEDICAL HISTORY Diagnosis Date Benign hypertensive heart and kidney disease and CKD stage V (HCC) BPH (benign prostatic hyperplasia) CAD (coronary artery disease) Dialysis patient (HCC) 01/2023 Hyperlipidemia Hypertension Prostate cancer (HCC) Adenocarcinoma Type 2 diabetes (HCC) PAST SURGICAL HISTORY: PAST SURGICAL HISTORY Procedure Laterality Date CABG (3) VEIN GRAFTS AND ARTERIAL GRAFT(S) N/A 2009 SHX AORTIC VALVE REPLACEMENT 2009 Porcine TONSILLECTOMY HX TRANSURETHRAL ELEC-SURG PROSTATECTOM 12/2022 FAMILY HISTORY: No family history on file. SOCIAL HISTORY: Social History Tobacco Use Smoking status: Former Current packs/day: 0.00 Average packs/day: 0.5 packs/day for 5.0 years (2.5 ttl pk-yrs) Types: Cigarettes Start date: 1984 Quit date: 1989 Years since quittin.3 Smokeless tobacco: Never Substance Use Topics Alcohol use: Never Drug use: Never MEDICATIONS: Prior to Admission Medications: apixaban (ELIQUIS) 2.5 mg tab(s)Take 2.5 mg by mouth two times a day.Disp: Rfl: insulin glargine 100 unit/mL (3 mL)Inject 16 Units subcutaneously two times a day.Disp: 15 mLRfl: 0 (Patient taking differently: Inject 18 Units subcutaneously two times a day.) insulin lispro (HUMALOG U-100 INSULIN) 100 unit/mL injectionInject 8 Units subcutaneously three times a day before meals.Disp: 7.2 mLRfl: 0 metoprolol tartrate, short acting, (LOPRESSOR) 25 mg tabletTake 1 tablet by mouth every 12 hours.Disp: 60 tabletRfl: 0 Current Facility-Administered Medications Medication Dose Route Frequency NaCl 0.9% iv flush bag 20 mL INTRAVENOUS PRN aspirin 324 mg chewable tab(s) 324 mg ORAL STAT [START ON 03/19/2025] aspirin, enteric coated 81 mg tab(s) 81 mg ORAL DAILY nitroglycerin sublingual 0.4 mg tab(s) (NITROQUICK) 0.4 mg SUBLINGUAL q 5 MIN PRN atorvastatin 40 mg tab(s) (LIPITOR) 40 mg ORAL AT BEDTIME sodium chloride 0.9 % (flush) 2-10 mL (BD POSIFLUSH) 2-10 mL INTRAVENOUS DIRECTED PRN And perflutren lipid microspheres 1.1 mg/mL 1.3 mL injection (DEFINITY) 1.3 mL INTRAVENOUS DIRECTED PRN metoprolol tartrate (short acting) 25 mg tab(s) (LOPRESSOR) 25 mg ORAL q 12 H apixaban 2.5 mg tab(s) (ELIQUIS) 2.5 mg ORAL BID dextrose 40 % 15 g 15 g ORAL PRN Or glucagon 1 mg injection 1 mg INTRAMUSCULAR PRN Or dextrose 10% iv bolus 12.5 g INTRAVENOUS PRN insulin glargine 10 Units pen (long acting) 10 Units SUBCUTANEOUS AT BEDTIME insulin lispro injection (rapid acting) (ADMElog) SUBCUTANEOUS w MEALS ALLERGIES: Acetaminophen-Codeine COMPLETE REVIEW OF SYSTEMS: All 10 ROS negative unless otherwise noted in above HPI. PHYSICAL EXAM: Vital Signs 03/18/25 1731 03/18/25 1746 03/18/25 1801 03/18/25 1926 BP: 124/59 125/69 123/68 124/75 Pulse: 84 86 (!) 93 90 Resp: 18 18 20 16 Temp: 36.8 ?C (98.2 ?F) TempSrc: Oral SpO2: 99% 97% 97% 96% Weight: Height: Temp (24hrs), Av.8 ?C (98.2 ?F), Min:36.7 ?C (98.1 ?F), Max:36.8 ?C (98.2 ?F) Intake/Output: No intake or output data in the 24 hours ending 03/18/252015 PHYSICAL EXAM: General: Pleasant, alert and oriented, some possible forgetfulness/confusion NAD HEENT: mucosa pink and moist, [place] Neck: Trach mid-line, no JVD Skin: Warm, Dry. Pulmonary: Respirations regular, lung sounds clear bilaterally, on room air Cardiovascular: S1-S2 auscultated, no Murmurs/Rubs/Gallops, no edema noted GI: abdomen soft, nontender, BS present Musculoskeletal/Extremities: LEES x 4, no cyanosis or clubbing Neurologic: No tremors noted, speech clear, no focal deficits. Psychiatric: appears calm, no anxiety or depression noted. Labs: Invalid input(s): MBP Recent Labs 03/18/25 1406 WBC 8.72 HB 9.4* HCT 26.9* PLT 233 Recent Labs 03/18/25 1406 NA 134* K 4.4 CHLOR 94* CO2 23 BUN 82* CREAT 7.17* GLUC 154* No results found for this basename: chol,hdl,ldl Past 72 Hour Labs: Recent Labs 03/18/25 1406 WBC 8.72 RBC 3.15* HB 9.4* HCT 26.9* MCV 85.4 MCH 29.8 MCHC 34.9 RDWCV 13.5 PLT 233 MPV 9.4 NEUTP 66.4 LYMPHP 19.8 MONOP 10.1 EODINP 2.3 BASOP 0.7 ABSNEUT 5.79 ABSMONO 0.88* ABSEOSIN 0.20 ABSBASO 0.06 GLUC 154* BUN 82* CREAT 7.17* NA 134* K 4.4 CHLOR 94* CO2 23 CA 9.3 Last Lab Drawn: No results found for this basename: TSH,PROBNP,TG,HDL,LDL,CHOL EKG: ASSESSMENT AND PLAN: This is a 64 year old male who follows with Dr. Salazar for Cardiology at [facility] with past medical history of CAD s/p CABG 2009 and s/p AVR 2009, ESRD on HD, Prostatic Adenocarcinoma, DMII, hypertension, anemia, hyponatremia, hyperlipidemia, and BPH s/p TURP done on 12/14/22 who presents to the ED 03/18/2025 with complaints of intermittent shortness of breath for the last couple months. Also endorses intermittent chest pain starting at the end of January. He describes it as midsternal, pressure-like, without radiation. Denies OTC. States improves with deep breathing and worsens while on hemodialysis. Also notes occasional palpitations, and lightheadedness only while on hemodialysis. He denies any syncope, nausea, vomiting, diarrhea, or diaphoresis. ASSESSMENT: Chest Pain Elevated Troponins ESRD on HD Anemia CAD s/p CABG 2009 Aortic Valve Disease s/p AVR 2009 ED TESTING/LABS: VS: BP 160/73, P97, RR 18, T98.1, SpO2 99% CBC: WBC 8.7, Hgb 9.4/HCT 26.9, PLT 233 BMP: NA 134, K4.4, BUN 82/CR 7.17, Ca 9.3, glucose 154 NT ProBNP 3903 Troponin I 155.9 -> 135.5 CXR: No acute radiographic abnormality. EK bpm, QTc 484, sinus rhythm, T wave inversions in lateral leads (slightly worse from EKG in 2022), and mild ST elevation in inferior leads not meeting STEMI criteria (slightly worse from EKG in 2022). In ED patient received aspirin 324 mg chew x 1. PREVIOUS CARDIAC TESTING: Last ECHO -> 10/20/2024 CONCLUSIONS: - Exam indication: Shortness of Breath - The left ventricle is normal in size. There is mild left ventricular hypertrophy. Left ventricular systolic function is mildly decreased. EF = 51 ? 5% (2D biplane) - The right ventricle is normal in size. Right ventricular systolic function is normal. - The left atrial cavity is moderately dilated. - There is moderate (2+) mitral valve regurgitation. Regurgitant orifice area (PISA) is 0.14 cm?. - Unknown prosthetic aortic valve. There is trace (trace - 1+) aortic valve regurgitation. The peak gradient is 19 mmHg, the mean gradient is 10 mmHg and the dimensionless valve index is 0.49. - Exam was compared with the prior echocardiographic exam performed on 10/25/2023. The RVSP is now normal, previously elvated. The LVEF has decreased slightly. Otherwise similar findings. Prior AVR peak and mean gradients were similar at 20 / 12 mmHg. Wall Motion: All scored segments are normal. Last STRESS TEST ->10/20/2024 CONCLUSIONS: 1. SPECT Perfusion Study: Abnormal. 2. There is mild (<10%) ischemia in the territory of the LCX. 3. There is a small (<10%) fixed perfusion defect in the RCA territory. 4. Left ventricle is normal in size. The left ventricle systolic function is mildly decreased. 5. Right ventricle is normal in size. The right ventricle systolic function is normal. 6. No transient ischemic dilation. Gated Stress FBP LVEF % 49 Prior Study Comparison No prior nuclear cardiology exam available for comparison. Last Heart Catheterization-> Cardiac catheterisation in 2009 at 49 Years. Results unavailable. TELE: 80's sinus rhythm IMPRESSION: -10/2023 patient noted to have elevated troponins of almost 5000 at that time. Patient's creatinine level was 5.89. Cardiac catheterization was considered but there was a possibility patient may need hemodialysis. At that time he was adamantly refusing. Medical management was recommended. -Patient noted to have an abnormal stress test 10/2024. Per patient he was told by his heel sprayer that he may need open heart surgery or a stent placed. There is no scheduled heart catheterization noted. PLAN: -Patient will need ischemic workup most likely with a left heart catheterization. Unfortunately patient received his home Eliquis 03/18/2025 at 2027, therefore a heart catheterization will be most likely Saturday. This will need to be timed with his hemodialysis. -Echo pending evaluate EF, wall abnormalities, and valvular disease. -Patient loaded with aspirin 324 mg x 1. Started on daily aspirin and statin. Continue home BB. -PRN SL Nitro for chest pain. -Cardiac risk stratification with A1c, TSH, and lipid panel in AM. -We will request the CABG report from [facility]. -Given that heart catheterization will not be till Saturday we will continue the patient's Eliquis to prevent unnecessary lab work. Plan on last dose of Eliquis to be given 03/20/2025 evening and starting heparin drip 03/21/2025 AM. Discussed above at length with patient, son and at bedside. All questions answered as able. Agrees with above plan. Please see Dr. Zuleta's attestation for cardiology's final initial recommendations. Thank you SIGNATURE: Angelica Sumner APRN.FINE JEWELRY SALES ASSOCIATE PATIENT NAME: Dani Ramirez DATE: March 19, 2025 TIME: 2:44 AM * This note was partially generated using Tapingo voice recognition system. All attempts were made to correct phonetical errors, but some may still be present. * The time of this note does not reflect the time I saw the patient but the time that this note was written. CARDIOLOGY ATTENDING ATTESTATION NOTE I have personally performed a face to face assessment of the patient and have reviewed the DOUG note. My denis findings include: 64-year-old Denominational male former smoker s/p bio AVR Cabg x 2 (CHANG LAD SVG OM )2009 ESRD on HD since late 2022. On low-dose Eliquis due to clot during HD prior abnormal stress both when he had been seen by cardiology here at [facility] as an inpatient 10/25/2023 was trying to avoid long-term dialysis recommended outpatient ischemic workup at that time. Had stress test which I read 10/20/2024 which showed a partially reversible defect in the inferior lateral wall. Saw [facility] cardiology shortly after that recommended catheterization but patient declined as he was not having any significant symptoms at time. now with progressive ex CP on daily basis when he does his chores in the barn relieved with rest and also having some chest pain as well as palpitations on hemodialysis patient. Symptoms are becoming worse and worse with significant impacting his activities decided to present to the emergency room. EKG shows Q waves which were equivocally present in the past and some borderline inferior ST elevation minimally changed from previous. Troponins negative. Given his history of coronary disease and previous recent abnormal stress test and now with progressive symptoms which sound very much like progressive exertional angina do concur with recommendations for catheterization possible revascularization. Orders placed for Saturday. Had eliquis 03/18, hold eliquis after 03/20 am dose, will ask nephro if needs iv heparin . switch metop to coreg to see if helps with sx on HD as metoprolol is cleared by dialysis and his chest pain and palpitations could be due to rapid withdrawal of metoprolol although he has been hypertensive in dialysis and occasionally hypotensive. If he has difficulty with hypotension on dialysis then would switch back to metoprolol. Discussed with patient need for aspirin given previous coronary disease and possible need for Plavix in addition to aspirin and Eliquis for 1 month after stenting if performed and then long-term either aspirin or Plavix along with Eliquis. Will also place back on statin Patient states he would like to switch care to [facility] not be happy to see him in approximately 1 year with a follow-up with one of her DOUG's in the next several months, or sooner if further problems after discharge. 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 ED PROV NOTE Observed: 03/18/2025 11:30 PM Status: COMPLETED Source: [facility] HNO ID: [id number] Author: DOMI MIKE, DO Service: ? Author Type: Physician Type: ED Provider Notes Filed: 03/18/2025 23:34 Note Text: ED Provider Note Patient Name: Dani Ramirez : 1960 SERVICE DATE: 03/18/25 History Patient presents with: Shortness of Breath: Pt states shortness of breath that has been getting worse for a couple of weeks HPI PAST MEDICAL HISTORY Diagnosis Date Benign hypertensive heart and kidney disease and CKD stage V (HCC) BPH (benign prostatic hyperplasia) CAD (coronary artery disease) Dialysis patient (HCC) 01/2023 Hyperlipidemia Hypertension Prostate cancer (HCC) Adenocarcinoma Type 2 diabetes (HCC) PAST SURGICAL HISTORY Procedure Laterality Date CABG (3) VEIN GRAFTS AND ARTERIAL GRAFT(S) N/A 2009 SHX AORTIC VALVE REPLACEMENT 2009 Porcine TONSILLECTOMY HX TRANSURETHRAL ELEC-SURG PROSTATECTOM 12/2022 No family history on file. Social History Tobacco Use Smoking status: Former Current packs/day: 0.00 Average packs/day: 0.5 packs/day for 5.0 years (2.5 ttl pk-yrs) Types: Cigarettes Start date: 1984 Quit date: 1989 Years since quittin.3 Smokeless tobacco: Never Substance and Sexual Activity Alcohol use: Never Drug use: Never Sexual activity: Not on file ALLERGIES Allergen Reactions Acetaminophen-Codei* Hives, Itching Has tolerated APAP component alone Review of Systems Physical Exam Vitals BP Pulse Temp Temp src Resp SpO2 Weight Height 03/18/25 1356 03/18/25 1356 03/18/25 1357 03/18/25 1356 03/18/25 1356 03/18/25 1356 03/18/25 1356 03/18/25 1356 160/73 (!) 97 36.7 ?C (98.1 ?F) Oral 18 99 % 74.8 kg (165 lb) 1.651 m (5' 5) Physical Exam Diagnostic Testing ED Labs Ordered and Reviewed BASIC METABOLIC PANEL - Abnormal; Notable for the following components: Result Value Ref Range Glucose 154 (*) 70 - 100 mg/dL BUN 82 (*) 7 - 26 mg/dL Creatinine 7.17 (*) 0.50 - 1.40 mg/dL Sodium 134 (*) 136 - 145 mmol/L Chloride 94 (*) 98 - 107 mmol/L Anion Gap 17 (*) 5 - 16 mmol/L Estimated Glomerular Filtration Rate 8 (*) >=60 mL/min/1.73m? All other components within normal limits COMPLETE BLOOD COUNT AND DIFFERENTIAL - Abnormal; Notable for the following components: RBC 3.15 (*) 4.20 - 6.00 m/uL Hemoglobin 9.4 (*) 13.0 - 17.0 g/dL Hematocrit 26.9 (*) 39.0 - 51.0 % Abs Bonner 0.88 (*) <0.87 k/uL All other components within normal limits HIGH SENSITIVITY TROPONIN I - Abnormal; Notable for the following components: Troponin I High Sensitivty 155.9 (*) 0.0 - 54.0 pg/mL All other components within normal limits NT PRO BNP - Abnormal; Notable for the following components: NT Pro BNP 3,903 (*) <125 pg/mL All other components within normal limits HIGH SENSITIVITY TROPONIN I - Abnormal; Notable for the following components: Troponin I High Sensitivty 134.5 (*) 0.0 - 54.0 pg/mL All other components within normal limits BASIC METABOLIC PANEL COMPLETE BLOOD COUNT AND DIFFERENTIAL LIPID PANEL, FASTING HEMOGLOBIN A1C THYROID STIMULATING HORMONE Procedures ED Course / Clinical Impression ED Course as of 03/18/25 2330 Others' Documentation Marisel March 18, 2025 1522 Patient was reevaluated. He is denying symptoms at this time including chest pain or shortness of breath. [VITO] 1703 Patient was again reevaluated. Updated on repeat troponin value. Continues to deny chest pain or shortness of breath. Comfortable with admission. [VITO] 1720 Patient was discussed with sound vision provider, Dr. Delgadillo. Extensive discussed patient past medical history, presentation, examination, laboratory and imaging evaluation. Discussed repeat reevaluation with patient denying symptoms here in the emergency department. He is agreeable with admission requesting CDU on telemetry. [VITO] ED Course User Index [VITO] Coy Keith PA-C Clinical Impressions as of 03/18/25 2330 Exertional chest pain Elevated troponin - ESRD on dialysis, delta troponin is downtrending, denies chest pain or shortness of breath. Elevated brain natriuretic peptide (BNP) level ESRD on dialysis (HCC) MDM / Disposition / Plan I personally made/approved the management plan/medical decision making, and take responsibility for the patient management. Patient is a 64-year-old male presenting to the emergency department secondary to chest pain and shortness of breath. Symptoms have been developing over this past week. Patient currently symptom-free at this time. IV established and patient placed on monitoring analyst, workup performed as noted. EKG does show nonspecific ST/T wave changes. Initial troponin elevated at 155, repeat troponin slightly decreased at 134.5. Patient does have ESRD which is likely contributing to some of patient's troponin elevation. Patient noted to be chronically anemic, likely secondary to his ESRD. BNP elevated at 3903 which is actually improved as compared to previous. Chest x-ray unremarkable. Patient did have a recently abnormal stress test, patient also has a previous history of CABG and NSTEMI. Patient has a high risk heart score of 9 and ultimately will require admission for further cardiac evaluation. Case was discussed with the hospitalist who will be admitting. History and Record Review External record(s) reviewed: prior labs/imaging. Findings from review of prior labs/imaging: Previous labs reviewed and compared to today's values showing evidence of ESRD and chronic anemia Management Management of the patient was discussed with:admitting team Radiology Reports XR CHEST 2V FRONTAL/LAT Final Result IMPRESSION: No acute radiographic abnormality. Career Consultant: [employer] Transcribe Date/Time: Mar 18 2025 3:02P Dictated by : MUNDO HERMAN MD This examination was interpreted and the report reviewed and electronically signed by: MUNDO HERMAN MD on Mar 18 2025 3:03PM EST Disposition The patient was admitted. SIGNATURE: DO Akshat Lynne ERIK 03/18/25 2334 CASE MGT INIT ASSES Observed: 03/18/2025 5:40 PM Status: COMPLETED Source: [facility] HNO ID: [id number] Author: GURJIT ZHANG RN Service: Care Management Author Type: Registered Nurse Type: Care Mgt Initial Assessment Filed: 03/18/2025 17:43 Note Text: CARE MANAGEMENT: ASSESSMENT AND DISCHARGE PLAN SERVICE DATE: March 18, 2025 SERVICE TIME: 5:41 PM PCP: Marii Sky APRN.CNP Primary Contact: Extended Emergency Contact Information Primary Emergency Contact: BRAULIO GOMEZ Relation: Other Secondary Emergency Contact: CORI ADAM Relation: Friend Admission Status: Observation Insurance Provider: N/A Discharge Planning requested by: Per Department Practice Potential Transition Plans Home Advance Directives Current Advance Directive: None Directional Survey Drafter Attempted to Assist with AD Completion: Yes Action: Education Provided Current Living Arrangements and Support Lives with: Spouse/significant other Type of Residence: Private Residence (House) Does the patient have to climb stairs at home?: Yes, stairs outside the home, stairs within the home Support: Spouse/significant other, Family members, Friends/neighbors How do you manage to accomplish the following: Independent: Ambulation, Bathe/Shower, Dress, Going to the bathroom, Meals/Meal Prep, Medication Management, Transportation to appointments/community Current Services/Equipment Current Post-Acute Service(s): Dialysis Current Post-Acute Service(s) Provider: [facility] for MWF dialysis Discharge Planning Patient Goal(s): Be able to go home, General wellness [place] of Choice Explained: Are you interested in bedside delivery of your medications? Yes Discharge Planning Participant(s): Patient Patient/Family Comments: Caregiver Assessment: Caregiver is ready, willing and able to meet the patient's needs as recommended by the inter-professional team: No Caregiver needed Transport at Discharge: Transportation Arrangements: Car Needs Prior to Discharge: Needs Prior to Discharge: Other: See Comment (Nephrology and cardiology consults, ECHO) Post-Acute Discharge Plan: Pt is admitted with dx of exertional chest pain, elevated troponin, and elevated BNP. Pt lives at home with his and is independent with ADL's. PCP is Marii Sky, last visit was about 2 weeks ago. Pt is active with [facility] for MWF dialysis. Cardiology and nephrology consults pending. ECHO pending. Discharge plan is home, pt will have a ride. Case management to follow for discharge needs. Intimate Partner Violence We have begun to talk to patients about safe and healthy relationships because it can have a large impact on your health. Do you feel safe around your partner or ex-partner?: Yes Food Insecurity Within the past 12 months, you worried that your food would run out before you got the money to buy more.: Never true Within the past 12 months, the food you bought just didn't last and you didn't have money to get more.: Never true Transportation Needs In the past 12 months, has lack of transportation kept you from medical appointments or from getting medications?: No In the past 12 months, has lack of transportation kept you from meetings, work, or from getting things needed for daily living?: No Housing Stability In the last 12 months, was there a time when you were not able to pay the mortgage or rent on time?: No At any time in the past 12 months, were you homeless or living in a fpc (including now)?: No Utilities In the past 12 months has the [employer], oil, or water [employer] threatened to shut off services in your home?: No Social Information Financial Resources: Employed SIGNATURE: Gurjit Zhang RN PATIENT NAME: Dani Ramirez DATE: March 18, 2025 TIME: 5:40 PM HISTORY PHYSICAL Observed: 03/18/2025 5:34 PM Status: COMPLETED Source: [facility] HNO ID: [id number] Author: SWEETIE DELGADILLO MD Service: General Internal Medicine Author Type: Physician Type: H&P Filed: 03/18/2025 17:39 Note Text: DEPARTMENT OF HOSPITAL MEDICINE HISTORY AND PHYSICAL EXAM SERVICE DATE: 03/18/2025 SERVICE TIME: 5:34 PM Primary Care Physician: Marii Sky APRN.CNP Subjective CHIEF COMPLAINT: Shortness of breath HPI: This is a 64 year old male with past medical history of ESRD on HD, CAD status post CABG, hypertension, hyperlipidemia, diabetes who presented for shortness of breath and chest discomfort. Patient reports that he has been experiencing worsening dyspnea on exertion and midsternal chest pain for the past 2 weeks. States that he is usually able to perform his physical activities without limitation however recently when he has been feeding his animals in the barn he has had to stop prematurely due to his worsening shortness of breath. Undergoes dialysis on MWF with his most recent session being yesterday. Denies any fever, chills, cough, abdominal discomfort or dysuria. Came to the ER seeking further evaluation. Vitals are stable on exam. Labs pertinent for sodium 134, creatinine 7.17, glucose 154, BNP 3903, hemoglobin 9.4 otherwise grossly unremarkable. Initial troponin 155 and repeat 135. Chest x-ray with noacute findings. Patient will be admitted under observation for chest pain rule out and evaluation by cardiology given severe underlying CAD. PAST MEDICAL HISTORY Diagnosis Date Benign hypertensive heart and kidney disease and CKD stage V (HCC) BPH (benign prostatic hyperplasia) CAD (coronary artery disease) Dialysis patient (HCC) 01/2023 Hyperlipidemia Hypertension Prostate cancer (HCC) Adenocarcinoma Type 2 diabetes (HCC) PAST SURGICAL HISTORY Procedure Laterality Date CABG (3) VEIN GRAFTS AND ARTERIAL GRAFT(S) N/A 2009 SHX AORTIC VALVE REPLACEMENT 2009 Porcine TONSILLECTOMY HX TRANSURETHRAL ELEC-SURG PROSTATECTOM 12/2022 No family history on file. Social History Tobacco Use Smoking status: Former Current packs/day: 0.00 Average packs/day: 0.5 packs/day for 5.0 years (2.5 ttl pk-yrs) Types: Cigarettes Start date: 1984 Quit date: 1989 Years since quittin.3 Smokeless tobacco: Never Substance Use Topics Alcohol use: Never Drug use: Never MEDICATIONS: Reviewed Prior to Admission Medications Prescriptions Last Dose Informant Patient Reported? Taking? apixaban (ELIQUIS) 2.5 mg tab(s) 03/18/2025 Yes Yes Sig: Take 2.5 mg by mouth two times a day. insulin glargine 100 unit/mL (3 mL) 03/18/2025 No Yes Sig: Inject 16 Units subcutaneously two times a day. Patient taking differently: Inject 18 Units subcutaneously two times a day. insulin lispro (HUMALOG U-100 INSULIN) 100 unit/mL injection 03/18/2025 No Yes Sig: Inject 8 Units subcutaneously three times a day before meals. metoprolol tartrate, short acting, (LOPRESSOR) 25 mg tablet 03/18/2025 No Yes Sig: Take 1 tablet by mouth every 12 hours. Facility-Administered Medications: None ALLERGIES Allergen Reactions Acetaminophen-Codei* Hives, Itching Has tolerated APAP component alone REVIEW OF SYSTEM: PAIN ASSESSMENT: Negative for pain, history of chronic pain, or current treatment for a chronic pain condition. GENERAL: No weight loss, malaise or fevers HEENT: Negative for frequent or significant headaches, No changes in hearing or vision, no nose bleeds or other nasal problems RESPIRATORY: Negative for cough, hemoptysis, wheezing, COPD, dyspnea or shortness of breath CARDIOVASCULAR: See HPI GI: No nausea, vomiting, or diarrhea MUSCULOSKELETAL: Negative for joint pain or swelling, back pain or muscle pain SKIN: Negative for lesions, rash, and itching Objective PHYSICAL EXAM: BP 135/65 Pulse 89 Temp (Src) 98.1 (Oral) Resp 15 Ht 5' 5 (1.65m) Wt 165 lb (74.8kg) SpO2 97% BMI 27.46 kg/(m2). O2 Therapy: Room Air Physical Exam Performed: GENERAL: Alert, no distress, cooperative SKIN: Skin color, texture, turgor normal. No rashes or lesions. HEAD/SINUSES: No significant findings LUNGS: Lungs clear to auscultation, Good diaphragmatic excursion CARDIAC: Normal S1 and S2; no rubs, murmurs, or gallops ABDOMEN: Abdomen soft, non-tender, BS normal, No masses or organomegaly EXTREMITIES: Extremities normal, no deformities, edema, clubbing or skin discoloration. Good capillary refill., No ulcers The remainder of the physical exam is noncontributory. Lines, Drains, and Airways Line Duration Peripheral 03/18/25 1406 [facility] Short Left Antecubital 20 Gauge <1 day Reviewed lines and needs to be continued: REASONS: Telemetry DATA: Diagnostic tests reviewed for today's visit: Most recent labs and imaging results. Assessment/Plan Acute chest pain CAD status post CABG Patient presented with 2 weeks of worsening OROPEZA and midsternal chest pain Troponin 156 and down trended to 135 Admit under observation to CDU Start cardiac telemetry Cardiology consulted Update echocardiogram Cardiac risk stratification with A1c, TSH, panel Continue daily aspirin and start high-dose statin SL nitro as needed for chest pain ESRD on HD Nephro consulted for resumption of dialysis Diabetes Insulin regimen ordered Hypoglycemia protocol Chronic conditions: Hypertension Hyperlipidemia Resume home medications once verified Medication and Non-Pharmacologic VTE Prophylaxis/Anticoagulants Anticoagulant AND Antiplatelet Medications (From admission, onward) Start Dose Route Frequency Last Action Ordered Stop 03/19/25 0900 aspirin, enteric coated 81 mg tab(s) 81 mg ORAL DAILY Ordered 03/18/25 1732 -- 03/18/25 1800 aspirin 324 mg chewable tab(s) 324 mg ORAL STAT Ordered 03/18/25 1732 03/19/25 0559 VTE Prophylaxis: VTE prophylaxis appropriate Disposition: Home Plan of care discussed with: Provider, RN, Patient SIGNATURE: Sweetie Delgadillo MD PATIENT NAME: Dani Ramirez DATE: March 18, 2025 TIME: 5:34 PM etx [id number] PLAN OF CARE Observed: 03/18/2025 5:07 PM Status: COMPLETED Source: [facility] HNO ID: [id number] Author: MINOO ZHANG RPh Service: Pharmacy Author Type: Pharmacist Type: Plan of Care Filed: 03/18/2025 17:08 Note Text: PHARMACY MEDICATION REVIEW Patient Name: Dani Ramirez : 1960 The below information represents the best possible medication history: Yes Medication history completed by: ED Pharmacist Minoo Zhang RPh Source of history: Patient: Reliability of source: patient provided a medication list, stating it was current/updated with the exception of his OTC supplements which he did not write down and could not recall Medication nonadherence identified: No barriers noted Preferred outpatient pharmacy: [facility] [address] [place] [id number] [facility] [phone] Allergies: Acetaminophen-Codei* Hives, Itching Comment:Has tolerated APAP component alone Prior to Admission Medications Prescriptions Last Dose Informant Patient Reported? Taking? apixaban (ELIQUIS) 2.5 mg tab(s) 03/18/2025 Yes Yes Sig: Take 2.5 mg by mouth two times a day. insulin glargine 100 unit/mL (3 mL) 03/18/2025 No Yes Sig: Inject 16 Units subcutaneously two times a day. Patient taking differently: Inject 18 Units subcutaneously two times a day. insulin lispro (HUMALOG U-100 INSULIN) 100 unit/mL injection 03/18/2025 No Yes Sig: Inject 8 Units subcutaneously three times a day before meals. metoprolol tartrate, short acting, (LOPRESSOR) 25 mg tablet 03/18/2025 No Yes Sig: Take 1 tablet by mouth every 12 hours. Facility-Administered Medications: None Minoo Zhang RPh 03/18/2025 HIGH SENSITIVITY TROPONIN I Collected: 03/18/2025 4:0 5 PM Status: F Source: [facility] Order Comment: Specimen Type : BLOOD SPECIMEN Ordering Facility: [facility] Address: [address] [place] [address] TYPE CODE TESTS RESULT OUT OF RANGE REFERENCE UNITS LAB 37503-1(LOINC) Cardiac troponin I pnl SerPl HS 134.5 High 0.0-54.0 pg/mL Result Comment: CRITICAL Performed By: #### HSTROP ## ## [facility] CLIA [id number] [facility] [employer] [place] [id number] [place] XR CHEST 2V FRONTAL/LAT Observed: 2024 2:40 PM Status: F Source: [facility] * * *Final Report* * * DATE OF EXAM: Mar 18 2025 2:40PM RHX [id number] - XR CHEST 2V FRONTAL/LAT / PROCEDURE REASON: Shortness of breath * * * * Physician Interpretation * * * * EXAMINATION: CHEST RADIOGRAPH (2 VIEW FRONTAL and LATERAL) CLINICAL HISTORY: Shortness of breath MQ: XC2_6 EXAM DATE/TIME: 03/18/2025 2:40 PM COMPARISON: 10/27/2023 RESULT: Lines, tubes, and devices: None. Lungs and pleura: No consolidation. No lung mass. No pleural effusion. No pneumothorax. Cardiomediastinal silhouette: Normal cardiomediastinal silhouette. Bones and soft tissues: Degenerative change within the spine. Chronic appearing compression deformity in the upper lumbar region. IMPRESSION: No acute radiographic abnormality. Career Consultant: PSC[employer] Transcribe Date/Time: Mar 18 2025 3:02P Dictated by : MUNDO HERMAN MD This examination was interpreted and the report reviewed and electronically signed by: MUNDO HERMAN MD on Mar 18 2025 3:03PM EST [id number] ALLIED HEALTH Observed: 03/18/2025 2:39 PM Status: COMPLETED Source: [facility] HNO ID: [id number] Author: DELTA WALKER RT(R) Service: Radiology Author Type: Technologist Type: Allied Health Filed: 03/18/2025 14:39 Note Text: Summary: chest Radiology Service Progress Note PATIENT NAME: Dani Ramirez DATE OF SERVICE: March 18, 2025 TIME: 2:39 PM PATIENT IDENTITY VERIFICATION COMPLETED USING TWO (2) IDENTIFIERS: Name and Date of confirmed by patient verbally and Name and Date of confirmed by identification band. FALL SCREENING: Has the patient had 2 falls in the last year or 1 fall with injury or currently using an Ambulatory Assistive Device (Walker, Cane, Wheelchair, Crutches, etc.)? Emergency Room Patient: Screened in ED PATIENT GENDER DATA: Assigned male at PATIENT RELEVANT IMPLANT DATA REVIEWED: Not Applicable PATIENT PRESENTS WITH AN IMPLANTABLE OR ATTACHED CURVE SAW OPERATOR: No RADIOLOGY DEPARTMENT: General X-ray: Exam(s) Completed: Chest X-Ray PERIPHERAL IV DATA: Not applicable SIGNED BY: RT Michelle(R) March 18, 2025 2:39 PM ED PROV NOTE Observed: 03/18/2025 2:30 PM Status: COMPLETED Source: [facility] ID: [id number] Author: DOMI MIKE DO Service: ? Author Type: Physician Hydraulic Press In Operator Type: ED Provider Notes Filed: 03/18/2025 23:34 Note Text: Attestation signed by Domi Mike DO at 03/18/2025 11:34 PM See my note ED Provider Note Patient Name: Dani Ramirez : 1960 SERVICE DATE: 03/18/25 History Patient presents with: Shortness of Breath: Pt states shortness of breath that has been getting worse for a couple of weeks HPI Dani Ramirez is a 64 year old male with a history of with prior STEMI, DM2, HLD, HTN, on dialysis MWF who presents to the ED for evaluation of increasing shortness of breath and midsternal chest pain with exertion over the past 2 weeks. Denies radiation or tearing nature of chest pain. States that this is more than his chronic shortness of breath. He will have to take multiple breaks if he walks out from his home to his barn. States that in October he had a stress test performed and cardiology stated that he may need open heart surgery or a stent placed. Denies recent illness. Otherwise denies cough, congestion, fever, chills, diaphoresis, palpitations, abdominal pain, nausea, vomiting, bowel changes, urinary symptoms or other symptoms at time. Nursing/triage notes, assessments, and vitals were reviewed. See MDM/ED course for further HPI. 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 Social History Tobacco Use Smoking status: Former Current packs/day: 0.00 Average packs/day: 0.5 packs/day for 5.0 years (2.5 ttl pk-yrs) Types: Cigarettes Start date: 1984 Quit date: 1989 Years since quittin.3 Smokeless tobacco: Never Substance and Sexual Activity Alcohol use: Never Drug use: Never Sexual activity: Not on file ALLERGIES Allergen Reactions Acetaminophen-Codei* Hives, Itching Has tolerated APAP component alone Physical Exam Physical Exam Vitals BP Pulse Temp Temp src Resp SpO2 Weight Height 03/18/25 1356 03/18/25 1356 03/18/25 1357 03/18/25 1356 03/18/25 1356 03/18/25 1356 03/18/25 1356 03/18/25 1356 160/73 (!) 97 36.7 ?C (98.1 ?F) Oral 18 99 % 74.8 kg (165 lb) 1.651 m (5' 5) General: alert, generally well-appearing HEENT: atraumatic, EOMI, no scleral injection or tearing, mucous membranes moist Neck: supple without lymphadenopathy, no stiffness or restricted ROM, trachea midline Lungs: CTAB without wheezing, rhonchi, rales, good respiratory effort Cardiac: RRR, normal S1/S2 Abdomen: soft, nontender, nondistended, (+) bowel sounds, no rebound or peritoneal signs : not performed/indicated Rectal: not performed/indicated Back: no midline or CVA tenderness Extremities: atraumatic, without cyanosis or edema Skin: warm, dry, no rashes or lesions, bilateral equal 2+ distal pulses in the upper extremity, less than 2-second cap refill, bilateral equal sensation Neuro: alert, oriented, no lateralized or focal deficits, moving all 4 extremities, no gross weakness, CN grossly intact Psych: normal mood and affect Diagnostic Testing ED Labs Ordered and Reviewed COMPLETE BLOOD COUNT AND DIFFERENTIAL - Abnormal; Notable for the following components: Result Value Ref Range RBC 3.15 (*) 4.20 - 6.00 m/uL Hemoglobin 9.4 (*) 13.0 - 17.0 g/dL Hematocrit 26.9 (*) 39.0 - 51.0 % Abs Bonner 0.88 (*) <0.87 k/uL All other components within normal limits BASIC METABOLIC PANEL HIGH SENSITIVITY TROPONIN I NT PRO BNP XR CHEST 2V FRONTAL/LAT (Results Pending) Procedures Procedures Medications received in ED Medications - No data to display Discharge Medications New Prescriptions No medications on file ED Course / Clinical Impression ED Course as of 03/18/251726 Coy Keith's Documentation Marisel March 18, 2025 1522 Patient was reevaluated. He is denying symptoms at this time including chest pain or shortness of breath. 170 Patient was again reevaluated. Updated on repeat troponin value. Continues to deny chest pain or shortness of breath. Comfortable with admission. 1720 Patient was discussed with [facility] provider, Dr. Delgadillo. Extensive discussed patient past medical history, presentation, examination, laboratory and imaging evaluation. Discussed repeat reevaluation with patient denying symptoms here in the emergency department. He is agreeable with admission requesting CDU on telemetry. Clinical Impressions as of 03/18/25 1727 Exertional chest pain Elevated troponin - ESRD on dialysis, delta troponin is downtrending, denies chest pain or shortness of breath. Elevated brain natriuretic peptide (BNP) level ESRD on dialysis (HCC) MDM / Disposition / Plan MDM Patient is a 64 year old male presenting to the emergency department for evaluation of exertional shortness of breath and midsternal chest discomfort increasing over the past 2 weeks. Patient was initially evaluated in triage where laboratory evaluation, chest x-ray was ordered. Initial evaluation the patient reveals them to be comfortably sitting upright in bed. Patient was nontoxic and stable with acceptable vital signs. Physical examination is overall unremarkable. Patient does not appear to be clinically fluid overloaded. Lungs are clear to auscultation bilaterally. Independent review of external records most recent visible stress test from 10/20/2024 reveals mild ischemia in the territory of the LCx, small fixed perfusion defect in the RCA. Echo obtained around the same time revealed an EF of 51%. EKG does not appear acutely ischemic when compared with prior CBC without evidence of leukocytosis. He does have a normocytic anemia consistent with prior chronic. CMP without evidence of significant electrolyte disturbance. Patient's BUN, creatinine, GFR consistent with ESRD on dialysis per prior and his history. BNP is 3903. Initial troponin is 155.9, repeat has been ordered. Chest x-ray shows no acute radiographic abnormality. Patient was repeatedly reevaluated here in the emergency department continues to deny symptoms. Repeat troponin is downtrending to 134.5. I suspect that his troponin elevation is likely more related to his ESRD as opposed to active cardiac damage. Due to patient presenting complaint, past medical history, prior stress test, and laboratory evaluation today, I believe he would benefit from admission for further cardiac treatment and evaluation. Patient was discussed with [facility] admission team as above. They are agreeable. Additionally patient was discussed with my attending, Dr. Mike. Please see his attestation for further detail. SIGNATURE: Coy Keith PA-C This document has been created with the use of voice recognition technology. Every effort was taken to correct for errors however it may contain inaccuracies, misspellings, syntax errors, or word sense that escaped review. Please inquire further with the author for clarification if needed. COY KEITH 03/18/25 1731 DOMI MIKE 03/18/25 2334 ED NOTE Observed: 03/18/2025 2:28 PM Status: COMPLETED Source: [facility] HNO ID: [id number] Author: CHERI OLSON, RN Service: ? Author Type: Registered Nurse Type: ED Notes Filed: 03/18/2025 14:28 Note Text: MWF Dialysis. Had dialysis yesterday 03/17/25 CBC W AUTO DIFF BLD Collected: 03/18/2025 2:[address] atus: F Source: [facility] Order Comment: Specimen Type : BLOOD SPECIMEN Ordering Facility: [facility] Address: [address] [place] [address] TYPE CODE TESTS RESULT OUT OF RANGE REFERENCE UNITS LAB 6690-2(LOINC) WBC # Bld Auto 8.72 3.70-11.00 k/uL LAB 789-8(LOINC) RBC # Bld Auto 3.15 Low 4.20-6.00 m/ uL LAB 718-7(LOINC) Hgb Bld-mCnc 9.4 Low 13.0-17.0 g/dL LAB 4544-3(LOINC) Hct VFr Bld Auto 26.9 Low 39.0-51.0 % LAB 787-2(LOINC) MCV RBC Auto 85.4 80.0-100.0 fL LAB 785-6(LOINC) MCH RBC Qn Auto 29.8 26.0-34.0 p g LAB 786-4(LOINC) MCHC RBC Auto-mCnc 34.9 30.5-36.0 g/dL LAB 60351-5(LOINC) RDW RBC-Rto 13.5 11.5-15.0 % LAB 777-3(LOINC) Platelet # Bld Auto 233 150-400 k/uL LAB 10566-6(LOINC) PMV Bld Auto 9.4 9.0-12.7 fL LAB 770-8(LOINC) Neutrophils/leuk NFr Bld Auto 66.4 % LAB 751-8(INC) Neutrophils # Bld Auto 5.79 1.45-7.50 k/uL LAB 736-9(INC) Lymphocytes/leuk NFr Bld Auto 19.8 % LAB 731-0([facility]) Lymphocytes # Bld Auto 1.73 1.00-4.00 k/uL LAB 5905-5([facility]) Monocytes/leuk NFr Bld Auto 10.1 % LAB 742-7(INC) Monocytes # Bld Auto 0.88 High <0.87 k/uL LAB 713-8([facility]) Eosinophil/leuk NFr Bld Auto 2.3 % LAB 711-2([facility]) Eosinophil # Bld Auto 0.20 <0.46 k/uL LAB 706-2([facility]) Basophils/leuk NFr Bld Auto 0.7 % LAB 704-7([facility]) Basophils # Bld Auto 0.06 <0.11 k/uL LAB 04908-1([facility]) Imm Granulocytes/ashlie k NFr Bld Auto 0.7 % LAB 38240-8([facility]) Imm Granulocytes # Bld Auto 0.06 <0.10 k/uL LAB 72499-9([facility]) nRBC/100 WBC Bld-Rto 0.0 /100 WBC LAB 771-6([facility]) nRBC # Bld Auto <0.01 <0.01 k/u L LAB 17414-3([facility]) Differential method Bld Auto Performed By: #### 87061-4 # ### [facility] CLIA [id number] [address] [place] [address] [place] BAS METAB 2000 PNL SERPL Collected: 2:06 PM Status: F Source: [facility] Order Comment: Specimen Type : BLOOD SPECIMEN Ordering Facility: [facility] Address: [address] [place] [address] TYPE CODE TESTS RESULT OUT OF RANGE REFERENCE UNITS LAB 2345-7([facility]) Glucose SerPl-mCnc 154 High 70-100 mg/dL Result Comment: The [place] Diabetes Association (ADA) provides guidance for cutoff values for fasting glucose and random glucose. The ADA defines fasting as no caloric intake for at least 8 hours. Fasting plasma glucose results between 100 to 125 mg/dL indicate increased risk for diabetes (prediabetes). Fasting plasma glucose results greater than or equal to 126 mg/dL meet the criteria for diagnosis of diabetes. In the absence of unequivocal hyperglycemia, results should be confirmed by repeat testing. In a patient with classic symptoms of hyperglycemia or hyperglycemic crisis, random plasma glucose results greater than or equal to 200 mg/dL meet the criteria for diagnosis of diabetes. Reference: Standards of Medical Care in Diabetes 2016, [place] [employer] Association. Diabetes Care. 2016.39(Suppl 1). Results may be falsely elevated after the administration of Sulfapyridine. Results may be falsely depressed after the administration of Sulfasalazine. LAB 3094-0(LOINC) BUN SerPl-mCnc 82 High 7-26 mg/ dL LAB 2160-0(LOINC) Creat SerPl-mCnc 7.17 High 0.50-1.40 mg/dL Result Comment: Patients rec eiving either N-Acetylcysteine (NAC) or Metamizole prior to venipuncture, may have falsely depressed results. LAB 2951-2(LOINC) Sodium SerPl-sCnc 134 Low 136-145 mmol/L LAB 2823-3(LOINC) Potassium SerPl-sCnc 4.4 3.5-5.1 mmol/L LAB 2075-0(LOINC) Chloride SerPl-sCnc 94 Low 98-107 mmol/L LAB 2028-9(LOINC) CO2 SerPl-sCnc 23 21-32 mmo l/L LAB 95101-2(LOINC) Anion Gap SerPl-sCnc 17 High 5-16 mmol/L LAB 06072-7(LOINC) Calcium SerPl-mCnc 9.3 8.5-10.5 mg/dL LAB 75724-2(LOINC) Creatinine + eGFR Pnl SerPlBld 8 Low >=60 mL/min/1. 73m??? Result Comment: Estimated Gl omerular Filtration Rate (eGFR) is calculated using the 2020 CKD-EPI creatinine equation. This equation utilizes serum creatinine, sex, and age as parameters. The creatinine assay has traceable calibration to isotope dilution-mass spectrometry. Refer to KDIGO guidelines for clinical interpretation. In patients with unstable renal function, e.g. those with acute kidney injury, the eGFR may not accurately reflect actual GFR. Performed By: #### 71981-9, 36521-2, HSTROP #### [facility] CLIA [id number] [address] [place] [address] NT-PROBNP SERPL-MCNC Collected: 03/18/2025 2:06 PM S tatus: F Source: [facility] Order Comment: Specimen Type : BLOOD SPECIMEN Ordering Facility: [facility] Address: [address] [place] [address] TYPE CODE TESTS RESULT OUT OF RANGE REFERENCE UNITS LAB 41946-8(LOINC) NT-proBNP SerPl-mCnc 3903 High <125 pg/mL Result Comment: NT-proBNP re sults of less than 300 pg/mL likely rules out acute congestive heart failure with 99% predictive value. NOTE: These cutoff points are suggested for ACUTE CHF DIAGNOSIS only Less than 50 years\X09\ Greater than 450 pg/mL 50 - 75 years\X09\\X09\ Greater than 900 pg/mL Greater than 75 years\X09\ Greater than 1800 pg/mL Performed By: #### 69174-8, 31542-3, HSTROP #### [facility] CLIA [id number] [address] [place] [address] HIGH SENSITIVITY TROPONIN I Collected: 03/18/2025 2:0 6 PM Status: F Source: [facility] Order Comment: Specimen Type : BLOOD SPECIMEN Ordering Facility: [facility] Address: [address] [place] [address] TYPE CODE TESTS RESULT OUT OF RANGE REFERENCE UNITS LAB 03234-2(LOINC) Cardiac troponin I pnl SerPl HS 155.9 High 0.0-54.0 pg/mL Result Comment: CRITICAL Performed By: #### 21538-7, 26945-5, HSTROP #### [facility] CLIA [id number] [address] [place] [address] ECG COMPLETE Observed: 03/18/2025 2:01 PM Status: F Source: [facility] Ventricular Rate : 93 BPM Atrial Rate : 93 BPM P-R Interval : 190 ms QRS Duration : 88 ms Q-T Interval : 390 ms QTC Calculation(Bazett) : 484 ms Calculated P [place] : 35 degrees Calculated R [place] : 0 degrees Calculated T [place] : 117 degrees Normal sinus rhythm ST and T wave abnormality, consider lateral ischemia Abnormal ECG When compared to previous ekg no significant changes seen Confirmed by JARRET LYNCH MD ([id number]) on 03/20/2025 9:55:16 PM NAME : DANI RAMIREZ PID : [id number] : 1960 Gender : Male Race : ORD : [id number] Procedure Date : Mar 18 2025 14:01:28 Edit Date : Mar 20 2025 21:55:19 Diagnosis: Normal sinus rhythm ST and T wave abnormality, consider lateral ischemia Abnormal ECG When compared to previous ekg no significant changes seen Confirmed by JARRET LYNCH MD ([id number]) on 03/20/2025 9:55:16 PM Test Reason : HCS Location : 0 : ED EDFTA Overread By : JARRET LYNCH MD Edited By : JARRET LYNCH MD Referred By : , Acquired by : [id number], ED TRIAGE NOTE Observed: 03/18/2025 1:56 PM Status: COMPLETED [id number] Author: PATRICK MAGANA PA-C Service: ? Author Type: Physician Hydraulic Press In Operator Type: ED Triage Notes Filed: 03/18/2025 13:58 Note Text: ED TRIAGE PROVIDER NOTE Patient Name: Dani Ramirez Service Date: 03/18/25 BRIEF HPI: This is a 64 year old male who presents to the ED with: Shortness of breath. Ongoing for a while. Worsening over the past 2 weeks. No chest pain with it. No leg swelling. Established with cardiology at [place]. Had a stress test done which showed he needs open heart surgery. No blood in his stool or black stool. No other complaints. BRIEF EXAM: NAD Awake and Alert Non labored breathing No focal neurological deficits Stress test from October 2024 shows CONCLUSIONS: 1. SPECT Perfusion Study: Abnormal. 2. There is mild (<10%) ischemia in the territory of the LCX. 3. There is a small (<10%) fixed perfusion defect in the RCA territory. 4. Left ventricle is normal in size. The left ventricle systolic function is mildly decreased. 5. Right ventricle is normal in size. The right ventricle systolic function is normal. 6. No transient ischemic dilation. Gated Stress FBP LVEF % 49 INITIAL WORKUP AND DECISION MAKING: Orders Placed This Encounter XR CHEST 2V FRONTAL/LAT BASIC METABOLIC PANEL CBC + AUTO DIFF SINGLE HIGH SENSITIVITY TROPONIN I PROBNP N-TERMINAL ECG COMPLETE SIGNATURE: Patrick Magana PA-C BUN Collected: 12:36 PM Status: F Source: [facility] TYPE CODE TESTS RESULT OUT OF RANGE REFERENCE UNITS LAB BUN(LOINC) BUN 24 High 7 - 18 mg/dl Performed By: #### [id number] ## ## [facility],[address] [place] [address] HBV SURFACE AG SER QL Collected: 02/26/2025 9:40 AM Status: F Source: [facility] Order Comment: Specimen Type : BLOOD SPECIMEN Ordering Facility: [facility] Address: [address] [place] [address] TYPE CODE TESTS RESULT OUT OF RANGE REFERENCE UNITS LAB 5195-3(LOINC) HBV surface Ag Ser Ql Negative Negative Performed By: #### 5195-3 ## ## [facility] CLIA [id number] [address] [place] [address] STATES OF [facility] POTASSIUM Collected: 9:40 AM Status: F Source: [facility] TYPE CODE TESTS RESULT OUT OF RANGE REFERENCE UNITS LAB POTASSIUM(LOINC) POTASSIUM 4.5 3.5 - 5.1 mmo l/L Performed By: #### [id number] ## ## [facility],[address] [place] [address] BUN Collected: 9:40 AM Status: F Source: [facility] TYPE CODE TESTS RESULT OUT OF RANGE REFERENCE UNITS LAB BUN(LOINC) BUN 97 High 7 - 18 mg/dl Performed By: #### [id number] ## ## [facility],[address] [place] [address]47 HEP B SURFACE AG [CCL] Collected: 02/26/2025 9:40 AM Status: F Source: [facility] TYPE CODE TESTS RESULT OUT OF RANGE REFERENCE UNITS LAB HBSAG(LOINC) Hepatitis B Surf. Ag Negative Negative Result Comment: [facility] [address] [id number] Bertin Mcqueen III, M.D. [id number] Performed By: #### [id number] ## ## [facility],[address] [place] [address] CBC + DIFF Collected: 5 9:40 AM Status: F Source: [facility] TYPE CODE TESTS RESULT OUT OF RANGE REFERENCE UNITS LAB CBC + DIFF(LOINC) CBC + DIFF Result Comment: CBC-COMPLETE BLOOD COUNT LAB WBC(LOINC) WBC 7.9 4.5 - 10.8 x 10EE3/UL LAB RBC(LOINC) RBC 3.10 Low 4.50 - 6.00 x 10EE6/UL LAB HEMOGLOBIN(MIKE NC) HEMOGLOBIN 9.6 Low 13.0 - 17.5 g/dl LAB HEMATOCRIT(MIKE NC) HEMATOCRIT 26.9 Low 40.0 - 52.0 % LAB MCV(LOINC) MCV 87 81 - 98 fl LAB MCH(LOINC) MCH 31 27 - 33 pg LAB MCHC(LOINC) MCHC 36 32 - 36 X10 3 LAB RDW/CV(LOINC) RDW/CV 14.3 12.0 - 15.6 % LAB PLATELET(LOINC ) PLATELET 288 150 - 450 x10EE3/UL LAB MPV(LOINC) MPV 8.4 6.4 - 10.5 fl Result Comment: AUTOMATED DI FFERENTIAL LAB NEUT %(LOINC) NEUT % 69.9 46.0 - 76.0 % LAB LYMPH %(LOINC) LYMPH % 18.5 Low 20.0 - 45.0 % LAB MONOS %(LOINC) MONOS % 8.4 0.0 - 10.0 % LAB EO %(LOINC) EO % 2.8 0.0 - 7.0 % LAB BASO %(LOINC) BASO % 0.4 0.0 - 2.0 % LAB Lymph #(LOINC) Lymph # 1.47 0.80 - 2.80 x10EE 3/UL LAB Neut #(LOINC) Neut # 5.55 1.50 - 7.10 x10EE3 /UL LAB Bonner #(LOINC) Bonner # 0.67 0.20 - 1.00 x10EE3 /UL LAB EO #(LOINC) EO # 0.22 0.00 - 0.50 x10EE3/U L LAB Baso #(LOINC) Baso # 0.03 0.00 - 0.10 x10EE3 /UL LAB MANUAL DIFF(LOINC) MANUAL DIFF N/A LAB MORPHOLOGY(MIKE NC) MORPHOLOGY N/A Performed By: #### [id number] ## ## [facility],[address] [place] [address] NM CARDIAC PERF STRESS/PHARM Observed: 1 12/21/2023 10:52 AM Status: F Source: [facility] * * *Final Report* * * DATE OF EXAM: Oct 20 2024 10:52AM RHN 0006 - NM CARDIAC PERF STRESS/PHARM / PROCEDURE REASON: CAD * * * * Physician Interpretation * * * * Stress Inspector Packer Report: [facility] Date of service: 10/20/2024 8:40:11 AM Supervising physician: Delmy Zuleta MD PATIENT: Name: MR. DANI RAMIREZ Age: 63 years Gender: M The supervising physician was in the department and immediately available. * * * Final * * * PATIENT: Name: MR. DANI RAMIREZ Age: 63 years Gender: M CONCLUSIONS: 1. SPECT Perfusion Study: Abnormal. 2. There is mild (<10%) ischemia in the territory of the LCX. 3. There is a small (<10%) fixed perfusion defect in the RCA territory. 4. Left ventricle is normal in size. The left ventricle systolic function is mildly decreased. 5. Right ventricle is normal in size. The right ventricle systolic function is normal. 6. No transient ischemic dilation. Gated Stress FBP LVEF % 49 Prior Study Comparison No prior nuclear cardiology exam available for comparison. Nuclear Med Report:1-Day Gated SPECT Myocardial Perfusion with Regadenoson Stress: Myocardial perfusion imaging was performed at rest 30 minutes following the IV injection of the radiotracer. The patient received 0.4 mg of regadenoson, via rapid IV push, immediately followed by radiotracer IV. Gated post stress tomographic imaging was performed 30 to 60 minutes later. See administered radiotracer and doses below. [facility] Date of service: 10/20/2024 8:40:11 AM Ordering Physician: MATT SALAZAR. Requesting Physician: Indication: Dyspnea and CP - ECG uniterpretable OR unable to exercise Interpreting physician: Delmy Zuleta MD Previous Cardiovascular Interventions: CABG Height: 165.10 cm BSA: 1.85 m? Weight: 74.84 kg BMI: 27.5 kg/m? Exam Type: Rest Stress Radiopharm: Tc-99m Tetrofosmin Tc-99m Tetrofosmin Dosage(mCi): 12.3 35.8 Atten Correction: not performed not performed Stress Agent: Regadenoson 0.4mg Supply provided from [facility] Resting Blood Press: 145/75 mmHg Image Quality The overall study imaging quality was deemed to be good. FINDINGS: Left Ventricle Wall Motion: Stress FBP - The inferior wall is equivocal. All remaining scored segments are normal. Rest FBP - Gated Stress FBP - Reversibility - Stress FBP Stress FBP Gated Stress FBP LVEF: 49 % ED Volume: 152 ml ES Volume: 78 ml TID: 1.20 Perfusion Findings Stress FBP - Summed Score=8 There is a severe perfusion defect in the basal inferior segment. There is a moderate perfusion defect in the basal inferolateral segment and mid inferior segment. There is a mild perfusion defect in the mid inferolateral segment. All remaining scored segments show normal perfusion. Rest FBP - Summed Score=4 There is a moderate perfusion defect in the inferior wall. All remaining scored segments show normal perfusion. Stress FBP Rest FBP Summed Score=8 Summed Score=4 LEFT VENTRICLE The left ventricle is normal in size. Left ventricular systolic function is mildly decreased. Right Ventricle The right ventricle is normal in size. Right ventricle systolic function is normal. * * * Final * * * Stress ECG Report: [facility] Date of service: 10/20/2024 8:40:11 AM Ordering physician: MATT SALAZAR pharmacy informatics specialist: Tessa Pena Interpreting physician: Delmy Zuleta MD Patient name: MR. DANI RAMIREZ Age: 63 years Gender: M Height: 165.10 cm BSA: 1.85 m? Weight: 74.84 kg BMI: 27.5 kg/m? Indication: Encounter for pre-procedural cardiovascular examination for non-cardiac surgery Stress ECG Conclusion: Conclusion: Normal Stress ECG Summary: The patient's resting heart rate was 85 bpm and blood pressure was 145/75 mmHg. The patient received regadenoson 0.4 mg IVP over approximately 15 seconds followed immediately by injection of nuclear isotope. The test was terminated due to end of protocol. Other symptoms during the test included lightheadedness. The maximum heart rate was 101 bpm, which is 65% of the predicted heart rate for age. Peak blood pressure was 115/65 mmHg. The double product achieved was 69829. Previous cardiovascular interventions: CABG Medications: Last Used ELIQUIS nephrocaps HUMALOG PROTONIX Resting ECG: Normal Sinus Rhythm and Rare PACs (<3/Min) Symptoms at rest: No symptoms Pharamcologic Protocol: Regadenoson Stress Exercise Table: +------+---+---+---+ Stage HR SYS OLVIN +------+---+---+---+ 1 100 101 70 +------+---+---+---+ 2 96 115 65 +------+---+---+---+ 3 95 110 59 +------+---+---+---+ +-----+---+---+---+ HR SYS OLVIN +-----+---+---+---+ Final 101 115 65 +-----+---+---+---+ Stress Observations: Resting HR: 85 bpm Peak HR: 101 bpm (65% MPHR) Resting BP: 145 / 75 mmHg Peak BP: 115 / 65 mmHg Rate Pressure Product (RPP): 89552 Stress Exercise Observations: Reason for test termination: end of protocol, Symptoms during test: Other symptoms during the test included lightheadedness and ST segment and T wave changes: No ST changes Metabolic Exercise Data Variable: Observed value [Expected Range] HGI: -0.1 [>1.06 bpm/mmHg] * * * Final * * * RP Career Consultant: Master Equation Transcribe Date/Time: Oct 20 2024 8:40A Dictated by : DELMY ZULETA, This examination was interpreted and the report reviewed and electronically signed by: DELMY ZULETA, on Oct 20 2024 2:51PM EST [id number] PROGRESS Observed: 10/20/2024 9:23 AM Status: COMPLETED Source: [facility] HNO ID: [id number] Author: ZOE MOLINA RT(R) Service: ? Author Type: Technologist Type: Progress Notes Filed: 10/20/2024 09:24 Note Text: RADIOLOGY SERVICE PROGRESS NOTE SERVICE DATE: 10/20/2024 SERVICE TIME: 9:23 AM PATIENT IDENTITY VERIFICATION COMPLETED USING TWO (2) STANDARD IDENTIFIERS: Name and Date of confirmed by patient verbally FALL SCREENING: Has the patient had 2 falls in the last year or 1 fall with injury or currently using an Ambulatory Assistive Device (Walker, Cane, Wheelchair, Crutches, etc.)? No PATIENT GENDER DATA: .male : No ALLERGIES: NA MEDICATIONS REVIEWED: Not applicable PATIENT RELEVANT IMPLANT DATA REVIEWED: Not Applicable PATIENT PRESENTS WITH AN IMPLANTABLE OR ATTACHED CURVE SAW OPERATOR: No CREATININE: Creatinine Date Value Ref Range Status 11/01/2023 5.57 (H) 0.50 - 1.40 mg/dL Final Comment: Patients receiving either N-Acetylcysteine (NAC) or Metamizole prior to venipuncture, may have falsely depressed results. 10/30/2023 4.23 (H) 0.50 - 1.40 mg/dL Final Comment: Patients receiving either N-Acetylcysteine (NAC) or Metamizole prior to venipuncture, may have falsely depressed results. 10/29/2023 4.12 (H) 0.50 - 1.40 mg/dL Final Comment: Patients receiving either N-Acetylcysteine (NAC) or Metamizole prior to venipuncture, may have falsely depressed results. Estimated Glomerular Filtration Rate Date Value Ref Range Status 11/01/2023 11 (L) >=60 mL/min/1.73m? Final Comment: Estimated Glomerular Filtration Rate (eGFR) is calculated using the 2020 CKD-EPI creatinine equation. This equation utilizes serum creatinine, sex, and age as parameters. The creatinine assay has traceable calibration to isotope dilution-mass spectrometry. Refer to KDIGO guidelines for clinical interpretation. In patients with unstable renal function, e.g. those with acute kidney injury, the eGFR may not accurately reflect actual GFR. P.O.C.T. RESULTS: N/A October 20, [address] PERFORMED: No IV SITE: Ambulatory: A peripheral IV was started in the Left hand with a Angio cath: 22 gauge. POST EXAM PIV STATUS: Discontinued PROCEDURE TYPE: NM Stress: 12.3 mCi [id number] was administered IV for Rest Imaging at 0745 by JRC2. 35.8 mCi [id number] was administered IV for Stress Imaging at 0930 by DEM2. ADMINISTRATION TIME: 0930 PATIENT DISCHARGED TO: Ambulatory patient, left CT department area. Is this a therapy: No A Diagnostic radioactive procedure has taken place, with no further precautions necessary other than routine body substance precautions. More information regarding radiation safety can be found using this link: [email or web address] SIGNATURE: RT Mary(R) PATIENT NAME: Dani Ramirez DATE: October 20, 2024 TIME: 9:23 AM PAGER/CONTACT #: ALLYN Observed: 10/20/2024 8:13 AM Status: F Source: [facility] Echocardiography Report: Tra nsthoracic Echo [facility] Date of service: 10/20/2024 8:13:12 AM Indication: Shortness of Breath Technologist: Dayanna Washington [facility] Interpreting physician: Delmy Zuleta MD PATIENT: Name: MR. DANI RAMIREZ : 1960 Age: 63 years Gender: M History of hypertension, diabetes mellitus, chronic kidney disease, valvular heart disease, coronary artery disease and heart failure with hospitalization. Primary rhythm: sinus. Height: 165.10 cm BSA: 1.85 m Weight: 74.84 kg BMI: 27.5 kg/m Heart rate 82 bpm Blood pressure 137/80 mmHg Color Doppler was utilized to interrogate the cardiac valves assessed and spectral Doppler was utilized to determine the flow velocities and pressure gradients reported in this exam. MEASUREMENTS: Value Indexed Normal Max aortic dimension 3.0 cm Ao < 3.8 Left atrial volume 85 ml (biplane A-L) 46 ml/m Cristhian <= 34 LV ID (diastole) 4.7 cm (2D) 2.54 cm/m LV ID (systole) 3.5 cm (2D) 1.89 cm/m IVS, leaflet tips 1.4 cm (2D) Posterior wall thickness 1.2 cm (2D) Left ventricular mass 238 g (2D) 128 g/m LV stroke volume 63 ml (2D biplane) LVOT stroke volume 76 ml 41 ml/m LV end diastolic volume 125 ml (2D biplane) 67.3 ml/m 34<=EDVi<75 LV end systolic volume 61 ml (2D biplane) 33.1 ml/m Ejection Fraction 51 % (2D biplane) EF > 52 FINDINGS: LEFT VENTRICLE The left ventricle is normal in size. There is mild left ventricular hypertrophy. Left ventricular systolic function is mildly decreased. Left ventricular diastolic function was not evaluated due to >2+ MR. Mitral annular lateral E/e': 18.4. Mitral annular septal E/e': 26.5. Wall Motion: All scored segments are normal. RIGHT VENTRICLE The right ventricle is normal in size. Right ventricular systolic function is normal. RV systolic tissue Doppler velocity is 8.3 cm/s. Tricuspid annular displacement is 1.6 cm. Estimated right ventricular systolic pressure is 28 mmHg consistent with normal pulmonary artery pressures. Estimated right atrial pressure is 3 mmHg based on IVC assessment. LEFT ATRIUM The left atrial cavity is moderately dilated. RIGHT ATRIUM The right atrial cavity is normal in size. Inferior Vena Cava: The inferior vena cava appears normal measuring 1.6 cm. The vessel decreases greater than 50 percent with inspiration. MITRAL VALVE There is no mitral stenosis. There is moderate (2+) mitral valve regurgitation. There is mild thickening. There is mild calcification. Regurgitant orifice area (PISA) is 0.14 cm . The peak mitral valve gradient is 10 mmHg. The mean mitral valve gradient is 6 mmHg. The pressure half time is 57 msec. The peak mitral E/A ratio is 1.12. The mitral flow deceleration time is 198 msec. TRICUSPID VALVE There is no tricuspid stenosis. There is mild (1+) tricuspid valve regurgitation. There is no thickening. AORTIC VALVE Unknown bioprosthetic valve. There is trace (trace - 1+) aortic valve regurgitation. The peak gradient is 19 mmHg (peak velocity = 216.0 cm/s). The mean gradient is 10 mmHg. The LVOT mean velocity is 64.5 cm/s. The LVOT diameter is 2.1 cm. The aortic VTI is 44.6 cm. The mean velocity in the aortic valve is 149.2 cm/s. The dimensionless valve index is 0.49. AV area is 1.69 cm (0.91 cm / m ) by continuity, VTI. The LVOT stroke volume index is 41 ml/m . PULMONIC VALVE There is no pulmonic stenosis. There is trace (trace - 1+) pulmonic valve regurgitation. There is no thickening. The peak gradient is 3 mmHg. AORTA The visualized aorta is normal in size. Measurements - Sinus: 2.9 cm. Sinotubular junction 2.8 cm. Mid ascending aorta 3.0 cm. CONCLUSIONS: - Exam indication: Shortness of Breath - The left ventricle is normal in size. There is mild left ventricular hypertrophy. Left ventricular systolic function is mildly decreased. EF = 51 5% (2D biplane) - The right ventricle is normal in size. Right ventricular systolic function is normal. - The left atrial cavity is moderately dilated. - There is moderate (2+) mitral valve regurgitation. Regurgitant orifice area (PISA) is 0.14 cm . - Unknown prosthetic aortic valve. There is trace (trace - 1+) aortic valve regurgitation. The peak gradient is 19 mmHg, the mean gradient is 10 mmHg and the dimensionless valve index is 0.49. - Exam was compared with the prior echocardiographic exam performed on 10/25/2023. The RVSP is now normal, previously elvated. The LVEF has decreased slightly. Otherwise similar findings. Prior AVR peak and mean gradients were similar at 20 / 12 mmHg. * * * Final * * * [facility] Image : [id number] ALLERGIES DATE TYPE / CODE NAME / CODE REACTION SEVERITY SOURCE 01/03/2023 DRUG/[id number](SNO MED CT) ACETAMINOPHEN-CODE INE [facility] ENCOUNTERS ADMIT/DISCHARGE ACCOUNT NUMBER ADMITTING ENCOUNTER CLASS LOCATION SOURCE 04/14/2025/04/17/20 [id number] JANUSZ HENDRIX, NAVIN Sky Inpatient Encounter ABuilding:CC URoom: 0350Bed: [facility] 04/14/2025/04/14/20 [id number] WON ENCISO DO Emergency Buildin Room: ERBed: [address] [place] [address] 03/29/2025/03/31/20 [id number] GEOVANNI MCCONNELL MD Inpatient Encounter ABuilding:KS 4ERoom: [id number]: [facility] 03/26/2025/03/28/20 [id number] GEOVANNI MCCONNELL MD Inpatient Encounter ABuilding:KS 4SRoom: [id number]: [facility] 03/19/2025/03/19/20 [id number] SWEETIE DELGADILLO Ambulatory [id number] ilding:[facility] 03/18/2025/03/25/20 [id number] SWEETIE DELGADILLO Inpatient Encounter [id number] ilding:SCURo om: [id number]: [address] [place] [address] 02/26/2025/02/27/20 [id number] TESS LOPEZ MD Ambulatory Building:[facility] 10/20/2024 [id number] Ambulatory [id number] ilding:[facility] 10/20/2024 [id number] Ambulatory [id number] ilding:[facility] 10/20/2024 [id number] Ambulatory [id number] ilding:[facility] PAYERS ENCOUNTER GUARANTOR PAYER SUBSCRIBER SOURCE 04/14/2025 DANI NOYOLA: [address] [address]Opj: (HP) (WP) Primary Insurance:SELF PAY INSCOPolicy Number: Effective Date:[id number] Name:Giovani NOYOLA: [id number] [address] [place] [address]Dnt: (HP) (WP) [facility] 03/29/2025 DANI NOYOLA: [address] [address]Wbo: (HP) (WP) Primary Insurance:SELF PAY INSCOPolicy Number: Effective Date:[id number] Name:Giovani NOYOLA: [id number] [address] [address]Aht: (HP) (WP) [facility] 03/26/2025 DANI NOYOLA: [address] [address]Qqi: (HP) (WP) Primary Insurance:SELF PAY INSCOPolicy Number: Effective Date:[id number] Name:Giovani NOYOLA: [id number] [address] [address]Oqr: (HP) (WP) [facility]
--- NOTE | 2025-07-09 00:27 | PAT.ANESEVAL ---
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 When Was Last Pacemaker Check QUESTION #4 FULL TEXT: You/Your Family Experience fever (hyperthermia) with Anesthesia Last Oral Intake Last Oral intake: Last Oral Intake NPO since Meds taken in AM with sips of water? Meds patient instructed to take am of surgery PONV PONV - construction contractor: PONV - construction contractor Female No 07/08/25 12:15 HX of Motion Sickness No 07/08/25 12:15 HX of N/V After Surgery No 07/08/25 12:15 Non-Smoker Yes 07/08/25 12:15 Duration of Surgery greater Yes 07/08/25 12:15 than 60 minutes Number of Risk Factors 2 07/08/25 12:15 PONV Score Moderate Risk 07/08/25 12:15 Height & Weight Height & Weight: Anesthesia: Height & Weight Height 5 ft 4 in 05/14/24 09:14 Respiratory Assessment Respiratory Assessment - construction contractor: Respiratory Tract Infection Hx - construction contractor Hx Respiratory Tract Infection No 07/08/25 12:15 STOP Sleep Apnea STOP Sleep Apnea - construction contractor: STOP Sleep Apnea - construction contractor Hx Hypertension Yes: CONTROLLED WITH MED 07/08/25 12:15 Hx Sleep Apnea No 07/08/25 12:15 CPAP BIPAP Do you snore loudly (louder No 07/08/25 12:15 than talking or can be heard Do you often feel tired/ Yes 07/08/25 12:15 fatigued/ sleepy during daytime? Has anyone observed you stop No 07/08/25 12:15 breathing during sleep? STOP Results Positive 07/08/25 12:15 QUESTION #5 FULL TEXT : Do you snore loudly (louder than talking or can be heard through closed doors)? 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 Specify any problems Hx of Preganancy in last 3 N/A 07/08/25 12:15 Months Nurse Filling Out Transfusion DSCHRIBER 07/08/25 12:15 & Questions: Date: 07/08/25 07/08/25 12:15 Time: 12:17 07/08/25 12:15 Patient unable to answer at this time (ie. confused, unrespo /Reproduction History /Reproductive History - construction contractor: /Reproductive Hx- construction contractor Hx Now No 07/08/25 12:15 Gestational Age (in weeks): EDC: Hx Hx Para Hx Section SAB No 07/08/25 12:15 PFSH Medical History (Updated 07/08/25 @ 14:45 by Jewels Alonso) History of cataract History of transcatheter aortic valve replacement (TAVR) Depression Redness of skin Anemia Dietary restriction History of CHF (congestive heart failure) Wears hearing aid Wears dentures Wears glasses Insulin dependent diabetes mellitus History of renal disease History of renal dialysis Injury of back Blackout Former smoker Shortness of breath on exertion History of echocardiogram History of stress test Hypertension Cardiology follow-up encounter Prostate cancer A-fib End stage renal disease Home Medications ?Medication ?Instructions ?Recorded ?Last Taken ?Type apixaban 2.5 mg tablet (Eliquis) 2.5 mg PO BID 01/21/24 06/02/25 History insulin glargine 100 unit/mL (3 18 unit subcut BID 01/21/24 05/14/24 History mL) subcutaneous pen (Basaglar KwikPen U-100 Insulin) insulin lispro 100 unit/mL 8 unit subcut TID 01/21/24 05/14/24 History subcutaneous pen (Humalog KwikPen (U-100) Insulin) metoprolol tartrate 25 mg tablet 25 mg PO BID 01/21/24 06/03/25 History sertraline 25 mg tablet 25 mg PO DAILY 07/08/25 Unknown History Allergy/AdvReac Type Severity Reaction Status Date / Time acetaminophen (From Allergy Intermediate Rash Verified 07/08/25 12:12 Tylenol-Codeine #3) codeine (From Allergy Intermediate Rash Verified 07/08/25 12:12 Tylenol-Codeine #3) Family History Mother Diabetes Kidney disease Brother Diabetes Sister Diabetes Surgical History (Updated 07/08/25 @ 14:45 by Jewels Alonso) History of open reduction and internal fixation (ORIF) procedure Hx of transurethral resection of prostate History of arteriovenous graft History of cardiac catheterization Hx of surgical procedure Hx of surgical procedure Hx of tonsillectomy History of open heart surgery Social History Smoking Status: Never smoker alcohol intake: never substance use type: does not use Audit: Pertinent Findings Pertinent Findings Echo (EF%) pertinent findings: April 15, 2025. EF of 25 to 30%. Aortic valve has a bioprosthetic valve. RVSP is 60 mmHg. No aortic stenosis. Heart catheterization pertinent findings: 04/14/2025. LAD with 70% mid stenosis. First diagonal with a proximal 70% stenosis. First obtuse marginal has a chronic total occlusion. Second obtuse marginal there is a 80% stenosis. RCA distally chronic total occlusion. CHANG to the first obtuse marginal has normal antegrade flow. Plans for aggressive medical therapy. Add Plavix, statin therapy, beta-blockers, PHONG inhibitors. Consult pertinent findings: November 17, 2024. Dr. Ling. 1. Shortness of breath-patient had a stress test which revealed ischemia in the LAD territory. Patient is recommended to undergo diagnostic angiogram. (See above) 2. Status post AVR with Biocor valve. August 2010 3. Ascending aortic root replacement with 26 mm Gelweave graft. August 2010 4. CHANG to the high lateral circumflex. August 2010 Recommendation Anesthesia Recommendation Anesthesia recommendation: OPTIMIZED for anesthesia
[2025-07-27 16:05] LABS: Hematocrit 30.5 % (40-54); Hemoglobin 10.2 g/dL (13.0-16.5); Mean Corp Hgb Conc 33.4 g/dL (32-36); Mean Corpuscular Volume 88.2 fL (80-94); Mean Platelet Vol. 10.1 fl (6.2-12.0); Platelet Count 254 K/mm3 (150-450); RBC Distribution Width CV 14.9 % (11.6-14.6); RBC Distribution Width SD 48.0 fl (35.1-43.9); Red Blood Count 3.46 M/mm3 (4.6-6.2); White Blood Count 8.7 K/mm3 (4.4-11.0)
[2025-07-27 16:43] LABS: Anion Gap 17 (5-15); BUN 55 mg/dL (4-19); BUN/Creat Ratio 7.2 RATIO (10-20); Calcium,Total 9.1 mg/dL (7.6-11.0); Carbon Dioxide 22.2 mmol/L (21.0-32.0); Chloride 95 mmol/L (98-108); Glucose 174 mg/dL (70-99); Potassium 4.8 mmol/L (3.3-5.1)
--- NOTE | 2025-07-28 14:58 | PAT.ANE_ITS ---
Pre-Assessment Diagnosis/Proposed Procedure Planned Operative Procedure(s): LEFT ARM AV FISTULA CREATION Anesthesia History Anesthesia History - doctor podiatric medicine: Anesthesia History - doctor podiatric medicine Hx Hospitalization Yes: KIDNEY ISSUES MULTIPLE 07/08/25 12:15 TIMES Any Problems With Anesthesia No 07/08/25 12:15 Cholinesterase deficiency No 07/08/25 12:15 You/Your Family Experience No 07/08/25 12:15 fever (hyperthermia) with Relationship Recent Exposure to Contagious No 04/02/24 06:07 Disease Does patient have nerve No 07/08/25 12:15 stimulator Patient instructed to have device shut off --Does patient have Pacemaker or ICD? When Was Last Pacemaker Check QUESTION #4 FULL TEXT: You/Your Family Experience fever (hyperthermia) with Anesthesia Last Oral Intake Last Oral intake: Last Oral Intake NPO since Meds taken in AM with sips of water? Meds patient instructed to take am of surgery PONV PONV - doctor podiatric medicine: PONV - doctor podiatric medicine Female No 07/08/25 12:15 HX of Motion Sickness No 07/08/25 12:15 HX of N/V After Surgery No 07/08/25 12:15 Non-Smoker Yes 07/08/25 12:15 Duration of Surgery greater Yes 07/08/25 12:15 than 60 minutes Number of Risk Factors 2 07/08/25 12:15 PONV Score Moderate Risk 07/08/25 12:15 Height & Weight Height & Weight: Anesthesia: Height & Weight Height 5 ft 4 in 05/14/24 09:14 Respiratory Assessment Respiratory Assessment - doctor podiatric medicine: Respiratory Tract Infection Hx - doctor podiatric medicine Hx Respiratory Tract Infection No 07/08/25 12:15 STOP Sleep Apnea STOP Sleep Apnea - doctor podiatric medicine: STOP Sleep Apnea - doctor podiatric medicine Hx Hypertension Yes: CONTROLLED WITH MED 07/08/25 12:15 Hx Sleep Apnea No 07/08/25 12:15 CPAP BIPAP Do you snore loudly (louder No 07/08/25 12:15 than talking or can be heard Do you often feel tired/ Yes 07/08/25 12:15 fatigued/ sleepy during daytime? Has anyone observed you stop No 07/08/25 12:15 breathing during sleep? STOP Results Positive 07/08/25 12:15 QUESTION #5 FULL TEXT : Do you snore loudly (louder than talking or can be heard through closed doors)? 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 Specify any problems Hx of Preganancy in last 3 N/A 07/08/25 12:15 Months Nurse Filling Out Transfusion DSCHRIBER 07/08/25 12:15 & Questions: Date: 07/08/25 07/08/25 12:15 Time: 12:17 07/08/25 12:15 Patient unable to answer at this time (ie. confused, unrespo /Reproduction History /Reproductive History - doctor podiatric medicine: /Reproductive Hx- doctor podiatric medicine Hx Now No 07/08/25 12:15 Gestational Age (in weeks): EDC: Hx Hx Para Hx Section SAB No 07/08/25 12:15 PFSH Medical History (Updated 07/08/25 @ 14:45 by Jewels Alonso) History of cataract History of transcatheter aortic valve replacement (TAVR) Depression Redness of skin Anemia Dietary restriction History of CHF (congestive heart failure) Wears hearing aid Wears dentures Wears glasses Insulin dependent diabetes mellitus History of renal disease History of renal dialysis Injury of back Blackout Former smoker Shortness of breath on exertion History of echocardiogram History of stress test Hypertension Cardiology follow-up encounter Prostate cancer A-fib End stage renal disease Home Medications ?Medication ?Instructions ?Recorded ?Last Taken ?Type apixaban 2.5 mg tablet (Eliquis) 2.5 mg PO BID 4 06/02/25 History insulin glargine 100 unit/mL (3 18 unit subcut BID 05/14/24 History mL) subcutaneous pen (Basaglar KwVeda U-100 Insulin) insulin lispro 100 unit/mL 8 unit subcut TID 01/21/24 05/14/24 History subcutaneous pen (Humalog KwikPen (U-100) Insulin) metoprolol tartrate 25 mg tablet 25 mg PO BID 01/21/24 06/03/25 History sertraline 25 mg tablet 25 mg PO DAILY 07/08/25 Unkn own History Allergy/AdvReac Type Severity Reaction Status Date / Time acetaminophen (From Allergy Intermediate Rash Verified 07/08/25 12:12 Tylenol-Codeine #3) codeine (From Allergy Intermediate Rash Verified 07/08/25 12:12 Tylenol-Codeine #3) Family History Mother Diabetes Kidney disease Brother Diabetes Sister Diabetes Surgical History (Updated 07/08/25 @ 14:45 by Jewels Alonso) History of open reduction and internal fixation (ORIF) procedure Hx of transurethral resection of prostate History of arteriovenous graft History of cardiac catheterization Hx of surgical procedure Hx of surgical procedure Hx of tonsillectomy History of open heart surgery Social History Smoking Status: Never smoker alcohol intake: never substance use type: does not use Audit: Pertinent Findings HISTORY of Pertinent Findings History of Pertinent Findings: Echo Pertinent Findings Echo (EF%) pertinent findings April 15, 2025. EF of 25 to 07/09/25 00:47 30%. Aortic valve has a bioprosthetic valve. RVSP is 60 mmHg. No aortic stenosis. Heart Catheterization Pertinent Findings Heart catheterization 04/14/2025. LAD with 70% mid 07/09/25 08:49 pertinent findings stenosis. First diagonal with a proximal 70% stenosis . First obtuse marginal has a chronic total occlusion. Second obtuse marginal there is a 80% stenosis. RCA distally chronic total occlusion. CHANG to the first obtuse marginal has normal antegrade flow. Plans for aggressive medical therapy. Add Plavix, statin therapy, beta- blockers, PHONG inhibitors. Consult Pertinent Findings Consult pertinent findings November 17, 2024. 07/09/25 00:55 Podugu. 1. Shortness of breath-patient had a stress test which revealed ischemia in the LAD territory. Patient is recommended to undergo diagnostic angiogram . (See above) 2. Status post AVR with Biocor valve. August 2010 3. Ascending aortic root replacement with 26 mm Gelweave graft. August 2010 4. CHANG to the high lateral circumflex. August 2010 Pertinent Findings Additional pertinent findings: H&H .5. Recommendation Anesthesia Recommendation Anesthesia recommendation: OPTIMIZED for anesthesia
[2025-08-03 07:17] VITALS: BP 122/67; PULSE 84; RESP 17; TEMP 36.8; O2SAT 100; BMI 30.9
[2025-08-03] MEDS: 0.9% Normal Saline (500mL Bag) 500 ML 15 ML IV (07:24)
--- NOTE | 2025-08-03 07:41 | PCM.PRE.AN2 ---
ASA Classification* ASA Classification ASA Classification: 4 Assessment & Plan Anesthesia* Anesthesia Assessment Anesthesia Assessment: Discussed sedation and/or anesthesia options, risks, benefits, and alternatives with patient/parents/legal guardian/POA. Questions invited. The patient/parents/legal guardian/POA seems to understand and agrees to proceed with anesthesia plan. Reviewed the physical assessment, medical history, allergy history and patient home medications list prior to surgery/procedure/anesthetic and documented any changes. Performed airway and anesthesia risk assessments. Anesthesia Type Anesthesia Type: MAC History Source History Obtained from:: Patient, Chart and Significant Other Anesthesia Focused Assessment* Temperature: 98.2 F Pulse Rate: 84 Blood Pressure: 122/67 Respiratory Rate: 17 Pulse Ox: 100 Oxygen Delivery Method: Room Air Airway Assessment Mouth opens: >3 cm Mallampati Score: I Teeth Condition: Dentures, Full and Upper Neck Range of motion (ROM): Limited ROM Comment: Edentulous on bottom; Slightly limited neck extension Labs Anesthesia Preop lab: CBC WBC, (4.4-11.0) 8.7 K/mm3 07/27/25, 14:54 RBC, (4.6-6.2) 3.46 M/mm3 L 07/27/25, 14:54 Hgb, (13.0-16.5) 10.2 g/dL L 07/27/25, 14:54 Hct, (40-54) 30.5 % L 07/27/25, 14:54 Plt Count, (150-450) 254 K/mm3 07/27/25, 14:54 CHEMISTRY Potassium, (3.3-5.1) 4.8 mmol/L 07/27/25, 14:54 Sodium, (133-145) 135 mmol/L 07/27/25, 14:54 BUN, (4-19) 55 mg/dL H 07/27/25, 14:54 Creatinine, (0.70-1.20) 7.62 mg/dL H* 07/27/25, 14:54 Glucose, (70-99) 174 mg/dL H 07/27/25, 14:54 POC Glucose, (74-106) 81 mg/dL 04/02/24, 06:12 COAG Pre-Assessment Diagnosis/Proposed Procedure Planned Operative Procedure(s): LEFT ARM AV FISTULA CREATION Anesthesia History 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 When Was Last Pacemaker Check QUESTION #4 FULL TEXT: You/Your Family Experience fever (hyperthermia) with Anesthesia Last Oral Intake Last Oral intake: Last Oral Intake NPO since 00:00 08/03/25 07:17 Meds taken in AM with sips of Yes 08/03/25 07:17 water? Meds patient instructed to sertraline 08/03/25 07:17 take am of surgery PONV PONV - skin tanner: PONV - skin tanner Female No 07/08/25 12:15 HX of Motion Sickness No 07/08/25 12:15 HX of N/V After Surgery No 07/08/25 12:15 Non-Smoker Yes 07/08/25 12:15 Duration of Surgery greater Yes 07/08/25 12:15 than 60 minutes Number of Risk Factors 2 07/08/25 12:15 PONV Score Moderate Risk 07/08/25 12:15 Height & Weight Height & Weight: Anesthesia: Height & Weight Height 5 ft 4 in 08/03/25 07:17 Weight: 81.6 kg 08/03/25 07:17 Body Mass Index (BMI) 30.9 08/03/25 07:17 Respiratory Assessment Respiratory Assessment - skin tanner: Respiratory Tract Infection Hx - skin tanner Hx Respiratory Tract Infection No 07/08/25 12:15 STOP Sleep Apnea STOP Sleep Apnea - skin tanner: STOP Sleep Apnea - skin tanner Hx Hypertension Yes: CONTROLLED WITH MED 07/08/25 12:15 Hx Sleep Apnea No 07/08/25 12:15 CPAP BIPAP Do you snore loudly (louder No 07/08/25 12:15 than talking or can be heard Do you often feel tired/ Yes 07/08/25 12:15 fatigued/ sleepy during daytime? Has anyone observed you stop No 07/08/25 12:15 breathing during sleep? STOP Results Positive 07/08/25 12:15 QUESTION #5 FULL TEXT : Do you snore loudly (louder than talking or can be heard through closed doors)? 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 Specify any problems Hx of Preganancy in last 3 N/A 07/08/25 12:15 Months Nurse Filling Out Transfusion DSCHRIBER 07/08/25 12:15 & Questions: Date: 07/08/25 07/08/25 12:15 Time: 12:17 07/08/25 12:15 Patient unable to answer at this time (ie. confused, unrespo /Reproduction History /Reproductive History - skin tanner: /Reproductive Hx- skin tanner Hx Now No 07/08/25 12:15 Gestational Age (in weeks): EDC: Hx Hx Para Hx Section SAB No 07/08/25 12:15 Active Medications Active Medications: Current Medications Generic Name Dose Route Start Last Admin Trade Name Freq PRN Reason Stop Dose Admin Cefazolin Sodium 2 gm/ Sodium 110 mls @ 200 mls/hr 08/03/25 10:00 Chloride IV 08/03/25 10:32 INTRAOP ONE Sodium Chloride 500 mls @ 0 mls/hr 08/03/25 07:00 08/03/25 07:24 IV 15 mls/hr .Q0M KINGA Administration KVO PFSH Medical History History of cataract History of transcatheter aortic valve replacement (TAVR) Depression Redness of skin Anemia Dietary restriction History of CHF (congestive heart failure) Wears hearing aid Wears dentures Wears glasses Insulin dependent diabetes mellitus History of renal disease History of renal dialysis Injury of back Blackout Former smoker Shortness of breath on exertion History of echocardiogram History of stress test Hypertension Cardiology follow-up encounter Prostate cancer A-fib End stage renal disease Home Medications ?Medication ?Instructions ?Recorded ?Last Taken ?Type apixaban 2.5 mg tablet (Eliquis) 2.5 mg PO BID 01/21/24 07/31/25 History insulin glargine 100 unit/mL (3 18 unit subcut BID 01/21/24 08/01/25 History mL) subcutaneous pen (Basaglar KwikPen U-100 Insulin) insulin lispro 100 unit/mL 8 unit subcut TID 01/21/24 08/01/25 History subcutaneous pen (Humalog KwikPen (U-100) Insulin) metoprolol tartrate 25 mg tablet 25 mg PO BID 01/21/24 08/02/25 History sertraline 25 mg tablet 25 mg PO DAILY 07/08/25 08/03/25 History isosorbide mononitrate 30 mg 30 mg PO QHS 08/03/25 Unknown History tablet,extended release 24 hr trazodone 50 mg tablet 25 mg PO QHS 08/03/25 08/02/25 History Allergy/AdvReac Type Severity Reaction Status Date / Time acetaminophen (From Allergy Intermediate Rash Verified 08/03/25 07:03 Tylenol-Codeine #3) codeine (From Allergy Intermediate Rash Verified 08/03/25 07:03 Tylenol-Codeine #3) Family History Mother Diabetes Kidney disease Brother Diabetes Sister Diabetes Surgical History History of open reduction and internal fixation (ORIF) procedure Hx of transurethral resection of prostate History of arteriovenous graft History of cardiac catheterization Hx of surgical procedure Hx of surgical procedure Hx of tonsillectomy History of open heart surgery Social History Smoking Status: Never smoker alcohol intake: never substance use type: does not use Review of Systems (Anesthesia) ROS Narrative System reviewed and no additional complaints, except as documented.
[2025-08-03 07:46] VITALS: BP 122/67; PULSE 84; RESP 17; TEMP 36.8; O2SAT 100
--- NOTE | 2025-08-03 09:37 | PCM.HP.STD ---
HPI - General HPI Narrative AKILA BILLINGS, is a 64 M who presents with ESRD currently on dialysis. He has adequate left upper arm [place] vein for fistula creation. [facility] Medical History History of cataract History of transcatheter aortic valve replacement (TAVR) Depression Redness of skin Anemia Dietary restriction History of CHF (congestive heart failure) Wears hearing aid Wears dentures Wears glasses Insulin dependent diabetes mellitus History of renal disease History of renal dialysis Injury of back Blackout Former smoker Shortness of breath on exertion History of echocardiogram History of stress test Hypertension Cardiology follow-up encounter Prostate cancer A-fib End stage renal disease Home Medications ?Medication ?Instructions ?Recorded ?Last Taken ?Type apixaban 2.5 mg tablet (Eliquis) 2.5 mg PO BID 01/21/24 07/31/25 History insulin glargine 100 unit/mL (3 18 unit subcut BID 01/21/24 08/01/25 History mL) subcutaneous pen (Basaglar KwikPen U-100 Insulin) insulin lispro 100 unit/mL 8 unit subcut TID 01/21/24 08/01/25 History subcutaneous pen (Humalog KwikPen (U-100) Insulin) metoprolol tartrate 25 mg tablet 25 mg PO BID 01/21/24 08/02/25 History sertraline 25 mg tablet 25 mg PO DAILY 07/08/25 08/03/25 History isosorbide mononitrate 30 mg 30 mg PO QHS 08/03/25 Unknown History tablet,extended release 24 hr trazodone 50 mg tablet 25 mg PO QHS 08/03/25 08/02/25 History Allergy/AdvReac Type Severity Reaction Status Date / Time acetaminophen (From Allergy Intermediate Rash Verified 08/03/25 07:03 Tylenol-Codeine #3) codeine (From Allergy Intermediate Rash Verified 08/03/25 07:03 Tylenol-Codeine #3) Family History Mother Diabetes Kidney disease Brother Diabetes Sister Diabetes Surgical History History of open reduction and internal fixation (ORIF) procedure Hx of transurethral resection of prostate History of arteriovenous graft History of cardiac catheterization Hx of surgical procedure Hx of surgical procedure Hx of tonsillectomy History of open heart surgery Social History Smoking Status: Never smoker alcohol intake: never substance use type: does not use ROS Constitutional Constitutional: Denies chills, fever(s), frequent falls, lethargy or weakness Eyes Eyes: Denies blind spots, change in vision or loss of vision ENT HEENT: Denies bleeding gums, hoarseness or sore throat Cardiovascular Cardiovascular: Denies abdominal pain, bluish discoloration of hand/feet, chest pain with activity, claudication, cold extremities, cyanosis, dyspnea on exertion, erythema on extremities, irregular heart rhythm, leg edema, leg ulcers, numbness in extremities or weakness in extremities Respiratory/Chest Respiratory/Chest: Denies cough, excessive phlegm production, shortness of breath at rest, shortness of breath with exertion or wheezing Gastrointestinal Gastrointestinal: Denies anorexia, change in stool character, constipation, diarrhea, melena or rectal bleeding Genitourinary Genitourinary: Denies dysuria or hematuria Musculoskeletal Musculoskeletal: Denies abnormal gait Integumentary Integumentary: Reports other Details: ; Denies erythema, non-healing lesions or wounds Neurologic Neurologic: Denies abnormal speech, focal weakness, headache(s), loss of vision, numbness, paresthesias or sensory deficit Hematologic/Lymphatic Hematologic/Lymphatic: Denies easy bleeding, easy bruising or lymphadenopathy Vital Signs Vital Signs Vital Signs: 08/03/25 07:17 08/03/25 07:17 08/03/25 07:46 Temperature 98.2 F 98.2 F Temperature Source Temporal Pulse Rate 84 84 Respiratory Rate 17 17 Respiratory Pattern Normal Blood Pressure 122/67 H 122/67 H Blood Pressure Mean 85 Blood Pressure Source Monitor Blood Pressure Position Semi-Fowlers Blood Pressure Location Right Arm Pulse Ox 100 100 Oxygen Delivery Method Room Air Room Air Weight Weight: 179 lb 14.355 oz Body Mass Index (BMI) 30.9 Physical Exam Const alert, oriented x3, no apparent distress and healthy appearing General Appearance: cooperative; Negative for combative or lethargic Orientation / Consciousness: awake Exam Limitations: no limitations HEENT Head and Scalp: normocephalic and atraumatic Eyes EOMs intact bilaterally General Eye: normal appearance of both eyes Neck full ROM General: trachea midline Resp normal respiratory effort and no use of accessory muscles Effort and Inspection: Negative for labored, stridor or audible wheezes Cardio regular rate and regular rhythm Peripheral Pulses: brachial pulses present and radial pulses present Back/Spine Cervical Spine: cervical ROM normal Extremity full ROM, normal capillary refill and no clubbing, cyanosis or edema Skin no rashes or lesions noted and no wounds Neuro oriented x3, CN's II-XII intact bilaterally, no focal motor deficits and no sensory deficits noted Psych thought process normal, cooperative, affect normal, speech normal and activity/motor behavior normal Results Lab / Micro Data 07/27/25 14:54 07/27/25 14:54 Labs: Laboratory Results - last 24 hr 08/03/25 07:15: POC Glucose 125 H Assessment & Plan Assessment/Plan (1) ESRD (end stage renal disease) on dialysis: PLAN: -left arm fistula creation
--- NOTE | 2025-08-03 10:47 | SUR.PREOP ---
Patient decides to reschedule surgery due to surgeon having an emergency that would delay surgery and patient is diabetic
--- NOTE | 2025-08-03 10:51 | NURSING ---
Dr Aguillon had emergency to attend to, This patient opted to not wait. Patient informed that Dr Aguillons office will call him to reschedule surgery.
--- NOTE | 2025-08-25 10:53 | PAT.ANE_ITS ---
Pre-Assessment Diagnosis/Proposed Procedure Planned Operative Procedure(s): LEFT ARM AV FISTULA CREATION Anesthesia History Anesthesia History - tongue and quarter stitcher: Anesthesia History - tongue and quarter stitcher Hx Hospitalization Yes: KIDNEY ISSUES MULTIPLE 07/08/25 12:15 TIMES Any Problems With Anesthesia No 07/08/25 12:15 Cholinesterase deficiency No 07/08/25 12:15 You/Your Family Experience No 07/08/25 12:15 fever (hyperthermia) with Relationship Recent Exposure to Contagious No 08/03/25 07:17 Disease Does patient have nerve No 07/08/25 12:15 stimulator Patient instructed to have device shut off --Does patient have Pacemaker No 08/03/25 07:17 or ICD? When Was Last Pacemaker Check QUESTION #4 FULL TEXT: You/Your Family Experience fever (hyperthermia) with Anesthesia Last Oral Intake Last Oral intake: Last Oral Intake NPO since 00:00 08/03/25 07:17 Meds taken in AM with sips of Yes 08/03/25 07:17 water? Meds patient instructed to sertraline 08/03/25 07:17 take am of surgery PONV PONV - tongue and quarter stitcher: PONV - tongue and quarter stitcher Female No 07/08/25 12:15 HX of Motion Sickness No 07/08/25 12:15 HX of N/V After Surgery No 07/08/25 12:15 Non-Smoker Yes 07/08/25 12:15 Duration of Surgery greater Yes 07/08/25 12:15 than 60 minutes Number of Risk Factors 2 07/08/25 12:15 PONV Score Moderate Risk 07/08/25 12:15 Height & Weight Height & Weight: Anesthesia: Height & Weight Height 5 ft 4 in 08/03/25 07:17 Weight: 81.6 kg 08/03/25 07:17 Body Mass Index (BMI) 30.9 08/03/25 07:17 Respiratory Assessment Respiratory Assessment - tongue and quarter stitcher: Respiratory Tract Infection Hx - tongue and quarter stitcher Hx Respiratory Tract Infection No 07/08/25 12:15 STOP Sleep Apnea STOP Sleep Apnea - tongue and quarter stitcher: STOP Sleep Apnea - tongue and quarter stitcher Hx Hypertension Yes: CONTROLLED WITH MED 07/08/25 12:15 Hx Sleep Apnea No 07/08/25 12:15 CPAP BIPAP Do you snore loudly (louder No 07/08/25 12:15 than talking or can be heard Do you often feel tired/ Yes 07/08/25 12:15 fatigued/ sleepy during daytime? Has anyone observed you stop No 07/08/25 12:15 breathing during sleep? STOP Results Positive 07/08/25 12:15 QUESTION #5 FULL TEXT : Do you snore loudly (louder than talking or can be heard through closed doors)? Tobacco Use History Tobacco Use History - tongue and quarter stitcher: Tobacco Use History - tongue and quarter stitcher Tobacco Use Smoking Status Never smoker 07/08/25 12:15 Hx Tobacco Use No 07/08/25 12:15 Years Smoking Packs Smoked per Day Smoking Cessation Date was within the last 15 years Hx Smoking Cessation Date Hx Smoking Cessation Counseling Hematologic Medial History Hematologic Hx - tongue and quarter stitcher: Hematologic Medical Hx - manager intensive care unit Hx of Blood Transfusion No 07/08/25 12:15 Hx of Transfusion in last 3 No 07/08/25 12:15 Months Date of Last Transfusion (if within last 3 months) Ever experience any problems No 07/08/25 12:15 with transfusion(s)? Specify any problems Hx of Preganancy in last 3 N/A 07/08/25 12:15 Months Nurse Filling Out Transfusion DSCHRIBER 07/08/25 12:15 & Questions: Date: 07/08/25 07/08/25 12:15 Time: 12:17 07/08/25 12:15 Patient unable to answer at this time (ie. confused, unrespo /Reproduction History /Reproductive History - tongue and quarter stitcher: /Reproductive Hx- tongue and quarter stitcher Hx Now No 07/08/25 12:15 Gestational Age (in weeks): EDC: Hx Hx Para Hx Section SAB No 07/08/25 12:15 Active Medications Active Medications: Current Medications Generic Name Dose Route Start Last Admin Trade Name Freq PRN Reason Stop Dose Admin Cefazolin Sodium 2 gm/ Sodium 110 mls @ 200 mls/hr 08/26/25 11:30 Chloride IV 08/26/25 12:02 INTRAOP ONE PFSH Medical History History of cataract History of transcatheter aortic valve replacement (TAVR) Depression Redness of skin Anemia Dietary restriction History of CHF (congestive heart failure) Wears hearing aid Wears dentures Wears glasses Insulin dependent diabetes mellitus History of renal disease History of renal dialysis Injury of back Blackout Former smoker Shortness of breath on exertion History of echocardiogram History of stress test Hypertension Cardiology follow-up encounter Prostate cancer A-fib End stage renal disease Home Medications ?Medication ?Instructions ?Recorded ?Last Taken ?Type apixaban 2.5 mg tablet (Eliquis) 2.5 mg PO BID 4 07/31/25 History insulin glargine 100 unit/mL (3 18 unit subcut BID 08/01/25 History mL) subcutaneous pen (Basaglar KwikPen U-100 Insulin) insulin lispro 100 unit/mL 8 unit subcut TID 01/21/24 08/01/25 History subcutaneous pen (Humalog KwikPen (U-100) Insulin) metoprolol tartrate 25 mg tablet 25 mg PO BID 01/21/24 08/02/25 History sertraline 25 mg tablet 25 mg PO DAILY 07/08/2507/07 History isosorbide mononitrate 30 mg 30 mg PO QHS 08/03/25 Unk nown History tablet,extended release 24 hr trazodone 50 mg tablet 25 mg PO QHS 08/03/25 History Allergy/AdvReac Type Severity Reaction Status Date / Time acetaminophen (From Allergy Intermediate Rash Verified 08/03/25 07:03 Tylenol-Codeine #3) codeine (From Allergy Intermediate Rash Verified 08/03/25 07:03 Tylenol-Codeine #3) Family History Mother Diabetes Kidney disease Brother Diabetes Sister Diabetes Surgical History History of open reduction and internal fixation (ORIF) procedure Hx of transurethral resection of prostate History of arteriovenous graft History of cardiac catheterization Hx of surgical procedure Hx of surgical procedure Hx of tonsillectomy History of open heart surgery Social History Smoking Status: Never smoker alcohol intake: never substance use type: does not use Audit: Pertinent Findings HISTORY of Pertinent Findings History of Pertinent Findings: Echo Pertinent Findings Echo (EF%) pertinent findings April 15, 2025. EF of to 07/09/25 00:47 30%. Aortic valve has a bioprosthetic valve. RVSP is 60 mmHg. No aortic stenosis. Heart Catheterization Pertinent Findings Heart catheterization 04/14/2025. LAD with 70% mid 07/09/25 08:49 pertinent findings stenosis. First diagonal with a proximal 70% stenosis . First obtuse marginal has a chronic total occlusion. Second obtuse marginal there is a 80% stenosis. RCA distally chronic total occlusion. CHANG to the first obtuse marginal has normal antegrade flow. Plans for aggressive medical therapy. Add Plavix, statin therapy, beta- blockers, PHONG inhibitors. Consult Pertinent Findings Consult pertinent findings November 17, 2024. 07/09/25 00:55 [place]. 1. Shortness of breath-patient had a stress test which revealed ischemia in the LAD territory. Patient is recommended to undergo diagnostic angiogram . (See above) 2. Status post AVR with Biocor valve. August 2010 3. Ascending aortic root replacement with 26 mm Gelweave graft. August 2010 4. CHANG to the high lateral circumflex. August 2010 Additional Pertinent Findings Additional pertinent findings H&H 10.230.5. 07/28/25 14:59 Pertinent Findings Additional pertinent findings: Hemoglobin 10.2 g/dL. Potassium 4.8. Creatinine 7.62. Patient on dialysis. Recommendation Anesthesia Recommendation Anesthesia recommendation: OPTIMIZED for anesthesia
[2025-08-26] VITALS (8 sets, daily range): BP systolic 93–128; BP diastolic 42–80; PULSE 84–108; RESP 16–20; TEMP 36.4–37.2; O2SAT 89–100; BMI 30.9
[2025-08-26] MEDS: 0.9% Normal Saline (500mL Bag) 500 ML 15 ML IV (10:16)
--- NOTE | 2025-08-26 10:36 | PRE.ANES_ITS ---
ASA Classification* ASA Classification ASA Classification: 3 Assessment & Plan Anesthesia* Anesthesia Assessment Anesthesia Assessment: Discussed sedation and/or anesthesia options, risks, benefits, and alternatives with patient/parents/legal guardian/POA. Questions invited. The patient/parents/legal guardian/POA seems to understand and agrees to proceed with anesthesia plan. Reviewed the physical assessment, medical history, allergy history and patient home medications list prior to surgery/procedure/anesthetic and documented any changes. Performed airway and anesthesia risk assessments. Anesthesia Type Anesthesia Type: MAC and Block History Source History Obtained from:: Patient, Chart and Significant Other (Spouse in the room) Anesthesia Focused Assessment* Temperature: 98.1 F Pulse Rate: 84 Blood Pressure: 128/70 Respiratory Rate: 16 Pulse Ox: 100 Oxygen Delivery Method: Room Air Airway Assessment Mouth opens: >3 cm Mallampati Score: II Teeth Condition: Dentures (Edentulous) Neck Range of motion (ROM): Full ROM Labs Anesthesia Preop lab: CBC WBC, (4.4-11.0) 8.7 K/mm3 07/27/25, 14:54 RBC, (4.6-6.2) 3.46 M/mm3 L 07/27/25, 14:54 Hgb, (13.0-16.5) 10.2 g/dL L 07/27/25, 14:54 Hct, (40-54) 30.5 % L 07/27/25, 14:54 Plt Count, (150-450) 254 K/mm3 07/27/25, 14:54 CHEMISTRY Potassium, (3.3-5.1) 4.8 mmol/L 07/27/25, 14:54 Sodium, (133-145) 135 mmol/L 07/27/25, 14:54 BUN, (4-19) 55 mg/dL H 07/27/25, 14:54 Creatinine, (0.70-1.20) 7.62 mg/dL H* 07/27/25, 14:54 Glucose, (70-99) 174 mg/dL H 07/27/25, 14:54 POC Glucose, (74-106) 125 mg/dL H 08/03/25, 07:15 COAG Pre-Assessment Diagnosis/Proposed Procedure Planned Operative Procedure(s): LEFT ARM AV FISTULA CREATION Anesthesia History Anesthesia History - heat treat inspector: Anesthesia History - heat treat inspector Hx Hospitalization Yes: KIDNEY ISSUES MULTIPLE 07/08/25 12:15 TIMES Any Problems With Anesthesia No 07/08/25 12:15 Cholinesterase deficiency No 07/08/25 12:15 You/Your Family Experience No 07/08/25 12:15 fever (hyperthermia) with Relationship Recent Exposure to Contagious No 08/03/25 07:17 Disease Does patient have nerve No 07/08/25 12:15 stimulator Patient instructed to have device shut off --Does patient have Pacemaker No 08/26/25 09:54 or ICD? When Was Last Pacemaker Check QUESTION #4 FULL TEXT: You/Your Family Experience fever (hyperthermia) with Anesthesia Last Oral Intake Last Oral intake: Last Oral Intake NPO since 07:00 08/26/25 09:54 Meds taken in AM with sips of Yes 08/26/25 09:54 water? Meds patient instructed to see med list 08/26/25 09:54 take am of surgery PONV PONV - heat treat inspector: PONV - heat treat inspector Female No 07/08/25 12:15 HX of Motion Sickness No 07/08/25 12:15 HX of N/V After Surgery No 07/08/25 12:15 Non-Smoker Yes 07/08/25 12:15 Duration of Surgery greater Yes 07/08/25 12:15 than 60 minutes Number of Risk Factors 2 07/08/25 12:15 PONV Score Moderate Risk 07/08/25 12:15 Height & Weight Height & Weight: Anesthesia: Height & Weight Height 5 ft 4 in 08/26/25 09:54 Weight: 81.6 kg 08/26/25 09:54 Body Mass Index (BMI) 30.9 08/26/25 09:54 Respiratory Assessment Respiratory Assessment - heat treat inspector: Respiratory Tract Infection Hx - heat treat inspector Hx Respiratory Tract Infection No 07/08/25 12:15 STOP Sleep Apnea STOP Sleep Apnea - heat treat inspector: STOP Sleep Apnea - heat treat inspector Hx Hypertension Yes: CONTROLLED WITH MED 07/08/25 12:15 Hx Sleep Apnea No 07/08/25 12:15 CPAP BIPAP Do you snore loudly (louder No 07/08/25 12:15 than talking or can be heard Do you often feel tired/ Yes 07/08/25 12:15 fatigued/ sleepy during daytime? Has anyone observed you stop No 07/08/25 12:15 breathing during sleep? STOP Results Positive 07/08/25 12:15 QUESTION #5 FULL TEXT : Do you snore loudly (louder than talking or can be heard through closed doors)? Tobacco Use History Tobacco Use History - heat treat inspector: Tobacco Use History - heat treat inspector Tobacco Use Smoking Status Never smoker 07/08/25 12:15 Hx Tobacco Use No 07/08/25 12:15 Years Smoking Packs Smoked per Day Smoking Cessation Date was within the last 15 years Hx Smoking Cessation Date Hx Smoking Cessation Counseling Hematologic Medial History Hematologic Hx - heat treat inspector: Hematologic Medical Hx - engineering surveyor Hx of Blood Transfusion No 07/08/25 12:15 Hx of Transfusion in last 3 No 07/08/25 12:15 Months Date of Last Transfusion (if within last 3 months) Ever experience any problems No 07/08/25 12:15 with transfusion(s)? Specify any problems Hx of Preganancy in last 3 N/A 07/08/25 12:15 Months Nurse Filling Out Transfusion DSCHRIBER 07/08/25 12:15 & Questions: Date: 07/08/25 07/08/25 12:15 Time: 12:17 07/08/25 12:15 Patient unable to answer at this time (ie. confused, unrespo /Reproduction History /Reproductive History - heat treat inspector: /Reproductive Hx- heat treat inspector Hx Now No 07/08/25 12:15 Gestational Age (in weeks): EDC: Hx Hx Para Hx Section SAB No 07/08/25 12:15 Active Medications Active Medications: Current Medications Generic Name Dose Route Start Last Admin Trade Name Freq PRN Reason Stop Dose Admin Cefazolin Sodium 2 gm/ Sodium 110 mls @ 200 mls/hr 08/26/25 11:30 Chloride IV 08/26/25 12:02 INTRAOP ONE Sodium Chloride 500 mls @ 0 mls/hr 08/26/25 09:45 08/26/25 10:16 IV 15 mls/hr .Q0M KINGA Administration KVO PFSH Medical History History of cataract History of transcatheter aortic valve replacement (TAVR) Depression Redness of skin Anemia Dietary restriction History of CHF (congestive heart failure) Wears hearing aid Wears dentures Wears glasses Insulin dependent diabetes mellitus History of renal disease History of renal dialysis Injury of back Blackout Former smoker Shortness of breath on exertion History of echocardiogram History of stress test Hypertension Cardiology follow-up encounter Prostate cancer A-fib End stage renal disease Home Medications ?Medication ?Instructions ?Recorded ?Last Taken ?Type apixaban 2.5 mg tablet (Eliquis) 2.5 mg PO BID 4 08/25/25 07:00 History insulin glargine 100 unit/mL (3 18 unit subcut BID 08/01/25 History mL) subcutaneous pen (Basaglar KwikPen U-100 Insulin) insulin lispro 100 unit/mL 8 unit subcut TID 01/21/24 08/01/25 History subcutaneous pen (Humalog KwikPen (U-100) Insulin) metoprolol tartrate 25 mg tablet 25 mg PO BID 01/21/24 08/26/25 07:00 History sertraline 25 mg tablet 25 mg PO DAILY 07/08/2507/07 History isosorbide mononitrate 30 mg 30 mg PO QHS 08/03/25 Unk nown History tablet,extended release 24 hr trazodone 50 mg tablet 25 mg PO QHS 08/03/25 History clopidogrel 75 mg tablet 75 mg PO DAILY 08/26/2508/05 07:00 History Allergy/AdvReac Type Severity Reaction Status Date / Time acetaminophen (From Allergy Intermediate Rash Verified 08/26/25 09:48 Tylenol-Codeine #3) codeine (From Allergy Intermediate Rash Verified 08/26/25 09:48 Tylenol-Codeine #3) Family History Mother Diabetes Kidney disease Brother Diabetes Sister Diabetes Surgical History History of open reduction and internal fixation (ORIF) procedure Hx of transurethral resection of prostate History of arteriovenous graft History of cardiac catheterization Hx of surgical procedure Hx of surgical procedure Hx of tonsillectomy History of open heart surgery Social History Smoking Status: Never smoker alcohol intake: never substance use type: does not use Review of Systems (Anesthesia) ROS Narrative System reviewed and no additional complaints, except as documented.
--- NOTE | 2025-08-26 11:16 | PCM.HP.BLA ---
History and Physical HPI - General HPI Narrative AKILA BILLINGS, is a 64 M who presents with ESRD currently on dialysis. He has adequate left upper arm [place] vein for fistula creation. [facility] Medical History History of cataract History of transcatheter aortic valve replacement (TAVR) Depression Redness of skin Anemia Dietary restriction History of CHF (congestive heart failure) Wears hearing aid Wears dentures Wears glasses Insulin dependent diabetes mellitus History of renal disease History of renal dialysis Injury of back Blackout Former smoker Shortness of breath on exertion History of echocardiogram History of stress test Hypertension Cardiology follow-up encounter Prostate cancer A-fib End stage renal disease Home Medications ?Medication ?Instructions ?Recorded ?Last Taken ?Type apixaban 2.5 mg tablet (Eliquis) 2.5 mg PO BID 01/21/24 07/31/25 History insulin glargine 100 unit/mL (3 18 unit subcut BID 01/21/24 08/01/25 History mL) subcutaneous pen (Basaglar KwikPen U-100 Insulin) insulin lispro 100 unit/mL 8 unit subcut TID 01/21/24 08/01/25 History subcutaneous pen (Humalog KwikPen (U-100) Insulin) metoprolol tartrate 25 mg tablet 25 mg PO BID 01/21/24 08/02/25 History sertraline 25 mg tablet 25 mg PO DAILY 07/08/25 08/03/25 History isosorbide mononitrate 30 mg 30 mg PO QHS 08/03/25 Unknown History tablet,extended release 24 hr trazodone 50 mg tablet 25 mg PO QHS 08/03/25 08/02/25 History Allergy/AdvReac Type Severity Reaction Status Date / Time acetaminophen (From Allergy Intermediate Rash Verified 08/03/25 07:03 Tylenol-Codeine #3) codeine (From Allergy Intermediate Rash Verified 08/03/25 07:03 Tylenol-Codeine #3) Family History Mother Diabetes Kidney disease Brother Diabetes Sister Diabetes Surgical History History of open reduction and internal fixation (ORIF) procedure Hx of transurethral resection of prostate History of arteriovenous graft History of cardiac catheterization Hx of surgical procedure Hx of surgical procedure Hx of tonsillectomy History of open heart surgery Social History Smoking Status: Never smoker alcohol intake: never substance use type: does not use ROS Constitutional Constitutional: Denies chills, fever(s), frequent falls, lethargy or weakness Eyes Eyes: Denies blind spots, change in vision or loss of vision ENT HEENT: Denies bleeding gums, hoarseness or sore throat Cardiovascular Cardiovascular: Denies abdominal pain, bluish discoloration of hand/feet, chest pain with activity, claudication, cold extremities, cyanosis, dyspnea on exertion, erythema on extremities, irregular heart rhythm, leg edema, leg ulcers, numbness in extremities or weakness in extremities Respiratory/Chest Respiratory/Chest: Denies cough, excessive phlegm production, shortness of breath at rest, shortness of breath with exertion or wheezing Gastrointestinal Gastrointestinal: Denies anorexia, change in stool character, constipation, diarrhea, melena or rectal bleeding Genitourinary Genitourinary: Denies dysuria or hematuria Musculoskeletal Musculoskeletal: Denies abnormal gait Integumentary Integumentary: Reports other Details: ; Denies erythema, non-healing lesions or wounds Neurologic Neurologic: Denies abnormal speech, focal weakness, headache(s), loss of vision, numbness, paresthesias or sensory deficit Hematologic/Lymphatic Hematologic/Lymphatic: Denies easy bleeding, easy bruising or lymphadenopathy Vital Signs Vital Signs Vital Signs: 08/03/2507:17 08/03/2507:17 08/03/2507:46 Temperature 98.2 F 98.2 F Temperature Source Temporal Pulse Rate 84 84 Respiratory Rate 17 17 Respiratory Pattern Normal Blood Pressure 122/67 H 122/67 H Blood Pressure Mean 85 Blood Pressure Source Monitor Blood Pressure Position Semi-Fowlers Blood Pressure Location Right Arm Pulse Ox 100 100 Oxygen Delivery Method Room Air Room Air Weight Weight: 179 lb 14.355 oz Body Mass Index (BMI) 30.9 Physical Exam Const alert, oriented x3, no apparent distress and healthy appearing General Appearance: cooperative; Negative for combative or lethargic Orientation / Consciousness: awake Exam Limitations: no limitations HEENT Head and Scalp: normocephalic and atraumatic Eyes EOMs intact bilaterally General Eye: normal appearance of both eyes Neck full ROM General: trachea midline Resp normal respiratory effort and no use of accessory muscles Effort and Inspection: Negative for labored, stridor or audible wheezes Cardio regular rate and regular rhythm Peripheral Pulses: brachial pulses present and radial pulses present Back/Spine Cervical Spine: cervical ROM normal Extremity full ROM, normal capillary refill and no clubbing, cyanosis or edema Skin no rashes or lesions noted and no wounds Neuro oriented x3, CN's II-XII intact bilaterally, no focal motor deficits and no sensory deficits noted Psych thought process normal, cooperative, affect normal, speech normal and activity/motor behavior normal Results Lab / Micro Data 07/27/25 14:54 07/27/25 14:54 Labs: Laboratory Results - last 24 hr 08/03/25 07:15: POC Glucose 125 H Assessment & Plan Assessment/Plan (1) ESRD (end stage renal disease) on dialysis: PLAN: -left arm fistula creation
[2025-08-26] MEDS: 0.9% Normal Saline (1000mL) 400 ML IV (11:25)
[2025-08-26] MEDS: Cefazolin 1 GM/5 ML Vial 2 GM IV (11:30)
[2025-08-26] MEDS: Midazolam 2 MG/2 ML Syringe IV (11:39)
[2025-08-26] MEDS: Heparin Injection 5,000 UNITS/ML Syringe 8000 UNITS IV (12:17)
--- NOTE | 2025-08-26 12:59 | DCINST_ITS ---
Discharge Instructions Diet Discharge Diet: No restrictions Activity Lifting Restrictions: do not lift > 20 lbs with left arm for 10 days Additional Activity Instructions:: do not submerge incision for 10 days Dressing / Incision Call your doctor if your incision/area has: Sudden Increased Bleeding, Increased Pain/ Swelling, Increased Redness and Foul Smelling Discharge Call your doctor if you observe: Coldness, Increased Pain and Numbness or Tingling Remove Dressing in: 2 days Cleanse incision/area with: Soap & Water Follow Up Care Test Results: Test results from this visit will be discussed in further detail at your follow- up appointment, if applicable. Discharge Plan Admission Attending Provider: Tobi Aguillon Primary Care Provider: Marii Granger NP Instructions Print Language: Irish Discharge Orders/Prescriptions Prescriptions: Continued insulin glargine [Basaglar KwikPen U-100 Insulin] 100 unit/mL (3 mL) insulin pen 18 unit subcut BID insulin lispro [Humalog KwikPen Insulin] 100 unit/mL insulin pen 8 unit subcut TID metoprolol tartrate 25 mg tablet 25 mg PO BID sertraline 25 mg tablet 25 mg PO DAILY isosorbide mononitrate 30 mg tablet extended release 24 hr 30 mg PO QHS trazodone 50 mg tablet 25 mg PO QHS clopidogrel 75 mg tablet 75 mg PO DAILY Held Eliquis 2.5 mg tablet 2.5 mg PO BID Hold Instructions: Resume on 08/27/25. evening dose Patient Comments: STOP 2 DAYS PRIOR TO PROCEDURE Referrals / Follow Up: Marii Granger NP, PUBLIC HEALTH PROGRAM MANAGER-C [Primary Care Provider, Medical] Disposition Disposition (needs filled in before D/C Order can be placed): Home, Self Care
--- NOTE | 2025-08-26 13:25 | PCM.POST.ANE ---
Anesthesia: Postop Eval I Current Vital Signs Temperature: 97.7 F Pulse Rate: 90 Blood Pressure: 96/55 Respiratory Rate: 16 Pulse Ox: 92 Oxygen Delivery Method: Room Air Assessment Airway patent: Yes Spontaneous unlabored respirations: Yes Mental status: Awake and Calm nausea: No Vomiting: No Anesthesia Complication: No Fluid Hydration Crystalloid volume administer (ml): 400 Total IV fluid infused: 400 Progress Note Anesthesia document: Postop Eval 1 completed: Yes
--- NOTE | 2025-08-26 14:32 | POSTOPAN2_ITS ---
Anesthesia Postop Eval I Sum Postop Eval Completion status Anesthesia document: Postop Eval 1 completed: Yes Anesthesia Postop Eval I Summary Anesthesia Postop Eval I Summary: Anesthesia Postop Eval I: Assessment Summary Airway patent Yes 08/26/25 13:25 ORACLE REPORTS [email or web address].[email or web address] Spontaneous unlabored Yes 08/26/25 13:25 ORACLE REPORTS DEVELOPER.[email or web address] respirations Mental status Awake,Calm 08/26/25 13:25 ORACLE REPORTS DEVELOPER.GDOTT nausea No 08/26/25 13:25 ORACLE REPORTS DEVELOPER.GDOTT Vomiting No 08/26/25 13:25 ORACLE REPORTS DEVELOPER.GDOTT Anesthesia Postop Eval I: Fluid Summary Crystalloid volume administer 400 08/26/25 13:25 ORACLE REPORTS DEVELOPER.GDOTT (ml) Colloids volume administered ( ml) Blood Product volume administered (ml) Total IV fluid infused 400 08/26/25 13:25 ORACLE REPORTS DEVELOPER.GDOTT Anesthesia Postop Eval I: Summary Notes Anesthesia Complication No 08/26/25 13:25 ORACLE REPORTS DEVELOPER.GDOTT Anesthesia Complication Comment: Post-operative progress note Anesthesia: Postop Eval II Evaluation Mental status: Awake and Calm Pain Level: 1 nausea: No Vomiting: No Complications Anesthesia Complication: No
--- NOTE | 2025-08-26 14:32 | PCM.POSTANE2 ---
Anesthesia Postop Eval I Sum Postop Eval Completion status Anesthesia document: Postop Eval 1 completed: Yes Anesthesia Postop Eval I Summary Anesthesia Postop Eval I Summary: Anesthesia Postop Eval I: Assessment Summary Airway patent Yes 08/26/25 13:25 ACCESS SERVICES [email or web address].[email or web address] Spontaneous unlabored Yes 08/26/25 13:25 ACCESS SERVICES LIBRARIAN.GDOTT respirations Mental status Awake,Calm 08/26/25 13:25 ACCESS SERVICES [email or web address].GDOTT nausea No 08/26/25 13:25 ACCESS SERVICES LIBRARIAN.GDOTT Vomiting No 08/26/25 13:25 ACCESS SERVICES LIBRARIAN.GDOTT Anesthesia Postop Eval I: Fluid Summary Crystalloid volume administer 400 08/26/25 13:25 ACCESS SERVICES LIBRARIAN.GDOTT (ml) Colloids volume administered ( ml) Blood Product volume administered (ml) Total IV fluid infused 400 08/26/25 13:25 ACCESS SERVICES LIBRARIAN.GDOTT Anesthesia Postop Eval I: Summary Notes Anesthesia Complication No 08/26/25 13:25 ACCESS SERVICES LIBRARIAN.GDOTT Anesthesia Complication Comment: Post-operative progress note Anesthesia: Postop Eval II Evaluation Mental status: Awake and Calm Pain Level: 1 nausea: No Vomiting: No Complications Anesthesia Complication: No
--- NOTE | 2025-08-26 15:19 | OP.PCM_ITS ---
Operative Report (Standard) Operative Information Date of Procedure: 08/26/25 Pre-Operative Diagnosis: End-stage renal disease on dialysis Post-Operative Diagnosis: Same Surgery/Procedure Performed: Left brachiocephalic fistula railway switch operator: Yes Library Science Instructor: Samantha Paredes Tasks completed by engineer first assistant: Opening, Closing, Opening & closing, Hemostasis: Tie, Hemostasis: Electrocautery and Retracting Type of Anesthesia: Block,Regional and MAC RN Documented Start/Stop Times: Operation Date: 08/26/25 11:30 Case Time Into Pre-Op 08/26/25 09:34 Anesthesia Start 08/26/25 11:26 Into Room 08/26/25 11:26 Procedure Start 08/26/25 12:02 Procedure End 08/26/25 13:08 Anesthesia End 08/26/25 13:14 Out of Room 08/26/25 13:14 Into Recovery 08/26/25 13:17 Out of Recovery 08/26/25 13:48 Into Phase II Recovery 08/26/25 13:49 Procedure Start Time: 12:00 Procedure Stop Time: 13:10 Select all DRAINS/GRAFTS/IMPLANTS that apply: None Estimated Blood Loss: 7 Specimen collected: No Description of surgery: HPI: Patient is a 64-year-old male with end-stage renal disease currently on dialysis. He has had multiple failed dialysis access efforts and has a suitable upper arm cephalic vein for [place] fistula creation. Description of procedure: Upon obtaining informed consent and verification correct patient procedure and site the patient was taken to the operating room where he had a regional block administered by anesthesia. He was then positioned prepped and draped in usual sterile fashion and timeout was performed. Additional moderate sedation was also administered by anesthesia. Ultrasound was used to evaluate the cephalic vein in the upper arm and was found to be continuous with no significant scar or tortuosity. It was found to be in close proximity to the brachial artery distal to the antecubital crease. Transverse incision was made over the site distal to the antecubital crease and Bovie used to dissect down through the subcutaneous tissue. Once the cephalic vein was visualized sharp dissection was used dissected free proximal and distal and a right angle used to place a vessel loop. Self-retaining retractors then put in position further dissection carried down to level the fascia which was then incised in cruciate configuration exposing the brachial artery. Sharp dissection was used to dissect this free proximal and distal with care taken to identify and protect the adjacent nerve and veins. A right angle was used to place a vessel loop proximally in the brachial artery distally at the origins of the radial and ulnar artery. The patient was then heparinized allowed to circulate for 3 minutes. Sidebranches were then ligated with silk ties and divided, the vein marked to maintain orientation and ligated distally and divided. It was then dilated up to 3.5 mm and flushed with heparinized saline. The brachial artery was then occluded with Vesseloops and longitudinal arteriotomy created with an 11 blade extended with Joyce scissors. Anastomosis was then performed end to side with 6-0 Prolene in a running fashion. Prior to completing a suture line the vessels were backbled and after completing a suture line clamps were removed and satisfactory stasis was observed. There is a palpable thrill in the fistula into the mid upper arm and palpable radial pulse at the wrist. Heparin was then reversed with protamine and incision inspected for hemostasis. It was then closed with 3-0 Vicryl, 4-0 Monocryl and Dermabond for the skin. Dry sterile dressing was applied and the patient was then awake from anesthesia taken to the recovery room with anticipated discharge to home. Surgical Findings: Palpable thrill in left cephalic vein fistula, palpable radial pulse at the wrist Complications Complications: No
== END 2025-08-26 15:41 | disposition home or self-care (01) ==
LOC: SDC 09:24 → AC 09:25
PROVIDERS: PCP Nurse Practitioner Family; Referring Provider Surgery Trauma Surgery; Visit Provider Surgery Trauma Surgery
PROC: (CPT 36821; principal; 2025-08-26 11:15)
DX: I13.2 Hypertensive heart and chronic kidney disease with heart failure and with stage 5 chronic kidney disease, or end stage renal disease (principal); N18.6 End stage renal disease; I50.9 Heart failure, unspecified; E11.22 Type 2 diabetes mellitus with diabetic chronic kidney disease; Z79.4 Long term (current) use of insulin; Z99.2 Dependence on renal dialysis; Z79.01 Long term (current) use of anticoagulants; Z79.02 Long term (current) use of antithrombotics/antiplatelets; Z79.891 Long term (current) use of opiate analgesic; Z83.3 Family history of diabetes mellitus
CPT/HCPCS: 36821; 64415; 36415; 80048; 82962; 85027; A4648; J2405